=== PATIENT | female | born 1940 | race Caucasian/White ===

== ENCOUNTER 2023-12-20 21:07 | Emergency (ER) | payer OTHER ==
--- NOTE | 2023-12-20 22:14 | RAD REPORT ---
EXAMINATION: Shoulder Left 2+ Views CLINICAL INDICATION: Female, 83 years old. PAIN COMPARISON: No prior exam. FINDINGS: Left proximal humerus fracture involving the surgical neck. This is only slightly laterally displaced . No dislocation. IMPRESSION: Left proximal humerus surgical neck fracture.
--- NOTE | 2023-12-20 22:14 | RAD REPORT ---
EXAMINATION: ONE VIEW CHEST XR CLINICAL INDICATION: Female, 83 years old.PAIN TECHNIQUE: 1 View, AP supine, X-ray of the chest was performed. [id number]. COMPARISON: No prior exam. FINDINGS: Lungs and pleura: Clear lungs. No effusion. Heart and mediastinum: Normal heart size. Unremarkable mediastinal contours. Osseous structures: No acute abnormality. Tubes/lines: Nerve stimulator overlying the left hemithorax. Other: None. IMPRESSION: No acute intrathoracic abnormality.
[2023-12-20] MEDS ORDERED: ONDANSETRON 4 MG/2 ML VIAL ONE (22:34)
[2023-12-20] MEDS ORDERED: KETOROLAC 30 MG/ML INJ ONE (22:34)
[2023-12-20] MEDS ORDERED: NA CHLORIDE 0.9% 500 ML ONE (22:35)
[2023-12-20] MEDS ORDERED: FENTANYL CITR 100 MCG/2 ML ONE (22:35)
--- NOTE | 2023-12-20 22:45 | ER ---
Nurse's Notes [facility] Name: Georgia Curry Age: 83 yrs Sex: Female : 1940 Arrival Date: 12/20/2023 Time: 21:07 Bed 16 Private MD: Diagnosis: Fall on same level, unspecified;2-part displaced fracture of surgical neck of left humerus Presentation: 12/19 21:12 Chief complaint: Patient states: S/P FALL..PT TRYING TO KILL A SNAKE BUT SHE THOUGHT IT br2 WAS COMING AT HER CAUSING HER TO FALL TOWARDS A CHAIR THEN ON LEFT SHOULDER. DENIES HITTING HEAD, LOC AND DOESN'T TAKE BLOOD THINNERS. Coronavirus screen: Client denies travel out of the [place] in the last 14 days. Ebola Screen: Patient negative for fever greater than or equal to 101.5 degrees Fahrenheit, and additional compatible Ebola Virus Disease symptoms Patient denies exposure to infectious person. Patient denies travel to an Ebola-affected area in the 21 days before illness onset. Initial Sepsis Screen: Does the patient meet any 2 criteria? No. Patient's initial sepsis screen is negative. Does the patient have a suspected source of infection? No. Patient's initial sepsis screen is negative. Risk Assessment: Do you want to hurt yourself or someone else? Patient reports no desire to harm self or others. Onset of symptoms was December 20, 2023 at 20:00. 21:12 Method Of Arrival: EMS: [facility] br2 21:12 Acuity: MATTHEW 3 br2 Historical: - Allergies: 21:14 Morphine; br2 - Immunization history:: Adult Immunizations up to date. - Infectious Disease History:: Denies. - Social history:: Smoking status: Patient denies any tobacco usage or history of. Patient/guardian denies using alcohol, street drugs. Screenin:28 [facility] ED Fall Risk Assessment (Adult) History of falling in the last 3 months, tm6 including since admission Yes- single mechanical fall (1 pt) Confusion or Disorientation No (0 pts) Intoxicated or Sedated No (0 pts) Impaired Gait No (0 pts) Mobility Assist Device Used No (0 pt) Altered Elimination No (0 pt) Score/Fall Risk Level 0 - 2 = Low Risk Oriented to surroundings, Maintained a safe environment, Educated pt \T\ family on fall prevention, incl call for assistance when getting out of bed. Abuse screen: Denies threats or abuse. Denies injuries from another. Nutritional screening: No deficits noted. Tuberculosis screening: No symptoms or risk factors identified. Assessment: 21:28 General: Appears uncomfortable, Behavior is calm, cooperative. Pain: Complains of pain tm6 in left arm Pain currently is 10 out of 10 on a pain scale. Neuro: Level of Consciousness is awake, alert, obeys commands, Oriented to person, place, time, situation. Cardiovascular: Patient's skin is warm and dry. Respiratory: Airway is patent Respiratory effort is even, unlabored, Respiratory pattern is regular, symmetrical. GI: No signs and/or symptoms were reported involving the gastrointestinal system. Abdomen is flat, non-distended. : No signs and/or symptoms were reported regarding the genitourinary system. EENT: No signs and/or symptoms were reported regarding the EENT system. Derm: No signs and/or symptoms reported regarding the dermatologic system. Musculoskeletal: Reports pain in left arm Pain is 10 out of 10 on a pain scale. 22:30 Reassessment: Patient and/or family updated on plan of care and expected duration. Pain br2 level reassessed. Patient is alert, oriented x 3, equal unlabored respirations, skin warm/dry/pink. General: Appears uncomfortable, Behavior is calm, cooperative. Pain: Complains of pain in left arm Pain currently is 10 out of 10 on a pain scale. Neuro: Reyes Agitation-Sedation Scale (RASS): 0 - Alert and Calm Level of Consciousness is awake, alert, obeys commands, Oriented to person, place, time, situation. Musculoskeletal: Reports pain in left arm. 23:30 Reassessment: Patient and/or family updated on plan of care and expected duration. Pain br2 level reassessed. Patient is alert, oriented x 3, equal unlabored respirations, skin warm/dry/pink. Patient states feeling better. Vital Signs: 21:12 BP 151 / 84; Pulse 83; Resp 18; Temp 98.2(TE); Pulse Ox 95% on R/A; Weight 70.76 kg; br2 Height 5 ft. 76 in. ; Pain 6/10; 22:30 BP 170 / 82; Pulse 81; Resp 18 S; Pulse Ox 94% on R/A; br2 23:30 BP 170 / 91; Pulse 82; Resp 18; Temp 97.2; Pulse Ox 93% ; br2 21:12 Body Mass Index 5.93 (70.76 kg, 345.44 cm) br2 21:12 Pain Scale: Adult br2 ED Course: 21:09 Patient arrived in ED. rv1 21:10 Migue Ann, ASHLEY is Primary Nurse. tm6 21:10 Sukhwinder Fox MD is Attending Physician. cassy 21:14 Triage completed. br2 21:28 Arm band placed on right wrist. tm6 21:28 Patient has correct armband on for positive identification. Bed in low position. Call tm6 light in reach. Side rails up X2. Provided Education on: use of call mills. Client placed on continuous cardiac and pulse oximetry monitoring. NIBP monitoring applied. Pulse ox on. NIBP on. Door closed. Noise minimized. Warm blanket given. Pillow given. 22:09 Chest Single View XRAY In Process Unspecified. EDMS 22:09 Shoulder Left (2 View) XRAY In Process Unspecified. EDMS 22:21 Inserted saline lock: 20 gauge in right antecubital area, using aseptic technique. af3 Blood collected. Flushed with 10 mL NS. 22:43 Gautam Guevara MD is Referral Physician. [facility] 23:45 No provider procedures requiring assistance completed. IV discontinued, intact, br2 bleeding controlled, No redness/swelling at site. Pressure dressing applied. Administered Medications: 22:44 Drug: Ketorolac IVP 15 mg IVP once Route: IVP; Site: right antecubital; br2 23:15 Follow up: Response: No adverse reaction br2 22:44 Drug: Ondansetron IVP 4 mg IVP once; over 2 minutes Route: IVP; Site: right antecubital;br2 23:15 Follow up: Response: No adverse reaction br2 22:44 Drug: fentaNYL (PF) IVP 25 mcg IVP once Route: IVP; Site: right antecubital; br2 23:15 Follow up: Response: No adverse reaction; Pain is unchanged, physician notified br2 22:45 Drug: NS 0.9% IV 500 ml 500 ml IV at 1 bolus once; to be given as a bolus over 30 br2 minutes Volume: 500 ml; Route: IV; Rate: 1 bolus; Site: right antecubital; 23:15 Follow up: Response: No adverse reaction; IV Status: Completed infusion; IV Intake: br2 500ml 23:37 Drug: fentaNYL (PF) IVP 25 mcg IVP once Route: IVP; Site: right antecubital; br2 12/20 00:05 Follow up: Response: No adverse reaction; Pain is decreased br2 Medication: 12/19 21:28 VIS not applicable for this client. tm6 Intake: 23:15 IV: 500ml; Total: 500ml. br2 Outcome: 22:44 Discharge ordered by MD. madera 23:47 Patient left the ED. br2 12/20 04:41 Discharged to home via wheelchair, br2 Condition: improved Discharge instructions given to patient, family, Instructed on discharge instructions, follow up and referral plans. Demonstrated understanding of instructions, follow-up care, medications, Prescriptions given X 2, Signatures: Dispatcher [employer] EDMS Sukhwinder Fox MD MD cha Villegas, Rebecca rv1 Migue Ann RN RN tm6 Kaci Gaspar RN RN br2 Claudia Molina3
--- NOTE | 2023-12-20 22:45 | EDPHYS ---
Physician Documentation [facility] Name: Georgia Curry Age: 83 yrs Sex: Female : 1940 Arrival Date: 12/20/2023 Time: 21:07 Bed 16 Private MD: ED Physician Sukhwinder Fox HPI: 12/19 22:40 This 83 yrs old Female presents to ER via EMS with complaints of Fall Injury. cassy 22:40 Details of fall: The patient fell from an upright position, while walking. Onset: The cassy symptoms/episode began/occurred just prior to arrival. Associated injuries: The patient sustained anterior aspect of left shoulder, left axilla, left bicep, posterior aspect of left shoulder and left tricep, contusion, decreased range of motion, obvious fracture, painful injury, swelling. Severity of symptoms: At their worst the symptoms were moderate, in the emergency department the symptoms are unchanged. The patient has not experienced similar symptoms in the past. Historical: - Allergies: 21:14 Morphine; br2 - Immunization history:: Adult Immunizations up to date. - Infectious Disease History:: Denies. - Social history:: Smoking status: Patient denies any tobacco usage or history of. Patient/guardian denies using alcohol, street drugs. ROS: 22:40 Constitutional: Negative for fever, chills, and weight loss, Eyes: Negative for injury, cassy pain, redness, and discharge, ENT: Negative for injury, pain, and discharge, Neck: Negative for injury, pain, and swelling, Cardiovascular: Negative for chest pain, palpitations, and edema, Respiratory: Negative for shortness of breath, cough, wheezing, and pleuritic chest pain, Abdomen/GI: Negative for abdominal pain, nausea, vomiting, diarrhea, and constipation, Back: Negative for injury and pain, : Negative for injury, bleeding, discharge, and swelling, Skin: Negative for injury, rash, and discoloration, Neuro: Negative for headache, weakness, numbness, tingling, and seizure, Psych: Negative for depression, anxiety, suicide ideation, homicidal ideation, and hallucinations, Allergy/Immunology: Negative for hives, rash, and allergies, Endocrine: Negative for neck swelling, polydipsia, polyuria, polyphagia, and marked weight changes, Hematologic/Lymphatic: Negative for swollen nodes, abnormal bleeding, and unusual bruising, 22:40 MS/extremity: Positive for injury or acute deformity, contusion, decreased range of motion, pain, swelling, tenderness, of the anterior aspect of left shoulder, left bicep, posterior aspect of left shoulder and left tricep, Exam: 22:40 Constitutional: This is a well developed, well nourished patient who is awake, alert, cassy and in no acute distress. Head/Face: Normocephalic, atraumatic. Eyes: Pupils equal round and reactive to light, extra-ocular motions intact. Lids and lashes normal. Conjunctiva and sclera are non-icteric and not injected. Cornea within normal limits. Periorbital areas with no swelling, redness, or edema. ENT: Nares patent. No nasal discharge, no septal abnormalities noted. Tympanic membranes are normal and external auditory canals are clear. Oropharynx with no redness, swelling, or masses, exudates, or evidence of obstruction, uvula midline. Mucous membranes moist. Neck: Trachea midline, no thyromegaly or masses palpated, and no cervical lymphadenopathy. Supple, full range of motion without nuchal rigidity, or vertebral point tenderness. No Meningismus. Chest/axilla: Normal chest wall appearance and motion. Nontender with no deformity. No lesions are appreciated. Cardiovascular: Regular rate and rhythm with a normal S1 and S2. No gallops, murmurs, or rubs. Normal PMI, no JVD. No pulse deficits. Respiratory: Lungs have equal breath sounds bilaterally, clear to auscultation and percussion. No rales, rhonchi or wheezes noted. No increased work of breathing, no retractions or nasal flaring. Abdomen/GI: Soft, non-tender, with normal bowel sounds. No distension or tympany. No guarding or rebound. No evidence of tenderness throughout. Back: No spinal tenderness. No costovertebral tenderness. Full range of motion. Female : Normal external genitalia. Skin: Warm, dry with normal turgor. Normal color with no rashes, no lesions, and no evidence of cellulitis. Neuro: Awake and alert, GCS 15, oriented to person, place, time, and situation. Cranial nerves II-XII grossly intact. Motor strength 5/5 in all extremities. Sensory grossly intact. Cerebellar exam normal. Normal gait. Psych: Awake, alert, with orientation to person, place and time. Behavior, mood, and affect are within normal limits. 22:40 Musculoskeletal/extremity: Extremities: grossly normal except: noted in the anterior aspect of left shoulder, left bicep, posterior aspect of left shoulder and left tricep: decreased ROM, pain, swelling, tenderness, Vital Signs: 21:12 BP 151 / 84; Pulse 83; Resp 18; Temp 98.2(TE); Pulse Ox 95% on R/A; Weight 70.76 kg; br2 Height 5 ft. 76 in. ; Pain 6/10; 22:30 BP 170 / 82; Pulse 81; Resp 18 S; Pulse Ox 94% on R/A; br2 23:30 BP 170 / 91; Pulse 82; Resp 18; Temp 97.2; Pulse Ox 93% ; br2 21:12 Body Mass Index 5.93 (70.76 kg, 345.44 cm) br2 21:12 Pain Scale: Adult br2 MDM: 21:10 Medical Screening Exam initiated cassy 22:41 Differential diagnosis: Anterior dislocation with fracture, Anterior dislocation cassy without fracture, Posterior dislocation with fracture, Posterior dislocation without fracture, humeral head fracture, glenoid fracture, DJD, tendonitis. Differential diagnosis: abrasion, contusion, fracture, multiple trauma, sprain, strain. Data reviewed: vital signs, nurses notes, radiologic studies, plain films. Consideration of Admission/Observation Escalation of care including admission/observation considered. I considered the following discharge prescriptions or medication management in the emergency department Medications were administered in the Emergency Department. See MAR. Independent interpretation of the following test(s) in the Emergency Department X-Ray: My interpretation is left shoulder , cxr. Test considered but Not performed: Labs: no labs. Historians other than the Patient: Family Member: family well informed. Care significantly affected by the following chronic conditions: tremors. 12/19 21:34 Order name: Chest Single View XRAY; Complete Time: 22:39 [facility] 12/19 20:34 Order name: Shoulder Left (2 View) XRAY; Complete Time: 22:39 [facility] 12/19 21:34 Order name: Ice pack; Complete Time: 04:15 [facility] 12/19 22:39 Order name: Shoulder Immobilizer; Complete Time: 04:15 [facility] Administered Medications: 22:44 Drug: Ketorolac IVP 15 mg IVP once Route: IVP; Site: right antecubital; br2 23:15 Follow up: Response: No adverse reaction br2 22:44 Drug: Ondansetron IVP 4 mg IVP once; over 2 minutes Route: IVP; Site: right antecubital;br2 23:15 Follow up: Response: No adverse reaction br2 22:44 Drug: fentaNYL (PF) IVP 25 mcg IVP once Route: IVP; Site: right antecubital; br2 23:15 Follow up: Response: No adverse reaction; Pain is unchanged, physician notified br2 22:45 Drug: NS 0.9% IV 500 ml 500 ml IV at 1 bolus once; to be given as a bolus over 30 br2 minutes Volume: 500 ml; Route: IV; Rate: 1 bolus; Site: right antecubital; 23:15 Follow up: Response: No adverse reaction; IV Status: Completed infusion; IV Intake: br2 500ml 23:37 Drug: fentaNYL (PF) IVP 25 mcg IVP once Route: IVP; Site: right antecubital; br2 12/20 00:05 Follow up: Response: No adverse reaction; Pain is decreased br2 Disposition Summary: 12/20/23 22:44 Discharge Ordered Notes: Location: Home cassy Problem: new cassy Symptoms: have improved cassy Condition: Stable cassy Diagnosis - Fall on same level, unspecified cassy - 2-part displaced fracture of surgical neck of left humerus cassy Followup: cassy - With: Private Physician - When: 2 - 3 days - Reason: Recheck today's complaints, Continuance of care, Re-evaluation by your physician Followup: cassy - With: Gautam Guevara MD - When: 2 - 3 days - Reason: Recheck today's complaints, Re-evaluation by your physician Discharge Instructions: - Discharge Summary Sheet cassy - Fall Prevention in the Home, Adult cassy - Humerus Fracture Treated With Immobilization cassy - Humerus Fracture Treated With Immobilization, [id number] cassy - Fall Prevention in the Home, Adult, [id number] cassy Forms: - Medication Reconciliation Form cassy - Antibiotic Education cassy - Prescription Opioid Use cassy - Patient Portal Instructions [facility] - Leadership Thank You Letter [facility] Prescriptions: - acetaminophen-codeine 300-15 mg Oral tablet - take 1 tablet ORAL route every 4-6 hours; 20 tablet; Refills: 0, Product cassy Selection Permitted - diclofenac sodium 25 mg Oral tablet, delayed release (enteric coated) - take 1 tablet ORAL route 3 times per day; 21 tablet; Refills: 0, Product cassy Selection Permitted Signatures: Dispatcher [employer] Sukhwinder Dye MD MD cha Riddle, Belinda RN RN br2
[2023-12-21 00:44] VITALS: BP 151/84; TEMP 98.2; O2SAT 95
== END 2023-12-20 23:47 | disposition home or self-care (01) ==
LOC: ER 21:07
DX: S42.222A 2-part displaced fracture of surgical neck of left humerus, initial encounter for closed fracture (principal); W18.30XA Fall on same level, unspecified, initial encounter
CPT/HCPCS: 71045; 73030; 96375; 96374; 99284; J3010; J2405; J7040

== ENCOUNTER 2024-02-19 04:26 | Inpatient (IN) | payer OTHER ==
[2024-02-19] MEDS ORDERED: IPRATROPIUM BROM 0.5MG/2.5ML ONE (04:54)
[2024-02-19] MEDS ORDERED: ACETAMINOPHEN 325 MG TABLET ONE (04:55)
[2024-02-19] MEDS ORDERED: Levofloxacin500mg IV 500 MG/100 ML BAG IV ONE (04:55)
[2024-02-19] MEDS ORDERED: FAMOTIDINE 20 MG/2 ML VIAL IV ONE (04:55)
[2024-02-19] MEDS ORDERED: METHYLPREDNISOLONE 125 MG INJ ONE ×2 (04:55→12:15)
[2024-02-19] MEDS ORDERED: NA CHLORIDE 0.9% 2,000 ML ONE (04:55)
[2024-02-19] MEDS ORDERED: LEVALBUTEROL 1.25 MG/3 ML NEB ONE (04:55)
[2024-02-19 05:09] LABS: PT Prothrombin Time 12.3 SECONDS (9.4-12.5); Protime INR 1.1
[2024-02-19 05:10] LABS: Absolute Monocytes 1.2 K/uL (0.1-1.3); Absolute Neutrophil 9.4 K/uL (1.8-8.0); Basophils % 0.2 % (0-1.3); Eosinophils % 0.3 % (0-4.4); Hematocrit 43.4 % (36.0-45.0); Hemoglobin 14.3 g/dL (12.0-15.0); Lymphocytes % 8.8 % (15.3-44.8); MCV 90.9 fL (80-100); MPV 8.8 fL (7.6-11.3); Monocytes % 10.1 % (3.3-12.3); Neutrophils % 80.6 % (41.7-73.7); Nucleated Red Blood Cells % 0.1 % (0-0); Platelets 396 thou/uL (152-406); RBC Red Blood Cell Count 4.78 M/uL (3.86-4.86); Red Cell Distribution Width 13.5 % (12.1-15.2)
[2024-02-19 05:39] LABS: Albumin 2.8 g/dL (3.4-5.0); Albumin/Globulin Ratio 0.7 (1.1-1.8); Bilirubin Direct 0.2 mg/dL (0-0.2); Bilirubin Indirect, Calculated 0.3 mg/dL (0.2-0.8); Bilirubin Total 0.5 mg/dL (0.2-1.0); Globulin 4.2 g/dL (2.3-3.5); Thyroid Stimulating Hormone 1.02 uIU/mL (0.358-3.740); Troponin High Sensitivity 6.5 pg/mL (<58.9)
--- NOTE | 2024-02-19 05:48 | ER ---
Nurse's Notes [facility] Name: Georgia Curry Age: 84 yrs Sex: Female : 1940 Arrival Date: 02/19/2024 Time: 04:26 Bed 8 Private MD: Diagnosis: COPD/ Chronic obstructive pulmonary disease with (acute) exacerbation;Dyspnea;Fever, unspecified;Hypoxemia;Persistent atrial fibrillation;Hypokalemia Presentation: 02/18 04:26 Chief complaint: Patient states: i have been short of breath for a week, and it s bm8 getting harder to breathe with this cough. 04:26 Coronavirus screen: Vaccine status: Patient reports receiving the 2nd dose of the covid bm8 vaccine. Ebola Screen: Patient negative for fever greater than or equal to 101.5 degrees Fahrenheit, and additional compatible Ebola Virus Disease symptoms Patient denies exposure to infectious person. Patient denies travel to an Ebola-affected area in the 21 days before illness onset. No symptoms or risks identified at this time. Initial Sepsis Screen: Does the patient meet any 2 criteria? RR > 20 per min. No. Patient's initial sepsis screen is negative. Does the patient have a suspected source of infection? No. Patient's initial sepsis screen is negative. Risk Assessment: Do you want to hurt yourself or someone else? Patient reports no desire to harm self or others. Onset of symptoms was February 12, 2024. Care prior to arrival: Oxygen administered. via nasal cannula. 04:26 Method Of Arrival: EMS: [facility] bm8 04:26 Acuity: MATTHEW 2 bm8 Triage Assessment: 04:26 General: Appears in no apparent distress. comfortable, Behavior is calm, cooperative, bm8 appropriate for age. 04:26 Pain: Denies pain. EENT: Nares are clear bilaterally Reports nasal discharge that is bm8 watery. Neuro: Level of Consciousness is awake, alert, obeys commands, Oriented to person, place, time, situation, Appropriate for age. Cardiovascular: Denies chest pain, Heart tones S1 S2 present Capillary refill < 3 seconds is > 3 seconds is sluggish in bilateral fingers Patient's skin is warm and dry. Rhythm is atrial fibrillation With PVC's. Respiratory: Reports shortness of breath cough that is non-productive, Airway is patent Trachea midline Respiratory effort is even, unlabored, Respiratory pattern is regular, symmetrical, Breath sounds with rales bilaterally. Onset: The symptoms/episode began/occurred x1 week, the patient has moderate shortness of breath. GI: No signs and/or symptoms were reported involving the gastrointestinal system. : No signs and/or symptoms were reported regarding the genitourinary system. Derm: Skin is intact, is healthy with good turgor, bilateral lower leg swelling, 1+ pitting edema to mid calf. Musculoskeletal: Reports fracture right humeral head, is currently being treated, stated should could get put in cast for it. Historical: - Allergies: 05:14 Morphine; bm8 05:14 Codeine; bm8 - Home Meds: 05:14 amlodipine 10 mg oral tablet 1 tab daily for hypertension [Active]; bm8 losartan-hydrochlorothiazide 100-25 mg oral tablet 1 tab daily for hypertension [Active]; vitamin b6 100 mg 1 tab daily [Active]; Vitamin D3 50 mcg (2,000 unit) oral tablet 1 tab daily [Active]; vitamin E 268 mg (400 unit) Oral capsule 1 cap daily [Active]; Vitamin C 500 mg Oral tablet 1 tab daily [Active]; [place]-3 oral 1000 mg 1 tab daily [Active]; biotin 5,000 mcg oral tablet,chewable 1 tab daily [Active]; aspirin 81 mg Oral capsule 1 cap daily [Active]; carvedilol 12.5 mg oral tablet 1 tab 2 times per day [Active]; simvastatin 40 mg Oral tablet 1 tab daily [Active]; - PMHx: 05:14 Hypertensive disorder; bm8 05:20 removal of benign tumor thyroid; removal of benign tumor left breast; hysterectomy; bm8 hernia repair of groin; - Immunization history:: Adult Immunizations up to date. - Infectious Disease History:: Denies. - Family history:: not pertinent. - Social history:: Smoking status: Patient denies any tobacco usage or history of. Screenin:26 [facility] ED Fall Risk Assessment (Adult) History of falling in the last 3 months, bm8 including since admission Yes- physiologic fall (2 pts) Confusion or Disorientation No (0 pts) Intoxicated or Sedated No (0 pts) Impaired Gait Yes (1 pt) Mobility Assist Device Used Yes (1 pt) Altered Elimination No (0 pt) Score/Fall Risk Level 3 or more points = High Risk Oriented to surroundings, Maintained a safe environment, Educated pt \T\ family on fall prevention, incl call for assistance when getting out of bed, Assessed \T\ reinforced patient's understanding of fall precautions, Hourly rounding (assess needs \T\ fall precautionary measures) done, Used ambulatory aids as needed (educated on \T\ assisted with), Used gait belt as appropriate Implemented a Fall Risk Plan of Care. Abuse screen: Denies threats or abuse. Nutritional screening: No deficits noted. Tuberculosis screening: No symptoms or risk factors identified. Assessment: 05:26 Reassessment: Patient appears in no apparent distress at this time. Patient and/or bm8 family updated on plan of care and expected duration. Pain level reassessed. Patient is alert, oriented x 3, equal unlabored respirations, skin warm/dry/pink. Cardiovascular: Denies chest pain, Heart tones S1 S2 present Capillary refill < 3 seconds is > 3 seconds in bilateral fingers Patient's skin is warm and dry. Rhythm is atrial fibrillation With PVC's. Respiratory: Airway is patent Respiratory effort is even, unlabored, Respiratory pattern is regular, symmetrical, cough has subsided some, lung sound are improved but still has rales bilaterally. 06:05 Reassessment: Patient appears in no apparent distress at this time. No changes from [facility] previously documented assessment. Patient and/or family updated on plan of care and expected duration. Pain level reassessed. Patient is alert, oriented x 3, equal unlabored respirations, skin warm/dry/pink. placed female pur wic on pt. Vital Signs: 04:26 BP 137 / 91; Pulse 84; Resp 24; Temp 97.6; Pulse Ox 91% ; Weight 68.95 kg; Height 5 ft. bm8 7 in. ; Pain 0/10; 04:52 Weight 73.48 kg; bm8 05:30 BP 139 / 77; Pulse 107; Resp 19; Temp 97.8; Pulse Ox 98% ; Pain 0/10; bm8 06:05 BP 130 / 77; Pulse 92; Resp 20; Temp 97.8; Pulse Ox 94% on 4 lpm NC; Pain 0/10; bm8 04:26 Body Mass Index 23.81 (73.48 kg, 170.18 cm) bm8 04:26 Pain Scale: Adult bm8 05:30 Pain Scale: Adult bm8 06:05 Pain Scale: Adult bm8 Nidia Coma Score: 05:26 Eye Response: spontaneous(4). Motor Response: obeys commands(6). Verbal Response: bm8 oriented(5). Total: 15. 06:05 Eye Response: spontaneous(4). Motor Response: obeys commands(6). Verbal Response: bm8 oriented(5). Total: 15. ED Course: 04:26 Arm band placed on right wrist. bm8 04:27 Patient arrived in ED. cassy 04:27 Sukhwinder Fox MD is Attending Physician. cassy 04:40 No provider procedures requiring assistance completed. bm8 04:40 Initial lab(s) drawn, by ri, sent to lab. First set of blood cultures drawn by ri, EKG bm8 done, by ED staff, reviewed by Sukhwinder Fox MD COVID swab sent to lab. Flu and/or RSV swab sent to lab. X-ray(s) taken. Inserted saline lock: 20 gauge in right antecubital area, using aseptic technique. Blood collected. Flushed with 10 mL NS. Oxygen administration via nasal cannula \T\ 4L/min Response to oxygen therapy: symptoms improved. 04:48 Shad Clifford, RN is Primary Nurse. bm8 04:54 XRAY Chest (1 view) In Process Unspecified. EDMS 04:55 Second set of blood cultures drawn by ri. bm8 05:10 Initial Neb Treatment Given as ordered Patient was instructed and evaluated on bm8 procedure Patient tolerated procedure well without adverse effect. 05:14 Triage completed. bm8 05:26 Patient has correct armband on for positive identification. Placed in gown. Bed in low bm8 position. Call light in reach. Side rails up X2. Client placed on continuous cardiac and pulse oximetry monitoring. NIBP monitoring applied. groundwater monitoring technician on. Pulse ox on. NIBP on. Door closed. Noise minimized. Warm blanket given. Pillow given. Verbal reassurance given. Head of bed elevated. 05:45 Arnaud Collier is Hospitalizing Provider. [facility] 06:05 Provided Education on: need for admission. bm8 06:05 Patient admitted, IV remains in place. bm8 07:00 Report given to ASHLEY Meraz. bm8 11:59 delivered lunch tray to pt. sp Administered Medications: 05:44 Discontinued: ns 0.9% (30 ml/kg) 30 ml/kg IV at bolus once; Sepsis Protocol; to be cassy given as a bolus over 90 minutes 05:09 Drug: MethylPrednisoLONE IVP 125 mg IVP once Route: IVP; Site: right antecubital; bm8 06:06 Follow up: Response: No adverse reaction bm8 05:09 Drug: Levalbuterol Inhalation 1.25 mg Inhalation once Route: Inhalation; bm8 06:07 Follow up: Response: No adverse reaction bm8 05:09 Drug: Ipratropium Inhalation Aerosol 0.5 mg Inhalation once Route: Inhalation; bm8 06:07 Follow up: Response: No adverse reaction bm8 05:09 Drug: Famotidine IVP 20 mg IVP once; dilute with 10 mL 0.9% NaCl; give over 2 minutes bm8 Route: IVP; Site: right antecubital; 06:07 Follow up: Response: No adverse reaction bm8 05:09 Drug: levofloxacin IVPB 500 mg 100 ml IVPB once over 60 mins Volume: 100 ml; Route: bm8 IVPB; Infused Over: 60 mins; Site: right antecubital; 06:07 Follow up: Response: No adverse reaction; IV Status: Completed infusion; IV Intake: bm8 100ml 05:09 Drug: Acetaminophen PO 650 mg PO once Route: PO; bm8 06:07 Follow up: Response: No adverse reaction bm8 05:10 Drug: NS 0.9% IV (30 ml/kg) 30 ml/kg IV at bolus once; Sepsis Protocol; to be given as bm8 a bolus over 90 minutes Route: IV; Rate: bolus; Site: right antecubital; 06:06 Follow up: Response: No adverse reaction; IV Status: Completed infusion; IV Intake: bm8 1000ml 06:06 Drug: Potassium PO Effervescent Tablet 50 mEq PO once; dissolve in 4 ounces of water or bm8 juice Route: PO; 07:01 Follow up: Response: No adverse reaction bm8 06:06 Drug: NS 0.9% with KCl IV 20 mEq/L 1000 ml IV at 125 ml/hr continuous Route: IV; Rate: bm8 125 ml/hr; Site: right antecubital; 07:01 Follow up: Response: No adverse reaction; IV Status: Infusion continued upon admission bm8 06:06 Drug: Enoxaparin Sub-Q 70 mg Sub-Q once Route: Sub-Q; Site: right lower abdomen; bm8 07:01 Follow up: Response: No adverse reaction bm8 Medication: 05:26 VIS not applicable for this client. bm8 Intake: 06:06 IV: 1000ml; Total: 1000ml. bm8 06:07 IV: 100ml; Total: 1100ml. bm8 Outcome: 05:47 Decision to Hospitalize by Provider. cassy 13:25 Admitted to Med/surg accompanied by tech, via stretcher, room 405, with oxygen, with tm6 chart, :25 Condition: stable 13:25 Instructed on the need for admit, 13:26 Patient left the ED. tm6 Signatures: Dispatcher [employer] EDSukhwinder Blanton MD MD cha Pinkerton, Shawna sp Masterson, Tawney, RN RN tm6 Shad Clifford, RN RN bm8
--- NOTE | 2024-02-19 05:48 | EDPHYS ---
Physician Documentation [facility] Name: Georgia Curry Age: 84 yrs Sex: Female : 1940 Arrival Date: 02/19/2024 Time: 04:26 Bed 8 Private MD: ELIAS Physician Sukhwinder Fox HPI: 02/18 04:35 This 84 yrs old Female presents to ER via Unassigned with complaints of cough cassy , fever and weakness. 04:35 The patient has shortness of breath at rest, with light activity. Onset: The cassy symptoms/episode began/occurred 2 day(s) ago. Duration: The symptoms are continuous, and are steadily getting worse. The patient's shortness of breath is aggravated by coughing, is alleviated by elevating head, rest, application of supplemental oxygen. The patient or guardian reports cough, difficulty breathing, flu symptoms, arthralgias, low-grade fever, myalgias, no appetite. Modifying factors: The symptoms are alleviated by nothing. the symptoms are aggravated by activity, cold environment, lying flat, talking. Associated signs and symptoms: Pertinent positives: non-productive cough, dizziness, fever. Severity of symptoms: At their worst the symptoms were moderate in the emergency department the symptoms are unchanged. Historical: - Allergies: 05:14 Morphine; bm8 05:14 Codeine; bm8 - Home Meds: 05:14 amlodipine 10 mg oral tablet 1 tab daily for hypertension [Active]; bm8 losartan-hydrochlorothiazide 100-25 mg oral tablet 1 tab daily for hypertension [Active]; vitamin b6 100 mg 1 tab daily [Active]; Vitamin D3 50 mcg (2,000 unit) oral tablet 1 tab daily [Active]; vitamin E 268 mg (400 unit) Oral capsule 1 cap daily [Active]; Vitamin C 500 mg Oral tablet 1 tab daily [Active]; [place]-3 oral 1000 mg 1 tab daily [Active]; biotin 5,000 mcg oral tablet,chewable 1 tab daily [Active]; aspirin 81 mg Oral capsule 1 cap daily [Active]; carvedilol 12.5 mg oral tablet 1 tab 2 times per day [Active]; simvastatin 40 mg Oral tablet 1 tab daily [Active]; - PMHx: 05:14 Hypertensive disorder; bm8 05:20 removal of benign tumor thyroid; removal of benign tumor left breast; hysterectomy; bm8 hernia repair of groin; - Immunization history:: Adult Immunizations up to date. - Infectious Disease History:: Denies. - Family history:: not pertinent. - Social history:: Smoking status: Patient denies any tobacco usage or history of. ROS: 04:35 Eyes: Negative for injury, pain, redness, and discharge, ENT: Negative for injury, cassy pain, and discharge, Neck: Negative for injury, pain, and swelling, Abdomen/GI: Negative for abdominal pain, nausea, vomiting, diarrhea, and constipation, Back: Negative for injury and pain, : Negative for injury, bleeding, discharge, and swelling, MS/Extremity: Negative for injury and deformity, Skin: Negative for injury, rash, and discoloration, Neuro: Negative for headache, weakness, numbness, tingling, and seizure, 04:35 Constitutional: Positive for body aches, chills, fatigue, fever, malaise, poor PO intake, 04:35 Respiratory: Positive for cough, shortness of breath, at rest. 04:35 MS/extremity: Negative for acute changes, Exam: 04:35 Constitutional: This is a well developed, well nourished patient who is awake, alert, cassy and in no acute distress. Head/Face: Normocephalic, atraumatic. Eyes: Pupils equal round and reactive to light, extra-ocular motions intact. Lids and lashes normal. Conjunctiva and sclera are non-icteric and not injected. Cornea within normal limits. Periorbital areas with no swelling, redness, or edema. ENT: Nares patent. No nasal discharge, no septal abnormalities noted. Tympanic membranes are normal and external auditory canals are clear. Oropharynx with no redness, swelling, or masses, exudates, or evidence of obstruction, uvula midline. Mucous membranes moist. Neck: Trachea midline, no thyromegaly or masses palpated, and no cervical lymphadenopathy. Supple, full range of motion without nuchal rigidity, or vertebral point tenderness. No Meningismus. Chest/axilla: Normal chest wall appearance and motion. Nontender with no deformity. No lesions are appreciated. Abdomen/GI: Soft, non-tender, with normal bowel sounds. No distension or tympany. No guarding or rebound. No evidence of tenderness throughout. Back: No spinal tenderness. No costovertebral tenderness. Full range of motion. Skin: Warm, dry with normal turgor. Normal color with no rashes, no lesions, and no evidence of cellulitis. MS/ Extremity: Pulses equal, no cyanosis. Neurovascular intact. Full, normal range of motion., bilateral aka Neuro: Awake and alert, GCS 15, oriented to person, place, time, and situation. Cranial nerves II-XII grossly intact. Motor strength 5/5 in all extremities. Sensory grossly intact. Cerebellar exam normal. Normal gait. Psych: Awake, alert, with orientation to person, place and time. Behavior, mood, and affect are within normal limits. 04:35 Cardiovascular: Rate: tachycardic, actual rate is 105 bpm, Rhythm: regular, Pulses: Pulses are 4+ in bilateral radial, brachial, femoral, popliteal, posterior tibial and and dorsalis pedis arteries.. Heart sounds: normal, Edema: is not appreciated, JVD: is not appreciated, 04:35 ECG was reviewed by the Attending Physician. 05:04 ECG was reviewed by the Attending Physician. cassy 05:05 Chest/axilla: Inspection: normal, Palpation: is normal, Axilla: are normal, Breasts: cassy are normal, Lymph nodes: lymphadenopathy is not appreciated, 05:05 Cardiovascular: JVD: Vital Signs: 04:26 BP 137 / 91; Pulse 84; Resp 24; Temp 97.6; Pulse Ox 91% ; Weight 68.95 kg; Height 5 ft. bm8 7 in. ; Pain 0/10; 04:52 Weight 73.48 kg; bm8 05:30 BP 139 / 77; Pulse 107; Resp 19; Temp 97.8; Pulse Ox 98% ; Pain 0/10; bm8 06:05 BP 130 / 77; Pulse 92; Resp 20; Temp 97.8; Pulse Ox 94% on 4 lpm NC; Pain 0/10; bm8 04:26 Body Mass Index 23.81 (73.48 kg, 170.18 cm) bm8 04:26 Pain Scale: Adult bm8 05:30 Pain Scale: Adult bm8 06:05 Pain Scale: Adult bm8 [place] Coma Score: 05:26 Eye Response: spontaneous(4). Motor Response: obeys commands(6). Verbal Response: bm8 oriented(5). Total: 15. 06:05 Eye Response: spontaneous(4). Motor Response: obeys commands(6). Verbal Response: bm8 oriented(5). Total: 15. MDM: 04:27 Medical Screening Exam initiated cassy 04:38 Differential diagnosis: Anemia Anxiety Reaction asthma, obstructed airway, tracheal cassy injury, bronchitis, flu, URI, viral Infection, bacterial infection, URI, bronchitis, pneumonia UTI, gastroenteritis, meningitis. Antibiotic administration: Levaquin given. Immunization status: Pneumococcal vaccine: within last 5 years. Influenza vaccine: within last 5 years. Data reviewed: vital signs, nurses notes, lab test result(s), EKG, radiologic studies, plain films. Consideration of Admission/Observation Escalation of care including admission/observation considered. I considered the following discharge prescriptions or medication management in the emergency department Medications were administered in the Emergency Department. See MAR. Independent interpretation of the following test(s) in the Emergency Department EKG: See my EKG interpretation above. Test considered but Not performed: CT: no ct chest. Historians other than the Patient: EMS: ems well informed. Care significantly affected by the following chronic conditions: Diabetes, Hypertension, Chronic Obstructive Pulmonary Disease. Counseling: I had a detailed discussion with the patient and/or guardian regarding the historical points, exam findings, and any diagnostic results supporting the discharge/admit diagnosis, lab results, radiology results, the need for further work-up and treatment in the hospital. 05:43 Post IV fluid administration reassessment for Sepsis: Client not prescribed the 30 cassy mL/kg IVF due to: hx chf. 02/18 04:33 Order name: Basic Metabolic Panel; Complete [facility]: 05:41 [facility] 02/18 04:33 Order name: CBC with Diff; Complete Time: 05:19 [facility] 02/18 04:33 Order name: LFT's; Complete Time: 05:41 [facility] 02/18 04:33 Order name: Magnesium; Complete Time: 05:41 [facility] 02/18 04:33 Order name: NT PRO-BNP; Complete Time: 05:41 [facility] 02/18 04:33 Order name: PT-INR; Complete Time: 05:19 [facility] 02/18 04:33 Order name: Troponin HS; Complete Time: 05:41 [facility] 02/18 04:33 Order name: Blood Culture Adult (2) [facility] 02/18 04:33 Order name: Lactate w/ 2H reflex if indic.; Complete Time: 05:52 [facility] 02/18 04:33 Order name: Flu; Complete Time: 06:09 cassy 02/18 04:33 Order name: SARS RAPID; Complete Time: 06:09 cassy 02/18 05:01 Order name: Thyroid Stimulating Hormone; Complete Time: 05:41 EDMS 02/18 07:19 Order name: Urinalysis w/ reflexes EDMS 02/18 07:19 Order name: Basic Metabolic Panel EDMS 02/18 07:19 Order name: Basic Metabolic Panel EDMS 02/18 07:19 Order name: Basic Metabolic Panel EDMS 02/18 07:19 Order name: Basic Metabolic Panel EDMS 02/18 07:19 Order name: CBC with Automated Diff EDMS 02/18 07:19 Order name: CBC with Automated Diff EDMS 02/18 07:19 Order name: CBC with Automated Diff EDMS 02/18 07:19 Order name: CBC with Automated Diff EDMS 02/18 07:19 Order name: Magnesium EDMS 02/18 07:19 Order name: Magnesium EDMS 02/18 07:19 Order name: Magnesium EDMS 02/18 07:19 Order name: Magnesium EDMS 02/18 07:19 Order name: NT PRO-BNP EDMS 02/18 07:19 Order name: NT PRO-BNP EDMS 02/18 07:19 Order name: NT PRO-BNP EDMS 02/18 07:19 Order name: NT PRO-BNP EDMS 02/18 10:50 Order name: Influenza Screen (A EDMS 02/18 11:02 Order name: Respiratory Syncytial Virus Ag EDMS 02/18 04:33 Order name: XRAY Chest (1 view) [facility] 02/18 09:06 Order name: CT EDMS 02/18 04:33 Order name: Cardiac monitoring; Complete Time: 05:10 [facility] 02/18 04:33 Order name: EKG - Nurse/Tech; Complete Time: 05:10 cassy 02/18 04:33 Order name: IV Saline Lock; Complete Time: 05:10 [facility] 02/18 04:33 Order name: Labs collected and sent; Complete Time: 05:10 cassy 02/18 04:33 Order name: O2 Per Protocol; Complete Time: 05:10 cassy 02/18 04:33 Order name: O2 Sat Monitoring; Complete Time: 05:10 [facility] EC:04 Rate is 93 beats/min. Rhythm is irregularly irregular. QRS [place] is Normal. ME interval cassy is normal. QRS interval is normal. QT interval is normal. No Q waves. T waves are Normal. No ST changes noted. Clinical impression: Atrial Fibrillation and No evidence of ischemia. Interpreted by me. Reviewed by me. Administered Medications: 05:44 Discontinued: ns 0.9% (30 ml/kg) 30 ml/kg IV at bolus once; Sepsis Protocol; to be cassy given as a bolus over 90 minutes 05:09 Drug: MethylPrednisoLONE IVP 125 mg IVP once Route: IVP; Site: right antecubital; bm8 06:06 Follow up: Response: No adverse reaction bm8 05:09 Drug: Levalbuterol Inhalation 1.25 mg Inhalation once Route: Inhalation; bm8 06:07 Follow up: Response: No adverse reaction bm8 05:09 Drug: Ipratropium Inhalation Aerosol 0.5 mg Inhalation once Route: Inhalation; bm8 06:07 Follow up: Response: No adverse reaction bm8 05:09 Drug: Famotidine IVP 20 mg IVP once; dilute with 10 mL 0.9% NaCl; give over 2 minutes bm8 Route: IVP; Site: right antecubital; 06:07 Follow up: Response: No adverse reaction bm8 05:09 Drug: levofloxacin IVPB 500 mg 100 ml IVPB once over 60 mins Volume: 100 ml; Route: bm8 IVPB; Infused Over: 60 mins; Site: right antecubital; 06:07 Follow up: Response: No adverse reaction; IV Status: Completed infusion; IV Intake: bm8 100ml 05:09 Drug: Acetaminophen PO 650 mg PO once Route: PO; bm8 06:07 Follow up: Response: No adverse reaction bm8 05:10 Drug: NS 0.9% IV (30 ml/kg) 30 ml/kg IV at bolus once; Sepsis Protocol; to be given as bm8 a bolus over 90 minutes Route: IV; Rate: bolus; Site: right antecubital; 06:06 Follow up: Response: No adverse reaction; IV Status: Completed infusion; IV Intake: bm8 1000ml 06:06 Drug: Potassium PO Effervescent Tablet 50 mEq PO once; dissolve in 4 ounces of water or bm8 juice Route: PO; 07:01 Follow up: Response: No adverse reaction bm8 06:06 Drug: NS 0.9% with KCl IV 20 mEq/L 1000 ml IV at 125 ml/hr continuous Route: IV; Rate: bm8 125 ml/hr; Site: right antecubital; 07:01 Follow up: Response: No adverse reaction; IV Status: Infusion continued upon admission bm8 06:06 Drug: Enoxaparin Sub-Q 70 mg Sub-Q once Route: Sub-Q; Site: right lower abdomen; bm8 07:01 Follow up: Response: No adverse reaction bm8 Disposition Summary: 02/19/24 05:47 Hospitalization Ordered Notes: Hospitalization Status: Inpatient Admission cassy Provider: Arnaud Collier cha Condition: Fair cassy Problem: new cassy Symptoms: have improved cassy Bed/Room Type: Standard cassy Location: Telemetry/MedSurg (Inpatient)(02/19/24 12:42) Room Assignment: 405(02/19/24 12:42) Diagnosis - COPD/ Chronic obstructive pulmonary disease with (acute) exacerbation cassy - Dyspnea cassy - Fever, unspecified cassy - Hypoxemia cassy - Persistent atrial fibrillation cassy - Hypokalemia cassy Forms: - Medication Reconciliation Form cassy - SBAR form cassy - Leadership Thank You Letter cassy Signatures: Dispatcher [employer] EDMS Sukhwinder Fox MD MD cha Waters, Shelly, STROKE COORDINATOR-C STROKE COORDINATOR-Csnw Kalina Barone RN RN Noelle Caldwell, ASHLEY RAMIREZ Shad Clifford RN RN bm8 Corrections: (The following items were deleted from the chart) 04:34 04:34 BASIC METABOLIC PANEL+C.LAB.BRZ ordered. EDMS EDMS 04:34 04:34 CBC+H.LAB.BRZ ordered. EDMS EDMS 04:34 04:34 HEPATIC FUNCTION+C.LAB.BRZ ordered. EDMS EDMS 04:34 04:34 MAGNESIUM+C.LAB.BRZ ordered. EDMS EDMS 04:34 04:34 PROBNP+C.LAB.BRZ ordered. EDMS EDMS 04:34 04:34 PROTIME (+INR)+COAG.LAB.BRZ ordered. EDMS EDMS 04:34 04:34 Troponin High Sensitivity+C.LAB.BRZ ordered. EDMS EDMS 04:34 04:34 BLOOD CULTURE*+BA.LAB.BRZ ordered. EDMS EDMS 04:34 04:34 LACTATE+C.LAB.BRZ ordered. EDMS EDMS 04:34 04:34 Influenza Screen (A \T\ B)+BA.LAB.BRZ ordered. EDMS EDMS 04:34 04:34 SARS-COV-2 Antigen Rapid+I.LAB.BRZ ordered. EDMS EDMS 04:34 04:34 Chest Single View+RAD.RAD.BRZ ordered. EDMS EDMS 05:01 04:56 THYROID STIMULAT HORMONE+C.LAB.BRZ ordered. EDMS EDMS 06:24 05:47 Telemetry/MedSurg (Inpatient) cassy cg 06:24 05:47 cassy cg 12:42 06:24 [facility] ER HOLD cg ss 12:42 06:24 ERHOLD- cg ss
[2024-02-19 05:51] LABS: SARS-CoV-2 Antigen CONTROL BLUE LINE VIS/BG OK; SARS-CoV-2 Antigen Rapid Res Negative (Negative)
[2024-02-19] MEDS ORDERED: NS KCL 20MEQ 1,000 ML IV ONE (05:57)
[2024-02-19] MEDS ORDERED: POTASSIUM 25 MEQ EFFERV TAB ONE (05:57)
[2024-02-19] MEDS ORDERED: ENOXAPARIN 80 MG/0.8 ML SQ ONE (05:57)
--- NOTE | 2024-02-19 07:02 | RAD REPORT ---
CLINICAL HISTORY: Cough. COMPARISON: None. TECHNIQUE: XR CHEST 1 VIEW 02/19/2024 4:33 AM [employer] FINDINGS: The heart is borderline in size. There is old appearing deformity of the proximal left humerus. Lungs are clear without consolidation, atelectasis, mass or edema. There is no pleural effusion. There is no pneumothorax. There are no acute osseous findings. IMPRESSION: No pneumonia. Electronically signed by: Carlos Camp MD 02/19/2024 06:44 AM [employer] RP Due to temporary technical issues with the PACS/Preo reporting system, reports are being leonardo d by the in-house radiologist without review as a courtesy to ensure prompt reporting the interpreting radiologist is fully responsible for the content of the report. Transcribed Date/Time: 02/19/2024 7:02 AM
[2024-02-19] MEDS ORDERED: ONDANSETRON 4 MG/2 ML VIAL IV PRN (07:16)
[2024-02-19] MEDS ORDERED: ACETAMINOPHEN 500 MG TAB PO PRN (07:16)
[2024-02-19] MEDS ORDERED: GUAIFENESIN/CODEINE 5ML UCUP PO PRN (07:56)
[2024-02-19] MEDS: METHYLPREDNISOLONE 125 MG INJ IV ONE (07:57)
[2024-02-19] MEDS: Levofloxacin 750mg IV 750 MG/150 ML BAG IV SCH (08:00)
[2024-02-19] MEDS: FUROSEMIDE 40 MG/4 ML VIAL IV SCH (09:00)
--- NOTE | 2024-02-19 09:06 | RAD REPORT ---
EXAMINATION: CT CHEST WITHOUT CONTRAST CLINICAL INDICATION: SOB TECHNIQUE: Routine CT scan of the chest without intravenous contrast. One or more of the following do se reduction techniques were used: Automated exposure control, adjustment of the mA and/or kV according to patient size, and/or iterative reconstruction. Unless otherwise specified, incidental fi ndings do not require dedicated imaging follow-up. COMPARISON: Recent plain radiograph reviewed. FINDINGS: LOWER NECK: Visualized thyroid gland and soft tissues are normal. LUNGS: Mild linear opacities are present in both lung bases, greater on the right. This likely repres ents atelectasis or mild infiltrate. Mild reticular opacity posterior right upper lobe and superior segment right lower lobe also noted. PLEURA: No pleural effusion. No pneumothorax. . MEDIASTINUM AND LYMPH NODES: No mediastinal mass or fluid collection. Normal size mediastinal, hilar, and axillary lymph nodes. OSSEOUS STRUCTURES AND CHEST WALL: Chronic proximal left humerus fracture. UPPER ABDOMEN: No significant abnormalities. IMPRESSION: Mild lung opacities most notable in both lung bases likely representing infection/pneumonia. Mild ret icular opacities on the right also likely infection related. Examination limited by lack of IV contrast.
[2024-02-19] MEDS ORDERED: FUROSEMIDE 40 MG/4 ML VIAL ONE (09:53)
[2024-02-19 10:13] VITALS: BMI 25.0
[2024-02-19] MEDS: METHYLPREDNISOLONE 125 MG INJ IV SCH (12:00)
--- NOTE | 2024-02-19 12:53 | P.HP ---
Certification for Inpatient Patient admitted to: Inpatient With expected LOS: <2 Midnights Practitioner: I am a practitioner with admitting privileges, knowledge of patient current condition, hospital course, and medical plan of care. Services: Services provided to patient in accordance with Admission requirements found in Title 42 Section 412.3 of the Code of Federal Regulations Patient History Date of Service: 02/19/24 Reason for admission: A-fib RVR, shortness of breath History of Present Illness: 84-year-old female with a past medical history, hypertension, hyperlipidemia, presents to the emergency room with shortness of breath. She reports shortness of breath started 2 days ago, she reports associated fever, she reports productive cough, she reports recently diagnosed with a UTI, was taking antibiotics by mouth. She denies chest pain, abdominal pain, dysuria, edema, she reports shortness of breath is made better by oxygen, ER evaluation A-fib 93, no ST changes. She reports lives at home alone, family checks on her, she reports a fall 2 weeks ago, with a left shoulder fracture. 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 She reports symptoms worse over the last 24 hours. She called EMS. Plan to admit for acute hypoxic respiratory failure, secondary to pneumonia,/A-fib RVR,, fever, hypoxia, ER evaluation mild hyponatremia 130, mild hypokalemia 3.0, mildly elevated CO2 34, acute kidney injury, unknown baseline BUN 46, creatinine 0.88, elevated BNP 1896. Mildly elevated leukocytosis 11.70, chest x-ray, clear, no consolidation, no pneumonia noted. CT of the chest ild lung opacities most notable in both lung bases likely representing infection/pneumonia. Mild reticular opacities on the right also likely infection related O2 92% on 4 L Allergies codeine Allergy (Unknown, Verified 02/19/24 07:51) Itching/Hives/Rash morphine Allergy (Unknown, Unverified 02/19/24 07:51) Itching/Hives/Rash - Past Medical/Surgical History Has patient received pneumonia vaccine in the past: Yes -: Hypertension -: Hyperlipidemia -: Removal of benign thyroid tumor -: Removal of benign breast tumor -: Hysterectomy -: Groin repair - Social History Smoking Status: Never smoker Alcohol use: No Review of Systems 10-point ROS is otherwise unremarkable Physical Examination - Vital Signs Temperature: 97.8 F Blood Pressure: 123/79 Pulse: 95 Respirations: 25 Pulse Ox (%): 92 - Physical Exam General: Alert, Oriented x3, Mild distress HEENT: Atraumatic, Normocephalic Neck: Supple, 2+ carotid pulse no bruit Respiratory: Expiratory wheezes, Inspiratory wheezes Cardiovascular: Normal pulses, Irregular heart rate/rhythm Capillary refill: <2 Seconds Gastrointestinal: Normal bowel sounds, Soft and benign Musculoskeletal: Other (Left shoulder tenderness, fracture from previous fall) Integumentary: No breakdown, No erythema Neurological: Normal speech, Normal strength at 5/5 x4 extr - Studies Laboratory Data (last 24 hrs) 02/19/24 02/19/24 02/19/24 04:40 04:40 04:40 WBC 11.70 H Hgb 14.3 Hct 43.4 Plt Count 396 PT 12.3 INR 1.10 Sodium 133 L Potassium 3.0 L BUN 46 H Creatinine 0.88 Glucose 131 H Magnesium 2.0 Total Bilirubin 0.5 AST 16 ALT 21 Alkaline Phosphatase 46 Microbiology Data (last 24 hrs): 02/19/24 04:40 Nasopharnyx Influenza Type A Antigen Screen - Final 02/19/24 04:40 Nasopharnyx Influenza Type B Antigen Screen - Final Assessment and Plan - Problems (Diagnosis) (1) Acute hypoxic on chronic hypercapnic respiratory failure Current Visit: Yes Status: Acute (2) Bilateral pneumonia Current Visit: Yes Status: Acute Qualifiers: Pneumonia type: due to unspecified organism (3) Atrial fibrillation, new onset Current Visit: Yes Status: Acute (4) Left humeral fracture Current Visit: Yes Status: Acute Qualifiers: Encounter type: subsequent encounter Fracture morphology: other fracture (5) Hypokalemia Current Visit: Yes Status: Acute (6) Elevated brain natriuretic peptide (BNP) level Current Visit: Yes Status: Acute - Plan Assessment plan Acute hypoxic respiratory failure secondary to bilateral pneumonia,/A-fib Pulmonary consult, O2 2 L keep sats greater than 92% Nebs, steroids, IV antibiotics, antitussives Trend BNP, CT of the chest Mild lung opacities most notable in both lung bases likely representing infection/pneumonia. Mild reticular opacities on the right also likely infection related. A-fib, Elevated BNP Cardiology consult, telemetry, Echo ordered Gentle diuresis ER EKG A-fib, rate controlled rate 93 she denies history of A-fib Hypokalemia Electrolyte protocol replace as needed Left proximal humeral fracture She reported a mechanical fall Fall precautions, as needed analgesia Hypertension Hyperlipidemia Resume home meds Full code Cardiac diet DVT therapeutic Lovenox Disposition Home independent prior, uses home health Discharge Plan: Home - Advance Directives Does patient have a Living Will: No Does patient have a Durable POA for Healthcare: No - Code Status/Comfort Care Code Status: Full Code Critical Care: No Time Spent Managing Pts Care (In Minutes): 55
[2024-02-19] MEDS: CEFEPIME 2 GM in NA CHLORIDE 0.9% 100 ML IV SCH (13:12)
[2024-02-19 18:05] LABS: Specific Gravity 1.007 (1.005-1.030); Urine Bilirubin NEGATIVE (Negative); Urine Blood Negative (Negative); Urine Clarity Clear (Clear); Urine Color Colorless (Yellow); Urine Glucose NEGATIVE (Negative); Urine Ketones NEGATIVE (Negative); Urine Microscopic Reflex YN NO UMIC; Urine Nitrite NEGATIVE (Negative); Urine Protein NEGATIVE (Negative); Urine Urobilinogen Normal (Normal)
[2024-02-20 06:19] LABS: Absolute Lymphocytes (CBC) 0.9 K/uL (0.7-4.9); Absolute Monocytes 0.4 K/uL (0.1-1.3); Absolute Neutrophil 10.4 K/uL (1.8-8.0); Basophils % 0.1 % (0-1.3); Hematocrit 43.8 % (36.0-45.0); Hemoglobin 14.2 g/dL (12.0-15.0); Lymphocytes % 8.1 % (15.3-44.8); MCH 29.7 pg (27.0-35.0); MCHC 32.5 g/dL (32.0-36.0); MCV 91.4 fL (80-100); MPV 8.4 fL (7.6-11.3); Monocytes % 3.1 % (3.3-12.3); Neutrophils % 88.7 % (41.7-73.7); Platelets 415 thou/uL (152-406); RBC Red Blood Cell Count 4.79 M/uL (3.86-4.86); Red Cell Distribution Width 13.1 % (12.1-15.2)
[2024-02-20 06:36] LABS: Magnesium 1.8 mg/dL (1.6-2.4)
[2024-02-20 07:34] LABS: Band Neutrophils 2 % (0-1); Differential Total Cells Count 100; Lymphocytes 7 % (15-42); Monocytes 1 % (0-10); Segmented Neutrophils 88 % (40-80)
[2024-02-20 07:35] LABS: Blood Morphology Comment NOT SEEN (NOT SEEN); Metamyelocytes 2 % (0-0); Platelet Estimate ADEQ
[2024-02-20] MEDS: POTASSIUM CL SA 10 MEQ TAB PO ONE (08:31)
[2024-02-20] MEDS: MAGNESIUM SULFATE 1 gm IVPB 1 GM/100 ML BAG IV ONE (08:31)
[2024-02-20] MEDS: FUROSEMIDE 20 MG/ 2ML VIAL IV SCH ×2 (08:49→16:37)
[2024-02-20] MEDS: CEFTRIAXONE 1,000 MG in NA CHLORIDE 0.9% 50 ML IVPB SCH (08:51)
--- NOTE | 2024-02-20 09:28 | P.PN ---
Date of Service: 02/20/24 Subjective: Still with frequent cough, dyspnea A-fib, rate controlled No acute events overnight ROS: 10 point ROS as noted above, otherwise negative Physical exam GEN: Alert, oriented, NAD HEENT: Normal conjunctiva, sclera anicteric CV: Regular rate and rhythm, no edema Pulm: Nonlabored respirations on nasal cannula with persistent cough ABD: Soft, nontender, nondistended MSK: No joint tenderness Integumentary: No rashes Neuro: Normal speech, normal affect Vitals reviewed Problem List Acute hypoxic respiratory failure secondary to pneumonia Bilateral pneumonia New onset atrial fibrillation Pedal edema, elevated BNP hypertension Hyperlipidemia Recent left humeral fracture Hypokalemia Plan Acute hypoxic respiratory failure secondary to pneumonia Bilateral pneumonia Negative RSV, flu, COVID Continue IV antibiotics Wean O2 as tolerated PT consultation New onset atrial fibrillation Pedal edema, elevated BNP Cardiology consulted, echocardiogram ordered Currently rate controlled with a rate in the 80s to 90s in A-fib Therapeutic Lovenox Hypertension Hyperlipidemia Continue home medications when verified Recent left humeral fracture PT consultation Uses a walker at home Hypokalemia Protocol in place VTE: Therapeutic Lovenox Code: Full Dispo: 2 to 3 days Time Spent Managing Pts Care (In Minutes): 35
[2024-02-20] MEDS: ENOXAPARIN 80 MG/0.8 ML SQ SCH (10:14)
[2024-02-20] MEDS: AZITHROMYCIN IV 500 MG in NA CHLORIDE 0.9% 250 ML IVPB SCH (10:34)
--- NOTE | 2024-02-20 11:28 | P.CNS ---
Date of Consult: 02/20/24 Chief Complaint: A-fib RVR, shortness of breath History of Present Illness: Patient with PMH of HTN, presented with worsening SOB and cough, productive, found to be in AF w RVR, she denies chest pain, no palpitations, no syncope, no prior AF diagnosis. Allergies codeine Allergy (Unknown, Verified 02/19/24 13:26) Itching/Hives/Rash morphine Allergy (Unknown, Verified 02/19/24 13:26) Itching/Hives/Rash Home medications list reviewed: Yes Home Medications: Amlodipine Besylate 10 mg PO BEDTIME 02/19/24 Ascorbic Acid/Ascorbate Sodium [Vitamin C 500 mg Tablet Chew] 500 mg PO DAILY 02/19/24 Aspirin [Adult Low Dose Aspirin EC] 81 mg PO DAILY 02/19/24 Biotin 5,000 mcg PO DAILY 02/19/24 Carvedilol [Coreg] 12.5 mg PO BID 02/19/24 Cholecalciferol (Vitamin D3) [Vitamin D3] 2,000 unit PO DAILY 02/19/24 Cyanocobalamin (Vitamin B-12) [Vitamin B12] 5,000 mcg PO DAILY 02/19/24 Docosahexanoic AC/Epa [Fish Oil 1,000 MG*] 1,000 mg PO DAILY 02/19/24 Losartan/Hydrochlorothiazide [Losartan-Hctz 100-25 mg Tab] 25 - 100 mg PO BEDTIME 02/19/24 [place]-3 Fatty Acids [[place]-3] 1,000 mg PO DAILY 02/19/24 Pyridoxine HCl (Vitamin B6) [Vitamin B6] 100 mg PO DAILY 02/19/24 Red Beet [Beet Root] 500 mg PO DAILY 02/19/24 Simvastatin 40 mg PO BEDTIME 02/19/24 Vitamin E 400 units PO DAILY 02/19/24 - Past Medical/Surgical History -: Hypertension -: Hyperlipidemia -: Removal of benign thyroid tumor -: Removal of benign breast tumor -: Hysterectomy -: Groin repair - Social History Alcohol use: No Review of Systems 10-point ROS is otherwise unremarkable Physical Examination Temp Pulse Resp BP Pulse Ox 97.9 F 88 20 148/72 H 93 02/20/24 04:00 02/20/24 08:30 02/20/24 04:00 02/20/24 08:30 02/20/24 04:00 General: Alert, In no apparent distress HEENT: Atraumatic, PERRLA, Mucous membr. moist/pink, EOMI, Sclerae nonicteric Neck: Supple, 2+ carotid pulse no bruit, No LAD, Without JVD or thyroid abnormality Respiratory: Clear to auscultation bilaterally, Normal air movement Cardiovascular: Irregular heart rate/rhythm Gastrointestinal: Normal bowel sounds, No tenderness Musculoskeletal: No tenderness Integumentary: No rashes Neurological: Normal gait, Normal speech, Normal tone, Normal affect Lymphatics: No axilla or inguinal lymphadenopathy - Problems (1) Atrial fibrillation, new onset Current Visit: Yes Status: Acute Plan: start patient on lopressor 25 mg po BID Switch lovenox to Eliquis 5 mg po BID (2) Elevated brain natriuretic peptide (BNP) level Current Visit: Yes Status: Acute Plan: increase lasix to 20 mg IV BID Start Spironlactone 25 mg daily start lopressor as above get echo monitor input and output and electrolytes closely
[2024-02-20] MEDS: BENZONATATE 100 MG CAP PO PRN (16:37)
[2024-02-20] MEDS: METOPROLOL TAR 25 MG TAB PO SCH (17:10)
[2024-02-20] MEDS: APIXABAN 5 MG TABLET PO SCH (20:23)
[2024-02-21] MEDS: ALBUTEROL 2.5 MG/3 ML NEB SOL NEB PRN (04:50)
[2024-02-21 06:36] LABS: Absolute Lymphocytes (CBC) 1.6 K/uL (0.7-4.9); Absolute Monocytes 1.5 K/uL (0.1-1.3); Absolute Neutrophil 13.8 K/uL (1.8-8.0); Basophils % 0.1 % (0-1.3); Hematocrit 42.2 % (36.0-45.0); Lymphocytes % 9.5 % (15.3-44.8); MCHC 33.2 g/dL (32.0-36.0); MCV 90.3 fL (80-100); MPV 7.9 fL (7.6-11.3); Neutrophils % 81.4 % (41.7-73.7); Nucleated Red Blood Cells % 0.1 % (0-0); Platelets 409 thou/uL (152-406); RBC Red Blood Cell Count 4.67 M/uL (3.86-4.86); Red Cell Distribution Width 13.2 % (12.1-15.2)
[2024-02-21 06:58] LABS: Anion Gap 4.9 mEq/L (5.0-15.0); Potassium 2.9 mEq/L (3.5-5.1)
--- NOTE | 2024-02-21 08:04 | ECHO ---
HEIGHT: 5 ft 7 in WEIGHT: 162 lb 0 oz DATE OF STUDY: 02/20/[address]: Mani Alegria NP 2-DIMENSIONAL: YES M.MODE: YES DOPPLER: YES COLOR FLOW: YES TDS: NO PORTABLE: YES DEFINITY: NO BUBBLE STUDY: NO DIAGNOSIS: SHORTNESS OF BREATH/ ELEVATED BNP CARDIAC HISTORY: CATHERIZATION: SURGERY: PROSTHETIC VALVE: PACEMAKER: MEASUREMENTS (cm) DIASTOLIC (NORMALS) SYSTOLIC (NORMALS) IVSd 0.9 (0.6-1.2) LA Diam 3.8 (1.9-4.0) LVEF 64% LVIDd 4.8 (3.5-5.7) LVIDs 3.1 (2.0-3.5) %FS 35% LVPWd 1.0 (0.6-1.2) Ao Diam 2.6 (2.0-3.7) 2 DIMENSIONAL ASSESSMENT: RIGHT ATRIUM: NORMAL LEFT ATRIUM: MILD DILATED RIGHT VENTRICLE: NORMAL LEFT VENTRICLE: NORMAL TRICUSPID VALVE: MILD TRICUSPID REGURGITATION MITRAL VALVE: NORMAL PULMONIC VALVE: NORMAL AORTIC VALVE: NORMAL PERICARDIAL EFFUSION: NONE AORTIC ROOT: NORMAL LEFT VENTRICULAR WALL MOTION: NORMAL. DOPPLER/COLOR FLOW: NORMAL. COMMENTS: 1. NORMAL LEFT VENTRICULAR SYSTOLIC FUNCTION, EJECTION FRACTION 60-65%, NORMAL WALL MOTION. 2. NORMAL DIASTOLIC FUNCTION. 3. MILD ELEVATED FILLING PRESSURE (RIGHT ATRIUM 10-15mmHg). 4. MILD PULMONARY HYPERTENSION (RIGHT VENTRICULAR SYSTOLIC PRESSURE 40-45%mmHg). TECHNOLOGIST: TOMAS ALEXANDRE
[2024-02-21] MEDS: KCL 20 MEQ/100 mL IVPB 20 MEQ/100 ML BAG IV SCH (08:17)
[2024-02-21] MEDS: POTASSIUM CL SA 10 MEQ TAB PO ONE ×2 (08:18→20:39)
[2024-02-21] MEDS: NA CHLORIDE 0.9% 1,000 ML ONE (08:18)
--- NOTE | 2024-02-21 09:43 | P.PN ---
Date of Service: 02/21/24 Subjective: Still with frequent cough, dyspnea A-fib, rate controlled No acute events overnight Tolerating nasal cannula oxygen Worked well with PT yesterday ROS: 10 point ROS as noted above, otherwise negative Physical exam GEN: Alert, oriented, NAD HEENT: Normal conjunctiva, sclera anicteric CV: Regular rate and rhythm, no edema Pulm: Nonlabored respirations on nasal cannula with persistent cough ABD: Soft, nontender, nondistended MSK: No joint tenderness Integumentary: No rashes Neuro: Normal speech, normal affect Vitals reviewed Problem List Acute hypoxic respiratory failure secondary to pneumonia Bilateral pneumonia New onset atrial fibrillation Pedal edema, elevated BNP hypertension Hyperlipidemia Recent left humeral fracture Hypokalemia Plan Acute hypoxic respiratory failure secondary to pneumonia Bilateral pneumonia Negative RSV, flu, COVID Continue IV antibiotics Zithromax discontinued given A-fib, bradycardia and pauses this morning QTc 459 today Wean O2 as tolerated PT consultation New onset atrial fibrillation Bradycardia, pauses Pedal edema, elevated BNP Cardiology consulted, echocardiogram ordered Currently rate controlled with a rate in the 80s to 90s in A-fib Oral Eliquis started Continue metoprolol 25 mg twice daily Had a few pauses this morning up to 3 seconds long Potassium was 2.9, repleted now Zithromax stopped Discussed metoprolol with cardiology, will watch on telemetry through the day, i f no other bradycardia or events we will continue this evening Hypertension Hyperlipidemia Continue home medications when verified Recent left humeral fracture PT consultation Uses a walker at home Working well with PT Hypokalemia Protocol in place VTE: Eliquis Code: Full Dispo: 2 to 3 days Time Spent Managing Pts Care (In Minutes): 35
--- NOTE | 2024-02-21 11:58 | P.PN ---
Subjective Date of Service: 02/21/24 Chief Complaint: A-fib RVR, shortness of breath Subjective: No new changes, No C/O voiced, Tolerating diet, Ambulating, Improving Review of Systems 10-point ROS is otherwise unremarkable Physical Examination - Vital Signs Temperature: 97.7 F Blood Pressure: 147/71 Pulse: 76 Respirations: 16 Pulse Ox (%): 91 - Physical Exam General: Alert, In no apparent distress HEENT: Atraumatic, PERRLA, EOMI Neck: Supple, JVD not distended Respiratory: Clear to auscultation bilaterally, Normal air movement Cardiovascular: Irregular heart rate/rhythm Gastrointestinal: Normal bowel sounds, No tenderness Musculoskeletal: No tenderness Integumentary: No rashes Neurological: Normal speech, Normal tone, Normal affect Lymphatics: No axilla or inguinal lymphadenopathy - Studies Medications List Reviewed: Yes Assessment And Plan - Current Problems (Diagnosis) (1) Atrial fibrillation, new onset Current Visit: Yes Status: Acute Plan: lower lopressor to 12.5 mg po BID as patient is having pauses (longest pause is 3 seconds) continue Eliquis 5 mg po BID (2) Elevated brain natriuretic peptide (BNP) level Current Visit: Yes Status: Acute Plan: continue lasix 20 mg IV BID Start Spironlactone 25 mg daily adjust lopressor as above monitor input and output and electrolytes closely Echo shows normal LV systolic and diastolic function with mild elevated filling pressure.
--- NOTE | 2024-02-21 12:46 | EKG ---
Test Date: 2024-02-19 Test Time: 04:34:14 [employer]: SG MEASUREMENT RESULTS: Intervals: Rate: 93 OR: QRSD: 102 QT: 410 QTc: 509 [place]: P: OR: QRS: -41 T: 34 INTERPRETIVE STATEMENTS: Atrial fibrillation with premature ventricular or aberrantly conducted complexes Left axis deviation Abnormal ECG No previous ECG available for comparison Electronically Signed On 02-21-24 12:42:12 [employer] by Matt Busch
[2024-02-21] MEDS: NA CHLORIDE 0.9% 1,000 ML IV SCH (12:49)
--- NOTE | 2024-02-21 13:46 | P.CNS ---
Date of Consult: 02/21/24 Reason for Consult: pneumonia Chief Complaint: A-fib RVR, shortness of breath History of Present Illness: Patient is 84 years of age obtained mostly from her daughter was admitted with dyspnea rapid A-fib she has had fallen multiple times nose with pneumonia new onset of A-fib currently stable Allergies codeine Allergy (Unknown, Verified 02/19/24 13:26) Itching/Hives/Rash morphine Allergy (Unknown, Verified 02/19/24 13:26) Itching/Hives/Rash Home Medications: Amlodipine Besylate 10 mg PO BEDTIME 02/19/24 Ascorbic Acid/Ascorbate Sodium [Vitamin C 500 mg Tablet Chew] 500 mg PO DAILY 02/19/24 Aspirin [Adult Low Dose Aspirin EC] 81 mg PO DAILY 02/19/24 Biotin 5,000 mcg PO DAILY 02/19/24 Carvedilol [Coreg] 12.5 mg PO BID 02/19/24 Cholecalciferol (Vitamin D3) [Vitamin D3] 2,000 unit PO DAILY 02/19/24 Cyanocobalamin (Vitamin B-12) [Vitamin B12] 5,000 mcg PO DAILY 02/19/24 Docosahexanoic AC/Epa [Fish Oil 1,000 MG*] 1,000 mg PO DAILY 02/19/24 Losartan/Hydrochlorothiazide [Losartan-Hctz 100-25 mg Tab] 25 - 100 mg PO BEDTIME 02/19/24 [place]-3 Fatty Acids [[place]-3] 1,000 mg PO DAILY 02/19/24 Pyridoxine HCl (Vitamin B6) [Vitamin B6] 100 mg PO DAILY 02/19/24 Red Beet [Beet Root] 500 mg PO DAILY 02/19/24 Simvastatin 40 mg PO BEDTIME 02/19/24 Vitamin E 400 units PO DAILY 02/19/24 - Past Medical/Surgical History -: Hypertension -: Hyperlipidemia -: Removal of benign thyroid tumor -: Removal of benign breast tumor -: Hysterectomy -: Groin repair - Social History Alcohol use: No Review of Systems 10-point ROS is otherwise unremarkable General: Weakness Respiratory: Shortness of Breath Physical Examination Temp Pulse Resp BP Pulse Ox 98 F 84 18 175/77 H 94 02/21/24 12:00 02/21/24 12:00 02/21/24 12:00 02/21/24 12:00 02/21/24 12:00 General: Alert, Oriented x3 Respiratory: Clear to auscultation bilaterally, Diminished Cardiovascular: No edema, Irregular heart rate/rhythm Gastrointestinal: Normal bowel sounds, Soft and benign - Problems (1) Bilateral pneumonia Current Visit: Yes Status: Acute Plan: Patient is 84 years of age admitted with worsening dyspnea hypoxemia was found to be in rapid A-fib bilateral pulmonary infiltrates has a normal echo signs oxygenation satisfactory patient's white count is elevated mild hypokalemia cultures all negative changed to p.o. Augmentin check off oxygen DC diuretics but on spironolactone ambulate patient's rate is controlled on Eliquis Qualifiers: Pneumonia type: due to unspecified organism Lung location: unspecified part of lung Qualified Code(s): J18.9 - Pneumonia, unspecified organism
[2024-02-21] MEDS: SPIRONOLACTONE 25 MG TABLET PO SCH (13:59)
[2024-02-21] MEDS: METOPROLOL TAR 25 MG TAB PO SCH (17:22)
[2024-02-22 06:52] LABS: Anion Gap 6.9 mEq/L (5.0-15.0); Potassium 3.9 mEq/L (3.5-5.1)
[2024-02-22 07:14] LABS: Absolute Lymphocytes (CBC) 1.6 K/uL (0.7-4.9); Absolute Monocytes 1.2 K/uL (0.1-1.3); Absolute Neutrophil 9.8 K/uL (1.8-8.0); Basophils % 0.3 % (0-1.3); Eosinophils % 0.3 % (0-4.4); Hematocrit 46.8 % (36.0-45.0); Hemoglobin 15.2 g/dL (12.0-15.0); Lymphocytes % 12.4 % (15.3-44.8); MCH 29.7 pg (27.0-35.0); MCHC 32.6 g/dL (32.0-36.0); MCV 91.3 fL (80-100); MPV 7.8 fL (7.6-11.3); Monocytes % 9.7 % (3.3-12.3); Neutrophils % 77.3 % (41.7-73.7); Nucleated Red Blood Cells % 0.2 % (0-0); Platelets 400 thou/uL (152-406); RBC Red Blood Cell Count 5.13 M/uL (3.86-4.86); Red Cell Distribution Width 13.3 % (12.1-15.2)
[2024-02-22] MEDS: CEFTRIAXONE 1000 MG/VIAL ONE (08:32)
[2024-02-22] MEDS: POTASSIUM CL SA 10 MEQ TAB PO ONE (08:44)
[2024-02-22 08:56] LABS: Band Neutrophils 1 % (0-1); Differential Total Cells Count 100; Lymphocytes 12 % (15-42); Monocytes 6 % (0-10); Segmented Neutrophils 80 % (40-80)
[2024-02-22 08:57] LABS: Blood Morphology Comment NOT SEEN (NOT SEEN); Myelocytes 1 % (0-0); Platelet Estimate ADEQ
--- NOTE | 2024-02-22 09:24 | P.PN ---
Date of Service: 02/22/24 Subjective: Still with frequent cough, dyspnea A-fib, rate controlled No acute events overnight Tolerating nasal cannula oxygen Worked well with PT yesterday ROS: 10 point ROS as noted above, otherwise negative Physical exam GEN: Alert, oriented, NAD HEENT: Normal conjunctiva, sclera anicteric CV: Irregular rhythm, A-fib, no edema Pulm: Nonlabored respirations on nasal cannula with persistent cough ABD: Soft, nontender, nondistended MSK: No joint tenderness Integumentary: No rashes Neuro: Normal speech, normal affect Vitals reviewed Problem List Acute hypoxic respiratory failure secondary to pneumonia Bilateral pneumonia New onset atrial fibrillation Pedal edema, elevated BNP hypertension Hyperlipidemia Recent left humeral fracture Hypokalemia Plan Acute hypoxic respiratory failure secondary to pneumonia Bilateral pneumonia Negative RSV, flu, COVID Switched to Augmentin 1/4 Wean O2 as tolerated PT consultation New onset atrial fibrillation Bradycardia, pauses Pedal edema, elevated BNP Cardiology consulted, echocardiogram ordered Currently rate controlled with a rate in the 80s to 90s in A-fib Oral Eliquis started Continue metoprolol 12.5 mg twice daily, reduced from 25 given pauses, bradycardia Had a few pauses this morning up to 3 seconds long on 1/3 Potassium replaced, improved Hypertension Hyperlipidemia Continue home medications when verified Recent left humeral fracture PT consultation Uses a walker at home Working well with PT Hypokalemia Protocol in place VTE: Eliquis Code: Full Dispo: 2 to 3 days Time Spent Managing Pts Care (In Minutes): 35
[2024-02-22] MEDS: AMOX/K CLAV 875 MG TAB PO SCH (19:58)
[2024-02-23 07:03] LABS: Hematocrit 46.4 % (36.0-45.0); Hemoglobin 15.3 g/dL (12.0-15.0); MCV 90.8 fL (80-100); MPV 7.8 fL (7.6-11.3); Platelets 311 thou/uL (152-406); RBC Red Blood Cell Count 5.11 M/uL (3.86-4.86); Red Cell Distribution Width 13.3 % (12.1-15.2)
[2024-02-23 07:19] LABS: Anion Gap 5.7 mEq/L (5.0-15.0); Potassium 3.7 mEq/L (3.5-5.1)
[2024-02-23] MEDS: POTASSIUM CL SA 10 MEQ TAB PO ONE (08:14)
--- NOTE | 2024-02-23 09:01 | P.PN ---
Date of Service: 02/23/24 Subjective: Still with frequent cough, dyspnea A-fib, rate controlled No acute events overnight Tolerating nasal cannula oxygen down to 1 liter ROS: 10 point ROS as noted above, otherwise negative Physical exam GEN: Alert, oriented, NAD HEENT: Normal conjunctiva, sclera anicteric CV: Irregular rhythm, A-fib, no edema Pulm: Nonlabored respirations on nasal cannula with persistent cough ABD: Soft, nontender, nondistended MSK: No joint tenderness Integumentary: No rashes Neuro: Normal speech, normal affect Vitals reviewed Problem List Acute hypoxic respiratory failure secondary to pneumonia Bilateral pneumonia New onset atrial fibrillation Pedal edema, elevated BNP hypertension Hyperlipidemia Recent left humeral fracture Hypokalemia Plan Acute hypoxic respiratory failure secondary to pneumonia Bilateral pneumonia Negative RSV, flu, COVID Switched to Augmentin 1/4 Wean O2 as tolerated PT consultation New onset atrial fibrillation Bradycardia, pauses Pedal edema, elevated BNP Cardiology consulted, echocardiogram ordered Currently rate controlled with a rate in the 80s to 90s in A-fib Oral Eliquis started Continue metoprolol 12.5 mg twice daily, reduced from 25 given pauses, bradycardia Had a few pauses 1/3 up to 3 seconds long on 1/3, improved with reduced dose of metoprolol and potassium replacement Potassium replaced, improved Hypertension Hyperlipidemia Continue home medications when verified Recent left humeral fracture PT consultation Uses a walker at home Working well with PT Hypokalemia Protocol in place VTE: Eliquis Code: Full Dispo: 1 to 2 days Time Spent Managing Pts Care (In Minutes): 35
[2024-02-24 06:05] LABS: Hematocrit 45.5 % (36.0-45.0); Hemoglobin 15.3 g/dL (12.0-15.0); MCH 30.4 pg (27.0-35.0); MCHC 33.6 g/dL (32.0-36.0); MCV 90.5 fL (80-100); MPV 7.6 fL (7.6-11.3); Platelets 273 thou/uL (152-406); RBC Red Blood Cell Count 5.03 M/uL (3.86-4.86); Red Cell Distribution Width 13.5 % (12.1-15.2)
[2024-02-24 06:23] LABS: Anion Gap 6.9 mEq/L (5.0-15.0); Potassium 3.9 mEq/L (3.5-5.1)
--- NOTE | 2024-02-24 10:24 | P.PN ---
Date of Service: 02/24/24 Subjective: Still with frequent cough, dyspnea A-fib, rate controlled No acute events overnight Weaning 02 Pending further PT eval ROS: 10 point ROS as noted above, otherwise negative Physical exam GEN: Alert, oriented, NAD HEENT: Normal conjunctiva, sclera anicteric CV: Irregular rhythm, A-fib, no edema Pulm: Nonlabored respirations on room air with persistent cough ABD: Soft, nontender, nondistended MSK: No joint tenderness Integumentary: No rashes Neuro: Normal speech, normal affect Vitals reviewed Problem List Acute hypoxic respiratory failure secondary to pneumonia Bilateral pneumonia New onset atrial fibrillation Pedal edema, elevated BNP hypertension Hyperlipidemia Recent left humeral fracture Hypokalemia Plan Acute hypoxic respiratory failure secondary to pneumonia Bilateral pneumonia Negative RSV, flu, COVID Switched to Augmentin / Wean O2 as tolerated PT consultation New onset atrial fibrillation Bradycardia, pauses Pedal edema, elevated BNP Cardiology consulted Echo complete-Normal LVEF, normal diastolic function, elevated filling pressure, mild pulmonary hypertension Currently rate controlled with a rate in the 80s to 90s in A-fib Oral Eliquis started Continue metoprolol 12.5 mg twice daily, reduced from 25 given pauses, bradycardia Had a few pauses up to 3 seconds long on 02/20, improved with reduced dose of metoprolol and potassium replacement Potassium replaced, improved Hypertension Hyperlipidemia Continue home medications when verified Recent left humeral fracture PT consultation Uses a walker at home Working well with PT Hypokalemia Protocol in place VTE: Eliquis Code: Full Dispo: 1 to 2 days Time Spent Managing Pts Care (In Minutes): 35
[2024-02-24] MEDS: AMLODIPINE 10 MG TAB PO SCH (20:27)
[2024-02-24] MEDS: ATORVASTATIN 20 MG TAB PO SCH (20:27)
[2024-02-24] MEDS: LOSARTAN/HCTZ 50-12.5 PO SCH (20:28)
[2024-02-24] MEDS ORDERED: HOME MED 1 EA UNK (Losartan/Hydrochlorothiazide [Losartan-Hctz 100-25 Mg Tab] 1 EACH Table PO SCH (21:00)
[2024-02-24] MEDS: MELATONIN 5 MG TABLET PO PRN (21:32)
[2024-02-25 06:23] LABS: Hematocrit 45.9 % (36.0-45.0); Hemoglobin 15.3 g/dL (12.0-15.0); MCH 30.1 pg (27.0-35.0); MCHC 33.4 g/dL (32.0-36.0); MCV 90.2 fL (80-100); Platelets 250 thou/uL (152-406); RBC Red Blood Cell Count 5.08 M/uL (3.86-4.86); Red Cell Distribution Width 13.4 % (12.1-15.2)
[2024-02-25 06:32] LABS: Anion Gap 7.8 mEq/L (5.0-15.0); Potassium 3.8 mEq/L (3.5-5.1)
[2024-02-25] MEDS: POTASSIUM CL SA 10 MEQ TAB PO ONE (08:21)
--- NOTE | 2024-02-25 13:41 | P.PN ---
Date of Service: 02/25/24 Subjective: Feeling well, persistent cough Eating well this AM Awaiting placement as she lives alone ROS: 10 point ROS as noted above, otherwise negative Physical exam GEN: Alert and oriented x3, NAD HEENT: Normal conjunctiva, sclera anicteric CV: Irregular rhythm, A-fib, S1 S2 present, no edema Pulm: Nonlabored respirations, on room air, persistent cough ABD: Soft on palpation, ND/NT MSK: No joint tenderness Integumentary: No rashes Neuro: Normal speech, normal affect Vitals reviewed Problem List Acute hypoxic respiratory failure secondary to pneumonia Bilateral pneumonia New onset atrial fibrillation Pedal edema, elevated BNP hypertension Hyperlipidemia Recent left humeral fracture Hypokalemia Plan Acute hypoxic respiratory failure secondary to pneumonia Bilateral pneumonia Negative RSV, flu, COVID Continue Augmentin (02/21) PT consultation New onset atrial fibrillation Bradycardia, pauses Pedal edema, elevated BNP Cardiology consulted Echo complete-Normal LVEF, normal diastolic function, elevated filling pressure, mild pulmonary hypertension Currently rate controlled with a rate in the 80s to 90s in A-fib Continue Oral Eliquis Continue metoprolol 12.5 mg twice daily, reduced from 25 given pauses, bradycar skip Had a few pauses up to 3 seconds long on 02/20, improved with reduced dose of metoprolol and potassium replacement Potassium replaced, improved Hypertension Hyperlipidemia Continue home medications when verified Recent left humeral fracture PT consultation Uses a walker at home Working well with PT Hypokalemia Protocol in place VTE: Eliquis Code: Full Dispo: 1 to 2 days
[2024-02-26 06:57] LABS: Hematocrit 44.1 % (36.0-45.0); Hemoglobin 14.5 g/dL (12.0-15.0); MCH 29.8 pg (27.0-35.0); MCHC 32.8 g/dL (32.0-36.0); MCV 90.9 fL (80-100); MPV 8.1 fL (7.6-11.3); Platelets 259 thou/uL (152-406); RBC Red Blood Cell Count 4.86 M/uL (3.86-4.86); Red Cell Distribution Width 13.6 % (12.1-15.2)
[2024-02-26 07:19] LABS: Anion Gap 7.9 mEq/L (5.0-15.0); Potassium 3.9 mEq/L (3.5-5.1)
[2024-02-26] MEDS: POTASSIUM CL SA 10 MEQ TAB PO ONE (08:53)
--- NOTE | 2024-02-26 18:52 | P.PN ---
Date of Service: 02/26/24 Subjective: Awake, eating oranges Ambulated 220 PT 97% on RA no new complaints Stable for discharge ROS: 10 point ROS as noted above, otherwise negative Physical exam GEN: AAO x3, NAD HEENT: Normal conjunctiva, sclera anicteric CV: Irregular rhythm, A-fib, S1 S2 present, no edema Pulm: Clear BBS, on room air, persistent cough ABD: Soft on palpation, ND/NT MSK: No joint tenderness Integumentary: No rashes Neuro: Normal speech, normal affect Vitals reviewed Problem List Acute hypoxic respiratory failure secondary to pneumonia Bilateral pneumonia New onset atrial fibrillation Pedal edema, elevated BNP hypertension Hyperlipidemia Recent left humeral fracture Hypokalemia Plan Acute hypoxic respiratory failure secondary to pneumonia Bilateral pneumonia Negative RSV, flu, COVID Continue Augmentin (02/21) PT consultation New onset atrial fibrillation Bradycardia, pauses Pedal edema, elevated BNP Cardiology consulted Echo complete-Normal LVEF, normal diastolic function, elevated filling pressure, mild pulmonary hypertension Currently rate controlled with a rate in the 80s to 90s in A-fib Continue Oral Eliquis Continue metoprolol 12.5 mg twice daily, reduced from 25 given pauses, bradycardia Had a few pauses up to 3 seconds long on 02/20, improved with reduced dose of metoprolol and potassium replacement Potassium replaced, improved Hypertension Hyperlipidemia Continue home medications when verified Recent left humeral fracture PT consultation Uses a walker at home Working well with PT Hypokalemia Protocol in place VTE: Eliquis Code: Full Dispo: 1 to 2 days- pending Auth for [facility]
[2024-02-27] MEDS: GUAIFENESIN 600 MG SA TAB PO SCH (11:26)
--- NOTE | 2024-02-27 20:42 | P.PN ---
Date of Service: 02/27/24 Subjective: Awake, feeling well, still with a cough Weaned off oxygen, ambulated in the hallway on RA with oxygen sat at 93%. waiting on placement ROS: 10 point ROS as noted above, otherwise negative Physical exam GEN: Awake alert and oriented x3, NAD HEENT: Normal conjunctiva, sclera anicteric CV: A-fib with rate control, S1 S2 present, no edema Pulm: Nonlabored breathing, on room air, persistent cough ABD: Soft on palpation, ND/NT, normal active bowel sounds MSK: No joint tenderness Integumentary: No rashes Neuro: Normal speech, normal affect Vitals reviewed Problem List Acute hypoxic respiratory failure secondary to pneumonia Bilateral pneumonia New onset atrial fibrillation Pedal edema, elevated BNP hypertension Hyperlipidemia Recent left humeral fracture Hypokalemia Plan Acute hypoxic respiratory failure secondary to pneumonia Bilateral pneumonia Negative RSV, flu, COVID Continue Augmentin (02/21) PT consultation New onset atrial fibrillation Bradycardia, pauses Pedal edema, elevated BNP Cardiology consulted Echo complete-Normal LVEF, normal diastolic function, elevated filling pressure, mild pulmonary hypertension Currently rate controlled with a rate in the 80s to 90s in A-fib Continue Oral Eliquis Continue metoprolol 12.5 mg twice daily, reduced from 25 given pauses, bradycardia Had a few pauses up to 3 seconds long on 02/20, improved with reduced dose of metoprolol and potassium replacement Potassium replaced, improved Hypertension Hyperlipidemia Continue home medications when verified Recent left humeral fracture PT consultation Uses a walker at home Working well with PT Hypokalemia Protocol in place VTE: Eliquis Code: Full Dispo: 1 to 2 days- pending [facility]
--- NOTE | 2024-02-28 16:07 | P.DS ---
Admission Date: 02/19/24 Discharge Date: 02/28/24 Disposition: TRANSFER TO SNF - REHAB Discharge Condition: GOOD Reason for Admission: A-fib RVR, shortness of breath Brief History of Present Illness: Diagnosis Acute hypoxic respiratory failure secondary to pneumonia Bilateral pneumonia New onset atrial fibrillation Pedal edema, elevated BNP hypertension Hyperlipidemia Recent left humeral fracture Hypokalemia HPI 02/19/24 Georgia Curry is an 84-year-old female with a past medical history, hypertension, hyperlipidemia, presents to the emergency room with shortness of breath. She reports shortness of breath started 2 days ago, she reports associated fever, she reports productive cough, she reports recently diagnosed with a UTI, was taking antibiotics by mouth. She denies chest pain, abdominal pain, dysuria, edema, she reports shortness of breath is made better by oxygen, ER evaluation A-fib 93, no ST changes. She reports lives at home alone, family checks on her, she reports a fall 2 weeks ago, with a left shoulder fracture. 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 She reports symptoms worse over the last 24 hours. She called EMS. Plan to admit for acute hypoxic respiratory failure, secondary to pneumonia,/A-fib RVR,, fever, hypoxia, ER evaluation mild hyponatremia 130, mild hypokalemia 3.0, mildly elevated CO2 34, acute kidney injury, unknown baseline BUN 46, creatinine 0.88, elevated BNP 1896. Mildly elevated leukocytosis 11.70, chest x-ray, clear, no consolidation, no pneumonia noted. CT of the chest ild lung opacities most notable in both kelly g bases likely representing infection/pneumonia. Mild reticular opacities on the right also likely infection related O2 92% on 4 L Hospital Course: Georgia Curry was admitted to the hospital for new onset A-fib with RVR, pneumonia, hypoxia. She was started on beta-blockers, metoprolol 25 mg by mouth twice daily and antibiotics as well as Eliquis and had gradual improvement in her symptoms. She has been weaned off of oxygen tolerating room air. On 02/20 she had some pauses in the morning likely secondary to hypokalemia. Potassium was repleted and metoprolol was reduced to 12.5 mg by mouth twice daily. Since then she has not experienced further pauses or bradycardia. Antibiotics have been transitioned to oral, she is on Augmentin. She has done well and is ambulatory with a walker with PT she has remained afebrile and white blood cell count has normalized. Blood cultures show no growth in 5 days, she was negative for flu, COVID, RSV. On 02/28/24, Georgia was seen on morning rounds and deemed medically stable for discharge to [facility]. Georgia was discharged with instructions to schedule follow-up appointments with PCP. Georgia was provided prescriptions for Augmentin, Eliquis, Lopressor, Tessalon Perles. Physical exam GEN: AAO x3, NAD HEENT: Normal conjunctiva, sclera anicteric CV: A-fib with rate control, S1 S2 present, no edema Pulm: Nonlabored breathing, on room air, persistent cough ABD: Soft on palpation, Nontender, normal active bowel sounds MSK: No joint tenderness Integumentary: No rashes Neuro: Normal speech, normal affect Vital Signs/Physical Exam: Temp Pulse Resp BP Pulse Ox 97.9 F 90 20 109/62 91 02/28/24 12:00 02/28/24 12:00 02/28/24 12:00 02/28/24 12:00 02/28/24 12:00 Laboratory Data at Discharge: WBC 8.70 thou/uL (4.3-10.9) 02/26/24 06:15 Hgb 14.5 g/dL (12.0-15.0) 02/26/24 06:15 Hct 44.1 % (36.0-45.0) 02/26/24 06:15 Plt Count 259 thou/uL (152-406) 02/26/24 06:15 PT 12.3 SECONDS (9.4-12.5) 02/19/24 04:40 INR 1.10 02/19/24 04:40 Sodium 137 mEq/L (136-145) 02/26/24 06:15 Potassium 3.9 mEq/L (3.5-5.1) 02/26/24 06:15 BUN 21 mg/dL (7-18) H 02/26/24 06:15 Creatinine 0.70 mg/dL (0.55-1.02) 02/26/24 06:15 Glucose 115 mg/dL (74-106) H 02/26/24 06:15 Magnesium 2.0 mg/dL (1.6-2.4) 02/22/24 05:37 Total Bilirubin 0.5 mg/dL (0.2-1.0) 02/19/24 04:40 AST 16 U/L (15-37) 02/19/24 04:40 ALT 21 U/L (13-56) 02/19/24 04:40 Alkaline Phosphatase 46 U/L (45-117) 02/19/24 04:40 Home Medications: Amlodipine Besylate 10 mg PO BEDTIME 02/19/24 Ascorbic Acid/Ascorbate Sodium [Vitamin C 500 mg Tablet Chew] 500 mg PO DAILY 02/19/24 Biotin 5,000 mcg PO DAILY 02/19/24 Cholecalciferol (Vitamin D3) [Vitamin D3] 2,000 unit PO DAILY 02/19/24 Cyanocobalamin (Vitamin B-12) [Vitamin B12] 5,000 mcg PO DAILY 02/19/24 Docosahexanoic AC/Epa [Fish Oil 1,000 MG*] 1,000 mg PO DAILY 02/19/24 Losartan/Hydrochlorothiazide [Losartan-Hctz 100-25 mg Tab] 25 - 100 mg PO BEDTIME 02/19/24 [place]-3 Fatty Acids [[place]-3] 1,000 mg PO DAILY 02/19/24 Pyridoxine HCl (Vitamin B6) [Vitamin B6] 100 mg PO DAILY 02/19/24 Red Beet [Beet Root] 500 mg PO DAILY 02/19/24 Simvastatin 40 mg PO BEDTIME 02/19/24 Vitamin E 400 units PO DAILY 02/19/24 Amox/Clavulanate [Augmentin 875-125 Tab*] 875 mg PO BID 5 Days #10 tab 02/24/24 Apixaban [Eliquis] 5 mg PO BID #60 tab 02/24/24 Benzonatate [Tessalon Perle*] 100 mg PO TID PRN #25 cap 02/24/24 Metoprolol Tartrate [Lopressor*] 12.5 mg PO BID 6AM 6PM #60 tab 02/24/24 New Medications: Amox/Clavulanate [Augmentin 875-125 Tab*] 875 mg PO BID 5 Days #10 tab Apixaban [Eliquis] 5 mg PO BID #60 tab Metoprolol Tartrate [Lopressor*] 12.5 mg PO BID 6AM 6PM #60 tab Benzonatate [Tessalon Perle*] 100 mg PO TID PRN #25 cap PRN Reason: Cough Physician Discharge Instructions: Patient was admitted to the hospital for new onset A-fib with RVR, pneumonia, hypoxia. She was started on beta-blockers, metoprolol 25 mg by mouth twice daily and antibiotics as well as Eliquis and had gradual improvement in her symptoms. She has been weaned off of oxygen tolerating room air. On 02/20 she had some pauses in the morning likely secondary to hypokalemia. Potassium was repleted and metoprolol was reduced to 12.5 mg by mouth twice daily. Since then she has not experienced further pauses or bradycardia. Antibiotics have been transitioned to oral, she is on Augmentin. She has done well and is ambulatory with a walker with PT she has remained afebrile and white blood cell count has normalized. Blood cultures show no growth in 5 days, she was negative for flu, COVID, RSV. Patient is stable for discharge with home health/PT, antibiotics Please stop taking carvedilol, this medication has been switched to metoprolol 12.5 mg about twice daily with the prescription sent to your pharmacy Prescription is for Eliquis 5 mg per mouth twice daily for stroke risk reduction and Augmentin for an additional 5 days for the antibiotic have been sent to your pharmacy as well. Please be very careful not to fall given this new blood thinner can increase your risk for serious bleeding. Diet: Regular Activity: Fall precautions Followup: Matt Busch MD [ACTIVE - CAN ADMIT] - 1 Week Kade Horton FNP [Primary Care Provider] - 1 Week
[2024-02-28 16:09] VITALS: BP 106/77; TEMP 98.2
[2024-02-28 17:00] VITALS: O2SAT 92
== END 2024-02-28 17:41 | DRG 193 ==
LOC: ER 04:26 → ERHOLD 07:12 → 4TH 13:17
PROVIDERS: ADMIT Hospitalist; ATTEND Internal Medicine
DX: J18.9 Pneumonia, unspecified organism (principal); J96.01 Acute respiratory failure with hypoxia; J96.02 Acute respiratory failure with hypercapnia; J44.1 Chronic obstructive pulmonary disease with (acute) exacerbation; I48.19 Other persistent atrial fibrillation; E87.1 Hypo-osmolality and hyponatremia; N17.9 Acute kidney failure, unspecified; J44.0 Chronic obstructive pulmonary disease with (acute) lower respiratory infection; I10 Essential (primary) hypertension; E78.5 Hyperlipidemia, unspecified; E87.6 Hypokalemia; E11.9 Type 2 diabetes mellitus without complications; I27.20 Pulmonary hypertension, unspecified; S72.8X2D Other fracture of left femur, subsequent encounter for closed fracture with routine healing; Z60.2 Problems related to living alone; Z11.52 Encounter for screening for COVID-19; Z88.5 Allergy status to narcotic agent; Z79.82 Long term (current) use of aspirin; Z79.02 Long term (current) use of antithrombotics/antiplatelets; Z79.899 Other long term (current) drug therapy; Z90.710 Acquired absence of both cervix and uterus
CPT/HCPCS: 36415; 71045; 71250; 80048; 80076; 81003; 83605; 83735; 83880; 84132; 84443; 84484; 85025; 85027; 85610; 87040; 87804; 87807; 87811; 93005; 93306; 94640; 94760; 96361; 96365; 96372; 96375; 97116; 97161; 97530; 99285; J0692; J0696; J1940; J2919; J3475; J3480; J7030; J7050; J7613; J7614; J7644

== ENCOUNTER 2024-06-04 05:12 | Inpatient (IN) | payer OTHER ==
--- OUTSIDE RECORDS SUMMARY | 2024-06-04 05:18 | XMS REPORT | Continuity of Care Document ---
Author Name Unknown Address [address] [facility] [address] [place] [address] [facility] Address [address] [facility] [address] [address] [place] [address] Care Team Providers Care Moss Bleacher Name Role Phone Pcp, Pcp Primary Care Physician Unavailab RUSSELL Edmondson Attending Clinician Unavailable Pre-Op/Recovery, 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 Tin Cans Attending Clini emi Unavailable Appts, Sw Cath Holding Attending Clinician Unava ildieter Jesus, Sw Attending Clinician Unavailable Oneyda Palacio MD Attending Clinician [phone] ONEYDA PALACIO Attending Clinician Unavailable Franck MALDONADO, López Huffman Attending Clinician [phone] Hailey MALDONADO, Elise Michelle Attending Clinici an Nicole Rodriguez MD, I Attending Clinician [phone] Donnell Zhao MD Attending Clinician [phone] Jaz Dumont MD Attending Clinician [phone] Jerardo MALDONADO, Sheikh Brandon Attending Clinician + [phone] SHEIKH BRANDON KURTZ Attending Clinician Ricardo siddiqui Doctor Unassigned, [place] Attending Clinician Mitch Kahn PTA Attending Clinician UnavailJonah Curry MD Attending Clinician [phone] Chrissy Chua PTA Attending Clinician Unavail able Olga Cabrera PT Attending Clinician Unavailab JONAH Capone Attending Clinician UnavailKyle INFANTE, Leola Attending Clinician [phone] LEOLA MAHAN Attending Clinician Unavailruben Lacy MD, Rissa Wilson Attending Clinician [phone] RISSA LACY Attending Clinician BRAULIO Pedro Attending Clinician Unavailable 2, [facility] Attending Clinician Unavailable Lab, Adc Fam Pob I Attending Clinician Unavailab dorothea INFANTE, Paulette Attending Clinician [phone] Soto Fox PT, Emilia Attending Clinician Un available Pob, Adc Lab Main Attending Clinician Unavailruben Swartz MD, Gardenia Hitchcock Attending Clinician + Harry MALDONADO, Brittni Vera Attending Clinician [phone] Raina Toledo Attending Clinician [phone] Brittney Chun PHD Attending Clinician + [phone] BRITTNEY CHUN Attending Clinician Unavailab SHAYLA Samson Attending Clinician Unavailable Hailey MALDONADO, Elise Michelle Admitting Clinici an ELISE MORRISON Admitting Clinician Unavailable Payers Payer Name Policy Type Policy Number Effective Date Expirati on Date Source [employer] MEDICARE ADV PPO [id number] 2023 00:00:00 [employer] MEDICARE ADVANTAGE Medicare [id number] 2023 00:00:00 MEDICARE PART A \\T\\ B [id number] 2003 00:00:00 2016 00:00:00 [employer] O [id number] 2003 00:00:00 2003 00:00:00 Problems Condition Name Condition Details Condition Category Status Onset Date Resolution Date Last Treatment Date Treating Clinician Comments Source Essential tremor Essential tremor Disease [facility] 03-18 00:00: 00 Tashi Ortez Primary hypertensi on Primary hypertensi on Disease Rec[facility] 03-18 00:00: 00 Tashi Ortez Impaired mobility and ADLs Impaired mobility and ADLs Disease Active 03-18 00:00: 00 Tashi Crockett Epic Frequent falls Frequent falls Disease Active 03-18 00:00: 00 Tashi Crockett Epic Left hip pain Left hip pain Disease Active - 00:00: 00 [facility] Bilateral hearing loss, unspecifie d hearing loss type Bilateral hearing loss, unspecifie d hearing loss type Disease Active 03-17 00:00: 00 [facility] Chronic low back pain without sciatica, unspecifie d back pain laterality Chronic low back pain without sciatica, unspecifie d back pain laterality Disease Active 03-17 00:00: 00 [facility] Seasonal allergies Seasonal allergies Disease Active 03-17 00:00: 00 [facility] Need for influenza vaccinatio n Need for influenza vaccinatio n Disease Active 03-17 00:00: 00 [facility] Screening for diabetes mellitus Screening for diabetes mellitus Disease Active 03-17 00:00: 00 [facility] Need for Tdap vaccinatio n Need for Tdap vaccinatio n Disease Active 03-17 00:00: 00 [facility] Essential tremor Essential tremor Disease Active 2014-02 00:00: 00 [facility] Essential hypertensi on, benign Essential hypertensi on, benign Disease Active 03-15 00:00: 00 [facility] Mixed hyperlipid emia Mixed hyperlipid emia Disease Active 03-15 00:00: 00 [facility] Allergic rhinitis Allergic rhinitis Disease Active 03-15 00:00: 00 [facility] Tenosynovi tis Tenosynovi tis Disease Active 03-15 00:00: 00 [facility] Colon polyps Colon polyps Disease Active 03-15 00:00: 00 [facility] Essential hypertensi on Essential hypertensi on Disease Active 03-15 00:00: 00 [facility] Accidental fall, initial encounter Accidental fall, initial encounter Disease Resolve d 2- 00:00: 00 2024-03-26 00:00:00 2024-03-26 14:13:06 Tashi Ortez Atrial fibrillati on (CMS/HCC) Atrial fibrillati on (CMS/HCC) Disease Resolve d - 00:00: 00 2024-03-26 00:00:00 2024-03-26 14:13:12 Tashi Ortez Hypokalemi a Hypokalemi a Disease Resolve d - 00:00: 00 2024-03-26 00:00:00 2024-03-26 14:13:04 Tashi Ortez Allergies, Adverse Reactions, Alerts Allergy Name Allergy Type Status Severity Reaction(s) Onset Date Inactive Date Treating Clinician Comments Source CODEINE DRUG INGREDI Active Unknown-Cmnt - 00:00: 00 [facility] MORPHINE DRUG INGREDI Active Unknown-Cmnt 02-27 00:00: 00 [facility] NO KNOWN ALLERGIE S Drug Class Active [facility] Social History Social Habit Start Date Stop Date Quantity Comments Source ASSERTION Possible [facility] Gender identity Willie jaki Ortez Sexual orientation [facility] Exposure to SARS-CoV-2 (event) Not sure [facility] History of Social function 2024-03-20 00:00:00 2024-03-20 00:00:00 [facility] Tobacco use and exposure 2024-03-18 00:00:00 2024-03-18 00:00:00 User of smokeless tobacco [facility] Alcohol intake 2019-12-17 00:00:00 2019-12-17 00:00:00 Current drinker of alcohol (finding) [facility] Alcohol Comment 2014-11-02 00:00:00 2014-11-02 00:00:00 Occasional Drinker [facility] Sex Ass[birth year] At 1940 00:00:00 1940 00:00:00 [facility] Smoking Status Start Date Stop Date Source Never smoked tobacco Tashi Ortez Medications Ordered Medication Name Filled Medication Name Start Date Stop Date Current Medication? Ordering Clinician Indication Dosage Frequency Signature (SIG) Comments Components Source ascorbic acid (Vitamin C) 500 mg/mL oral liquid ascorbic acid (Vitamin C) 500 mg/mL oral liquid 307 00:39: 32 Yes 500mg QD Take 500 mg by mouth 1 time each day. Tashi Ortez metoprolol tartrate (Lopressor) 25 MG tablet metoprolol tartrate (Lopressor) 25 MG tablet 03-26 00:00: 00 03-26 23:59 :00 No 25mg Q.5D Take 1 tablet by mouth in the morning and 1 tablet before bedtime. Tashi Ortez apixaban (Eliquis) 2.5 MG tablet apixaban (Eliquis) 2.5 MG tablet 03-26 00:00: 00 03-26 00:00 :00 Yes 2.5mg Q.5D Take 1 tablet by mouth in the morning and 1 tablet in the evening. Tashi Ortez guaiFENesin (Robitussin ) 100 MG/5ML liquid 200 mg guaiFENesin (Robitussin ) 100 MG/5ML liquid 200 mg 03-25 09:43: 42 Yes 200mg Q.25D 200 mg, Oral, 4 times daily PRN, cough, Starting on Sat03/25/24 at 0943 Tashi Ortez magnesium sulfate in D5W IVPB 1 g magnesium sulfate in D5W IVPB 1 g 03-22 10:15: 00 03-22 12:45 :00 No 1g 1 g, Intravenou s, at 100 mL/hr, Administer over 1 Hours, Once, On 03/22/24 at 1015, For 1 dose Tashi Ortez apixaban (Eliquis) tablet 2.5 mg apixaban (Eliquis) tablet 2.5 mg 03-21 20:00: 00 Yes 2.5mg Q12H 2.5 mg, Oral, Every 12 hours, First dose (after last modificati on) on 03/21/24 at 2000 Tashi Ortez Potassium chloride solution 40 mEq Potassium chloride solution 40 mEq 03-21 13:00: 00 03-21 13:05 :00 No 40meq 40 mEq, Oral, Once, On 03/21/24 at 1300, For 1 dose, Mix with 4 oz (120ml) of water prior to administra tion Tashi Crockett [facility] Potassium chloride solution 40 mEq Potassium chloride solution 40 mEq 03-21 08:30: 00 03-21 08:50 :00 No 40meq 40 mEq, Oral, Once, On 03/21/24 at 0830, For 1 dose, Mix with 4 oz (120ml) of water prior to administra tion Tashi Crockett [facility] metoprolol tartrate (Lopressor) tablet 25 mg metoprolol tartrate (Lopressor) tablet 25 mg 03-20 21:00: 00 Yes 25mg Q.5D 25 mg, Oral, Every 12 hours scheduled, First dose (after last modificati on) on Sat03/20/24 at 2100 Tashi Crockett [facility] losartan (Cozaar) tablet 100 mg losartan (Cozaar) tablet 100 mg 03-20 20:30: 00 Yes 100mg 100 mg, Oral, Every 24 hours, First dose on Sat03/20/24 at 2030, Hold for SBP< 120 mmHg Give with hydrochlor othiazide Tashi Crockett [facility] hydroCHLORO thiazide (HYDRODiuri l) tablet 25 mg hydroCHLORO thiazide (HYDRODiuri l) tablet 25 mg 03-20 20:30: 00 Yes 25mg 25 mg, Oral, Every 24 hours, First dose on Sat03/20/24 at 2030, Hold for SBP< 120 mmHg Give with losartan Tashi Ortez atorvastati n (Lipitor) tablet 20 mg atorvastati n (Lipitor) tablet 20 mg 03-20 20:00: 00 Yes 20mg QD 20 mg, Oral, Daily, First dose on Sat03/20/24 at 2000 Tashi Ortez apixaban (Eliquis) tablet 5 mg apixaban (Eliquis) tablet 5 mg 03-20 20:00: 00 03-21 14:51 :09 No 5mg Q12H 5 mg, Oral, Every 12 hours, First dose on Sat03/20/24 at 2000 Tashi Ortez flecainide (Tambocor) tablet 50 mg flecainide (Tambocor) tablet 50 mg 03-20 18:15: 00 Yes 50mg Q.5D 50 mg, Oral, Every 12 hours scheduled, First dose on Sat03/20/24 at 1815 Tashi Ortez metoprolol tartrate (Lopressor) tablet 50 mg metoprolol tartrate (Lopressor) tablet 50 mg 03-20 18:15: 00 Yes 50mg Q.5D 50 mg, Oral, Every 12 hours scheduled, First dose on Sat03/20/24 at 1815 Tashi Ortez polyethylen e glycol (PEG) 3350 (Miralax) packet 17 g polyethylen e glycol (PEG) 3350 (Miralax) packet 17 g 03-19 09:00: 00 Yes 17g QD 17 g, Oral, Daily, First dose on Sat03/19/24 at 0900, Dissolve 17 g in 120 to 240 mL (4 to 8 ounces) of beverage. Tashi Ortez senna-docus ate (Layne-Colac e) 8.6-50 mg per tablet 2 tablet senna-docus ate (Layne-Colac e) 8.6-50 mg per tablet 2 tablet 03-19 09:00: 00 Yes 2{tbl} Q.5D 2 tablet, Oral, 2 times daily, First dose on Sat03/19/24 at 0900 Tashi Ortez sodium chloride (NS) 0.9 % flush 10 mL sodium chloride (NS) 0.9 % flush 10 mL 03-19 01:00: 00 Yes 10mL Q.5D 10 mL, Intravenou s, Every 12 hours scheduled, First dose on Sat03/19/24 at 0100, Administer at least once every 12 hours Tashi Ortez bisacodyl (Dulcolax) EC tablet 5 mg bisacodyl (Dulcolax) EC tablet 5 mg 03-19 00:58: 26 Yes 5mg QD 5 mg, Oral, Nightly PRN, constipati on, Starting on Sat03/19/24 at 0058, Do not crush, chew, or split. Tashi Ortez glucagon injection 1 mg glucagon injection 1 mg 03-19 00:58: 00 Yes 1mg Tashi Crockett [facility] dextrose 50 % solution 25 g dextrose 50 % solution 25 g 03-19 00:58: 00 Yes 25g Tashi Crockett [facility] dextrose 50 % solution 12.5 g dextrose 50 % solution 12.5 g 03-19 00:58: 00 Yes 12.5g Tashi Crockett [facility] sodium chloride (NS) 0.9 % flush 10 mL sodium chloride (NS) 0.9 % flush 10 mL 03-19 00:58: 00 Yes 10mL Tashi Crockett [facility] metoprolol tartrate (Lopressor) tablet 12.5 mg metoprolol tartrate (Lopressor) tablet 12.5 mg 03-19 00:15: 00 03-20 18:06 :40 No 12.5mg Q.5D 12.5 mg, Oral, Every 12 hours scheduled, First dose on Sat03/19/24 at 0015 Tashi Crockett [facility] melatonin tablet 3 mg melatonin tablet 3 mg 03-18 23:42: 08 Yes 3mg QD 3 mg, Oral, Nightly PRN, sleep, Starting on Sat03/18/24 at 2342 Tashi Crockett [facility] ondansetron ODT (Zofran-ODT ) disintegrat ing tablet 4 mg ondansetron ODT (Zofran-ODT ) disintegrat ing tablet 4 mg 03-18 23:42: 08 Yes 4mg Q8H [Order 1 Start] Name: ondansetro n ODT (Zofran-OD T) disintegra ting tablet 4 mg Signed Summary: 4 mg, Oral, Every 8 hours PRN, nausea, vomiting, Starting on Sat03/18/24 at 2342, Patient should allow tablet to dissolve on tongue. Do not remove from blister pack until just before administer ing. [Order 1 End] [Order 2 Start] Name: ondansetro n (Zofran) injection 4 mg Signed Summary: 4 mg, Intravenou s, Every 8 hours PRN, nausea, vomiting, Starting on Sat03/18/24 at 2342, Give IV if patient is unable to take orally. [Order 2 End] Tashi Ortez acetaminoph en (Tylenol) tablet 650 mg acetaminoph en (Tylenol) tablet 650 mg 03-18 23:42: 08 Yes 650mg Q6H 650 mg, Oral, Every 6 hours PRN, mild pain (1-3), headaches, fever, Starting on Sat03/18/24 at 2342 Tashi Ortez labetalol injection 10 mg labetalol injection 10 mg 03-18 23:42: 08 Yes 10mg Q4H 10 mg, Intravenou s, Every 4 hours PRN, high blood pressure, SBP>180. Hold for HR<60, Starting on Sat03/18/24 at 2342, SBP>180. Hold for HR<60 Tashi Ortez Potassium chloride solution 40 mEq Potassium chloride solution 40 mEq 03-18 20:20: 00 03-18 22:13 :00 No 40meq 40 mEq, Oral, Once, On Sat03/18/24 at 2020, For 1 dose, Mix with 4 oz (120ml) of water prior to administra tion Tashi Ortez traMADol (Ultram) 50 MG tablet traMADol (Ultram) 50 MG tablet 03-13 00:00: 00 03-26 00:00 :00 No 1{tbl} Q8H Take 1 tablet by mouth in the morning and 1 tablet at noon and 1 tablet before bedtime. Tashi Ortez losartan-hy droCHLOROth iazide (Hyzaar) 100-25 MG tablet losartan-hy droCHLOROth iazide (Hyzaar) 100-25 MG tablet 18 00:00: 00 Yes 1{tbl} Take 1 tablet by mouth 1 time each day at the same time. Tashi Ortze atorvastati n (Lipitor) 20 MG tablet atorvastati n (Lipitor) 20 MG tablet 02-28 00:00: 00 Yes 1{tbl} QD Take 1 tablet by mouth 1 time each day. Tashi Ortez amLODIPine (Norvasc) 10 MG tablet amLODIPine (Norvasc) 10 MG tablet 2025-0 1-11 00:00: 00 03-26 00:00 :00 No 1{tbl} Take 1 tablet by mouth 1 time each day at the same time. Tashi iftikhar Ortez apixaban (Eliquis) 5 MG tablet apixaban (Eliquis) 5 MG tablet 02-28 00:00: 00 03-26 00:00 :00 No 1{tbl} Q12H Take 1 tablet by mouth in the morning and 1 tablet in the evening. Tashi iftikhar Crockett [facility] metoprolol tartrate (Lopressor) 12.5 mg half tablet metoprolol tartrate (Lopressor) 12.5 mg half tablet 02-28 00:00: 00 03-26 00:00 :00 No 12.5mg Q12H Take 12.5 mg by mouth in the morning and 12.5 mg in the evening. Hold for SPB<100,DB P<60 OR HR<60. Deepikabob iftikhar Bon [facility] cholecalcif sylvain, vitamin D3, (VITAMIN D3 ORAL) 03-15 20:09: 35 Yes Take by mouth. [facility] omega-3s-dh a-epa-fish oil-D3 (FISH OIL-VIT D3) 360 mg-1,200 mg -1,000 unit Cap 03-15 20:09: 35 Yes 1{capsu le} Take 1 Cap by mouth daily. [facility] pyridoxine (VITAMIN B-6) 200 mg tablet 03-15 20:09: 35 Yes 200mg Take 200 mg by mouth daily. [facility] aspirin 81 mg chewable tablet 03-15 20:09: 35 Yes 81mg Take 81 mg by mouth daily. [facility] vitamin B-12 (VITAMIN B-12) 1,000 mcg tablet 03-15 20:09: 35 Yes 1000ug Take 1,000 mcg by mouth daily. [facility] vitamin e 400 unit capsule 03-15 20:09: 35 Yes 800U Take 800 Units by mouth daily. [facility] BIOTIN ORAL 03-15 20:09: 35 Yes Take by mouth daily. [facility] ascorbic acid (VITAMIN C ORAL) 03-15 20:09: 35 Yes Take by mouth. [facility] omega-3s-dh a-epa-fish oil-D3 (FISH OIL-VIT D3) 360 mg-1,200 mg -1,000 unit Cap 2019-02 19:46: 08 Yes 1{capsu le} Take 1 Cap by mouth daily. [facility] pyridoxine (VITAMIN B-6) 200 mg tablet 2019-02 19:46: 08 Yes 200mg Take 200 mg by mouth daily. [facility] aspirin 81 mg chewable tablet 2019-02 19:46: 08 Yes 81mg Take 81 mg by mouth daily. [facility] vitamin B-12 (VITAMIN B-12) 1,000 mcg tablet 2019-02 19:46: 08 Yes 1000ug Take 1,000 mcg by mouth daily. [facility] vitamin e 400 unit capsule 2019-02 19:46: 08 Yes 800U Take 800 Units by mouth daily. [facility] BIOTIN ORAL 2019-02 19:46: 08 Yes Take by mouth daily. [facility] ascorbic acid (VITAMIN C ORAL) 2019-02 19:46: 08 Yes Take by mouth. [facility] cholecalcif sylvain, vitamin D3, (VITAMIN D3 ORAL) 2019-02 19:46: 08 Yes Take by mouth. [facility] losartan-hy drochloroth iazide 100-25 mg per tablet 2019-02 00:00: 00 Yes [id number] 1{tbl} Take 1 tablet by mouth at bedtime. [facility] amLODIPine 10 mg tablet 2019-02 00:00: 00 Yes [id number] 10mg Take 1 tablet by mouth daily. [facility] omega-3s-dh a-epa-fish oil-D3 (FISH OIL-VIT D3) 360 mg-1,200 mg -1,000 unit Cap 08-09 13:20: 07 Yes 1{capsu le} Take 1 Cap by mouth daily. [facility] pyridoxine (VITAMIN B-6) 200 mg tablet 08-09 13:20: 07 Yes 200mg Take 200 mg by mouth daily. [facility] aspirin 81 mg chewable tablet 08-09 13:20: 07 Yes 81mg Take 81 mg by mouth daily. [facility] vitamin B-12 (VITAMIN B-12) 1,000 mcg tablet 08-09 13:20: 07 Yes 1000ug Take 1,000 mcg by mouth daily. [facility] vitamin e 400 unit capsule 08-09 13:20: 07 Yes 800U Take 800 Units by mouth daily. [facility] BIOTIN ORAL 08-09 13:20: 07 Yes Take by mouth daily. [facility] ascorbic acid (VITAMIN C ORAL) 08-09 13:20: 07 Yes Take by mouth. [facility] cholecalcif sylvain, vitamin D3, (VITAMIN D3 ORAL) 08-09 13:20: 07 Yes Take by mouth. [facility] ascorbic acid (VITAMIN C ORAL) 06-15 20:12: 18 Yes Take by mouth. [facility] cholecalcif sylvain, vitamin D3, (VITAMIN D3 ORAL) 06-15 20:12: 18 Yes Take by mouth. [facility] vitamin e 400 unit capsule 06-15 20:11: 17 Yes 800U Take 800 Units by mouth daily. [facility] aspirin 81 mg chewable tablet 06-15 20:11: 10 Yes 81mg Take 81 mg by mouth daily. [facility] vitamin B-12 (VITAMIN B-12) 1,000 mcg tablet 06-15 20:10: 53 Yes 1000ug Take 1,000 mcg by mouth daily. [facility] BIOTIN ORAL 06-15 20:10: 00 Yes Take by mouth daily. [facility] pyridoxine (VITAMIN B-6) 200 mg tablet 06-15 20:09: 50 Yes 200mg Take 200 mg by mouth daily. [facility] omega-3s-dh a-epa-fish oil-D3 (FISH OIL-VIT D3) 360 mg-1,200 mg -1,000 unit Cap 06-15 20:09: 46 Yes 1{capsu le} Take 1 Cap by mouth daily. [facility] LOSARTAN-HY DROCHLOROTH IAZIDE 100-25 mg per tablet 2018-02 00:00: 00 12-16 00:00 :00 No [id number] TAKE 1 TABLET AT BEDTIME [facility] AMLODIPINE 10 mg tablet 2018-02 00:00: 00 12-16 00:00 :00 No [id number] TAKE 1 TABLET DAILY [facility] omega-3s-dh a-epa-fish oil-D3 (FISH OIL-VIT D3) 360 mg-1,200 mg -1,000 unit Cap 08-04 17:31: 04 Yes 1{capsu le} Take 1 Cap by mouth daily. [facility] pyridoxine (VITAMIN B-6) 200 mg tablet 08-04 17:31: 04 Yes 200mg Take 200 mg by mouth daily. [facility] aspirin 81 mg chewable tablet 08-04 17:31: 04 Yes 81mg Take 81 mg by mouth daily. [facility] vitamin B-12 (VITAMIN B-12) 1,000 mcg tablet 08-04 17:31: 04 Yes 1000ug Take 1,000 mcg by mouth daily. [facility] vitamin e 400 unit capsule 08-04 17:31: 04 Yes 800U Take 800 Units by mouth daily. [facility] BIOTIN ORAL 08-04 17:31: 04 Yes Take by mouth daily. [facility] DICLOFENAC 75 mg EC tablet 03-31 00:00: 00 Yes [id number] TAKE 1 TABLET DAILY NEEDED FOR PAIN [facility] Vital Signs Vital Name Observation Time Observation Value Comments [facility] Systolic blood pressure 2024-04-23 09:30:00 107 mm[Hg] [facility] Diastolic blood pressure 2024-04-23 09:30:00 61 mm[Hg] [facility] Heart rate 2024-04-23 09:30:00 70 /min [facility] [place] [facility] Respiratory rate 2024-04-23 09:30:00 13 /min [facility] Oxygen saturation in Arterial blood by Pulse oximetry 2024-04-23 09:30:00 99 /min [facility] Systolic blood pressure 2024-04-23 09:30:00 107 mm[Hg] [facility] Diastolic blood pressure 2024-04-23 09:30:00 61 mm[Hg] [facility] Epic Heart rate 2024-04-23 09:30:00 70 /min [facility] Respiratory rate 2024-04-23 09:30:00 13 /min [facility] Oxygen saturation in Arterial blood by Pulse oximetry 2024-04-23 09:30:00 99 /min [facility] Heart rate 2024-03-26 14:03:28 68 /min [facility] [place] [facility] Oxygen saturation in Arterial blood by Pulse oximetry 2024-03-26 14:03:28 92 /min [facility] Systolic blood pressure 2024-03-26 14:03:21 125 mm[Hg] [facility] Diastolic blood pressure 2024-03-26 14:03:21 59 mm[Hg] [facility] Body temperature 2024-03-26 14:02:[address] [facility] 2024-03-25 19:28:34 20 /min [facility] Body height 2024-03-23 08:34:23 176.9 cm [facility] [place] [facility] Body weight 2024-03-23 08:34:23 68.2 kg [facility] BMI 2024-03-23 08:34:23 21.79 [facility]/m2 [facility] Heart [facility] 2024-03-26 14:03:28 68 /min [facility] Oxygen saturation in Arterial blood by Pulse oximetry 2024-03-26 14:03:28 92 /min [facility] Systolic blood pressure 2024-03-26 14:03:21 125 mm[Hg] [facility] Diastolic blood pressure 2024-03-26 14:03:21 59 mm[Hg] [facility] Body temperature 2024-03-26 14:02:[address] [facility] Respiratory rate 2024-03-25 19:28:34 20 /min [facility] Body height 2024-03-23 08:34:23 176.9 cm Willie Crockett [facility] Body weight 2024-03-23 08:34:23 68.2 kg Williepriscila Crockett [facility] BMI 2024-03-23 08:34:23 21.79 kg/m2 [facility] Systolic blood pressure 2020-07-04 15:28:00 157 mm[Hg] [facility] Diastolic blood pressure 2020-07-04 15:28:00 89 mm[Hg] [facility] Heart rate 2020-07-04 14:41:00 70 /min [facility] Body temperature 2020-07-04 14:41:00 36.11 Lisa [facility] Body height 2020-07-04 14:41:00 172.7 cm [facility] Body weight 2020-07-04 14:41:00 78.608 kg [facility] BMI 2020-07-04 14:41:00 26.35 kg/m2 [facility] Oxygen saturation in Arterial blood by Pulse oximetry 2020-07-04 14:41:00 96 /min [facility] Systolic blood pressure 2020-03-15 20:41:00 156 mm[Hg] [facility] Diastolic blood pressure 2020-03-15 20:41:00 88 mm[Hg] [facility] Heart rate 2020-03-15 20:10:00 63 /min [facility] Body temperature 2020-03-15 20:10:00 36.78 Lisa [facility] Respiratory rate 2020-03-15 20:10:00 18 /min [facility] Body weight 2020-03-15 20:10:00 78.155 kg [facility] BMI 2020-03-15 20:10:00 26.20 kg/m2 [facility] Oxygen saturation in Arterial blood by Pulse oximetry 2020-03-15 20:10:00 96 /min [facility] Systolic blood pressure 2019-12-17 19:44:00 174 mm[Hg] [facility] Diastolic blood pressure 2019-12-17 19:44:00 84 mm[Hg] [facility] Heart rate 2019-12-17 19:44:00 63 /min [facility] Body temperature 2019-12-17 19:44:00 36.72 Lisa [facility] Respiratory rate 2019-12-17 19:44:00 18 /min [facility] Body weight 2019-12-17 19:44:00 78.382 kg [facility] BMI 2019-12-17 19:44:00 26.27 kg/m2 [facility] Oxygen saturation in Arterial blood by Pulse oximetry 2019-12-17 19:44:00 97 /min [facility] Systolic blood pressure 2019-08-10 13:19:00 139 mm[Hg] [facility] Diastolic blood pressure 2019-08-10 13:19:00 84 mm[Hg] [facility] [facility] Heart rate 2019-08-10 13:19:00 72 /min [facility] Body temperature 2019-08-10 13:19:00 36.67 Lisa [facility] Respiratory rate 2019-08-10 13:19:00 16 /min [facility] Body height 2019-08-10 13:19:00 172.7 cm [facility] Body weight 2019-08-10 13:19:00 78.926 kg [facility] BMI 2019-08-10 13:19:00 26.46 kg/m2 [facility] Oxygen saturation in Arterial blood by Pulse oximetry 2019-08-10 13:19:00 94 /min [facility] Procedures Procedure Date / Time Performed Performing Clinician Source ECG 12-LEAD 2024-04-23 09:35:00 Oneyda Palacio [facility] TRANSESOPHAGEAL ECHO (JESUS) W/ CARDIOVERSION 2024-04-23 09:20:00 Oneyda Palacio [facility] Nuvilex POC CHEM 8+ UNSOLICITED RESULTS 2024-04-23 08:02:00 Oneyda Palacio [facility] Nuvilex POC CHEM 8+ UNSOLICITED RESULTS 2024-04-23 07:57:00 Oneyda Palacio [facility] ECG 12-LEAD 2024-03-23 10:00:00 Oneyda Palacio l Bon Epic TRANSTHORACIC ECHO (TTE) COMPLETE 2024-03-22 09:50:00 Oneyda Palacio [facility] Epic BASIC METABOLIC PANEL 2024-03-22 05:44:00 Anighoro, Ri ta I [facility] Epic MAGNESIUM LEVEL 2024-03-22 05:44:00 Angeoffreyoro, [facility] [place] [facility] PHOSPHORUS LEVEL 2024-03-22 05:44:00 Anighoro, Nicole I [facility] Epic BASIC METABOLIC PANEL 2024-03-21 04:59:00 Anighoro, Ri ta I [facility] Epic COMPLETE BLOOD COUNT W/DIFF AND PLATELET 2024-03-21 04:59:00 Anighoro, Nicole I [facility] Epic COMPLETE BLOOD COUNT 2024-03-21 04:59:00 Anighoro, Rit a I [facility] Epic AUTOMATED DIFFERENTIAL 2024-03-21 04:59:00 Anighoro, R lynn I [facility] COMPREHENSIVE METABOLIC PANEL 2024-03-19 04:19:00 Elise Morrison [facility] Epic External Catheter 2024-03-19 00:00:00 Deepika orial [place] Epic CT CERVICAL SPINE WO IV CONTRAST 2024-03-18 20:56:36 Jose Cruz Mckeon [facility] Epic CT BRAIN WO IV CONTRAST 2024-03-18 20:55:15 Eloy Mckeon [facility] Epic ECG 12-LEAD 2024-03-18 20:34:33 Jose [facility] 2024-03-18 20:32:37 Netta [facility]A WITH CULTURE IF INDICATED 2024-03-18 20:24:00 Jose Cruz Mckeon [facility] Epic XR CHEST 1 VIEW 2024-03-18 19:40:40 Jose [facility] [place] [facility] XR HUMERUS 2 VIEWS LEFT 2024-03-18 14:04:00 FabianSharee gustafson [facility] Epic XR ELBOW 3+ VIEWS LEFT 2024-03-18 14:04:00 [facility] BASIC METABOLIC PANEL 2024-03-18 13:53:00 Fabian, Asael morales [facility] HEPATIC FUNCTION PANEL 2024-03-18 13:53:00 Fabian, Rosy plascencia [facility] LIPASE LEVEL 2024-03-18 13:53:00 WaytJose Cruz Memo rial [facility] MAGNESIUM LEVEL 2024-03-18 13:53:00 WaytJose Cruz [facility]orial [facility] PHOSPHORUS LEVEL 2024-03-18 13:53:00 WaytJose Cruz [facility] COMPLETE BLOOD COUNT W/DIFF AND PLATELET 2024-03-18 13:53:00 Fabian, Cecilia [facility] PROTIME-INR 2024-03-18 13:53:00 Fabian, Cecilia [facility] PTT 2024-03-18 13:53:00 Fabian, Cecilia [facility] TROPONIN I HIGH SENSITIVITY (SINGLE ORDER) 2024-03-18 13:53:00 Fabian, Cecilia [facility] COMPLETE BLOOD COUNT 2024-03-18 13:53:00 Fabian, Cesar sharma [facility] AUTOMATED DIFFERENTIAL 2024-03-18 13:53:00 Fabian, Rosy plascencia [facility] AUTHORIZATION FOR RELEASE OF PHI 2020-08-09 05:01:00 Doctor Unassigned, [place] [facility] XR HIPS 3 VW LEFT 2020-06-29 16:58:08 Rissa Lacy [facility] REFERRAL- REQUEST/RESPONSE 2020-06-24 05:01:00 D octor Unassigned, [place] [facility] REFERRAL- REQUEST/RESPONSE 2020-06-22 05:01:00 D octor Unassigned, [place] [facility] LIPID PANEL (47986)(TOTAL CHOLESTEROL, TRIGLYCERIDES, HDL) 2020-03-15 21:10:00 Rissa Lacy [facility] CBC WITH DIFF 2020-03-15 21:10:00 Florian Lacy [facility] LIPID PANEL (13223)(TOTAL CHOLESTEROL, TRIGLYCERIDES, HDL) 2019-12-17 20:36:00 Rissa Lacy [facility] CBC WITH DIFF 2019-12-17 20:36:00 Florian Lacy [facility] VITAMIN B6, PLASMA 2019-08-10 15:17:00 Rissa Lacy [facility] VITAMIN B12, LEVEL 2019-08-10 15:04:00 Rissa Lacy [facility] FOLATE 2019-08-10 15:04:00 Florian Lacy [facility] FREE T4 2019-08-10 15:04:00 Florian Lacy [facility] THYROID STIMULATING HORMONE 2019-08-10 15:04:00 Rissa Lacy [facility] COMP. METABOLIC PANEL (62725) 2019-08-10 15:04:00 Rissa Lacy [facility] LIPID PANEL (23594)(TOTAL CHOLESTEROL, TRIGLYCERIDES, HDL) 2019-08-10 15:04:00 Rissa Lacy [facility] CBC WITH DIFFERENTIAL 2019-08-10 15:04:00 Rissa Alfaro [facility] GLYCOSYLATED HEMOGLOBIN (A1C) 2019-08-10 15:04:00 Rissa Lacy [facility] HIGH SENSITIVITY CRP 2019-08-10 15:04:00 Rissa Morrow [facility] HOMOCYSTEINE 2019-08-10 15:04:00 Florian Lacy [facility] VITAMIN D, 25-OH 2019-08-10 15:04:00 Rissa Lacy [facility] FREE T3 2019-08-10 15:04:00 Florian Lacy [facility] VITAMIN B1 (THIAMINE), WHOLE BLOOD 2019-08-10 15:04:00 Rissa Lacy [facility] ASSIGNMENT OF BENEFITS 2019-08-10 13:05:10 Docto r Unassigned, [place] [facility] REFERRAL- REQUEST/RESPONSE 2019-07-05 05:01:00 D octor Unassigned, [place] [facility] REFERRAL- REQUEST/RESPONSE 2019-06-24 05:01:00 D octor Unassigned, [place] [facility] AUDIOGRAM 2019-04-22 06:01:00 Doctor Unass igned, [place] [facility] NOTICE OF BILLING PRACTICES FOR MEDICARE PATIENTS 2019-03-17 20:00:08 Doctor Unassigned, [place] [facility] ECG 12 lead [facility] 12 [facility] POCT Glucose [facility]hythmia[facility] En[facility] Start Date/Time End Date/Time Encounter Type Admission Type Attending [facility] Care Department Encounter ID Source 2024-05-07 15:32:01 2024-05-07 23:59:00 Outpatient R RUSSELL VILALR [facility] [id number] [facility] 2024-04-23 14:31:54 2024-04-23 23:59:00 Outpatient Elective ESW [facility] [id number] ESW 2024-04-23 09:35:00 2024-04-23 23:59:00 Hospital Encounter Pre-Op/[place] 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, 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 Tin Cans [facility] 1.840.114 350.1.13.70 8.2.7.2.686 [id number] [facility] 2024-04-23 06:29:36 2024-04-23 09:34:00 Hospital Encounter Appts, Sw Cath Holding Jesus, Sw Oneyda Palacio [facility] 1.840.114 350.1.13.70 8.2.7.2.686 [id number] [facility] 2024-04-23 06:29:36 2024-04-23 09:34:00 Outpatient Elective ONEYDA PALACIO [facility] [id number] [facility] 2024-03-18 19:12:00 2024-03-26 17:23:00 Hospital Encounter López Juárez, Elise Rodriguez, Nicole Zhao, Donnell Dumont, Jaz Kurtz, Sheikh Brandon [facility] 1.2.840.114 350.1.13.70 8.2.7.2.686 [id number] Tashi Crockett [facility] 2024-03-18 19:12:00 2024-03-26 17:23:00 Inpatient Trauma Center SHEIKH KURTZ [facility] General Medicine [id number] [facility] 2020-08-09 00:00:00 2020-08-09 00:00:00 Orders Only Doctor Unassigned, [place] [facility] 1.2.840.114 350.1.13.10 4.2.7.2.686 [id number] [facility] 2020-08-08 14:54:34 2020-08-08 15:32:02 Ancillary Visit Mitch Chua Craig L [facility] 1.2.840.114 350.1.13.10 4.2.7.2.686 [id number] [facility] 2020-08-03 14:55:53 2020-08-03 15:38:18 Ancillary Visit Mitch Chua Craig L [facility] 1.2.840.114 350.1.13.10 4.2.7.2.686 [id number] [facility] 2020-08-01 14:51:44 2020-08-01 15:36:12 Ancillary Visit Mitch Chua Craig L [facility] 1.2.840.114 350.1.13.10 4.2.7.2.686 [id number] [facility] 2020-07-27 13:39:21 2020-07-27 14:15:03 Ancillary Visit Chrissy Chua Craig L [facility] 1.2.840.114 350.1.13.10 4.2.7.2.686 [id number] [facility] 2020-07-25 13:42:25 2020-07-25 14:22:25 Ancillary Visit Mitch Chua Craig L [facility] Building 1.2.840.114 350.1.13.10 4.2.7.2.686 [id number] [facility] 2020-07-19 08:48:39 2020-07-19 09:48:39 Ancillary Visit Olga Cabrera [facility] 1.2.840.114 350.1.13.10 4.2.7.2.686 [id number] [facility] 2020-07-19 09:00:00 2020-07-19 09:00:00 Outpatient R JONAH SIMMONS [facility] [id number] [facility] 2020-07-04 09:30:31 2020-07-04 10:25:39 Office Visit Leola Mahan [facility] 1.2.840.114 350.1.13.10 4.2.7.2.686 [id number] [facility] 2020-07-04 09:30:00 2020-07-04 09:30:00 Outpatient R LEOLA MAHAN [facility] [id number] [facility] 2020-06-29 11:30:00 2020-06-29 23:59:00 Hospital Encounter Rissa Lacy [facility] 1.2.840.114 350.1.13.10 4.2.7.2.686 [id number] [facility] 2020-06-29 00:00:00 2020-06-29 00:00:00 Outpatient RISSA DAVID [facility] [id number] [facility] 2020-06-28 15:40:00 2020-06-28 15:40:00 Outpatient R BAMBIEMMYRISSA [facility] [id number] [facility] 2020-06-28 09:26:21 2020-06-28 10:06:21 Telemedici ne Visit Rissa Lacy Katie [facility] 1.2.840.114 350.1.13.10 4.2.7.2.686 [id number] [facility] 2020-06-24 00:00:00 2020-06-24 00:00:00 Orders Only Doctor Unassigned, [place] [facility] 1.2.840.114 350.1.13.10 4.2.7.2.686 [id number] [facility] 2020-06-22 00:00:00 2020-06-22 00:00:00 Orders Only Doctor Unassigned, [place] [facility] 1.2.840.114 350.1.13.10 4.2.7.2.686 [id number] [facility] 2020-04-15 14:10:00 2020-04-15 14:10:00 Outpatient BRAULIO CHASE [facility] [id number] [facility] 2020-04-07 14:20:00 2020-04-07 14:20:00 Outpatient BRAULIO CHASE [facility] [id number] [facility] 2020-03-15 15:06:05 2020-03-15 15:21:05 Equipment Operator Wage Hand Visit 2, Adc Lab Bambi Rissa Katie [facility] 1.2.840.114 350.1.13.10 4.2.7.2.686 [id number] [facility] 2020-03-15 13:46:53 2020-03-15 14:42:11 Office Visit Rissa Lacy [facility] 1.2.840.114 350.1.13.10 4.2.7.2.686 [id number] [facility] 2020-03-15 13:40:00 2020-03-15 13:40:00 Outpatient R RISSA LACY [facility] [id number] [facility] 2020-02-02 11:20:56 2020-02-02 11:40:56 Laboratory Only Lab, [facility] Fam Pob Paulette Hewitt [facility] Office Building One 1.84.114 350.1.13.10 4.2.7.2.686 [id number] [facility] 2020-02-02 11:40:00 2020-02-02 11:40:00 Outpatient R [facility] [id number] [facility] 2020-01-03 00:00:00 2020-01-03 00:00:00 Case Management Lacy Rissa [facility] Building 1.2.840.114 350.1.13.10 4.2.7.2.686 [id number] [facility] 2019-12-17 15:29:12 2019-12-17 15:44:12 Equipment Operator Wage Hand Visit 2, Adc Lab Lacy Rissa [facility] Building 1.2.840.114 350.1.13.10 4.2.7.2.686 [id number] [facility] 2019-12-17 14:26:47 2019-12-17 15:18:50 Office Visit Rissa Lacy Katie [facility] 1.2840.114 350.1.13.10 4.2.7.2.686 [id number] [facility] 2019-12-17 14:20:00 2019-12-17 14:20:00 Outpatient R RISSA LACY [facility] [id number] [facility] 2019-09-15 11:22:46 2019-09-15 12:02:46 Ancillary Visit Emilia Chaidez Craig L [facility] nal Building 1.2.840.114 350.1.13.10 4.2.7.2.686 [id number] [facility] 2019-09-10 15:55:29 2019-09-10 16:17:03 Ancillary Visit [facility]y [facility] 1.2.840.114 350.1.13.10 4.2.7.2.686 [id number] [facility] 2019-09-08 11:18:57 2019-09-08 11:58:57 Ancillary Visit Emilia [facility]idez [facility] 1.2.840.114 350.1.13.10 4.2.7.2.686 [id number] [facility] 2019-09-03 11:20:48 2019-09-03 12:00:48 Ancillary [facility] 1.2.840.114 350.1.13.10 4.2.7.2.686 [id number] [facility] 2019-09-01 11:25:38 2019-09-01 12:05:38 Ancillary Visit Chrissy Chua Elizabeth A [facility] 1.2.840.114 350.1.13.10 4.2.7.2.686 [id number] [facility] 2019-08-27 11:20:48 2019-08-27 11:49:54 Ancillary Visit Emilia Chaidez [facility] 1.2.840.114 350.1.13.10 4.2.7.2.686 [id number] [facility] 2019-08-24 10:56:59 2019-08-24 11:36:59 Ancillary Visit Mitch Chua Elizabeth A [facility] 1.2.840.114 350.1.13.10 4.2.7.2.686 [id number] [facility] 2019-08-24 00:00:00 2019-08-24 00:00:00 Patient Outreach Rissa Lacy [facility] 1.2.840.114 350.1.13.10 4.2.7.2.686 [id number] [facility] 2019-08-20 14:40:00 2019-08-20 14:40:00 Outpatient RISSA DAVID [facility] [id number] [facility] 2019-08-20 00:00:00 2019-08-20 00:00:00 Telephone Olga Cabrera [facility] 1.2.840.114 350.1.13.10 4.2.7.2.686 [id number] [facility] 2019-08-17 11:03:14 2019-08-17 12:03:14 Ancillary Visit Emilia Chaidez Elizabeth A [facility] 1.2.840.114 350.1.13.10 4.2.7.2.686 [id number] [facility] 2019-08-17 11:00:00 2019-08-17 11:00:00 Outpatient RISSA DAVID [facility] [id number] [facility] 2019-08-10 09:55:51 2019-08-10 10:10:51 Equipment Operator Wage Hand Visit Pob, Adc Lab Main Rissa Lacy [facility] 1.2840.114 350.1.13.10 4.2.7.2.686 [id number] [facility] 2019-08-10 08:06:13 2019-08-10 09:02:39 Office Visit Rissa Lacy [facility] 1.2840.114 350.1.13.10 4.2.7.2.686 [id number] [facility] 2019-08-10 08:00:00 2019-08-10 08:00:00 Outpatient R RISSA LACY [facility] [id number] [facility] 2019-08-10 00:00:00 2019-08-10 00:00:00 Orders Only Doctor Unassigned, [place] [facility] 1.2840.114 350.1.13.10 4.2.7.2.686 [id number] [facility] 2019-07-27 00:00:00 2019-07-27 00:00:00 Telephone Rissa Lacy [facility] 1.2840.114 350.1.13.10 4.2.7.2.686 [id number] [facility] 2019-07-14 00:00:00 2019-07-14 00:00:00 Telephone Rissa Lacy [facility] 1.2840.114 350.1.13.10 4.2.7.2.686 [id number] [facility] 2019-07-05 00:00:00 2019-07-05 00:00:00 Orders Only Doctor Unassigned, [place] [facility] 1.2840.114 350.1.13.10 4.2.7.2.686 [id number] [facility] 2019-07-02 00:00:00 2019-07-02 00:00:00 Telephone Rissa Lacy [facility] 1.2840.114 350.1.13.10 4.2.7.2.686 [id number] [facility] 2019-06-25 10:00:00 2019-06-25 10:00:00 Outpatient R [facility] [id number] [facility] 2019-06-25 00:00:00 2019-06-25 00:00:00 Telephone Rissa Lacy [facility] 1.840.114 350.1.13.10 4.2.7.2.686 [id number] [facility] 2019-06-24 00:00:00 2019-06-24 00:00:00 Orders Only Doctor Unassigned, [place] [facility] 1.0.114 350.1.13.10 4.2.7.2.686 [id number] [facility] 2019-06-23 16:57:11 2019-06-23 17:12:11 Telemedici ne Visit Gardenia Swartz Lindy Skye [facility] 1..114 350.1.13.10 4.2.7.2.686 [id number] [facility] 2019-06-23 00:00:00 2019-06-23 00:00:00 Patient Secure Msg Doctor Unassigned, [place] [facility] 1.2.114 350.1.13.10 4.2.7.2.686 [id number] [facility] 2019-06-16 07:52:08 2019-06-16 16:00:36 Telemedici ne Visit Rissa Lacy [facility] 1.2.840.114 350.1.13.10 4.2.7.2.686 [id number] [facility] 2019-06-16 15:00:00 2019-06-16 15:00:00 Outpatient R RISSA LACY [facility] [id number] [facility] 2019-04-22 08:21:43 2019-04-22 09:06:43 Ancillary Visit Raina Vinson Deborah L [facility] 1.2.840.114 350.1.13.10 4.2.7.2.686 [id number] [facility] 2019-04-22 09:00:00 2019-04-22 09:00:00 Outpatient BRITTNEY PATTERSON [facility] [id number] [facility] 2019-04-22 00:00:00 2019-04-22 00:00:00 Orders Only Doctor Unassigned, [place] [facility] 1.840.114 350.1.13.10 4.2.7.2.686 [id number] [facility] 2019-03-18 00:00:00 2019-03-18 00:00:00 Pre Visit Outreach Rissa Lacy [facility] 1.2.840.114 350.1.13.10 4.2.7.2.686 [id number] [facility] 2019-03-17 00:00:00 2019-03-17 00:00:00 Orders Only Doctor Unassigned, [place] [facility] 1.2840.114 350.1.13.10 4.2.7.2.686 [id number] [facility] 2014-11-01 10:30:00 2014-11-01 10:30:00 Outpatient SHAYLA HERNANDES [facility] [id number] [facility] Results Test Description Test Time Test Comments Results Result Co mments Source Courtney Crockett [facility] Chem 2024-04-23 08:07:35* Test Item Value Reference Range Interpretation Comme nts POC Sodium Lvl (test code = 82349-7) See_Comment [Automated messa ge] The system which generated this result transmitted reference range: 135 - 145 mEq/L. The reference range was not used to interpret this result as normal/abnormal. POC Potassium Lvl (test code = 16659-1) See_Comment L [Automated messa ge] The system which generated this result transmitted reference range: 3.5 - 5.1 mEq/L. The reference range was not used to interpret this result as normal/abnormal. POC A Cl (test code = 33844-4) See_Comment [Automated messa ge] The system which generated this result transmitted reference range: 95 - 109 mEq/L. The reference range was not used to interpret this result as normal/abnormal. POC CO2 (test code = 201) See_Comment H [Automated messa ge] The system which generated this result transmitted reference range: 24 - 32 mEq/L. The reference range was not used to interpret this result as normal/abnormal. POC BUN (test code = 4366702) 21 mg/dL 7-22 POC Creatinine (test code = 73448-0) 1 mg/dL 0.5-1.4 POC Glu (test code = 1875560631) 114 mg/dL 70-99 H POC Ca Ion (test code = 5047536546) See_Comment H [Automated messa ge] The system which generated this result transmitted reference range: 1.05 - 1.25 mMol/L. The reference range was not used to interpret this result as normal/abnormal. POC Anion Gap (test code = 86244-2) See_Comment [Automated messa ge] The system which generated this result transmitted reference range: 10 - 20 mEq/L. The reference range was not used to interpret this result as normal/abnormal. POC eGFR (test code = 6868569534) mL/min/1.73m2 The estimated GF R is not accurate in children below the age of 2 months; therefore, this value is not reported. POC Hemoglobin (test code = 8897054843) 17.7 g/dL 11.2-15.7 H POC Hematocrit (test code = 9177331232) 52 % 34.1-44.9 H POC Performing Location (test code = 5072787607) CVOR/PACU Lab Interpretation (test code = 72551-6) Abnormal Courtney Crockett [facility] Chem 2024-04-23 08:07:34* Test Item Value Reference Range Interpretation Comme nts POC Sodium Lvl (test code = 29028-6) See_Comment L [Automated messa ge] The system which generated this result transmitted reference range: 135 - 145 mEq/L. The reference range was not used to interpret this result as normal/abnormal. POC Potassium Lvl (test code = 58513-8) See_Comment LL [Automated messa ge] The system which generated this result transmitted reference range: 3.5 - 5.1 mEq/L. The reference range was not used to interpret this result as normal/abnormal. POC A Cl (test code = 82336-8) See_Comment H [Automated messa ge] The system which generated this result transmitted reference range: 95 - 109 mEq/L. The reference range was not used to interpret this result as normal/abnormal. POC CO2 (test code = 201) See_Comment H [Automated messa ge] The system which generated this result transmitted reference range: 24 - 32 mEq/L. The reference range was not used to interpret this result as normal/abnormal. POC BUN (test code = 3586354) 20 mg/dL 7-22 POC Creatinine (test code = 47171-7) 0.9 mg/dL 0.5-1.4 POC Glu (test code = 2095745395) 115 mg/dL 70-99 H POC Ca Ion (test code = 8783410402) See_Comment H [Automated messa ge] The system which generated this result transmitted reference range: 1.05 - 1.25 mMol/L. The reference range was not used to interpret this result as normal/abnormal. POC Anion Gap (test code = 53640-4) See_Comment L [Automated messa ge] The system which generated this result transmitted reference range: 10 - 20 mEq/L. The reference range was not used to interpret this result as normal/abnormal. POC eGFR (test code = 6217251554) mL/min/1.73m2 The estimated GF R is not accurate in children below the age of 2 months; therefore, this value is not reported. POC Hemoglobin (test code = 8308660091) 16.3 g/dL 11.2-15.7 H POC Hematocrit (test code = 0246081996) 48 % 34.1-44.9 H POC Performing Location (test code = 3681470848) CVOR/PACU Lab Interpretation (test code = 20227-8) [facility] [id number] 23:44:42* Test Item Value Reference Range Interpretation Comme nts Ventricular Rate (test code = 5145706347) BPM Atrial Rate (test code = 3125907589) BPM MO Interval (test code = 5189251389) 226 ms QRS Duration (test code = 3533794471) 94 ms QT/QTc (test code = 6271296442) 492 ms QTc Calculation (test code = 5169822834) 519 ms P-[place] (test code = 9704452528) degrees R-[place] (test code = 5443663751) degrees T-[place] (test code = 9149616733) degrees Procedure? (test code = 3480) IMP (test code = IMP) PXN (test code = PXN) [facility] [id number] 23:04:17* Test Item Value Reference Range Interpretation Comme nts LV est EF (test code = 8451408120) 51 % LV A4C EF (test code = 7765405032) 48 % LV stroke vol (test code = 7999122241) 49 ml LV SI (A4C) (test code = 0527200173) 20.6 ml/m2 LV SV (A4C) (test code = 8137814735) 37.9 ml LVIDd (test code = 5969544397) 44 mm LVIDs (test code = 0786269638) 33 mm LV ESV A4C (test code = 2807845247) 41.2 mL LV EDV A4C (test code = 9820732668) 79.1 mL LV ESV 2D (test code = 1618305) 43.2 mL LV EDV 2D (test code = 2616919) 88.6 mL IVSd (test code = 0557474713) 12 mm LVPWd (test code = 9386170653) 12 mm LVOT diam (test code = 3507726145) 20 mm LVOT area (test code = 5414008834) 3.14 cm2 Fractional Shortening 2D (test code = 5357879739) 26 % LVLd (A4C) (test code = 6259789284) 72.1 mm LVLs (A4C) (test code = 3172870911) 56.5 mm MV E pk geraldo (test code = 5560486999) 0.7 m/s MV A pk geraldo (test code = 8422727112) 0.64 m/s MV E/A ratio (test code = 8959984814) MV e' lateral geraldo (test code = 2777742519) 9.03 cm/s MV DT (test code = 3203160977) 190 ms MV e' septal geraldo (test code = 1467373) 6.42 cm/s MV E/e' lateral (test code = 2851975) LA vol index (test code = 1080011378) 27.7 mL/m2 MV E/e' septal (test code = 9781511917) LA vol BP (test code = 4945980144) 51 ml LVOT pk geraldo (test code = 6904217311) 0.75 m/s LVOT mn grad (test code = 5992564052) mmHg LVOT Vmean (test code = 1978090439) 0.49 m/s LVOT VTI (test code = 1239491475) 15.6 cm LA area A2C (test code = 7675857831) 15.3 cm2 LA area A4C (test code = 9114595551) 22.1 cm2 LA size (test code = 9593156733) 44 mm LA Vol I BSA (test code = 2614833326) 19.7 ml/m2 LA Vol I (A4C) BSA (test code = 0547354467) 36.8 ml/m2 LA ESV A2C (test code = 3033307604) 36.412007201740086 mL LA ESV A4C (test code = 9448029458) 36.680800388100724 mL RVIDd (test code = 3531797768) 39 cm TAPSE (test code = 8997289560) 14 mm RVSP (test code = 5653393) mmHg Est RA pressure (test code = 8792647276) mmHg AV mn grad (test code = 2176889196) mmHg AV pk grad (test code = 7796133076) mmHg AV mn geraldo (test code = 0331636573) 0.7 m/s AV pk geraldo (test code = 4884008015) 1.03 m/s AV VTI (test code = 3229227510) 21.7 cm LVOT pk grad (test code = 8952670157) mmHg AV area cont VTI (test code = 0308920038) 2.26 cm2 AV area pk geraldo (test code = 4126893473) 2.27 cm2 LVOT Vmax/AV Vmax (test code = 7905684073) 0.72 {ratio} MV mn grad (test code = 9266430376) mmHg MV pk grad (test code = 8773213476) mmHg MV mn geraldo (test code = 9871341330) 0.581 m/s MV area cont eq (test code = 2312888804) 1.93 cm2 MV VTI (test code = 0933083152) 25.4 cm TR pk geraldo (test code = 2261899648) 2.79 m/s RAP (test code = 9651628045) mmHg TR pk grad (test code = 3254604977) mmHg Ao Root diam diastole (test code = 9997464747) 30 mm IVC size (test code = 6899628169) 19 mm MV max geraldo (test code = 0524609364) 0.949 cm/s IVC prox (test code = 2186505061) 19.779590895027288 cm IVSd 2D (test code = 6009972) 11.5 cm BSA (test code = 6089337307) 1.83 m2 Radiology Study observation (narrative) (test code = 23962-0) ERROL (test code = ERROL) [facility] 12 [id number] 08:17:25* Test Item Value Reference Range Interpretation Comme nts Ventricular Rate (test code = 3567137505) BPM QRS Duration (test code = 8889244239) 90 ms QT/QTc (test code = 9885273295) 342 ms QTc Calculation (test code = 4150415403) 465 ms R-[place] (test code = 9544484473) degrees T-[place] (test code = 7560015039) degrees IMP (test code = IMP) PXN (test code = PXN) Courtney Crockett EpicXR HIPS 3 VW [id number] 17:04:16HISTORY: Left hip pain for several weeks. FINDINGS: AP view of the pelvis and AP and lateral views c entered over theleft hip joint showed no acute fracture or dislocation. No aggressive bonelesions or any signs of AVN in the femoral heads. 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 Titanium anchors in bothsize noted, likely utilized for bilateral inguinal hernia repair. Calcifications are seen in both sides of the pelvis, some of which could bevascular. Please correlate with clinical history for possibility of chronicpoorly controlled diabetes. CONCLUSIONS: No acute fracture or dislocation in AP view of the pelvis, APand lateral views of left hip. [facility], Radiant ResultsInft User - 06/29/2020 12:05 PM CDTHISTORY: Left hip pain for several weeks.FINDINGS: AP view of the pelvis and AP and lateral views centered over theleft hip joint showed no acute fracture or dislocation. No aggressive bonelesions or any signs of AVN in the femoral heads. 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 Titanium anchors in bothsize noted, likely utilized for bilat eral inguinal hernia repair.Calcifications are seen in both sides of the pelvis, some of which could bevascular. Please correlate with clinical history for possibility of chronicpoorly controlled diabetes.CONCLUSIONS: No acute fracture or dislocation in AP view of the pelvis, APand lateral views ofleft hip. [facility] ([id number])(TOTAL CHOLESTEROL, TRIGLYCERIDES, HDL)2020-03-15 23:15:00* Test Item Value Reference Range Interpretation Comme nts CHOL (test code = 2012754925) 235 mg/dL 120-200 H HDL (test code = 9538318407) 48 mg/dL >50 L HDLC RATIO (test code = 5996115320) See_Comment H [Automated [employer]] The system which generated this result transmitted reference range: <=4.5. The reference range was not used to interpret this result as normal/abnormal. TRIG (test code = 1091247743) 166 mg/dL 30-170 LDL CHOL (test code = 75481-5) 154 mg/dL See_Comment [Automated messa ge] The system which generated this result transmitted reference range: <=160. The reference range was not used to interpret this result as normal/abnormal. VLDL (test code = 2917857749) 33 mg/dL 5-60 Lab Interpretation (test code = 14148-0) [id number]TOTAL CHOLESTEROL, TRIGLYCERIDES, HDL)2020-03-15 23:15:00* Test Item Value Reference Range Interpretation Comme nts CHOL (test code = 1013951780) 235 mg/dL 120-200 H HDL (test code = 5016981600) 48 mg/dL >50 L HDLC RATIO (test code = 9390814866) See_Comment H [Automated messa ge] The system which generated this result transmitted reference range: <=4.5. The reference range was not used to interpret this result as normal/abnormal. TRIG (test code = 7625460518) 166 mg/dL 30-170 LDL CHOL (test code = 05521-6) 154 mg/dL See_Comment [Automated messa ge] The system which generated this result transmitted reference range: <=160. The reference range was not used to interpret this result as normal/abnormal. VLDL (test code = 3296038203) 33 mg/dL 5-60 Lab Interpretation (test code = 08449-5) [facility] [id number] 23:09:00* Test Item Value Reference Range Interpretation Comme nts WBC (test code = 6690-2) See_Comment [Automated messa ge] The system which generated this result transmitted reference range: 4.30 - 11.10 10*3/?L. The reference range was not used to interpret this result as normal/abnormal. RBC (test code = 789-8) See_Comment [Automated messa ge] The system which generated this result transmitted reference range: 3.93 - 5.25 10*6/?L. The reference range was not used to interpret this result as normal/abnormal. HGB (test code = 718-7) 15.4 g/dL 11.6-15 H HCT (test code = 4544-3) 46.1 % 35.7-45.2 H MCV (test code = 787-2) 91.1 fL 80.6-95.5 MCH (test code = 785-6) 30.4 pg 25.9-32.8 MCHC (test code = 786-4) 33.4 g/dL 31.6-35.1 RDW-SD (test code = 52626-3) 41.4 fL 39-49.9 RDW-CV (test code = 788-0) 12.5 % 12-15.5 PLT (test code = 777-3) See_Comment [Automated [employer]] The system which generated this result transmitted reference range: 166 - 358 10*3/?L. The reference range was not used to interpret this result as normal/abnormal. MPV (test code = 58288-9) 11.4 fL 9.5-12.9 NRBC/100 WBC (test code = 4460091416) See_Comment [Automated [employer] ssage] The system which generated this result transmitted reference range: 0.0 - 10.0 /100 WBCs. The reference range was not used to interpret this result as normal/abnormal. NRBC x10^3 (test code = 0599508453) <0.01 See_Comment [Automated [employer] ge] The system which generated this result transmitted reference range: 10*3/?L. The reference range was not used to interpret this result as normal/abnormal. GRAN MAT (NEUT) % (test code = 770-8) 54.5 % IMM GRAN % (test code = 9662000073) 0.10 % LYMPH % (test code = 736-9) 33.8 % MONO % (test code = 5905-5) 8.7 % EOS % (test code = 713-8) 1.9 % BASO % (test code = 706-2) 1.0 % GRAN MAT x10^3(ANC) (test code = 9222789288) 4.00 10*3/uL 1.88-7.09 IMM GRAN x10^3 (test code = 9330769586) <0.03 0-0.06 LYMPH x10^3 (test code = 731-0) 2.48 10*3/uL 1.32-3.29 MONO x10^3 (test code = 742-7) 0.64 10*3/uL 0.33-0.92 EOS x10^3 (test code = 711-2) 0.14 10*3/uL 0.03-0.39 BASO x10^3 (test code = 704-7) 0.07 10*3/uL 0.01-0.07 Lab Interpretation (test code = 74471-4) Abnormal [facility] WITH [id number] 23:09:00* Test Item Value Reference Range Interpretation Comme nts WBC (test code = 6690-2) See_Comment [Automated messa ge] The system which generated this result transmitted reference range: 4.30 - 11.10 10*3/?L. The reference range was not used to interpret this result as normal/abnormal. RBC (test code = 789-8) See_Comment [Automated [employer]] The system which generated this result transmitted reference range: 3.93 - 5.25 10*6/?L. The reference range was not used to interpret this result as normal/abnormal. HGB (test code = 718-7) 15.4 g/dL 11.6-15 H HCT (test code = 4544-3) 46.1 % 35.7-45.2 H MCV (test code = 787-2) 91.1 fL 80.6-95.5 MCH (test code = 785-6) 30.4 pg 25.9-32.8 MCHC (test code = 786-4) 33.4 g/dL 31.6-35.1 RDW-SD (test code = 56407-1) 41.4 fL 39-49.9 RDW-CV (test code = 788-0) 12.5 % 12-15.5 PLT (test code = 777-3) See_Comment [Automated messa ge] The system which generated this result transmitted reference range: 166 - 358 10*3/?L. The reference range was not used to interpret this result as normal/abnormal. MPV (test code = 33991-0) 11.4 fL 9.5-12.9 NRBC/100 WBC (test code = 3824684499) See_Comment [Automated [employer] ssage] The system which generated this result transmitted reference range: 0.0 - 10.0 /100 WBCs. The reference range was not used to interpret this result as normal/abnormal. NRBC x10^3 (test code = 4477570562) <0.01 See_Comment [Automated messa ge] The system which generated this result transmitted reference range: 10*3/?L. The reference range was not used to interpret this result as normal/abnormal. GRAN MAT (NEUT) % (test code = 770-8) 54.5 % IMM GRAN % (test code = 9518472613) 0.10 % LYMPH % (test code = 736-9) 33.8 % MONO % (test code = 5905-5) 8.7 % EOS % (test code = 713-8) 1.9 % BASO % (test code = 706-2) 1.0 % GRAN MAT x10^3(ANC) (test code = 6664557242) 4.00 10*3/uL 1.88-7.09 IMM GRAN x10^3 (test code = 5892936251) <0.03 0-0.06 LYMPH x10^3 (test code = 731-0) 2.48 10*3/uL 1.32-3.29 MONO x10^3 (test code = 742-7) 0.64 10*3/uL 0.33-0.92 EOS x10^3 (test code = 711-2) 0.14 10*3/uL 0.03-0.39 BASO x10^3 (test code = 704-7) 0.07 10*3/uL 0.01-0.07 Lab Interpretation (test code = 60664-8) [facility]TOTAL CHOLESTEROL, TRIGLYCERIDES, HDL)2019-12-17 22:07:00* Test Item Value Reference Range Interpretation Comme nts CHOL (test code = 0635944247) 219 mg/dL 120-200 H HDL (test code = 1905458729) 40 mg/dL >50 L HDLC RATIO (test code = 1037992607) See_Comment H [Automated messa ge] The system which generated this result transmitted reference range: <=4.5. The reference range was not used to interpret this result as normal/abnormal. TRIG (test code = 3303137641) 212 mg/dL 30-170 H LDL CHOL (test code = 60708-6) 137 mg/dL See_Comment [Automated messa ge] The system which generated this result transmitted reference range: <=160. The reference range was not used to interpret this result as normal/abnormal. VLDL (test code = 6107565463) 42 mg/dL 5-60 Lab Interpretation (test code = 06902-1) [facility] (23439)(TOTAL CHOLESTEROL, TRIGLYCERIDES, HDL)2019-12-17 22:07:00* Test Item Value Reference Range Interpretation Comme nts CHOL (test code = 4957235786) 219 mg/dL 120-200 H HDL (test code = 9952531332) 40 mg/dL >50 L HDLC RATIO (test code = 5773350986) See_Comment H [Automated messa ge] The system which generated this result transmitted reference range: <=4.5. The reference range was not used to interpret this result as normal/abnormal. TRIG (test code = 2438004059) 212 mg/dL 30-170 H LDL CHOL (test code = 60596-1) 137 mg/dL See_Comment [Automated messa ge] The system which generated this result transmitted reference range: <=160. The reference range was not used to interpret this result as normal/abnormal. VLDL (test code = 3186686524) 42 mg/dL 5-60 Lab Interpretation (test code = 70954-4) [facility] [id number] 21:34:00* Test Item Value Reference Range Interpretation Comme nts WBC (test code = 6690-2) See_Comment [Automated messa ge] The system which generated this result transmitted reference range: 4.30 - 11.10 10*3/?L. The reference range was not used to interpret this result as normal/abnormal. RBC (test code = 789-8) See_Comment [Automated messa ge] The system which generated this result transmitted reference range: 3.93 - 5.25 10*6/?L. The reference range was not used to interpret this result as normal/abnormal. HGB (test code = 718-7) 15.1 g/dL 11.6-15 H HCT (test code = 4544-3) 44.2 % 35.7-45.2 MCV (test code = 787-2) 90.2 fL 80.6-95.5 MCH (test code = 785-6) 30.8 pg 25.9-32.8 MCHC (test code = 786-4) 34.2 g/dL 31.6-35.1 RDW-SD (test code = 86025-4) 40.4 fL 39-49.9 RDW-CV (test code = 788-0) 12.2 % 12-15.5 PLT (test code = 777-3) See_Comment [Automated [employer]] The system which generated this result transmitted reference range: 166 - 358 10*3/?L. The reference range was not used to interpret this result as normal/abnormal. MPV (test code = 57825-5) 10.8 fL 9.5-12.9 NRBC/100 WBC (test code = 0695081719) See_Comment [Automated Affresol ssage] The system which generated this result transmitted reference range: 0.0 - 10.0 /100 WBCs. The reference range was not used to interpret this result as normal/abnormal. NRBC x10^3 (test code = 8395827754) <0.01 See_Comment [Automated [employer]] The system which generated this result transmitted reference range: 10*3/?L. The reference range was not used to interpret this result as normal/abnormal. GRAN MAT (NEUT) % (test code = 770-8) 56.4 % IMM GRAN % (test code = 1005678256) 0.10 % LYMPH % (test code = 736-9) 32.4 % MONO % (test code = 5905-5) 8.6 % EOS % (test code = 713-8) 1.9 % BASO % (test code = 706-2) 0.6 % GRAN MAT x10^3(ANC) (test code = 5562909766) 4.09 10*3/uL 1.88-7.09 IMM GRAN x10^3 (test code = 8504969215) <0.03 0-0.06 LYMPH x10^3 (test code = 731-0) 2.35 10*3/uL 1.32-3.29 MONO x10^3 (test code = 742-7) 0.62 10*3/uL 0.33-0.92 EOS x10^3 (test code = 711-2) 0.14 10*3/uL 0.03-0.39 BASO x10^3 (test code = 704-7) 0.04 10*3/uL 0.01-0.07 Lab Interpretation (test code = 35276-7) Abnormal [facility] WITH [id number] 21:34:00* Test Item Value Reference Range Interpretation Comme nts WBC (test code = 6690-2) See_Comment [Automated messa ge] The system which generated this result transmitted reference range: 4.30 - 11.10 10*3/?L. The reference range was not used to interpret this result as normal/abnormal. RBC (test code = 789-8) See_Comment [Automated [employer]] The system which generated this result transmitted reference range: 3.93 - 5.25 10*6/?L. The reference range was not used to interpret this result as normal/abnormal. HGB (test code = 718-7) 15.1 g/dL 11.6-15 H HCT (test code = 4544-3) 44.2 % 35.7-45.2 MCV (test code = 787-2) 90.2 fL 80.6-95.5 MCH (test code = 785-6) 30.8 pg 25.9-32.8 MCHC (test code = 786-4) 34.2 g/dL 31.6-35.1 RDW-SD (test code = 38740-2) 40.4 fL 39-49.9 RDW-CV (test code = 788-0) 12.2 % 12-15.5 PLT (test code = 777-3) See_Comment [Automated messa ge] The system which generated this result transmitted reference range: 166 - 358 10*3/?L. The reference range was not used to interpret this result as normal/abnormal. MPV (test code = 61001-9) 10.8 fL 9.5-12.9 NRBC/100 WBC (test code = 7798117837) See_Comment [Automated Aff[employer] ssage] The system which generated this result transmitted reference range: 0.0 - 10.0 /100 WBCs. The reference range was not used to interpret this result as normal/abnormal. NRBC x10^3 (test code = 1707964190) <0.01 See_Comment [Automated messa ge] The system which generated this result transmitted reference range: 10*3/?L. The reference range was not used to interpret this result as normal/abnormal. GRAN MAT (NEUT) % (test code = 770-8) 56.4 % IMM GRAN % (test code = 0868054274) 0.10 % LYMPH % (test code = 736-9) 32.4 % MONO % (test code = 5905-5) 8.6 % EOS % (test code = 713-8) 1.9 % BASO % (test code = 706-2) 0.6 % GRAN MAT x10^3(ANC) (test code = 3908882446) 4.09 10*3/uL 1.88-7.09 IMM GRAN x10^3 (test code = 9560887659) <0.03 0-0.06 LYMPH x10^3 (test code = 731-0) 2.35 10*3/uL 1.32-3.29 MONO x10^3 (test code = 742-7) 0.62 10*3/uL 0.33-0.92 EOS x10^3 (test code = 711-2) 0.14 10*3/uL 0.03-0.39 BASO x10^3 (test code = 704-7) 0.04 10*3/uL 0.01-0.07 Lab Interpretation (test code = 61143-1) [facility] WHOLE [id number] 13:41:00* Test Item Value Reference Range Interpretation Comme nts Vitamin B1, Whole Blood (test code = 39849-1) 99 nmol/L 70-180 INTERPRETIVE INF ORMATION: Vitamin B1, Whole Blood This assay measures the concentration of thiamine diphosphate (TDP), the primary active form of vitamin B1. Approximately 90 percent of vitamin B1 present in whole blood is TDP. Thiamine and thiamine monophosphate, which comprise the remaining 10 percent, are not measured. Test developed and characteristics determined by [employer]. See Compliance Statement B: [employer]/CSPerformed by [employer],[address] [facility] [address] pdq.[employer] Robby MD, Lab. Motor Vehicle Field RepresentativeTexas Health AllenVITAMIN B1 (THIAMINE), WHOLE [id number] 13:41:00* Test Item Value Reference Range Interpretation Comme [facility] Vitamin B1, Whole Blood (test code = 81588-2) 99 nmol/L 70-180 INTERPRETIVE INF ORMATION: Vitamin B1, Whole Blood This assay measures the concentration of thiamine diphosphate (TDP), the primary active form of vitamin B1. Approximately 90 percent of vitamin B1 present in whole blood is TDP. Thiamine and thiamine monophosphate, which comprise the remaining 10 percent, are not measured. Test developed and characteristics determined by [employer]. See Compliance Statement B: [employer]/CSPerformed by [employer],[address] [place] [address] ojb.[employer] Robby MD, Lab. Motor Vehicle Field RepresentativeTexas Health AllenVITAMIN B1 (THIAMINE), WHOLE [id number] 13:41:00* Test Item Value Reference Range Interpretation Comme [facility] Vitamin B1, Whole Blood (test code = 96592-6) 99 nmol/L 70-180 INTERPRETIVE INF ORMATION: Vitamin B1, Whole Blood This assay measures the concentration of thiamine diphosphate (TDP), the primary active form of vitamin B1. Approximately 90 percent of vitamin B1 present in whole blood is TDP. Thiamine and thiamine monophosphate, which comprise the remaining 10 percent, are not measured. Test developed and characteristics determined by [employer]. See Compliance Statement B: [employer]/CSPerformed by [employer],[address] [place] [address] uru.[employer] Robby MD, Lab. Motor Vehicle Field RepresentativeTexas Health AllenVITAMIN B6, [id number] 23:33:00* Test Item Value Reference Range Interpretation Comme [facility] VIT B6 (test code = 42130-0) 36.2 nmol/L 20.0-125.0 INTERPRETIVE INF ORMATION: Vitamin B6 (Pyridoxal 5-Phosphate) Pyridoxal 5'-phosphate measured in a specimen collected following an 8-hour or overnight fast accurately indicates vitamin B6 nutritional status. Non-fasting specimen concentration reflects recent vitamin intake. Test developed and characteristics determined by [employer]. See Compliance Statement B: [employer]/CSPerformed by [employer],[address] [facility] [address] vyp.[employer] Robby sims MD, Lab. Motor Vehicle Field RepresentativeTexas Health AllenVITAMIN B6, [id number] 23:33:00* Test Item Value Reference Range Interpretation Comme nts VIT B6 (test code = 29264-9) 36.2 nmol/L 20.0-125.0 INTERPRETIVE INF ORMATION: Vitamin B6 (Pyridoxal 5-Phosphate) Pyridoxal 5'-phosphate measured in a specimen collected following an 8-hour or overnight fast accurately indicates vitamin B6 nutritional status. Non-fasting specimen concentration reflects recent vitamin intake. Test developed and characteristics determined by [employer]. See Compliance Statement B: [employer]/CSPerformed by [employer],[address] [facility] [address] qua.[employer] Robby sims MD, Lab. Motor Vehicle Field RepresentativeTexas Health AllenVITAMIN B6, [id number] 23:33:00* Test Item Value Reference Range Interpretation Comme nts VIT B6 (test code = 86102-6) 36.2 nmol/L 20.0-125.0 INTERPRETIVE INF ORMATION: Vitamin B6 (Pyridoxal 5-Phosphate) Pyridoxal 5'-phosphate measured in a specimen collected following an 8-hour or overnight fast accurately indicates vitamin B6 nutritional status. Non-fasting specimen concentration reflects recent vitamin intake. Test developed and characteristics determined by [employer]. See Compliance Statement B: [employer]/CSPerformed by [employer],[address] [facility] [address] feh.[employer] Robby sims MD, Lab. Motor Vehicle Field RepresentativeTexas Health AllenHIGH SENSITIVITY [id number] 15:44:00* Test Item Value Reference Range Interpretation Comme nts HS CRP (test code = 9947107798) 0.10 mg/dL <0.74 Lab Interpretation (test cod e = 05170-7) Normal [facility] [id number] 15:44:00* Test Item Value Reference Range Interpretation Comme nts HS CRP (test code = 9495090986) 0.10 mg/dL <0.74 Lab Interpretation (test cod e = 99186-2) Normal [facility] [id number] 15:44:00* Test Item Value Reference Range Interpretation Comme nts HS CRP (test code = 1983333085) 0.10 mg/dL <0.74 Lab Interpretation (test cod e = 30111-0) Normal [facility] D, [id number] 21:56:00* Test Item Value Reference Range Interpretation Comme nts VIT D 25OH (test code = 72290-0) 39 ng/mL 25-80 ERROL (test code = ERROL) Deficiency: <20 ng/mLInsufficiency : 20-24 ng/mLOptimal: 25-80 ng/mL Lab Interpretation (test code = 57835-0) [facility], [id number] 21:56:00* Test Item Value Reference Range Interpretation Comme nts VIT D 25OH (test code = 75312-0) 39 ng/mL 25-80 ERROL (test code = ERROL) Deficiency: <20 ng/mLInsufficiency : 20-24 ng/mLOptimal: 25-80 ng/mL Lab Interpretation (test code = 10227-1) [facility], [id number] 21:56:00* Test Item Value Reference Range Interpretation Comme nts VIT D 25OH (test code = 78038-1) 39 ng/mL 25-80 ERROL (test code = ERROL) Deficiency: <20 ng/mLInsufficiency : 20-24 ng/mLOptimal: 25-80 ng/mL Lab Interpretation (test code = 57072-3) Normal [facility] B12, [id number] 21:44:00* Test Item Value Reference Range Interpretation Comme nts VIT B12 (test code = 5638975276) >1000 240-930 H ERROL (test code = ERROL) Biotin has been reported to cause a positive bias, interpret results relative to patient's use of biotin. Lab Interpretation (test code = 20076-3) [facility]normal [facility] B12, [id number] 21:44:00* Test Item Value Reference Range Interpretation Comme nts VIT B12 (test code = 9803159013) >1000 240-930 H ERROL (test code = ERROL) Biotin has been reported to cause a positive bias, interpret results relative to patient's use of biotin. Lab Interpretation (test code = 29752-7) [facility]normal [facility] B12, [id number] 21:44:00* Test Item Value Reference Range Interpretation Comme nts VIT B12 (test code = 0891644773) >1000 240-930 H ERROL (test code = ERROL) Biotin has been reported to cause a positive bias, interpret results relative to patient's use of biotin. Lab Interpretation (test code = 29625-9) [facility] Test Item Value Reference Range Interpretation Comme nts FOLATE SER (test code = 7830575655) 10.7 ng/mL 3-20 Lab Interpretation (test cod e = 15896-9) [facility]* Test Item Value Reference Range Interpretation Comme nts FOLATE SER (test code = 2396784576) 10.7 ng/mL 3-20 Lab Interpretation (test cod e = 05413-0) [facility]* Test Item Value Reference Range Interpretation Comme nts FOLATE SER (test code = 0456894684) 10.7 ng/mL 3-20 Lab Interpretation (test cod e = 61409-4) [facility] 20:[facility]* Test Item Value Reference Range Interpretation Comme nts Homocysteine (test code = 3601010732) 12.8 umol/L 4.7-12.6 H Lab Interpretation (test cod e = 74752-4) [facility] 20:41:00* Test Item Value Reference Range Interpretation Comme nts Homocysteine (test code = 4233696314) 12.8 umol/L 4.7-12.6 H Lab Interpretation (test cod e = 99530-1) [facility] 20[facility]* Test Item Value Reference Range Interpretation Comme nts Homocysteine (test code = 3397934324) 12.8 umol/L 4.7-12.6 H Lab Interpretation (test cod e = 92725-5) Abnormal [place] [id number] 17:33:00* Test Item Value Reference Range Interpretation Comme nts FREE T3 (test code = 8244585427) 3.12 pg/mL 2.77-5.27 Lab Interpretation (test cod e = 88857-4) Normal [place] [id number] 17:33:00* Test Item Value Reference Range Interpretation Comme nts FREE T3 (test code = 7886660240) 3.12 pg/mL 2.77-5.27 Lab Interpretation (test cod e = 87106-7) Normal [place] [id number] 17:33:00* Test Item Value Reference Range Interpretation Comme nts FREE T3 (test code = 8633609419) 3.12 pg/mL 2.77-5.27 Lab Interpretation (test cod e = 89646-8) [facility] [id number] 16:20:00 * Test Item Value Reference Range Interpretation Comme nts TSH (test code = 5501049782) See_Comment [Automated messa ge] The system which generated this result transmitted reference range: 0.45 - 4.70 mIU/L. The reference range was not used to interpret this result as normal/abnormal. Lab Interpretation (test code = 82498-4) [facility] [id number] 16:20:00 * Test Item Value Reference Range Interpretation Comme nts TSH (test code = 7712828348) See_Comment [Automated messa ge] The system which generated this result transmitted reference range: 0.45 - 4.70 mIU/L. The reference range was not used to interpret this result as normal/abnormal. Lab Interpretation (test code = 85710-3) Normal [facility] [id number] 16:20:00 * Test Item Value Reference Range Interpretation Comme nts TSH (test code = 2165853589) See_Comment [Automated messa ge] The system which generated this result transmitted reference range: 0.45 - 4.70 mIU/L. The reference range was not used to interpret this result as normal/abnormal. Lab Interpretation (test code = 74257-0) Normal [facility] [id number] 16:06:00* Test Item Value Reference Range Interpretation Comme nts FREE T4 (test code = 5587232398) 1.11 ng/dL 0.78-2.2 Lab Interpretation (test cod e = 71317-7) Normal [facility] [id number] 16:06:00* Test Item Value Reference Range Interpretation Comme nts FREE T4 (test code = 3771252249) 1.11 ng/dL 0.78-2.2 Lab Interpretation (test cod e = 13151-1) Normal [facility] [id number] 16:06:00* Test Item Value Reference Range Interpretation Comme nts FREE T4 (test code = 0426511803) 1.11 ng/dL 0.78-2.2 Lab Interpretation (test cod e = 22890-1) Normal [facility] ([facility]34)(TOTAL CHOLESTEROL, TRIGLYCERIDES, HDL)2019-08-10 15:52:00* Test Item Value Reference Range Interpretation Comme nts CHOL (test code = 7836279224) 249 mg/dL 120-200 H HDL (test code = 7716014191) 45 mg/dL >50 L HDLC RATIO (test code = 3476710780) See_Comment H [Automated [employer]] The system which generated this result transmitted reference range: <=4.5. The reference range was not used to interpret this result as normal/abnormal. TRIG (test code = 8882558381) 268 mg/dL 30-170 H LDL CHOL (test code = 15468-9) 150 mg/dL See_Comment [Automated [employer]] The system which generated this result transmitted reference range: <=160. The reference range was not used to interpret this result as normal/abnormal. VLDL (test code = 7917509500) 54 mg/dL 5-60 Lab Interpretation (test code = 86225-3) [facility]OL[facility] (88784)2019-08-10 15:52:00* Test Item Value Reference Range Interpretation Comme nts NA (test code = 7141142253) 139 mmol/L 135-145 K (test code = 3715418172) 3.6 mmol/L 3.5-5 CL (test code = 0086987046) 102 mmol/L 98-108 CO2 TOTAL (test code = 7668390893) 28 mmol/L 23-31 AGAP (test code = 6721402643) 2-16 BUN (test code = 0967163181) 24 mg/dL 7-23 H GLUCOSE (test code = 9200344465) 112 mg/dL 70-110 H CREATININE (test code = 0024480849) 0.89 mg/dL 0.5-1.04 TOTAL BILI (test code = 8424530271) 0.6 mg/dL 0.1-1.1 CALCIUM (test code = 4862633556) 10.4 mg/dL 8.6-10.6 T PROTEIN (test code = 6208241036) 7.5 g/dL 6.3-8.2 ALBUMIN (test code = 6530541481) 4.4 g/dL 3.5-5 ALK PHOS (test code = 7217194098) 72 U/L 34-122 ALTv (test code = 1742-6) 47 U/L 5-35 H AST(SGOT) (test code = 7761279700) 37 U/L 13-40 eGFR Calculation (Non-) (test code = 1835563307) mL/min/1.73m2 eGFR Calculation () (test code = 6983230669) mL/min/1.73m2 ERROL (test code = ERROL) Association of Glomerular Filtration Rate (GFR) and Staging of Kidney Disease* + --+ --+ ------+| GFR (mL/min/1.73 m2) ?| With Kidney Damage ?| ?Without Kidney Damage+ --------+ --------+ +| ?>90 ?| ?Stage one ?| ? Normal ?+ ---+ ---+ -------+| ?60-89 ?| ?Stage two ?| ? Decreased GFR ? + --+ --+ ------+| ?30-59 ?| ?Stage three ?| ? Stage three ? + --+ --+ ------+| ?15-29 ?| ?Stage four ? | ? Stage four ?+ ---+ ---+ -------+| ?<15 (or dialysis) ? ?| ?Stage five ? | ? Stage five ?+ ---+ ---+ -------+ *Each stage assumes the associated GFR level has been in effect for at least three months. ?Stages 1 to 5, with or without kidney disease, indicate chronic kidney disease. Notes: Determination of stages one and two (with eGFR >59mL/min/1.73 m2) requires estimation of kidney damage for at least three months as defined by structural or functional abnormalities of the kidney, manifested by either:Pathological abnormalities or Markers of kidney damage (including abnormalities in the composition of the blood or urine or abnormalities in imaging tests). Lab Interpretation (test code = 31723-0) [facility]normal [facility] (A1C)2019-08-10 15:52:00* Test Item Value Reference Range Interpretation Comments HGB A1C (test code = 4548-4) See_Comment [Automated message] The system which generated this result transmitted reference range: 4.0 - 6.0 % NGSP. The reference range was not used to interpret this result as normal/abnormal. ERROL (test code = ERROL) %A1C (NGSP) Interpretation (ADA)4.8-5.6 ? ? Normal or (Non-Diabetic Range)5.7-6.4 ? ? Increased Risk (Pre-Diabetic)>6.5 ?Diabetes Indicated Lab Interpretation (test code = 54277-1) [facility] (46800)(TOTAL CHOLESTEROL, TRIGLYCERIDES, HDL)2019-08-10 15:52:00* Test Item Value Reference Range Interpretation Comme nts CHOL (test code = 0002861179) 249 mg/dL 120-200 H HDL (test code = 8539236581) 45 mg/dL >50 L HDLC RATIO (test code = 2547683317) See_Comment H [Automated [employer]] The system which generated this result transmitted reference range: <=4.5. The reference range was not used to interpret this result as normal/abnormal. TRIG (test code = 6101993142) 268 mg/dL 30-170 H LDL CHOL (test code = 64537-8) 150 mg/dL See_Comment [Automated [employer]] The system which generated this result transmitted reference range: <=160. The reference range was not used to interpret this result as normal/abnormal. VLDL (test code = 3438088932) 54 mg/dL 5-60 Lab Interpretation (test code = 04274-1) [facility] (74508)2019-08-10 15:52:00* Test Item Value Reference Range Interpretation Comme nts NA (test code = 2050622264) 139 mmol/L 135-145 K (test code = 1213744540) 3.6 mmol/L 3.5-5 CL (test code = 9295787490) 102 mmol/L 98-108 CO2 TOTAL (test code = 3395030693) 28 mmol/L 23-31 AGAP (test code = 8073933168) 2-16 BUN (test code = 9620712924) 24 mg/dL 7-23 H GLUCOSE (test code = 0606600855) 112 mg/dL 70-110 H CREATININE (test code = 9970067338) 0.89 mg/dL 0.5-1.04 TOTAL BILI (test code = 5024683800) 0.6 mg/dL 0.1-1.1 CALCIUM (test code = 2829744422) 10.4 mg/dL 8.6-10.6 T PROTEIN (test code = 4687576927) 7.5 g/dL 6.3-8.2 ALBUMIN (test code = 2024771180) 4.4 g/dL 3.5-5 ALK PHOS (test code = 0902066200) 72 U/L 34-122 ALTv (test code = 1742-6) 47 U/L 5-35 H AST(SGOT) (test code = 4750731348) 37 U/L 13-40 eGFR Calculation (Non-) (test code = 5430902274) mL/min/1.73m2 eGFR Calculation () (test code = 9865074284) mL/min/1.73m2 ERROL (test code = ERROL) Association of Glomerular Filtration Rate (GFR) and Staging of Kidney Disease* + --+ --+ ------+| GFR (mL/min/1.73 m2) ?| With Kidney Damage ?| ?Without Kidney Damage+ --------+ --------+ +| ?>90 ?| ?Stage one ?| ? Normal ?+ ---+ ---+ -------+| ?60-89 ?| ?Stage two ?| ? Decreased GFR ? + --+ --+ ------+| ?30-59 ?| ?Stage three ?| ? Stage three ? + --+ --+ ------+| ?15-29 ?| ?Stage four ? | ? Stage four ?+ ---+ ---+ -------+| ?<15 (or dialysis) ? ?| ?Stage five ? | ? Stage five ?+ ---+ ---+ -------+ *Each stage assumes the associated GFR level has been in effect for at least three months. ?Stages 1 to 5, with or without kidney disease, indicate chronic kidney disease. Notes: Determination of stages one and two (with eGFR >59mL/min/1.73 m2) requires estimation of kidney damage for at least three months as defined by structural or functional abnormalities of the kidney, manifested by either:Pathological abnormalities or Markers of kidney damage (including abnormalities in the composition of the blood or urine or abnormalities in imaging tests). Lab Interpretation (test code = 61647-9) [facility]normal [facility] (A1C)2019-08-10 15:52:00* Test Item Value Reference Range Interpretation Comments HGB A1C (test code = 4548-4) See_Comment [Automated message] The system which generated this result transmitted reference range: 4.0 - 6.0 % NGSP. The reference range was not used to interpret this result as normal/abnormal. ERROL (test code = ERROL) %A1C (NGSP) Interpretation (ADA)4.8-5.6 ? ? Normal or (Non-Diabetic Range)5.7-6.4 ? ? Increased Risk (Pre-Diabetic)>6.5 ?Diabetes Indicated Lab Interpretation (test code = 33235-8) Normal [facility] (53378)(TOTAL CHOLESTEROL, TRIGLYCERIDES, HDL)2019-08-10 15:52:00* Test Item Value Reference Range Interpretation Comme nts CHOL (test code = 1284866818) 249 mg/dL 120-200 H HDL (test code = 1540856717) 45 mg/dL >50 L HDLC RATIO (test code = 2337229041) See_Comment H [Automated [employer]] The system which generated this result transmitted reference range: <=4.5. The reference range was not used to interpret this result as normal/abnormal. TRIG (test code = 5277498728) 268 mg/dL 30-170 H LDL CHOL (test code = 17137-4) 150 mg/dL See_Comment [Automated [employer]] The system which generated this result transmitted reference range: <=160. The reference range was not used to interpret this result as normal/abnormal. VLDL (test code = 4592480203) 54 mg/dL 5-60 Lab Interpretation (test code = 57663-5) [facility]normal [facility] (75158)2019-08-10 15:52:00* Test Item Value Reference Range Interpretation Comme nts NA (test code = 8960368360) 139 mmol/L 135-145 K (test code = 4968591153) 3.6 mmol/L 3.5-5 CL (test code = 5038633865) 102 mmol/L 98-108 CO2 TOTAL (test code = 7116013606) 28 mmol/L 23-31 AGAP (test code = 7868301429) 2-16 BUN (test code = 6766890216) 24 mg/dL 7-23 H GLUCOSE (test code = 9937285448) 112 mg/dL 70-110 H CREATININE (test code = 7329133411) 0.89 mg/dL 0.5-1.04 TOTAL BILI (test code = 5312623798) 0.6 mg/dL 0.1-1.1 CALCIUM (test code = 3068684188) 10.4 mg/dL 8.6-10.6 T PROTEIN (test code = 1280898793) 7.5 g/dL 6.3-8.2 ALBUMIN (test code = 1158460069) 4.4 g/dL 3.5-5 ALK PHOS (test code = 0106337654) 72 U/L 34-122 ALTv (test code = 1742-6) 47 U/L 5-35 H AST(SGOT) (test code = 3883574206) 37 U/L 13-40 eGFR Calculation (Non-) (test code = 7250034754) mL/min/1.73m2 eGFR Calculation () (test code = 5269767185) mL/min/1.73m2 ERROL (test code = ERROL) Association of Glomerular Filtration Rate (GFR) and Staging of Kidney Disease* + --+ --+ ------+| GFR (mL/min/1.73 m2) ?| With Kidney Damage ?| ?Without Kidney Damage+ --------+ --------+ +| ?>90 ?| ?Stage one ?| ? Normal ?+ ---+ ---+ -------+| ?60-89 ?| ?Stage two ?| ? Decreased GFR ? + --+ --+ ------+| ?30-59 ?| ?Stage three ?| ? Stage three ? + --+ --+ ------+| ?15-29 ?| ?Stage four ? | ? Stage four ?+ ---+ ---+ -------+| ?<15 (or dialysis) ? ?| ?Stage five ? | ? Stage five ?+ ---+ ---+ -------+ *Each stage assumes the associated GFR level has been in effect for at least three months. ?Stages 1 to 5, with or without kidney disease, indicate chronic kidney disease. Notes: Determination of stages one and two (with eGFR >59mL/min/1.73 m2) requires estimation of kidney damage for at least three months as defined by structural or functional abnormalities of the kidney, manifested by either:Pathological abnormalities or Markers of kidney damage (including abnormalities in the composition of the blood or urine or abnormalities in imaging tests). Lab Interpretation (test code = 24830-9) [facility]normal [facility] (A1C)2019-08-10 15:52:00* Test Item Value Reference Range Interpretation Comments HGB A1C (test code = 4548-4) See_Comment [Automated message] The system which generated this result transmitted reference range: 4.0 - 6.0 % NGSP. The reference range was not used to interpret this result as normal/abnormal. ERROL (test code = ERROL) %A1C (NGSP) Interpretation (ADA)4.8-5.6 ? ? Normal or (Non-Diabetic Range)5.7-6.4 ? ? Increased Risk (Pre-Diabetic)>6.5 ?Diabetes Indicated Lab Interpretation (test code = 11864-2) [facility] [id number] 15:29:00* Test Item Value Reference Range Interpretation Comme nts WBC (test code = 6690-2) See_Comment [Automated messa ge] The system which generated this result transmitted reference range: 4.30 - 11.10 10*3/?L. The reference range was not used to interpret this result as normal/abnormal. RBC (test code = 789-8) See_Comment [Automated messa ge] The system which generated this result transmitted reference range: 3.93 - 5.25 10*6/?L. The reference range was not used to interpret this result as normal/abnormal. HGB (test code = 718-7) 15.7 g/dL 11.6-15 H HCT (test code = 4544-3) 45.9 % 35.7-45.2 H MCV (test code = 787-2) 89.6 fL 80.6-95.5 MCH (test code = 785-6) 30.7 pg 25.9-32.8 MCHC (test code = 786-4) 34.2 g/dL 31.6-35.1 RDW-SD (test code = 81428-0) 40.4 fL 39-49.9 RDW-CV (test code = 788-0) 12.2 % 12-15.5 PLT (test code = 777-3) See_Comment [Automated messa ge] The system which generated this result transmitted reference range: 166 - 358 10*3/?L. The reference range was not used to interpret this result as normal/abnormal. MPV (test code = 97962-1) 10.5 fL 9.5-12.9 NRBC/100 WBC (test code = 4494892002) See_Comment [Automated [employer]] The system which generated this result transmitted reference range: 0.0 - 10.0 /100 WBCs. The reference range was not used to interpret this result as normal/abnormal. NRBC x10^3 (test code = 0135762665) <0.01 See_Comment [Automated messa ge] The system which generated this result transmitted reference range: 10*3/?L. The reference range was not used to interpret this result as normal/abnormal. GRAN MAT (NEUT) % (test code = 770-8) 58.0 % IMM GRAN % (test code = 7279475418) 0.30 % LYMPH % (test code = 736-9) 30.4 % MONO % (test code = 5905-5) 8.8 % EOS % (test code = 713-8) 1.5 % BASO % (test code = 706-2) 1.0 % GRAN MAT x10^3(ANC) (test code = 4846546706) 3.95 10*3/uL 1.88-7.09 IMM GRAN x10^3 (test code = 4063885457) <0.03 0-0.06 LYMPH x10^3 (test code = 731-0) 2.07 10*3/uL 1.32-3.29 MONO x10^3 (test code = 742-7) 0.60 10*3/uL 0.33-0.92 EOS x10^3 (test code = 711-2) 0.10 10*3/uL 0.03-0.39 BASO x10^3 (test code = 704-7) 0.07 10*3/uL 0.01-0.07 Lab Interpretation (test code = 92803-1) Abnormal [facility] WITH [id number] 15:29:00* Test Item Value Reference Range Interpretation Comme nts WBC (test code = 6690-2) See_Comment [Automated [employer]] The system which generated this result transmitted reference range: 4.30 - 11.10 10*3/?L. The reference range was not used to interpret this result as normal/abnormal. RBC (test code = 789-8) See_Comment [Automated [employer]] The system which generated this result transmitted reference range: 3.93 - 5.25 10*6/?L. The reference range was not used to interpret this result as normal/abnormal. HGB (test code = 718-7) 15.7 g/dL 11.6-15 H HCT (test code = 4544-3) 45.9 % 35.7-45.2 H MCV (test code = 787-2) 89.6 fL 80.6-95.5 MCH (test code = 785-6) 30.7 pg 25.9-32.8 MCHC (test code = 786-4) 34.2 g/dL 31.6-35.1 RDW-SD (test code = 76007-5) 40.4 fL 39-49.9 RDW-CV (test code = 788-0) 12.2 % 12-15.5 PLT (test code = 777-3) See_Comment [Automated messa ge] The system which generated this result transmitted reference range: 166 - 358 10*3/?L. The reference range was not used to interpret this result as normal/abnormal. MPV (test code = 92841-4) 10.5 fL 9.5-12.9 NRBC/100 WBC (test code = 6271894234) See_Comment [Automated [employer] ssage] The system which generated this result transmitted reference range: 0.0 - 10.0 /100 WBCs. The reference range was not used to interpret this result as normal/abnormal. NRBC x10^3 (test code = 6271281795) <0.01 See_Comment [Automated messa ge] The system which generated this result transmitted reference range: 10*3/?L. The reference range was not used to interpret this result as normal/abnormal. GRAN MAT (NEUT) % (test code = 770-8) 58.0 % IMM GRAN % (test code = 4273921445) 0.30 % LYMPH % (test code = 736-9) 30.4 % MONO % (test code = 5905-5) 8.8 % EOS % (test code = 713-8) 1.5 % BASO % (test code = 706-2) 1.0 % GRAN MAT x10^3(ANC) (test code = 1456257480) 3.95 10*3/uL 1.88-7.09 IMM GRAN x10^3 (test code = 9578730571) <0.03 0-0.06 LYMPH x10^3 (test code = 731-0) 2.07 10*3/uL 1.32-3.29 MONO x10^3 (test code = 742-7) 0.60 10*3/uL 0.33-0.92 EOS x10^3 (test code = 711-2) 0.10 10*3/uL 0.03-0.39 BASO x10^3 (test code = 704-7) 0.07 10*3/uL 0.01-0.07 Lab Interpretation (test code = 27116-3) Abnormal [facility] WITH [id number] 15:29:00* Test Item Value Reference Range Interpretation Comme nts WBC (test code = 6690-2) See_Comment [Automated messa ge] The system which generated this result transmitted reference range: 4.30 - 11.10 10*3/?L. The reference range was not used to interpret this result as normal/abnormal. RBC (test code = 789-8) See_Comment [Automated messa ge] The system which generated this result transmitted reference range: 3.93 - 5.25 10*6/?L. The reference range was not used to interpret this result as normal/abnormal. HGB (test code = 718-7) 15.7 g/dL 11.6-15 H HCT (test code = 4544-3) 45.9 % 35.7-45.2 H MCV (test code = 787-2) 89.6 fL 80.6-95.5 MCH (test code = 785-6) 30.7 pg 25.9-32.8 MCHC (test code = 786-4) 34.2 g/dL 31.6-35.1 RDW-SD (test code = 80651-8) 40.4 fL 39-49.9 RDW-CV (test code = 788-0) 12.2 % 12-15.5 PLT (test code = 777-3) See_Comment [Automated messa ge] The system which generated this result transmitted reference range: 166 - 358 10*3/?L. The reference range was not used to interpret this result as normal/abnormal. MPV (test code = 10137-0) 10.5 fL 9.5-12.9 NRBC/100 WBC (test code = 8029675131) See_Comment [Automated [employer] ssage] The system which generated this result transmitted reference range: 0.0 - 10.0 /100 WBCs. The reference range was not used to interpret this result as normal/abnormal. NRBC x10^3 (test code = 3264171812) <0.01 See_Comment [Automated messa ge] The system which generated this result transmitted reference range: 10*3/?L. The reference range was not used to interpret this result as normal/abnormal. GRAN MAT (NEUT) % (test code = 770-8) 58.0 % IMM GRAN % (test code = 0798860760) 0.30 % LYMPH % (test code = 736-9) 30.4 % MONO % (test code = 5905-5) 8.8 % EOS % (test code = 713-8) 1.5 % BASO % (test code = 706-2) 1.0 % GRAN MAT x10^3(ANC) (test code = 7088787161) 3.95 10*3/uL 1.88-7.09 IMM GRAN x10^3 (test code = 4525770119) <0.03 0-0.06 LYMPH x10^3 (test code = 731-0) 2.07 10*3/uL 1.32-3.29 MONO x10^3 (test code = 742-7) 0.60 10*3/uL 0.33-0.92 EOS x10^3 (test code = 711-2) 0.10 10*3/uL 0.03-0.39 BASO x10^3 (test code = 704-7) 0.07 10*3/uL 0.01-0.07 Lab Interpretation (test code = 15387-0) Abnormal [facility] Consult Notes Date/Time Note Provider Source 2024-03-20 21:37:00 [facility] Cardiology Dr. Oneyda Palacio Completed by Earnestine Spear NP Reason For Consult Frequent falls History Of Present Illness Rashid Curry is a 84 y.o. female with past medical history of atrial fibrillation, essential tremor, presents with generalized weakness, falls. Team concerning anti-coagulation and bleeding issue. I talked to her daughter Luz Marina who reported likely a fib starts around Jan last while she had pneumonia. Past Medical History She has a past medical history of Atrial fibrillation (CMS/HCC) (HCC) (03/19/2024), Essential tremor (03/18/2024), and Primary hypertension (03/18/2024). Surgical History She has no past surgical history on file. Social History She reports that she has never smoked. She uses smokeless tobacco. She reports that she does not use drugs. No history on file for alcohol use. Allergies Patient has no known allergies. Medications Medications Prior to Admission Medication Sig Dispense Refill Last Dose/Taking apixaban (Eliquis) 5 MG tablet Take 1 tablet by mouth in the morning and 1 tablet in the evening. 03/17/2024 atorvastatin (Lipitor) 20 MG tablet Take 1 tablet by mouth 1 time each day. 03/17/2024 metoprolol tartrate (Lopressor) 12.5 mg half tablet Take 12.5 mg by mouth in the morning and 12.5 mg in the evening. Hold for SPB<100,DBP<60 OR HR<60. 03/17/2024 traMADol (Ultram) 50 MG tablet Take 1 tablet by mouth in the morning and 1 tablet at noon and 1 tablet before bedtime. Taking amLODIPine (Norvasc) 10 MG tablet Take 1 tablet by mouth 1 time each day at the same time. losartan-hydroCHLOROthiazide (Hyzaar) 100-25 MG tablet Take 1 tablet by mouth 1 time each day at the same time. Review of Systems ROS Physical Exam Physical Exam: Last Recorded Vitals Blood pressure 146/79, pulse 68, temperature 36.4 ?C (97.5 ?F), resp. rate 18, height 1.769 m (5' 9.65"), weight 68.2 kg (150 lb 5.7 oz), SpO2 94%. Relevant Results No echocardiogram results found for the past 12 months No nuclear medicine results found for the past 12 months Encounter Date: 03/18/24 ECG 12 lead Result Value Ventricular Rate 111 QRS Duration 90 QT/QTc 342 QTc Calculation 465 R-[place] -41 T-[place] 25 Impression ATRIAL FIBRILLATION WITH A RAPID VENTRICULAR RESPONSE WITH ABERRANTLY CONDUCTED OR PREMATURE VENTRICULAR COMPLEX(ES) LEFT AXIS DEVIATION CANNOT RULE OUT ANTERIOR INFARCTION AGE UNDETERMINED Confirmed by Saúl Garcia ([id number]) on 03/19/2024 8:17:23 AM No results found for this or any previous visit (from the past 92120 hours). 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 Progressively worsening weakness. COMPARISON: Same day left humerus radiographs TECHNIQUE: AP chest. FINDINGS: Lines, tubes and hardware: Pacemaker generator projects over the left lower chest. Lungs and pleura: Low lung volumes result in bibasilar vascular crowding, without focal opacity. The costophrenic sulci are sharp without effusion. No pneumothorax is identified. Heart and mediastinum: The heart size is partially obscured by adjacent opacities but not significantly changed. Hilar fullness is noted. Vascular calcifications are present at the aortic arch. Bones and soft tissues: Acute to subacute left proximal humeral fracture noted. Age-related degenerative findings. Impression 1. Hilar fullness bilaterally is nonspecific may be related to vascular prominence or lymphadenopathy. 2. Proximal left humerus fracture better characterized on dedicated radiographs. Electronically signed by: Nestor Mckay MD 03/18/2024 07:55 PM [facility] Pertinent Labs : Lab Results Component Value Date Sodium Lvl 140 03/21/2024 Potassium Lvl 2.8 (LL) 03/21/2024 Chloride Lvl 99 03/21/2024 CO2 Lvl 31.8 (H) 03/21/2024 BUN 11 03/21/2024 Creatinine Lvl 0.59 03/21/2024 Glucose Lvl 91 03/21/2024 Assessment & Plan Frequent falls Impaired mobility and ADLs Essential tremor Primary hypertension Hypokalemia Atrial fibrillation (CMS/HCC) (HCC) Will dw the treatment at 10 am tomorrow with her daughter Will give update here Accidental fall, initial encounter Findings and plan discussed with Dr. Oneyda Palacio MD [facility] History and Physical Notes Date/Time Note Provider Source 2024-03-18 23:42:22 Chief Complaint Patient presents with Fall Fall this AM with walker, was walking forward and suddenly started to walk backwards. Neg loc, Pt is taking eliquis. History Of Present Illness Rashid Curry is a 84 y.o. female with a history of hypertension, essential tremor s/p deep brain stimulator, and frequent falls. She was brought to the hospital by her family because of mechanical ground-level fall at home. Patient lives alone and is ambulatory with the help of a walker. Today she was trying to reach for something in the kitchen, lost her balance and fell backwards. She did not hit her head or lose consciousness. She denies any prodromal symptoms such as dizziness, lightheadedness, chest pain, shortness of breath or palpitations etc. According to family she has been having frequent falls for the past year and a half. In fact she fell in November 2023 resulting in fracture of the proximal left humerus. She was hospitalized earlier this month at [facility] for new onset atrial fibrillation and started on Lopressor and Eliquis. Fortunately this time patient did not sustain any acute injuries. CT head is negative for acute abnormality, CT of the cervical spine did not show any acute fracture or dislocation. Past Medical History She has a past medical history of Essential tremor (03/18/2024) and Primary hypertension (03/18/2024). Surgical History She has no past surgical history on file. Social History She reports that she has never smoked. She uses smokeless tobacco. She reports that she does not use drugs. No history on file for alcohol use. Allergies Patient has no known allergies. Medications (Not in a hospital admission) Review of Systems Constitutional: Frequent falls All other systems reviewed and are negative. Physical Exam: Constitutional: Comments: Elderly, frail Cardiovascular: Rate and Rhythm: Normal rate. Rhythm irregular. Pulses: Normal pulses. Heart sounds: Normal heart sounds. Neurological: General: No focal deficit present. Mental Status: She is alert and oriented to person, place, and time. Comments: Tremors. Patient has deep brain stimulator with pulse generator in the left upper chest. Last Recorded Vitals Blood pressure (!) 107/93, pulse 84, temperature 37.1 ?C (98.8 ?F), resp. rate 18, SpO2 98%. Relevant Results Pertinent Labs : Labs Reviewed BASIC METABOLIC PANEL - Abnormal Result Value Glucose Lvl 110 (*) BUN 13 Creatinine Lvl 0.65 Sodium Lvl 139 Potassium Lvl 3.2 (*) Chloride Lvl 96 (*) CO2 Lvl 35.6 (*) Anion Gap 10.6 Calcium Lvl 9.3 eGFR 86 HEPATIC FUNCTION PANEL - Abnormal Protein 6.8 Albumin Lvl 3.3 (*) Bilirubin Total 1.19 (*) Bilirubin Direct 0.5 (*) Bilirubin Indirect 0.7 Alkaline Phosphatase 47 AST 30 ALT 18 Globulin, Calc 3.5 Albumin/Globulin Ratio 0.94 PROTIME-INR - Abnormal Prothrombin Time (PT) 20.5 (*) INR 1.74 (*) PTT - Abnormal PTT 37.5 (*) AUTOMATED DIFFERENTIAL - Abnormal Segs % 70.9 (*) Lymphs % 17.8 Monos % 10.2 Eos % 0.3 Basos % 0.4 Immature Grans % 0.4 Segs # 5.41 Lymphs # 1.36 Monos # 0.78 Eos # 0.02 Basos # 0.03 Imm Grans # 0.03 UA WITH CULTURE IF INDICATED - Abnormal UA Color Yellow UA Turbidity Clear UA Spec Grav 1.010 UA pH 7.0 UA Protein Negative UA Glucose Negative UA Ketones Trace (*) UA Bilirubin Negative UA Blood Negative UA Urobilinogen <=1.0 UA Nitrite Negative UA Leuk Esterase Small (*) UA Ascorbic Acid 40 (*) UA Sq Epi Few UA WBC 4 UA RBC (Num) 1 UA Bacteria Occasional UA Mucus Few TROPONIN I HIGH SENSITIVITY (SINGLE ORDER) - Normal HS Troponin I 6 COMPLETE BLOOD COUNT - Normal WBC 7.63 RBC 4.92 NRBC % 0.0 Hgb 14.3 Hct 44.5 MCV 90.4 MCH 29.1 MCHC 32.1 RDW - SD 43.2 Plt Count 276 MPV 9.7 LIPASE LEVEL - Normal Lipase Lvl 27 MAGNESIUM LEVEL - Normal Magnesium 1.61 PHOSPHORUS LEVEL - Normal Phosphorus Lvl 2.7 COMPLETE BLOOD COUNT W/DIFF AND PLATELET Narrative: The following orders were created for panel order Complete Blood Count w/Diff and Platelet. Procedure Abnormality Status --------- ------ Complete Blood Count[[id number]] Normal Final result Automated Differential[[id number]] Abnormal Final result Please view results for these tests on the individual orders. Trauma CT CERVICAL SPINE WO IV CONTRAST Final Result No acute abnormality of the cervical spine. LOCATION: R16 This CT exam was performed according to our departmental dose optimization program, which includes automated exposure control, adjustment of the mA and/or kV according to the patient size and/or use of iterative reconstructive technique. Electronically signed by: Rubia Mclean MD 03/18/2024 09:06 PM [facility] Trauma CT BRAIN WO IV CONTRAST Final Result No CT evidence of acute intracranial abnormality. Electronically signed by: Matt Arevalo MD 03/18/2024 09:03 PM [employer]OUNT[employer] PROFESS[facility] RP XR chest 1 view Final Result 1. Hilar fullness bilaterally is nonspecific may be related to vascular prominence or lymphadenopathy. 2. Proximal left humerus fracture better characterized on dedicated radiographs. Electronically signed by: Nestor Mckay MD 03/18/2024 07:55 PM [employer] PROFESS[facility] RP XR elbow 3+ views left Final Result No acute abnormality of the left elbow. Electronically signed by: Raza Jackson MD 03/18/2024 03:02 PM [employer]OUNT[employer] PROFESS[employer] RP XR humerus 2 views left Final Result Subacute appearing transverse, impacted fracture of the left humerus surgical neck, with suggestion of early healing. Electronically signed by: Raza Jackson MD 03/18/2024 03:05 PM [employer]ANC[facility] PROFESSOR RP Assessment & Plan Frequent falls Patient is presenting with frequent falls at home due to gait instability despite using the walker. She lives alone and is at high risk for adverse outcome given recurrent falls and is also recently been started on Eliquis for new diagnosis of atrial fibrillation which increases risk for life-threatening bleeding from fall injury including FLIGHT PARAMEDIC hemorrhage. Continue fall precautions, PT consult, consult case management. She may benefit from rehab. Hold Eliquis for now. Essential tremor Her primary neurologist has been consulted. Hypokalemia Replace potassium Atrial fibrillation (CMS/HCC) (HCC) Patient is currently in atrial fibrillation, rate controlled. Resume beta-addie, hold Eliquis for now given frequent falls. Decision will need to be made regarding resuming Eliquis in the setting of frequent falls. Her [id number] indicating high risk. Primary hypertension Resume home meds Current Diet: Adult Diet Heart Healthy DVT Prophylaxis: SCDs [facility] Courtney Crockett Notes Date/Time Note Provider Source Courtney CrockettRlbkjzi0251-45-20 00:43:16Pending Results Health Maintenance Due Date Last Done Comments Annual Physical 1943 Zoster Vaccines (1 of 2) 02/17/1988 Respiratory Syncytial Virus (RSV) or >=60 (1 - 1-dose 75+ series) 2013 Medicare Annual Wellness (AWV) 01/01/2019 12/02/2017 Influenza Vaccine (#1) 2023 , 03/17/2019, 12/02/2017, Additional history exists Lipid Panel 03/15/2025 03/15/2020, 11/19, 08/10/2019 DTaP/Tdap/Td Vaccines (2 - Td or Tdap) 03/17/2029 03/17/2019 Bone Density Scan Completed 12/09/2017 Pneumococcal Vaccine: 65+ Years Completed 11/23/2019, 03/28/2017, 11/19/2015, Additional history exists HIB Vaccines Aged Out No longer eligi ble based on patient's age to complete this topic HPV Vaccines Aged Out No longer eligi ble based on patient's age to complete this topic Hepatitis A Vaccines Aged Out No long er eligible based on patient's age to complete this topic Hepatitis B Vaccines Aged Out No long er eligible based on patient's age to complete this topic IPV Vaccines Aged Out No longer eligi ble based on patient's age to complete this topic Meningococcal Vaccine Aged Out No santhosh vish eligible based on patient's age to complete this topic Rotavirus Vaccines Aged Out No longer eligible based on patient's age to complete this topic [facility]43[facility]16 [facility]jpl6021-21-08 00:43:16* Imaging (Routine) - Authorized Specialty Diagnoses / Procedures Referred By Contac t Referred To Contact Cardiology Diagnoses Atrial fibrillation, unspecified type (CMS/HCC) (HCC) Ventricular premature beats Procedures Transesophageal echo (JESUS) with possible cardioversion MO ECHO TRANSESOPHAG R-T 2D W/PRB IMG ACQUISJ I&R MO DOPPLER ECHO PULSE WAVE W/SPECTRAL DISPLAY COMPL MO CARDIOVERSION ELECTIVE ARRHYTHMIA EXTERNAL Oneyda Palacio MD [address] [facility] [address] [place] [address] Phone: tel: fax: Referral ID Status Reason Start Date Expiration Date Visits Requested Visits Authorized [id number] Authorized Perform Procedure 04/16/2024 10/13/2024 1 1 [facility]2025-03-07 00:43:16* Imaging (Routine) - Authorized Specialty Diagnoses / Procedures Referred By Contac t Referred To Contact Cardiology Diagnoses Atrial fibrillation, unspecified type (CMS/HCC) (HCC) Ventricular premature beats Procedures Transesophageal echo (JESUS) with possible cardioversion MO ECHO TRANSESOPHAG R-T 2D W/PRB IMG ACQUISJ I&R MO DOPPLER ECHO PULSE WAVE W/SPECTRAL DISPLAY COMPL MO CARDIOVERSION ELECTIVE ARRHYTHMIA EXTERNAL Oneyda Palacio MD [address] [facility] [address] [facility] [address] [place] [address] Phone: tel: fax: Referral ID Status Reason Start Date Expiration Date Visits Requested Visits Authorized [id number] Authorized Perform Procedure 04/16/2024 10/13/2024 1 1 [facility] System[facility]flobss8699-32-59 00:43:16 [facility] SystemOhfjmmc3410-30-64 00:43:16Pending Results Health Maintenance Due Date Last Done Comments Annual Physical 1943 Zoster Vaccines (1 of 2) 02/17/1988 Respiratory Syncytial Virus (RSV) or >=60 (1 - 1-dose 75+ series) 2013 Medicare Annual Wellness (AWV) 01/01/2019 12/02/2017 Influenza Vaccine (#1) 2023 , 03/17/2019, 12/02/2017, Additional history exists Lipid Panel 03/15/2025 03/15/2020, 11/19, 08/10/2019 DTaP/Tdap/Td Vaccines (2 - Td or Tdap) 03/17/2029 03/17/2019 Bone Density Scan Completed 12/09/2017 Pneumococcal Vaccine: 65+ Years Completed 11/23/2019, 03/28/2017, 11/19/2015, Additional history exists HIB Vaccines Aged Out No longer eligi ble based on patient's age to complete this topic HPV Vaccines Aged Out No longer eligi ble based on patient's age to complete this topic Hepatitis A Vaccines Aged Out No long er eligible based on patient's age to complete this topic Hepatitis B Vaccines Aged Out No long er eligible based on patient's age to complete this topic IPV Vaccines Aged Out No longer eligi ble based on patient's age to complete this topic Meningococcal Vaccine Aged Out No santhosh vish eligible based on patient's age to complete this topic Rotavirus Vaccines Aged Out No longer eligible based on patient's age to complete this topic [facility] [id number] 00:43:16 Diagnosis Atrial fibrillation, unspeci fied type (CMS/HCC) (HCC) Ventricular premature beats Other premature beats [facility] [id number] 00:43:16 [facility]qfksvi[facility]32[facility]52-55 09:00:06 Images from the original note were not included. [id number] Transesophageal Echocardiography (JESUS) Transesophageal echocardiography (JESUS) is a test done to record images of your heart with a probe inside your throat (esophagus). These images help your healthcare provider find and treat problems, such as infection, disease, or defects in your heart?s function, meyer, or valves. This test may be done when a chest echocardiogram (transthoracic) doesn't give your provider enough information. A probe in your esophagus produces sound waves. Before your test ? Tell your healthcare provider about all the medicines you take. Ask if you should take them before the test. Your stomach typically should be empty for this test to prevent vomiting, so your provider will likely tell you not to take them. ? Follow any directions you're given for not eating or drinking before the procedure. ? Tell your provider if you have ulcers, a hiatal hernia, or problems swallowing. Also report a history of narrowing of the esophagus, or any other past gastrointestinal problems. A smaller probe may be needed for your study. ? Let the provider know of any allergies to medicines or sedatives. ? Also let them know if you have dental implants or dentures that should be removed before the test. ? Arrange to have someone drive you home after the exam. You'll be given a sedative for the test. It won't be safe to drive for a period of time. During your JESUS ? When you arrive for your JESUS, you'll change into a hospital gown, and then be taken to the testing room. ? Your provider will spray your throat with a numbing medicine. You may be given a medicine through an IV (intravenous) line in your arm to help you relax. You may also be given oxygen. Then you?ll be asked to lie on your left side. ? The healthcare provider gently puts the small, lubricated probe into your mouth. A small plastic or rubber bite-block will be put in your mouth to prevent you from biting down on the probe during the test. As you swallow, the provider will slowly guide the tube into your esophagus. ? You may feel the healthcare provider moving the probe. But it shouldn?t hurt or interfere with your breathing. A nurse checks your heart rate, blood pressure, and breathing. The test usually takes about 15 minutes. ? The nurse irrigation tax assessor collector will suction any saliva out of your mouth, similar to when you have a dental cleaning. After the test ? Tell your healthcare provider about any pain. Let them know if you cough up or vomit blood, or have trouble swallowing. ? Your throat may be sore for a few hours. You can eat and drink again when your throat is no longer numb and you're fully awake. ? Don't drive a car or run heavy machinery for at least 24 hours after getting sedation. Most people can return to normal activities after 24 hours. Ask your healthcare provider when it's safe for you to return to normal activities. ? Keep your follow-up appointment to go over the results with your healthcare provider. ? Your next appointment is: Last Reviewed Date: 2023 00:00:00 ? [id number] [employer]. All rights reserved. This information is not intended as a substitute for professional medical care. Always follow your healthcare professional's instructions. [facility] SystemNxouhdy0580-07-48 09:00:04 Images from the original note were not included. [id number] Recovery After Procedural Sedation (Adult) You have been given medicine by vein to make you sleep during your procedure. This may have included both a pain medicine and sleeping medicine. You may have side effects, such as nausea, fatigue, or unsteadiness for up to 24 hours. You may also feel lightheaded. Home care Follow these guidelines when you get home: ? For the next 8 or more hours, ask a trusted adult to watch over you. This person should make sure your condition is not getting worse, watch for problems, and keep you safe. ? Don't drink any alcohol for the next 24 hours. ? Don't drive, operate dangerous machinery, or make important business or personal decisions during the next 24 hours. ? Take extra care when walking and moving, You may be at a higher risk of falling. ? Follow any instructions you were given for eating and drinking. ? Be sure to follow all after-care directions. Note: Your healthcare provider may tell you not to take any medicine by mouth for pain or sleep in the next 4 hours. These medicines may react with the medicines you were given in the hospital. This could cause a much stronger response than usual. Follow-up care Follow up with your healthcare provider as advised. When to seek medical advice Have someone call your healthcare provider or seek medical care right away if any of these occur: ? Drowsiness gets worse ? Weakness or dizziness gets worse ? Repeated vomiting ? Your speech is slurred, and others cannot understand you. ? Severe or ongoing pain from the procedure that's not eased by the pain medicine (if prescribed) ? Fever ? New rash Call 911 Have someone call 911 if you develop any of these symptoms: ? Trouble breathing ? Trouble swallowing ? Chest pain ? Loss of consciousness or you can't be awakened Last Reviewed Date: 2023 00:00:00 ? [id number] [employer]. All rights reserved. This information is not intended as a substitute for professional medical care. Always follow your healthcare professional's instructions. [facility]2025-03-06 09:00:02 Images from the original note were not included. 14 Heart-Healthy Diet Five Tips to Better Health A heart-healthy diet is designed to protect your heart from further damage through long-term diet and lifestyle changes. Along with your medication and exercise, a heart-healthy diet can help reduce your risk for heart-related problems. The heart-healthy meal plan is based on limiting total fat, saturated fat, cholesterol and sodium while increasing your intake of fiber and omega-3 fatty acids (good fats). When making changes in your diet: "Take Five" 1. Limit saturated fat and trans fats. Remember DART to identify common sources: Dairy (e.g., whole milk, cream, butter and regular cheese) - Animal fat (e.g., steak or chicken with skin) - Restaurant dishes, some fried foods - Treats (chocolate, cookies and other baked goods, and products with "partially hydrogenated oils" in the ingredient list) 2. Limit the amount of cholesterol you eat to less than 200 mg (milligrams) per day. Foods high in cholesterol include egg yolks, fatty meat, whole milk and regular cheese. 3. Cut back on sodium by getting rid of the saltshaker and avoiding high-sodium foods like deli meats, frozen meals, condiments, canned foods and other convenience items. Check the label and choose foods with no more than 140 mg of sodium per serving. 4. Get more fiber. Aim for 20 to 30 grams of fiber per day from sources like whole grains, fruit, vegetables, and beans. 5. Eat approximately 4 ounces of fish twice a week to get more omega-3 fatty acids. [place], cod, trout and tuna are high in omega-3s. Try low-sodium canned tuna for a less expensive option. Other Heart-Healthy diet information: ? Check with your doctor before drinking ANY alcohol. ? Use caffeine (coffee, tea, soft drinks) in moderation. Caffeine may affect your blood pressure and heart health. ? When dining out: o Ask for nutrition information to help stay on track with your heart-healthy diet. o Ask for sauces and dressings on the side. ? Read the Nutrition Facts label to be sure you are following the Heart-Healthy Guidelines. Heart-Healthy Diet Food Group Avoid Better Choices Milk/Dairy Whole milk Regular or processed cheese products Cream Nonfat (skim) or 1% milk Cheeses low in saturated fat and sodium Nonfat or low-fat yogurt Meat/ Protein Regular ground meats Deep-fried meats Fatty cuts such as ribeye or brisket White meat poultry without sl? Fresh fish or low-sodium canned fish Lean beef cuts: round steak, tenderloin, sirloin tips Vegetable protein foods, like beans, veggie burgers or tofu Ground sirloin or round Vegetables & Fruits Fried fruit such as plantain or fried fruit pies Fruits served with butter or cream Vegetables canned with sodium Fresh fruits and vegetables Frozen fruits and vegetables, no added sauces, gravies or salted seasonings Bread & Cereals High-fat bakery products, such as doughnuts, biscuits or croissants Snacks made with partially hydrogenated oils, like cheese puffs Products with whole grains as the first ingredient Breads with at least 2 grams of fiber per serving Cereals that contain at least 5 grams of fiber per serving Snacks like air-popped popcorn, low-salt pretzels Fats Butter Lard Partially hydrogenated oils Monounsaturated fats such as olive, grapeseed, or canola oil Whipped spreads Spreads with zero trans fat Reading a Food Label Reference: Academy of Nutrition and Dietetics, Adult Nutrition Care Manual, 2012. If you would like to obtain more information on a heart-healthy diet, please contact Outpatient Nutrition Services by calling [phone]. [id number] 09/30 [facility]2025-03-06 09:00:00 Images from the original note were not included. [id number] Discharge Instructions for Cardioversion Your health care provider did a procedure called cardioversion. Sometimes cardioversion is done using medicines or a controlled electric shock. This helped restore your heart?s regular rhythm. Here are some instructions to follow while you recover. Home care ? Before cardioversion, you will typically be given sedation. So you won't be able to drive home. You will need a ride. Wait at least 24 hours before driving a car or operating heavy machinery after getting sedating medicines. ? The skin on your chest may be irritated or feel like it's sunburned. Your health care provider may prescribe a soothing lotion or medicine to ease this discomfort. These minor symptoms will go away in a few days. ? Cardioversion needs you to take a blood-thinner medicine for at least 4 weeks after the procedure. This is to prevent a delayed risk for stroke when treating atrial fibrillation or atrial flutter. Be sure you discuss which medicine you are taking to prevent stroke. Ask if you need to have your medicine levels checked and when. Also ask if you can stop taking the medicine in the future or if you need to take it for life. Some blood-thinning medicines, such as warfarin, need to have the dose adjusted. They can interact with other medicines or foods. Your health care team will give you full instructions on what to watch out for. Report bleeding or symptoms of stroke right away to your health care team and get emergency medical attention. ? Learn to take your own pulse. Keep a record of your results. Ask your provider when you should get emergency medical attention. They will tell you which pulse rate reading is dangerous. ? If you were prescribed heart rhythm medicine, take it as instructed by your provider. These medicines may help prevent your abnormal heart rhythm happening again. You may need another cardioversion if the abnormal heart rhythm returns. After the procedure, your provider will tell you if the treatment worked or if you will need further treatments or medicine. Follow-up care Make a follow-up appointment, or as advised. When to call your doctor Contact your health care provider right away if you: ? Feel faint, dizzy, or lightheaded. ? Have chest pain with increased activity. ? Have an irregular heartbeat or a fast pulse. ? Have bleeding issues from blood-thinning medicines. Call 911 Call 911 right away if you have: ? Chest pain. ? Shortness of breath. ? Loss of vision, speech, or strength or coordination in any body part. Last Reviewed Date: 2024 00:00:00 ? [id number] [employer]. All rights reserved. This information is not intended as a substitute for professional medical care. Always follow your healthcare professional's instructions. ER Valdez [id number] 17:23:14* Audit-C Score Answer Date of Assessment Author 0 03/19/2024 2:[address] RN * Intimate Partner Violence Question Answer Date of Assessment Author Within the last year, have y ou been humiliated or emotionally abused in other ways by your partner or ex-partner? No 03/19/2024 2:12 AM Chetan Ortega RN Within the last year, have y ou been afraid of your partner or ex-partner? No 03/19/2024 2:[address] RN Within the last year, have y ou been raped or forced to have any kind of sexual activity by your partner or ex-partner? No 03/19/2024 2:[address] RN Within the last year, have y ou been kicked, hit, slapped, or otherwise physically hurt by your partner or ex-partner? No 03/19/2024 2:12 AM ACCOUNTANCY PROFESSOR Chetan Jung RN * * Calculated C-SSRS Risk Score (Lifetime/Recent) Answer Date of Assessment Author No Risk Indicated 03/18/2024 1:30 PM ACCOUNTANCY PROFESSOR Bret Ontiveros RN * Potter Suicide Severity Rating Scale (Screener/Recent Self-Report) Question Answer Date of Assessment Author 1. Wish to be (Past 1 Month) No 025 1:30 PM Bret Harkins RN 2. Non-Specific Active Suici fabio Thoughts (Past 1 Month) No 03/18/2024 1:30 PM ACCOUNTANCY PROFESSOR Bret Ontiveros RN 6. Suicidal Behavior (Lifetime) No 5 1:30 PM ACCOUNTANCY PROFESSOR Bret Ontiveros RN [place] [id number] 17:23:14* Oneyda Palacio MD - 03/26/2024 11:58 AM ACCOUNTANCY PROFESSOR [facility] Cardiology Dr. Oneyda Palacio Subjective Remains in sinus No chest pain reported Physical Exam Physical Exam: Last Recorded Vitals Blood pressure 128/75, pulse 71, temperature 36.3 ?C (97.4 ?F), resp. rate 20, height 1.769 m (5' 9.65"), weight 68.2 kg (150 lb 5.7 oz), SpO2 93%. Relevant Results Transthoracic echo (TTE) complete Result Date: 03/22/2024 Left Ventricle: Left ventricle is mildly dilated. Mid to distal anterior, drew-septal segments hypokinetic. Reduced systolic function with an estimated EF of 40 - 45%. Grade I diastolic dysfunction of the left ventricle. Right Ventricle: Right ventricle is mildly dilated. Mildly reduced systolic function in the right ventricle. No nuclear medicine results found for the past 12 months Encounter Date: 03/18/24ECG 12 lead Result Value Ventricular Rate 67 Atrial Rate 67 MO Interval 226 QRS Duration 94 QT/QTc 492 QTc Calculation 519 P-Nuiqsut 40 R-Nuiqsut -75 T-Nuiqsut 210 Procedure? Impression SINUS RHYTHM WITH 1ST DEGREE A-V BLOCK LEFT AXIS DEVIATION LOW QRS VOLTAGE -- CONSIDER PULMONARY DISEASE, PERICARDIAL EFFUSION, OR NORMAL VARIANT INFERIOR INFARCTION AGE UNDETERMINED POSSIBLE(Y) ANTEROLATERAL INFARCTION (CITED ON OR BEFORE 18-MAR-2024) PROLONGED QT INTERVAL OR TU FUSION, CONSIDER MYOCARDIAL DISEASE, ELECTROLYTE IMBALANCE, OR DRUG EFFECTS ABNORMAL ECG WHEN COMPARED WITH ECG OF 18-MAR-2024 19:37, SIGNIFICANT CHANGES HAVE OCCURRED Confirmed by Gabi Dawn ([id number]) on 03/23/2024 11:44:37 PM No results found for this or any previous visit (from the past 64262 hours). Encounter Date: 03/18/24XR chest 1 view Narrative EXAM: XR CHEST 1 VIEW DATE: 03/18/2024 7:40 PM ACCOUNTANCY PROFESSOR INDICATION: Fall. Progressively worsening weakness. COMPARISON: Same day left humerus radiographs TECHNIQUE: AP chest. FINDINGS: Lines, tubes and hardware: Pacemaker generator projects over the left lower chest. Lungs and pleura: Low lung volumes result in bibasilar vascular crowding,without focal opacity. The costophrenic sulci are sharp without effusion. No pneumothorax is identified. Heart and mediastinum: The heart size is partially obscured by adjacentopacities but not significantly changed. Hilar fullness is noted. Vascular calcifications are present at the aortic arch. Bones and soft tissues: Acute to subacute left proximal humeral fracture noted. Age-related degenerative findings. Impression1. Hilar fullness bilaterally is nonspecific may be related to vascular prominence or lymphadenopathy. 2. Proximal left humerus fracture better characterized on dedicated radiographs. Electronically signed by: Nestor Mckay MD 03/18/2024 07:55 PM ACCOUNTANCY PROFESSOR Pertinent Labs : No results found for: "NA", "K", "CL", "CO2", "BUN", "CREATININE", "GLUCOSE" Current Facility-Administered Medications:acetaminophen (Tylenol) tablet 650 mg, 650 mg, Oral, q6h PRN, Elise Morrison MD apixaban (Eliquis) tablet 2.5 mg, 2.5 mg, Oral, q12h, Donnell Zhao MD, 2.5 mg at 03/26/24 0842 atorvastatin (Lipitor) tablet 20 mg, 20 mg, Oral, Daily, Nicole Rodriguez MD, 20 mg at 02/06/25 0842 bisacodyl (Dulcolax) EC tablet 5 mg, 5 mg, Oral, Nightly PRN, Elise Morrison MD dextrose 50 % solution 12.5 g, 12.5 g, Intravenous, PRN, Elise Morrison MD dextrose 50 % solution 25 g, 25 g, Intravenous, PRN, Elise Morrison MD flecainide (Tambocor) tablet 50 mg, 50 mg, Oral, q12h BABITA, Oneyda Palacio MD, 50 mg at 03/26/24841 glucagon injection 1 mg, 1 mg, Intramuscular, PRN, Elise Morrison MD guaiFENesin (Robitussin) 100 MG/5ML liquid 200 mg, 200 mg, Oral, 4x daily PRN, ESTEPHANIE Zafar hydroCHLOROthiazide (HYDRODiuril) tablet 25 mg, 25 mg, Oral, q24h, Nicole Rodriguez MD, 25 mg at 03/25/242026 labetalol injection 10 mg, 10 mg, Intravenous, q4h PRN, Elise Morrison MD losartan (Cozaar) tablet 100 mg, 100 mg, Oral, q24h, Nicole Rodriguez MD, 100 mg at 03/25/242026 melatonin tablet 3 mg, 3 mg, Oral, Nightly PRN, Elise Morrison MD, 3 mg at 03/23/242123 metoprolol tartrate (Lopressor) tablet 25 mg, 25 mg, Oral, q12h [facility], Oneyda Palacio MD, 25 mg at 03/26/24841 metoprolol tartrate (Lopressor) tablet 50 mg, 50 mg, Oral, q12h [facility], Oneyda Palacio MD, 50 mg at 03/25/24824 ondansetron ODT (Zofran-ODT) disintegrating tablet 4 mg, 4 mg, Oral, q8h PRN OR ondansetron (Zofran) injection 4 mg, 4 mg, Intravenous, q8h PRN, Elise Morrison MD polyethylene glycol (PEG) 3350 (Miralax) packet 17 g, 17 g, Oral, Daily, Elise Morrison MD, 17 g at 03/24/24 0816 senna-docusate (Layne-Colace) 8.6-50 mg per tablet 2 tablet, 2 tablet, Oral, BID, Elise Morrison MD, 2 tablet at 03/26/24 0841 sodium chloride (NS) 0.9 % flush 10 mL, 10 mL, Intravenous, q12h BABITA, Elise Morrison MD, 10 mL at 03/26/24 0900 sodium chloride (NS) 0.9 % flush 10 mL, 10 mL, Intravenous, PRN, Elise Morrison MD Assessment & PlanFrequent falls Impaired mobility and ADLs Essential tremor Primary hypertension Hypokalemia Atrial fibrillation (CMS/HCC) (HCC)I have fully discussed the treatment choice with patient and Luz Marina Her [id number] score: 3 at least moderate risk for ischemic stroke Now back to sinus My plan: 1) will need anticoagulation, however at this moment, frequent falls,Will decrease to 2.5 mg bid to balance risk and benefit 2) sinus now will continue current med 3) if recurrent a fib, , will need WATCHMAN in the future 4) f/u in two weeks Accidental fall, initial encounter Completed by:Oneyda Palacio MD UNTANCY PROFESSOR * Tammie Cristina, PT - 03/26/2024 10:03 AM ACCOUNTANCY PROFESSOR Physical Therapy Treatment Patient Name: Rashid Malcolm Calcote Today’s Date: 03/26/24 Room Number: [id number] Patient's Preferred Language: Turkish PT Assessment and Plan: Assessment Pt noted with improved activity tolerance this session, she is progressing well towards goals. She ambulated total of 250ft with 2 seated rest breaks , required wheelchair follow for safety as she fatigues during ambulation in hallway. Pt was left seated up in chair post mobility, chair alarm on and all needs in reach. Evaluation/Treatment Tolerance: Patient tolerated treatment well Prognosis: Good Medical Staff Made Aware: Yes Plan (Last filed value by PT) Treatment Plan/Goals Established with Patient/Caregiver: Yes Treatment/Interventions: Balance training, Bed mobility training, Functional activities, Gait training, Patient education, Therapeutic exercises, Transfer training PT Plan: Skilled PT PT Frequency: 3-4 times per week until discharge PT Recommended Transfer Status: Assistive equipment (Comment) (partial/CGA using RW) AM-PAC Basic Mobility Turning in bed without bedrails: None Lying on back to sitting on edge of flat bed: A Little Bed to chair: A Little Standing up from chair: A Little Walk in room: A Little Climbing 3-5 stairs: A Little Mobility Inpatient Raw Score: 19 -M Goal: 6 [facility] Highest Level of Mobility (-HLM) Scale Highest Level of Mobility Performed (-HLM): Walked 25 feet or more (i.e. walked outside of room) Subjective:Pt seated up in chair upon arrival, agrees to participate in PT session. Current Problem:This is a 84 y.o. female who is admitted to [facility] with Hypokalemia [E87.6] Impaired mobility and ADLs [Z74.09, Z78.9] Generalized weakness [R53.1] At high risk for falls [Z91.81] Anticoagulation adequate with anticoagulant therapy [Z79.01] Atrial fibrillation, unspecified type (CMS/HCC) (HCC) [I48.91] Accidental fall, initial encounter [W19.XXXA] Pain:Pain Assessment Pain Assessment: DVPRS Pain Score: 0 Pain Rating Scale (DVPRS): No pain Objective:Precautions: Medical Precautions: Fall precautions, standard Isolation Status: No active isolations Activity Tolerance:Endurance: Tolerates 10 - 20 min exercise with multiple rests Sitting Balance: Sits without support for more than 30 sec Early Mobility/Exercise Safety Screen: Proceed with mobilization - No exclusion criteria met Cognition:Overall Cognitive Status: Within Functional Limits Behavior/Cognition: Alert, Cooperative, Pleasant mood Treatments:Therapeutic Activity Time Entry: 10 Therapeutic Activity 1: sit<> stand transfer Therapeutic Activity 2: toilet transfers Bed Mobility:Bed Mobility Bed Mobility: No Transfers:Transfer 1 Technique 1: Stand step Level of Assistance 1: Partial/Mod assistance, Supervision/touching assistance Trials/Comments 1: 1st rep with Min A x2 using RW, next 2 reps with CGAx2 using RW. VC for hand placement and to improve upright posture. Transfer To/From: Chair, [id number]-fb-[id number]/Emcta-gj-Ptg (x3 reps) Assistive Devices And Adaptive Equipments: Walker, front-wheeled Transfers 2 Technique 2: Via walking Level of Assistance 2: Supervision/touching assistance Trials/Comments 2: CGA using RW, VC to use toilet grab bars prior to sitting down and standing up. Slow and gaurded as toilet was low and pt fears falls. Transfer To/From: Toilet Assistive Devices And Adaptive Equipments: Walker, front-wheeled Gait Training:Gait Training Time Entry: 15 Gait Training Activity 1 Distance (enter in feet): 130ft+ 80ft+ 40ft Gait Training Activity 1: Indoor surface Assistive Devices And Adaptive Equipments: Walker, front-wheeled Level of Assistance 1: Partial/Mod assistance Gait Training Activity 1 Comment: Min A progressed to CGA using RW+1 for w/c follow . Pt required 2 seated rest breaks d/t fatigue. She was slow paced, took short steps but steady balance. Pt does exhibit fear of falls especially posteriorly and hence required encouragement and education and fall prevention. Patient EducationEducation Documentation Fall Prevention, taught by Tammie Cristina PT at 03/26/2024 10:03 AM. Learner: Patient Readiness: Acceptance Method: Explanation Response: Verbalizes Understanding Mobility, taught by Tammie Cristina PT at 03/26/2024 10:03 AM.Learner: Patient Readiness: Acceptance Method: Explanation Response: Verbalizes Understanding Physical Therapy Plan of Care, taught by Tammie Cristina PT at 03/26/2024 10:03 AM. Learner: Patient Readiness: Acceptance Method: Explanation Response: Verbalizes Understanding Education CommentsNo comments found. GoalEncounter Goals Encounter Goals (Active) Patient will ambulate 250 feet using rolling walker with supervision assist. (Progressing) Start: 03/19/24 Expected End: 04/02/24 Patient will perform chair to and from bed transfer with no assistance. (Progressing) Start: 03/19/24 Expected End: 04/02/24 Patient will perform supine to/from sit on bed with no assistance demonstrating good control. (Progressing) Start: 03/19/24 Expected End: 04/02/24 General Visit Information Family/Caregiver Present: No Others Present: OT: Zach Co-Treatment Co-Treatment: Yes Co-Treatment With: Occupational Therapy Post Therapy Checklist - in chair, call mills within reach, bed/chair alarm in place, and phone within reach Time Calculation:Start Time: 1003 Stop Time: 1028 Time Calculation (min): 25 min PT Equipment Operator Wage Hand Used: N.A. Treatment Note: If this is the last documented treatment, then it will signify discharge from acute care prior to discharge from the therapy service and will serve as the discharge summary. Tammie Cristina PT UNTANCY PROFESSOR * Zach Lau OT - 03/26/2024 10:00 AM ACCOUNTANCY PROFESSOR Occupational Therapy Treatment Patient Name: Rashid Curry Today's Date: 03/26/2024 Room number: [id number].1020 Preferred Language: Turkish Assessment & Plan Assessment: (Updated last filed value) Plan: (Updated last filed value) Treatment Plan/Goals Established with Patient/Caregiver: Yes Treatment Interventions: Endurance training, Compensatory technique education, UE strengthening/ROM OT Planned Treatments: Work simplification, Activities of Daily Living, Balance training, Caregiver training, Coordination, Edema managment, Energy conservation training, Equipment assessment, Equipment training, Joint protection, Manual therapy, Mobility training, Neuromuscular reeducation, Pain management, Patient education, Safety education, Seating/Positioning, Sensory integration, Taping, Therapeutic activities, Therapeutic exercises OT Plan: Skilled OT OT Frequency: 3-5 times per week until discharge AM-PAC Daily Activity: Putting on and taking off regular lower body clothing: A Little Bathing (including washing, rinsing, drying): A Little Toileting, which includes using toilet, bedpan or urinal: A Little Putting on and taking off regular upper body clothing: None Taking care of personal grooming such as brushing teeth: None Eating Meals: None AM-PAC Daily Activity Raw Score: 21 [facility] Highest Level of Mobility (JH-HLM) Scale Highest Level of Mobility Performed (JH-HLM): Walked 25 feet or more (i.e. walked outside of room) Subjective Patient agreeable to therapy session. Co-Treatment: Yes Co-Treatment With: Physical Therapy Current Problem: Rashid Curry is a 84 y.o. year old female patient with Hypokalemia [E87.6] Impaired mobility and ADLs [Z74.09, Z78.9] Generalized weakness [R53.1] At high risk for falls [Z91.81] Anticoagulation adequate with anticoagulant therapy [Z79.01] Atrial fibrillation, unspecified type (CMS/HCC) (HCC) [I48.91] Accidental fall, initial encounter [W19.XXXA] referred to Occupational therapy services . Pain: Pain Assessment Pain Assessment: 0-10 Pain Score: 0 Pain Rating Scale (DVPRS): No pain Pain Location: Buttocks Pain Descriptors: Aching Objective Vital Signs: Visit Vitals BP (!) 125/59 Pulse 68 Temp 37 ?C (98.6 ?F) Resp 20 General Visit Information: Upon arrival to room patient seated in recliner and agreeable to therapy session. Patient completed LBD to don socks with Supvn. Patient completed STS from chair using RW with Min A x2. Patient engaged in room mobility and navigated hospital floor with CGA. Patient returned to room and to the bathroom with CGA. Patient completed toilet transfer with CGA and toileting with Supvn. Patient returned to sit in recliner and left with all needs met and NAD. Others Present: PT: Tammie Physical Therapy Precautions: Precautions UE Weight Bearing Status: FWB LE Weight Bearing Status: FWB Medical Precautions: Fall, standard Lines and drains: IV and telemetry Devices: None Treatment Current Self-Care (ADL): Self Care/Home Management (ADLs) Time Entry: 25 Eating Assistance: Independent Grooming Assistance: Independent LE Dressing Assistance: Partial/Mod assistance Toileting Assistance: Supervision/touching assistance Transfer Transfer 1 Technique 1: Stand step Level of Assistance 1: Partial/Mod assistance, Supervision/touching assistance Transfer To/From: Chair, Sjp-jw-Rhhcj/Oefyb-ky-Cbe Assistive Devices And Adaptive Equipments: Walker, front-wheeled Toilet Transfers Toilet Transfer To/From: Toilet Transfer Type: Via walking Level of Assistance: Supervision/touching assistance Assistive Devices And Adaptive Equipments: Walker, Front-wheeled Patient Education: Education Documentation Occupational Therapy Plan of Care, taught by Zach Lau OT at 03/26/2024 3:59 PM. Learner: Patient Readiness: Acceptance Method: Explanation Response: Verbalizes Understanding Education Comments No comments found. Goals: Encounter Goals Encounter Goals (Active) Patient will perform upper and lower body dressing Mod I at seated or standing level as needed for decreased caregiver burden. (Progressing) Start: 03/20/24 Expected End: 04/10/24 Patient will perform toileting with RW device Mod I to improve independence with ADLs. (Progressing) Start: 03/20/24 Expected End: 04/10/24 Within 2 weeks of starting therapy, the patient and/or family/caregiver will demonstrate independence and be compliant in a written HEP in order to maximize gains made during therapy. (Progressing) Start: 03/20/24 Expected End: 04/10/24 Post Therapy Checklist: in chair, call mills within reach, phone within reach, bed/chair alarm on, and RN informed Time Entry Calculation:Start Time: 1000 Stop Time: 1025 Time Calculation (min): 25 min Co-Treatment: Tj-EjjyyiqawUf-Xgjlzjeou: Yes Co-Treatment With: Physical Therapy : PT. Tammie Treatment Note: If this is the last documented treatment, then it will signify discharge from acute care prior to discharge from the therapy service and will serve as the discharge summary. Zach Lau OT UNTANCY PROFESSOR * ESTEPHANIE Zafar - 03/25/2024 4:26 PM ACCOUNTANCY PROFESSOR [facility] Hospitalist Progress Note Subjective No acute events overnight. Patient is resting comfortably in bedside chair with no acute complaints. Objective Last Recorded Vitals Blood pressure 122/68, pulse 74, temperature 36.8 ?C (98.2 ?F), resp. rate 19, height 1.769 m (5' 9.65"), weight 68.2 kg (150 lb 5.7 oz), SpO2 95%. Physical Exam: General: in no acute distress HEENT: Normocephalic, atraumatic, neck is supple CVS: S1S2 normal, RRR, no appreciable murmurs, rubs or gallops Lungs: Chest expansion is symmetric, CTAB, no wheezes or rhonchi Abdomen: Soft, NT, ND, normoactive bowel sounds Extremities: No pedal edema, no erythema Neuro: AO x 3, no new focal neuro deficit Psych: Appropriate mood, affect is calm Results: Results from last 7 days Lab Units 03/21/24 0459 WBC 10*3/uL 5.66 HEMOGLOBIN g/dL 14.5 HEMATOCRIT % 44.6 PLATELETS 10*3/uL 261 Results from last 7 days Lab Units 03/22/24 0544 03/21/24 0459 03/19/24 0419 SODIUM mEq/L 141 140 139 POTASSIUM mEq/L 3.6 2.8* 3.8 CHLORIDE mEq/L 104 99 97* CO2 mEq/L 27.3 31.8* 30.0 BUN mg/dL 20 11 9 CREATININE mg/dL 0.71 0.59 0.58 CALCIUM mg/dL 9.0 9.2 9.7 PROTEIN TOTAL g/dL -- -- 5.8 BILIRUBIN TOTAL mg/dL -- -- 0.84 ALK PHOS U/L -- -- 39* ALT U/L -- -- 18 AST U/L -- -- 32 GLUCOSE mg/dL 96 91 85 Recent Images No results found. Scheduled Meds apixaban, 2.5 mg, Oral, q12h atorvastatin, 20 mg, Oral, Daily flecainide, 50 mg, Oral, q12h BABITA hydroCHLOROthiazide, 25 mg, Oral, q24h losartan, 100 mg, Oral, q24h metoprolol tartrate, 25 mg, Oral, q12h BABITA metoprolol tartrate, 50 mg, Oral, q12h BABITA polyethylene glycol (PEG) 3350, 17 g, Oral, Daily senna-docusate, 2 tablet, Oral, BID sodium chloride, 10 mL, Intravenous, q12h BABITA PRN medications: acetaminophen, bisacodyl, dextrose, dextrose, glucagon, guaiFENesin, labetalol, melatonin, ondansetron ODT OR ondansetron, sodium chloride Assessment Rashid Curry is a 84 y.o. female with a history of hypertension, essential tremor s/p deep brain stimulator, and frequent falls. She was brought to the hospital by her family because of mechanical ground-level fall at home. According to family she has been having frequent falls for the past year and a half. In fact she fell in November 2023 resulting in fracture of the proximal left humerus. She was hospitalized earlier this month at [facility] for new onset atrial fibrillation and started on Lopressor and Eliquis. Fortunately this time patient did not sustain any acute injuries. CT head is negative for acute abnormality, CT of the cervical spine did not show any acute fracture or dislocation. Assessment & Plan Frequent falls Patient recently discharged home from SNF a few days ago CT scan of the brain is unremarkable CT scan of the cervical spine is unremarkable Other imaging studies reviewed Healing chronic left humerus fracture Continue PT/OT Continue fall precaution Home health orders initially placed Family is now requesting for SNF placement. Case management consulted. Atrial fibrillation (CMS/HCC) (HCC) Heart rate is sometimes uncontrolled Continue metoprolol and Eliquis for anticoagulation, Eliquis dose modified Cardiology was consulted to assess if anticoagulation need to be discontinued considering recurrent falls Patient with [id number] score of 3 at moderate risk for stroke, continue Eliquis for anticoagulation at lower dose of 2.5 mg twice daily for now Cardiology consult appreciated There was initially plan for DCCV. However canceled If A-fib is recurrent, will need watchman in the future Essential tremor Outpatient follow-up Primary hypertension Continue metoprolol Impaired mobility and ADLs Continue Physical therapy and outpatient therapy Hypokalemia Potassium has been repleted, monitor potassium level Accidental fall, initial encounter See above Plan of Care discussed with Dr. Dumont Current Diet: Adult Diet Regular; No VTE Prophylaxis apixaban - 2.5 MG Disposition:SNF Reason for continued hospitalization:Medically cleared for discharge, pending SNF arrangements. Cosigned by Jaz Dumont MD at 03/26/2024 8:43 AM ACCOUNTANCY PROFESSOR UNTANCY PROFESSOR UNTANCY PROFESSOR Associated attestation - Jaz Dumont MD - 03/26/2024 8:43 AM CST Patient seen and examined Agree with current plan of care Patient no pain doing well Ext; no edema Debility with frequent falls- pt/ot awaiting snf * Oneyda Palacio MD - 03/25/2024 3:36 PM ACCOUNTANCY PROFESSOR [facility] Cardiology Dr. Oneyda Palacio Subjective Doing much better Able to walk to bathroom Seen and eval with her daughter in the room Plan May dc home see suggestion below Physical Exam Physical Exam: Last Recorded Vitals Blood pressure 122/68, pulse 74, temperature 36.8 ?C (98.2 ?F), resp. rate 19, height 1.769 m (5' 9.65"), weight 68.2 kg (150 lb 5.7 oz), SpO2 95%. Relevant Results Transthoracic echo (TTE) complete Result Date: 03/22/2024 Left Ventricle: Left ventricle is mildly dilated. Mid to distal anterior, drew-septal segments hypokinetic. Reduced systolic function with an estimated EF of 40 - 45%. Grade I diastolic dysfunction of the left ventricle. Right Ventricle: Right ventricle is mildly dilated. Mildly reduced systolic function in the right ventricle. No nuclear medicine results found for the past 12 months Encounter Date: 03/18/24ECG 12 lead Result Value Ventricular Rate 67 Atrial Rate 67 MO Interval 226 QRS Duration 94 QT/QTc 492 QTc Calculation 519 P-Nuiqsut 40 R-Nuiqsut -75 T-Nuiqsut 210 Procedure? Impression SINUS RHYTHM WITH 1ST DEGREE A-V BLOCK LEFT AXIS DEVIATION LOW QRS VOLTAGE -- CONSIDER PULMONARY DISEASE, PERICARDIAL EFFUSION, OR NORMAL VARIANT INFERIOR INFARCTION AGE UNDETERMINED POSSIBLE(Y) ANTEROLATERAL INFARCTION (CITED ON OR BEFORE 18-MAR-2024) PROLONGED QT INTERVAL OR TU FUSION, CONSIDER MYOCARDIAL DISEASE, ELECTROLYTE IMBALANCE, OR DRUG EFFECTS ABNORMAL ECG WHEN COMPARED WITH ECG OF 18-MAR-2024 19:37, SIGNIFICANT CHANGES HAVE OCCURRED Confirmed by Gabi Dawn ([id number]) on 03/23/2024 11:44:37 PM No results found for this or any previous visit (from the past 44416 hours). Encounter Date: 03/18/24XR chest 1 view Narrative EXAM: XR CHEST 1 VIEW DATE: 03/18/2024 7:40 PM ACCOUNTANCY PROFESSOR INDICATION: Fall. Progressively worsening weakness. COMPARISON: Same day left humerus radiographs TECHNIQUE: AP chest. FINDINGS: Lines, tubes and hardware: Pacemaker generator projects over the left lower chest. Lungs and pleura: Low lung volumes result in bibasilar vascular crowding,without focal opacity. The costophrenic sulci are sharp without effusion. No pneumothorax is identified. Heart and mediastinum: The heart size is partially obscured by adjacentopacities but not significantly changed. Hilar fullness is noted. Vascular calcifications are present at the aortic arch. Bones and soft tissues: Acute to subacute left proximal humeral fracture noted. Age-related degenerative findings. Impression1. Hilar fullness bilaterally is nonspecific may be related to vascular prominence or lymphadenopathy. 2. Proximal left humerus fracture better characterized on dedicated radiographs. Electronically signed by: Nestor Mckay MD 03/18/2024 07:55 PM [facility] Pertinent Labs : No results found for: "NA", "K", "CL", "CO2", "BUN", "CREATININE", "GLUCOSE" Current Facility-Administered Medications:acetaminophen (Tylenol) tablet 650 mg, 650 mg, Oral, q6h PRN, Elise Morrison MD apixaban (Eliquis) tablet 2.5 mg, 2.5 mg, Oral, q12h, Donnell Zhao MD, 2.5 mg at 03/25/24 0823 atorvastatin (Lipitor) tablet 20 mg, 20 mg, Oral, Daily, Nicole Rodriguez MD, 20 mg at 03/25/24 0824 bisacodyl (Dulcolax) EC tablet 5 mg, 5 mg, Oral, Nightly PRN, Elise Morrison MD dextrose 50 % solution 12.5 g, 12.5 g, Intravenous, PRN, Elise Morrison MD dextrose 50 % solution 25 g, 25 g, Intravenous, PRN, Elise Morrison MD flecainide (Tambocor) tablet 50 mg, 50 mg, Oral, q12h BABITA, Oneyda Palacio MD, 50 mg at 03/25/24 0824 glucagon injection 1 mg, 1 mg, Intramuscular, PRN, Elise Morrison MD guaiFENesin (Robitussin) 100 MG/5ML liquid 200 mg, 200 mg, Oral, 4x daily PRN, ESTEPHANIE Zafar hydroCHLOROthiazide (HYDRODiuril) tablet 25 mg, 25 mg, Oral, q24h, Nicole Rodriguez MD, 25 mg at 03/24/242113 labetalol injection 10 mg, 10 mg, Intravenous, q4h PRN, Elise Morrison MD losartan (Cozaar) tablet 100 mg, 100 mg, Oral, q24h, Nicole Rodriguez MD, 100 mg at 03/24/242113 melatonin tablet 3 mg, 3 mg, Oral, Nightly PRN, Elise Morrison MD, 3 mg at 03/23/242123 metoprolol tartrate (Lopressor) tablet 25 mg, 25 mg, Oral, q12h BABITA, Oneyda Palacio MD, 25 mg at 03/24/24 0815 metoprolol tartrate (Lopressor) tablet 50 mg, 50 mg, Oral, q12h BABITA, Oneyda Palacio MD, 50 mg at 03/25/24 0825 ondansetron ODT (Zofran-ODT) disintegrating tablet 4 mg, 4 mg, Oral, q8h PRN OR ondansetron (Zofran) injection 4 mg, 4 mg, Intravenous, q8h PRN, Elise Morrison MD polyethylene glycol (PEG) 3350 (Miralax) packet 17 g, 17 g, Oral, Daily, Elise Morrsion MD, 17 g at 03/24/24 0816 senna-docusate (Layne-Colace) 8.6-50 mg per tablet 2 tablet, 2 tablet, Oral, BID, Elise Morrison MD, 2 tablet at 03/25/24 0823 sodium chloride (NS) 0.9 % flush 10 mL, 10 mL, Intravenous, q12h BABITA, Elise Morrison MD, 10 mL at 03/25/24 0826 sodium chloride (NS) 0.9 % flush 10 mL, 10 mL, Intravenous, PRN, Elise Morrison MD Assessment & PlanFrequent falls Impaired mobility and ADLs Essential tremor Primary hypertension Hypokalemia Atrial fibrillation (CMS/HCC) (HCC)I have fully discussed the treatment choice with patient and Luz Marina Her [id number] score: 3 at least moderate risk for ischemic stroke Now back to sinus My plan: 1) will need anticoagulation, however at this moment, frequent falls,Will decrease to 2.5 mg bid to balance risk and benefit 2) sinus now will continue current med 3) if recurrent a fib, , will need WATCHMAN in the future 4) f/u in two weeks Accidental fall, initial encounter Completed by:Oneyda Palacio MD UNTANCY PROFESSOR * Valeria Cassidy, OT - 03/25/2024 2:50 PM ACCOUNTANCY PROFESSOR Occupational Therapy Treatment Patient Name: Rashid Waltersote Today's Date: 03/25/2024 Room number: [id number] Preferred Language: Turkish Assessment & Plan Pt exhibited good progress and would benefit from continued OT services to maximize independence in ADLs and safety upon discharge. Assessment: (Updated last filed value) OT Assessment Results: Impaired ADL status, Impaired upper extremity range of motion, Impaired upper extremity strength, Impaired endurance, Impaired fine motor control, Impaired functional mobility, Impaired gross motor control, Impaired IADLs, Impaired left upper extremity, Impaired trunk control for functional activities Prognosis: Good Barriers to Discharge: Medical diagnosis Evaluation/Treatment Tolerance: Patient limited by fatigue Medical Staff Made Aware: Yes Strengths: Coping skills, Attitude of self Plan: (Updated last filed value) Treatment Plan/Goals Established with Patient/Caregiver: Yes Treatment Interventions: Endurance training, Compensatory technique education, UE strengthening/ROM OT Planned Treatments: Work simplification, Activities of Daily Living, Balance training, Caregiver training, Coordination, Edema managment, Energy conservation training, Equipment assessment, Equipment training, Joint protection, Manual therapy, Mobility training, Neuromuscular reeducation, Pain management, Patient education, Safety education, Seating/Positioning, Sensory integration, Taping, Therapeutic activities, Therapeutic exercises OT Plan: Skilled OT OT Frequency: 3-5 times per week until discharge AM-PAC Daily Activity: Putting on and taking off regular lower body clothing: A Lot Bathing (including washing, rinsing, drying): A Lot Toileting, which includes using toilet, bedpan or urinal: A Lot Putting on and taking off regular upper body clothing: A Little Taking care of personal grooming such as brushing teeth: None Eating Meals: None AM-PAC Daily Activity Raw Score: 17 [facility] Highest Level of Mobility (-HLM) ScaleHighest Level of Mobility Performed (-HLM): Walked 10 steps or more (i.e. walked to restroom) SubjectiveOT orders verified, and chart reviewed. RN approved OT session. Pt found sitting on recliner with daughter at bedside and agreeable to session. Current Problem: Rashid Curry is a 84 y.o. year old female patient with Hypokalemia [E87.6] Impaired mobility and ADLs [Z74.09, Z78.9] Generalized weakness [R53.1] At high risk for falls [Z91.81] Anticoagulation adequate with anticoagulant therapy [Z79.01] Atrial fibrillation, unspecified type (CMS/HCC) (HCC) [I48.91] Accidental fall, initial encounter [W19.XXXA] referred to Occupational therapy services . Pain:Pain Assessment: DVPRS Pain Score: 0 Pain Rating Scale (DVPRS): No pain ObjectiveVital Signs: Visit Vitals BP 122/68 Pulse 74 Temp 36.8 ?C (98.2 ?F) Resp 19 General Visit Information:Family/Caregiver Present: Yes Others Present: daughter Precautions:Precautions UE Weight Bearing Status: FWB LE Weight Bearing Status: FWB Medical Precautions: Fall, standard Lines and drains: telemetryDevices: None Treatment:Current Self-Care (ADL): Self Care/Home Management (ADLs) Time Entry: 45 Eating Assistance: Independent Grooming Assistance: Independent Bathing Assistance: Partial/Mod assistance UE Dressing Assistance: Setup/clean-up assistance LE Dressing Assistance: Partial/Mod assistance ADL Comments: Pt performed bathing and LBD with MOD A and UBD with VENTURA while sitting on tub bench. Therapeutic ActivityTherapeutic Activity Time Entry: 16 Therapeutic Activity 1: Pt performed recliner<>bathroom transfer via walking with use of RW with MOD A. Therapeutic Activity 2: Pt performed transfer to/from tub bench with MOD A using RW. TransferTransfer 1 Technique 1: Via walking Level of Assistance 1: Partial/Mod assistance Transfer To/From: Recliner, Tub /Shower Assistive Devices And Adaptive Equipments: Walker, front-wheeled, Tub bench Tub/Shower Transfers Transfer To/From: Tub bench, Chair Transfer Type: Via walking Level of Assistance: Moderate assistance Assistive Devices And Adaptive Equipments: Walker, Front-wheeled Patient Education:Education Documentation No documentation found. Education Comments No comments found. Goals:Encounter Goals Encounter Goals (Active) Patient will perform upper and lower body dressing Mod I at seated or standing level as needed for decreased caregiver burden. (Progressing) Start: 03/20/24 Expected End: 04/10/24 Patient will perform toileting with RW device Mod I to improve independence with ADLs. Start: 03/20/24 Expected End: 04/10/24 Within 2 weeks of starting therapy, the patient and/or family/caregiver will demonstrate independence and be compliant in a written HEP in order to maximize gains made during therapy. (Progressing) Start: 03/20/24 Expected End: 04/10/24 Post Therapy Checklist: in recliner, call mills within reach, phone withinreach, bed/chair alarm on, family at bedside, and RN informed Time Entry Calculation:Start Time: 1450 Stop Time: 1551 Time Calculation (min): 61 min OT Equipment Operator Wage Hand Used: N.A. Treatment Note: If this is the last documented treatment, then it will signify discharge from acute care prior to discharge from the therapy service and will serve as the discharge summary. Valeria Cassidy OT UNTANCY PROFESSOR * ESTEPHANIE Zafar - 03/24/2024 5:41 PM ACCOUNTANCY PROFESSOR [facility] Hospitalist Progress Note Subjective Patient is sitting in bedside chair with no acute complaints, breathing easily on room air. Objective Last Recorded Vitals Blood pressure 114/64, pulse 81, temperature 36.8 ?C (98.3 ?F), resp. rate 19, height 1.769 m (5' 9.65"), weight 68.2 kg (150 lb 5.7 oz), SpO2 94%. Physical Exam: General: in no acute distress HEENT: Normocephalic, atraumatic, neck is supple CVS: S1S2 normal, RRR, no appreciable murmurs, rubs or gallops Lungs: Chest expansion is symmetric, CTAB, no wheezes or rhonchi Abdomen: Soft, NT, ND, normoactive bowel sounds Extremities: No pedal edema, no erythema Neuro: AO x 3, no new focal neuro deficit Psych: Appropriate mood, affect is calm Results: Results from last 7 days Lab Units 03/21/24 0459 03/18/24 1353 WBC 10*3/uL 5.66 7.63 HEMOGLOBIN g/dL 14.5 14.3 HEMATOCRIT % 44.6 44.5 PLATELETS 10*3/uL 261 276 Results from last 7 days Lab Units 03/22/24 0544 03/21/24 0459 03/19/24 0419 03/18/24 1353 SODIUM mEq/L 141 140 139 139 POTASSIUM mEq/L 3.6 2.8* 3.8 3.2* CHLORIDE mEq/L 104 99 97* 96* CO2 mEq/L 27.3 31.8* 30.0 35.6* BUN mg/dL 20 11 9 13 CREATININE mg/dL 0.71 0.59 0.58 0.65 CALCIUM mg/dL 9.0 9.2 9.7 9.3 PROTEIN TOTAL g/dL -- -- 5.8 6.8 BILIRUBIN TOTAL mg/dL -- -- 0.84 1.19* ALK PHOS U/L -- -- 39* 47 ALT U/L -- -- 18 18 AST U/L -- -- 32 30 GLUCOSE mg/dL 96 91 85 110* Recent Images No results found. Scheduled Meds apixaban, 2.5 mg, Oral, q12h atorvastatin, 20 mg, Oral, Daily flecainide, 50 mg, Oral, q12h BABITA hydroCHLOROthiazide, 25 mg, Oral, q24h losartan, 100 mg, Oral, q24h metoprolol tartrate, 25 mg, Oral, q12h BABITA metoprolol tartrate, 50 mg, Oral, q12h BABITA polyethylene glycol (PEG) 3350, 17 g, Oral, Daily senna-docusate, 2 tablet, Oral, BID sodium chloride, 10 mL, Intravenous, q12h BABITA PRN medications: acetaminophen, bisacodyl, dextrose, dextrose, glucagon, labetalol, melatonin, ondansetron ODT OR ondansetron, sodium chloride Assessment Rashid Curry is a 84 y.o. female with a history of hypertension, essential tremor s/p deep brain stimulator, and frequent falls. She was brought to the hospital by her family because of mechanical ground-level fall at home. According to family she has been having frequent falls for the past year and a half. In fact she fell in November 2023 resulting in fracture of the proximal left humerus. She was hospitalized earlier this month at [facility] for new onset atrial fibrillation and started on Lopressor and Eliquis. Fortunately this time patient did not sustain any acute injuries. CT head is negative for acute abnormality, CT of the cervical spine did not show any acute fracture or dislocation. Assessment & Plan Frequent falls Patient recently discharged home from SNF a few days ago CT scan of the brain is unremarkable CT scan of the cervical spine is unremarkable Other imaging studies reviewed Healing chronic left humerus fracture Continue PT/OT Continue fall precaution Home health orders initially placed Family is now requesting for SNF placement. Case management consulted regarding SNF Atrial fibrillation (CMS/HCC) (HCC) Heart rate is sometimes uncontrolled Continue metoprolol and Eliquis for anticoagulation, Eliquis dose modified Cardiology was consulted to assess if anticoagulation need to be discontinued considering recurrent falls Patient with [id number] score of 3 at moderate risk for stroke, continue Eliquis for anticoagulation at lower dose of 2.5 mg twice daily for now Cardiology consult appreciated, rec noted There was initially plan for DCCV. However canceled. Essential tremor Outpatient follow-up Primary hypertension Continue metoprolol Impaired mobility and ADLs Continue Physical therapy and outpatient therapy Hypokalemia Potassium has been repleted, monitor potassium level Accidental fall, initial encounter See above Plan of Care discussed with Dr. Dumont Current Diet: Adult Diet Regular VTE Prophylaxis apixaban - 2.5 MG Disposition:SNF Reason for continued hospitalization:Medically cleared for discharge, pending SNF arrangements. Cosigned by Jaz Dumont MD at 03/25/2024 8:55 AM ACCOUNTANCY PROFESSOR UNTANCY PROFESSOR UNTANCY PROFESSOR Associated attestation - Jaz Dumont MD - 03/25/2024 8:55 AM CST Patient seen and examined Agree with current plan of care Patient doing ok no issues General; patient ox3 no acute disters Debility and frequent falls- PT/OT awaiting placement * ESTEPHANIE Zafar - 03/24/2024 5:39 PM ACCOUNTANCY PROFESSOR Images from the original note were not included. Patient: Rashid Curry Date of : 1940 Contact Information: [address] [phone] To Whom It May Concern: Rashid Curry was seen and treated in our hospital starting 03/18/2024, andis currently still being treated on 03/24/24. This note is to serve as notice of her ongoing hospitalization, so her family members may make appropriate plans regarding work schedules. If you have any questions or concerns, please do not hesitate to call ouroffice. ESTEPHANIE Zafar03/24/2024 5:39 PM [facility] Hospitalist - [phone] UNTANCY PROFESSOR * Valeria Cassidy, OT - 03/24/2024 1:20 PM ACCOUNTANCY PROFESSOR Occupational Therapy Treatment Patient Name: Rashid Curry Today's Date: 03/25/2024 Room number: [id number] Preferred Language: Turkish Assessment & Plan Pt exhibited good progress and would benefit from continued OT services to maximize independence in ADLs and safety upon discharge. Assessment: (Updated last filed value) OT Assessment Results: Impaired ADL status, Impaired upper extremity range of motion, Impaired upper extremity strength, Impaired endurance, Impaired functional mobility, Impaired gross motor control, Impaired right upper extremity, Impaired IADLs Prognosis: Good Barriers to Discharge: Past Medical history Evaluation/Treatment Tolerance: Patient tolerated treatment well Medical Staff Made Aware: Yes Strengths: Coping skills, Attitude of self, Support of extended family/friends Plan: (Updated last filed value) Treatment Plan/Goals Established with Patient/Caregiver: Yes Treatment Interventions: Endurance training, Compensatory technique education, UE strengthening/ROM OT Planned Treatments: Work simplification, Activities of Daily Living, Balance training, Caregiver training, Coordination, Edema managment, Energy conservation training, Equipment assessment, Equipment training, Joint protection, Manual therapy, Mobility training, Neuromuscular reeducation, Pain management, Patient education, Safety education, Seating/Positioning, Sensory integration, Taping, Therapeutic activities, Therapeutic exercises OT Plan: Skilled OT OT Frequency: 3-5 times per week until discharge AM-PAC Daily Activity: Putting on and taking off regular lower body clothing: Total Bathing (including washing, rinsing, drying): A Lot Toileting, which includes using toilet, bedpan or urinal: A Lot Putting on and taking off regular upper body clothing: A Little Taking care of personal grooming such as brushing teeth: A Little Eating Meals: None AM-PAC Daily Activity Raw Score: 15 [facility] Highest Level of Mobility (-HLM) ScaleHighest Level of Mobility Performed (JH-HLM): Walked 10 steps or more (i.e. walked to restroom) SubjectiveOT orders verified, and chart reviewed. RN approved OT session. Pt found sitting on wheelchair at [facility] room and agreeable to session. Current Problem: Rashid Curry is a 84 y.o. year old female patient with Hypokalemia [E87.6] Impaired mobility and ADLs [Z74.09, Z78.9] Generalized weakness [R53.1] At high risk for falls [Z91.81] Anticoagulation adequate with anticoagulant therapy [Z79.01] Atrial fibrillation, unspecified type (CMS/HCC) ([facility]) [I48.91] Accidental fall, initial encounter [W19.XXXA] referred to Occupational therapy services . Past Medical History: Diagnosis Date Atrial fibrillation (CMS/HCC) ([facility]) 03/19/2024 Essential tremor 03/18/2024 Primary hypertension 03/18/2024 History reviewed. No pertinent surgical history. Pain:Pain Assessment: DVPRS Pain Score: 0 Pain Rating Scale (DVPRS): No pain ObjectiveVital Signs: Visit Vitals BP 133/74 Pulse 75 Temp 36.7 ?C (98.1 ?F) Resp 18 General Visit Information:Family/Caregiver Present: Yes Others Present: daughter Precautions: Precautions UE Weight Bearing Status: FWB LE Weight Bearing Status: FWB Medical Precautions: Fall, standard Lines and drains: telemetryDevices: None Treatment: Therapeutic ExerciseTherapeutic Exercise Therapeutic Exercise Time Entry: 30 Therapeutic Exercise Activity 1: Pt performed RUE AROM exercises all planes possible and LUE AROM exercises within safe limits 10-20x each. Position 1: Seated Therapeutic Exercise Activity 2: Pt performed BLE AROM exercises 10-20x each all planes possible. Patient Education:Education Documentation Home Exercise Program, taught by Valeria Cassidy OT at 03/24/2024 2:37 PM. Learner: Family, Patient Readiness: Acceptance Method: Explanation, Demonstration Response: Verbalizes Understanding, Demonstrated Understanding Education CommentsNo comments found. Goals:Encounter Goals Encounter Goals (Active) Patient will perform upper and lower body dressing Mod I at seated or standing level as needed for decreased caregiver burden. Start: 03/20/24 Expected End: 04/10/24 Patient will perform toileting with RW device Mod I to improve independence with ADLs. Start: 03/20/24 Expected End: 04/10/24 Within 2 weeks of starting therapy, the patient and/or family/caregiver will demonstrate independence and be compliant in a written HEP in order to maximize gains made during therapy. (Progressing) Start: 03/20/24 Expected End: 04/10/24 Post Therapy Checklist: in wheelchair, RN informed, and with volunteer educator at [facility] room. Time Entry Calculation:Start Time: 1320 Stop Time: 1350 Time Calculation (min): 30 min OT Equipment Operator Wage Hand Used: Jordyn De Guzman Treatment Note: If this is the last documented treatment, then it will signify discharge from acute care prior to discharge from the therapy service and will serve as the discharge summary. Valeria Cassidy OT UNTANCY PROFESSOR UNTANCY PROFESSOR UNTANCY PROFESSOR * Ernestine Medina, SPT - 03/24/2024 11:25 AM ACCOUNTANCY PROFESSOR Physical Therapy Treatment Patient Name: Rashid Curry Today’s Date: 03/24/24 Room Number: [id number]/[id number].1020 Patient's Preferred Language: Turkish PT Assessment and Plan: Assessment Pt had no LOB today during gait, she was less fearful of falls and ambulated farther before requiring rest breaks. Pt still presents with limited endurance, mobility, and balance. Pt would benefit from continued acute skilled physical therapy to address stated deficits. Evaluation/Treatment Tolerance: Patient tolerated treatment well Prognosis: Good Strengths: Attitude of self, Ability to acquire knowledge, Support of extended family/friends Barriers to Discharge: Safety awareness, Medical diagnosis Medical Staff Made Aware: Yes Plan (Last filed value by PT) Treatment Plan/Goals Established with Patient/Caregiver: Yes Treatment/Interventions: Balance training, Bed mobility training, Functional activities, Gait training, Patient education, Therapeutic exercises, Transfer training PT Plan: Skilled PT PT Frequency: 3-4 times per week until discharge PT Recommended Transfer Status: Assistive equipment (Comment) (Min A for safety.) AM-PAC Basic Mobility Turning in bed without bedrails: A Little Lying on back to sitting on edge of flat bed: A Little Bed to chair: A Little Standing up from chair: A Little Walk in room: A Little Climbing 3-5 stairs: Total Mobility Inpatient Raw Score: 16 -M Goal: 5 [facility] Highest Level of Mobility (-HLM) Scale Highest Level of Mobility Performed (JH-HLM): Walked 25 feet or more (i.e. walked outside of room) Subjective: Pt consented to treatment today. Current Problem: This is a 84 y.o. female who is admitted to [facility] with Hypokalemia [E87.6] Impaired mobility and ADLs [Z74.09, Z78.9] Generalized weakness [R53.1] At high risk for falls [Z91.81] Anticoagulation adequate with anticoagulant therapy [Z79.01] Atrial fibrillation, unspecified type (CMS/HCC) (HCC) [I48.91] Accidental fall, initial encounter [W19.XXXA] Pain: Pain Assessment Pain Assessment: DVPRS Pain Score: 0 Pain Rating Scale (DVPRS): No pain Pain: (Post Therapy Score) 0/10 Lines and Drains: Telemetry, IV Health Conditions: Pain Interference with Therapy Activities: Rarely or not at all Objective: Precautions: UE Weight Bearing Status: full weightbearing BUE LE Weight Bearing Status: full weightbearing BLE Medical Precautions: Fall, Standard Isolation Status: No active isolations Activity Tolerance: Endurance: Tolerates 10 - 20 min exercise with multiple rests Sitting Balance: Sits without support for more than 30 sec Early Mobility/Exercise Safety Screen: Proceed with mobilization - No exclusion criteria met Activity Tolerance Comments: Good Cognition: Overall Cognitive Status: Within Functional Limits Behavior/Cognition: Alert, Cooperative, Pleasant mood Arousal/Alertness: Appropriate responses to stimuli Orientation Level: Oriented X4 Treatments: Therapeutic Activity 1: Bed mobility Therapeutic Activity 2: Transfer EOB/ WC Therapeutic Activity 3: Return to EOB for lunch set up Bed Mobility: Bed Mobility Bed Mobility: Yes Bed Mobility 1 Level of Assistance 1: Supervision/touching assistance (Supervision) Bed Mobility Comments 1: Supervision for safety and balance. Bed Mobility To/From: Sitting EOB to supine, Supine to sit on EOB Assistive Devices And Adaptive Equipments: Height adjustment feature of hospital bed, Head of bed elevated, Bed rail Transfers: Transfers Transfer: Yes Transfer 1 Technique 1: Via walking Level of Assistance 1: Supervision/touching assistance (CGA) Trials/Comments 1: CGA for balance and safety. Transfer To/From: Bed, [id number]-[id number]/Ljqul-[id number] Assistive Devices And Adaptive Equipments: Walker, front-wheeled Gait Training: Gait Training Time Entry: Gait Training Activity 1 Distance (enter in feet): 95ft, 116ft, 51ft Gait Training Activity 1: Indoor surface Assistive Devices And Adaptive Equipments: Walker, front-wheeled Level of Assistance 1: Partial/Mod assistance (CGA) Gait Training Activity 1 Comment: Pt required sitting break x1 and standing break x1 during ambulation. Pt ambulated a greater distance today with improved standing tolerance. Pt walked to public elevators from EOB and stood at windows for approx 10 minutes taking a stading rest break. Pt was able to support herself in standing without holding on to the walker for about 1 minute. She ambulated from public elevators to windows by A/B desk. She required a 5 minute sitting rest break in wc before returning back to the EOB for lunch. Pt required Man for ascend from varying surfaces. Pt given vcs for standing upright during ambulation, hand placement before sitting and standing. Outcome Measures: Miguel Angel RPE Scale Miguel Angel RPE Scale - How Strenuous and Tiring The Work Feels: 12 - Moderate Patient Education Education Documentation Fall Prevention, taught by ADIS Navarro at 03/24/2024 2:02 PM. Learner: Patient Readiness: Acceptance Method: Explanation Response: Verbalizes Understanding Comment: Daughter present. Mobility, taught by ADIS Navarro at 03/24/2024 2:02 PM. Learner: Patient Readiness: Acceptance Method: Explanation Response: Verbalizes Understanding Comment: Daughter present. Physical Therapy Plan of Care, taught by ADIS Navarro at 03/24/2024 2:02 PM. Learner: Patient Readiness: Acceptance Method: Explanation Response: Verbalizes Understanding Comment: Daughter present. Education Comments No comments found. Goal Encounter Goals Encounter Goals (Active) Patient will ambulate 250 feet using rolling walker with supervision assist. (Progressing) Start: 03/19/24 Expected End: 04/02/24 Patient will perform chair to and from bed transfer with no assistance. (Progressing) Start: 03/19/24 Expected End: 04/02/24 Patient will perform supine to/from sit on bed with no assistance demonstrating good control. (Progressing) Start: 03/19/24 Expected End: 04/02/24 General Visit Information Family/Caregiver Present: Yes Others Present: Daughter Post Therapy Checklist - in bed, call mills within reach, bed/chair alarm in place, phone within reach, and with family nearby Time Calculation:Start Time: 1125 Stop Time: 1152 Time Calculation (min): 27 min AttestationSupervising Physical Therapist: Abby Rivera PT Patient progress towards current goals and plan of care was discussed in person with supervising Physical Therapist. Treatment Note: If this is the last documented treatment, then it will signify discharge from acute care prior to discharge from the therapy service and will serve as the discharge summary. ADIS Navarro Cosigned by Abby Rivera PT at 03/24/2024 4:15 PM CST UNTANCY PROFESSOR UNTANCY PROFESSOR Associated attestation - Abby Rivera PT - 03/24/2024 4:15 PM CST I, the supervising Physical therapist was active and present throughout the duration of the session. As the supervising therapist, I have reviewed and agree with all documentation related to treatment, plan of care, and billing on this date. * Oneyda Palacio MD - 03/24/2024 8:51 AM ACCOUNTANCY PROFESSOR [facility] Cardiology Dr. Oneyda Palacio Subjective Overnight, Still remains in sinus with occasional PACs No chest pain Physical Exam Physical Exam: Last Recorded Vitals Blood pressure 128/71, pulse 67, temperature 36.5 ?C (97.7 ?F), resp. rate 19, height 1.769 m (5' 9.65"), weight 68.2 kg (150 lb 5.7 oz), SpO2 92%. Relevant Results Transthoracic echo (TTE) complete Result Date: 03/22/2024 Left Ventricle: Left ventricle is mildly dilated. Mid to distal anterior, drew-septal segments hypokinetic. Reduced systolic function with an estimated EF of 40 - 45%. Grade I diastolic dysfunction of the left ventricle. Right Ventricle: Right ventricle is mildly dilated. Mildly reduced systolic function in the right ventricle. No nuclear medicine results found for the past 12 months Encounter Date: 03/18/24ECG 12 lead Result Value Ventricular Rate 67 Atrial Rate 67 MO Interval 226 QRS Duration 94 QT/QTc 492 QTc Calculation 519 P-Nuiqsut 40 R-Nuiqsut -75 T-Nuiqsut 210 Procedure? Impression SINUS RHYTHM WITH 1ST DEGREE A-V BLOCK LEFT AXIS DEVIATION LOW QRS VOLTAGE -- CONSIDER PULMONARY DISEASE, PERICARDIAL EFFUSION, OR NORMAL VARIANT INFERIOR INFARCTION AGE UNDETERMINED POSSIBLE(Y) ANTEROLATERAL INFARCTION (CITED ON OR BEFORE 18-MAR-2024) PROLONGED QT INTERVAL OR TU FUSION, CONSIDER MYOCARDIAL DISEASE, ELECTROLYTE IMBALANCE, OR DRUG EFFECTS ABNORMAL ECG WHEN COMPARED WITH ECG OF 18-MAR-2024 19:37, SIGNIFICANT CHANGES HAVE OCCURRED Confirmed by Gabi Dawn ([id number]) on 03/23/2024 11:44:37 PM No results found for this or any previous visit (from the past 37001 hours). Encounter Date: 03/18/24XR chest 1 view Narrative EXAM: XR CHEST 1 VIEW DATE: 03/18/2024 7:40 PM ACCOUNTANCY PROFESSOR INDICATION: Fall. Progressively worsening weakness. COMPARISON: Same day left humerus radiographs TECHNIQUE: AP chest. FINDINGS: Lines, tubes and hardware: Pacemaker generator projects over the left lower chest. Lungs and pleura: Low lung volumes result in bibasilar vascular crowding,without focal opacity. The costophrenic sulci are sharp without effusion. No pneumothorax is identified. Heart and mediastinum: The heart size is partially obscured by adjacentopacities but not significantly changed. Hilar fullness is noted. Vascular calcifications are present at the aortic arch. Bones and soft tissues: Acute to subacute left proximal humeral fracture noted. Age-related degenerative findings. Impression1. Hilar fullness bilaterally is nonspecific may be related to vascular prominence or lymphadenopathy. 2. Proximal left humerus fracture better characterized on dedicated radiographs. Electronically signed by: Nestor Mckay MD 03/18/2024 07:55 PM [facility] Pertinent Labs :Lab Results Component Value Date Sodium Lvl 141 03/22/2024 Potassium Lvl 3.6 03/22/2024 Chloride Lvl 104 03/22/2024 CO2 Lvl 27.3 03/22/2024 BUN 20 03/22/2024 Creatinine Lvl 0.71 03/22/2024 Glucose Lvl 96 03/22/2024 Current Facility-Administered Medications:acetaminophen (Tylenol) tablet 650 mg, 650 mg, Oral, q6h PRN, Elise Morrison MD apixaban (Eliquis) tablet 2.5 mg, 2.5 mg, Oral, q12h, Donnell Zhao MD, 2.5 mg at 03/24/24 08 atorvastatin (Lipitor) tablet 20 mg, 20 mg, Oral, Daily, Nicole Rodriguez MD, 20 mg at 03/24/24 08 bisacodyl (Dulcolax) EC tablet 5 mg, 5 mg, Oral, Nightly PRN, Elise Morrison MD dextrose 50 % solution 12.5 g, 12.5 g, Intravenous, PRN, Elise Morrison MD dextrose 50 % solution 25 g, 25 g, Intravenous, PRN, Elise Morrison MD flecainide (Tambocor) tablet 50 mg, 50 mg, Oral, q12h BABITA, Oneyda Palacio MD, 50 mg at 03/24/24 0815 glucagon injection 1 mg, 1 mg, Intramuscular, PRN, Elise Morrison MD hydroCHLOROthiazide (HYDRODiuril) tablet 25 mg, 25 mg, Oral, q24h, Nicole Rodriguez MD, 25 mg at 03/23/242123 labetalol injection 10 mg, 10 mg, Intravenous, q4h PRN, Elise Morrison MD losartan (Cozaar) tablet 100 mg, 100 mg, Oral, q24h, Nicole Rodriguez MD, 100 mg at 03/23/242123 melatonin tablet 3 mg, 3 mg, Oral, Nightly PRN, Elise Morrison MD, 3 mg at 03/23/242123 metoprolol tartrate (Lopressor) tablet 25 mg, 25 mg, Oral, q12h BABITA, Oneyda Palacio MD, 25 mg at 03/24/24814 metoprolol tartrate (Lopressor) tablet 50 mg, 50 mg, Oral, q12h BABITA, Oneyda Palacio MD, 50 mg at 03/23/242123 ondansetron ODT (Zofran-ODT) disintegrating tablet 4 mg, 4 mg, Oral, q8h PRN OR ondansetron (Zofran) injection 4 mg, 4 mg, Intravenous, q8h PRN, Elise Morrison MD polyethylene glycol (PEG) 3350 (Miralax) packet 17 g, 17 g, Oral, Daily, Elise Morrison MD, 17 g at 03/24/24 0816 senna-docusate (Layne-Colace) 8.6-50 mg per tablet 2 tablet, 2 tablet, Oral, BID, Elise Morrison MD, 2 tablet at 03/24/2415 sodium chloride (NS) 0.9 % flush 10 mL, 10 mL, Intravenous, q12h BABITA, Elise Morrison MD, 10 mL at 03/24/24 0816 sodium chloride (NS) 0.9 % flush 10 mL, 10 mL, Intravenous, PRN, Elise Morrison MD Assessment & PlanFrequent falls Impaired mobility and ADLs Essential tremor Primary hypertension Hypokalemia Atrial fibrillation (CMS/HCC) (HCC)I have fully discussed the treatment choice with patient and Luz Marina Her [id number] score: 3 at least moderate risk for ischemic stroke Now back to sinus My plan: 1) will need anticoagulation, however at this moment, frequent falls,Will decrease to 2.5 mg bid to balance risk and benefit 2) sinus now will continue current med 3) if recurrent a fib, , will need WATCHMAN in the future 4) f/u in two weeks Accidental fall, initial encounter Completed by:Oneyda Palacio MD UNTANCY PROFESSOR * Donnell Zhao MD - 03/23/2024 12:48 PM ACCOUNTANCY PROFESSOR Subjective Pt lying in bed. No new events. No fever, chills Objective Last Recorded Vitals Blood pressure 120/75, pulse 62, temperature 36.7 ?C (98 ?F), resp. rate (!) 30, height 1.769 m (5' 9.65"), weight 68.2 kg (150 lb 5.7 oz), SpO2 92%. Physical Exam:Pt is AAO x 2. HEENT : OK, no pallor, no icterus Afebrile Heart: normal S1 S2. No murmurs appreciated . Regular rhythm Lungs: good AE bilaterally , no wheeze, rales, rhonchi Abdomen: soft , ND, NT. Normal BS Neuro: normal sensations , 5/5 strength B/L, normal reflexes Skin: no rash, no edema Psych: normal mood, normal affect . Good insight . Cognition intact Relevant ResultsResults from last 7 days Lab Units 03/21/24 0459 03/18/24 1353 WBC 10*3/uL 5.66 7.63 HEMOGLOBIN g/dL 14.5 14.3 HEMATOCRIT % 44.6 44.5 PLATELETS 10*3/uL 261 276 LYMPHOCYTES % 25.6 17.8 MONOCYTES % 14.8* 10.2 Results from last 7 daysLab Units 03/22/24 0544 03/21/24 0459 03/19/24 0419 03/18/24 1353 SODIUM mEq/L 141 140 139 139 POTASSIUM mEq/L 3.6 2.8* 3.8 3.2* CHLORIDE mEq/L 104 99 97* 96* CO2 mEq/L 27.3 31.8* 30.0 35.6* BUN mg/dL 20 11 9 13 CREATININE mg/dL 0.71 0.59 0.58 0.65 CALCIUM mg/dL 9.0 9.2 9.7 9.3 PROTEIN TOTAL g/dL -- -- 5.8 6.8 BILIRUBIN TOTAL mg/dL -- -- 0.84 1.19* ALK PHOS U/L -- -- 39* 47 ALT U/L -- -- 18 18 AST U/L -- -- 32 30 GLUCOSE mg/dL 96 91 85 110* Results from last 7 daysLab Units 03/22/24 0544 MAGNESIUM mg/dL 1.52* No results found for: "HGBA1C" Results from last 7 daysLab Units 03/18/24 1353 INR 1.74* PTT Seconds 37.5* No lab exists for component: "SEDRATE" Lipase Lvl Date Value Ref Range Status 03/18/2024 27 12 - 53 U/L Final Results from last 7 daysLab Units 03/18/242023 UA COLOR Yellow UA PH 7.0 UA GLUCOSE mg/dL Negative UA PROTEIN mg/dL Negative UA KETONES mg/dL Trace* UA NITRITE Negative UA LEUK ESTERASE Small* WBC UA /HPF 4 RBC UA /HPF 1 SQUAMOUS EPITHELIAL CELLS /LPF Few Results from last 7 daysLab Units 03/18/24 1353 TROPONIN I, HIGH SENSITIVITY pg/mL 6 === 03/18/24 === XR CHEST 1 VIEW - Impression -1. Hilar fullness bilaterally is nonspecific may be related to vascular prominence or lymphadenopathy. 2. Proximal left humerus fracture better characterized on dedicated radiographs. Electronically signed by: Nestor Mckay MD 03/18/2024 07:55 PM ACCOUNTANCY PROFESSOR RP === 03/18/24 === CT CERVICAL SPINE WO IV CONTRAST - Impression -No acute abnormality of the cervical spine. LOCATION: R16 This CT exam was performed according to our departmental dose optimization program, which includes automated exposure control, adjustment of the mA and/or kV according to the patient size and/or use of iterative reconstructive technique. Electronically signed by: Rubia Mclean MD 03/18/2024 09:06 PM [employer] RP No results found for this or any previous visit from the past 365 days. No results found for this or any previous visit from the past 365 days. apixaban, 2.5 mg, Oral, [id number], 20 mg, Oral, Daily flecainide, 50 mg, Oral, q12h BABITA hydroCHLOROthiazide, 25 mg, Oral, q24h losartan, 100 mg, Oral, q24h metoprolol tartrate, 25 mg, Oral, q12h BABITA metoprolol tartrate, 50 mg, Oral, q12h [facility] polyethylene glycol (PEG) 3350, 17 g, Oral, Daily senna-docusate, 2 tablet, Oral, BID sodium chloride, 10 mL, Intravenous, q12h [facility] Javy Curry is a 84 y.o. female with a history of hypertension, essential tremor s/p deep brain stimulator, and frequent falls. She was brought to the hospital by her family because of mechanical ground-level fall at home. According to family she has been having frequent falls for the past year and a half. In fact she fell in November 2023 resulting in fracture of the proximal left humerus. She was hospitalized earlier this month at [facility] for new onset atrial fibrillation and started on Lopressor and Eliquis. Fortunately this time patient did not sustain any acute injuries. CT head is negative for acute abnormality, CT of the cervical spine did not show any acute fracture or dislocation. Assessment & PlanFrequent falls Patient recently discharged home from SNF a few days ago CT scan of the brain is unremarkable CT scan of the cervical spine is unremarkable Other imaging studies reviewed Healing chronic left humerus fracture Continue PT/OT Continue fall precaution Home health orders initially placed Family is now requesting for SNF placement. Case management consulted regarding SNF Atrial fibrillation ([facility]) (HCC) Heart rate is sometimes uncontrolled Continue metoprolol and Eliquis for anticoagulation, Eliquis dose modified Cardiology was consulted to assess if anticoagulation need to be discontinued considering recurrent falls Patient with [id number] score of 3 at moderate risk for stroke, continue Eliquis for anticoagulation at lower dose of 2.5 mg twice daily for now Cardiology consult appreciated, rec noted There was initially plan for DCCV. However canceled. Essential tremorOutpatient follow-up Primary hypertension Continue metoprolol Impaired mobility and ADLs Continue Physical therapy and outpatient therapy Hypokalemia Potassium has been repleted, monitor potassium level Accidental fall, initial encounter Current Diet: Adult Diet Regular VTE Prophylaxisapixaban - 2.5 MG DispositionPatient at this time is medically cleared for discharge. However she is still retie risk of falls as she lives alone at home. Discussed with geriatric case manager. With May talked with the family and figure out other options. Monitor Reason for continued hospitalization: Medically cleared for discharge. Case management working with family regarding placement UNTANCY PROFESSOR * Oneyda Palacio MD - 03/23/2024 11:27 AM ACCOUNTANCY PROFESSOR [facility] Cardiology Dr. Oneyda Palacio Subjective Overnight Ms. Curry has converted to sinus (Confirmed by ECG) No chest pain reported Physical Exam Physical Exam: Last Recorded Vitals Blood pressure 120/75, pulse 62, temperature 36.7 ?C (98 ?F), resp. rate (!) 30, height 1.769 m (5' 9.65"), weight 68.2 kg (150 lb 5.7 oz), SpO2 92%. Relevant Results Transthoracic echo (TTE) complete Result Date: 03/22/2024 Left Ventricle: Left ventricle is mildly dilated. Mid to distal anterior, drew-septal segments hypokinetic. Reduced systolic function with an estimated EF of 40 - 45%. Grade I diastolic dysfunction of the left ventricle. Right Ventricle: Right ventricle is mildly dilated. Mildly reduced systolic function in the right ventricle. No nuclear medicine results found for the past 12 months Encounter Date: 03/18/24ECG 12 lead Result Value Ventricular Rate 111 QRS Duration 90 QT/QTc 342 QTc Calculation 465 R-Nuiqsut -41 T-Nuiqsut 25 Impression ATRIAL FIBRILLATION WITH A RAPID VENTRICULAR RESPONSE WITH ABERRANTLY CONDUCTED OR PREMATURE VENTRICULAR COMPLEX(ES) LEFT AXIS DEVIATION CANNOT RULE OUT ANTERIOR INFARCTION AGE UNDETERMINED Confirmed by Saúl Garcia ([id number]) on 03/19/2024 8:17:23 AM No results found for this or any previous visit (from the past 73074 hours). Encounter Date: 03/18/24XR chest 1 view Narrative EXAM: XR CHEST 1 VIEW DATE: 03/18/2024 7:40 PM ACCOUNTANCY PROFESSOR INDICATION: Fall. Progressively worsening weakness. COMPARISON: Same day left humerus radiographs TECHNIQUE: AP chest. FINDINGS: Lines, tubes and hardware: Pacemaker generator projects over the left lower chest. Lungs and pleura: Low lung volumes result in bibasilar vascular crowding,without focal opacity. The costophrenic sulci are sharp without effusion. No pneumothorax is identified. Heart and mediastinum: The heart size is partially obscured by adjacentopacities but not significantly changed. Hilar fullness is noted. Vascular calcifications are present at the aortic arch. Bones and soft tissues: Acute to subacute left proximal humeral fracture noted. Age-related degenerative findings. Impression1. Hilar fullness bilaterally is nonspecific may be related to vascular prominence or lymphadenopathy. 2. Proximal left humerus fracture better characterized on dedicated radiographs. Electronically signed by: Nestor Mckay MD 03/18/2024 07:55 PM [facility] Pertinent Labs :Lab Results Component Value Date Sodium Lvl 141 03/22/2024 Potassium Lvl 3.6 03/22/2024 Chloride Lvl 104 03/22/2024 CO2 Lvl 27.3 03/22/2024 BUN 20 03/22/2024 Creatinine Lvl 0.71 03/22/2024 Glucose Lvl 96 03/22/2024 Current Facility-Administered Medications:acetaminophen (Tylenol) tablet 650 mg, 650 mg, Oral, q6h PRN, Elise Morrison MD apixaban (Eliquis) tablet 2.5 mg, 2.5 mg, Oral, q12h, Donnell Zhao MD, 2.5 mg at 03/22/24 0815 atorvastatin (Lipitor) tablet 20 mg, 20 mg, Oral, Daily, Nicole Rodriguez MD, 20 mg at 03/23/24 1045 bisacodyl (Dulcolax) EC tablet 5 mg, 5 mg, Oral, Nightly PRN, Elise Morrison MD dextrose 50 % solution 12.5 g, 12.5 g, Intravenous, PRN, Elise Morrison MD dextrose 50 % solution 25 g, 25 g, Intravenous, PRN, Elise Morrison MD flecainide (Tambocor) tablet 50 mg, 50 mg, Oral, q12h BABITA, Oneyda Palacio MD, 50 mg at 03/23/24 1045 glucagon injection 1 mg, 1 mg, Intramuscular, PRN, Elise Morrison MD hydroCHLOROthiazide (HYDRODiuril) tablet 25 mg, 25 mg, Oral, q24h, Nicole Rodriguez MD, 25 mg at 03/22/24 214 labetalol injection 10 mg, 10 mg, Intravenous, q4h PRN, Elise Morrison MD losartan (Cozaar) tablet 100 mg, 100 mg, Oral, q24h, Nicole Rodriguez MD, 100 mg at 03/22/24 214 melatonin tablet 3 mg, 3 mg, Oral, Nightly PRN, Elise Morrison MD, 3 mg at 03/22/24 221 metoprolol tartrate (Lopressor) tablet 25 mg, 25 mg, Oral, q12h BABITA, Oneyda Palacio MD, 25 mg at 03/23/24 1045 metoprolol tartrate (Lopressor) tablet 50 mg, 50 mg, Oral, q12h BABITA, Oneyda Palacio MD, 50 mg at 03/22/24 214 ondansetron ODT (Zofran-ODT) disintegrating tablet 4 mg, 4 mg, Oral, q8h PRN OR ondansetron (Zofran) injection 4 mg, 4 mg, Intravenous, q8h PRN, Elise Morrison MD polyethylene glycol (PEG) 3350 (Miralax) packet 17 g, 17 g, Oral, Daily, Elise Morrison MD, 17 g at 03/23/24 1044 senna-docusate (Layne-Colace) 8.6-50 mg per tablet 2 tablet, 2 tablet, Oral, BID, Elise Morrison MD, 2 tablet at 03/23/24 1045 sodium chloride (NS) 0.9 % flush 10 mL, 10 mL, Intravenous, q12h BABITA, Elise Morrison MD, 10 mL at 03/23/24 0832 sodium chloride (NS) 0.9 % flush 10 mL, 10 mL, Intravenous, PRN, Elise Morrison MD Assessment & PlanFrequent falls Impaired mobility and ADLs Essential tremor Primary hypertension Hypokalemia Atrial fibrillation (CMS/HCC) (HCC)I have fully discussed the treatment choice with patient and Luz Marina Her [id number] score: 3 at least moderate risk for ischemic stroke Therefore, 1) will need anticoagulation, however at this moment, frequent falls, Will decrease to 2.5 mg bid to balance risk and benefit 2) sinus now will continue current med 3) if recurrent a fib, , will need WATCHMAN in the future Accidental fall, initial encounter Completed by:Oneyda Palacio MD UNTANCY PROFESSOR * Ivette Hogan, OT - 03/23/2024 10:55 AM ACCOUNTANCY PROFESSOR Occupational Therapy Treatment Note Patient Name: Rashid Curry Today's Date: 03/23/2024 Pt seen in room: [place] [id number]/[facility] Preferred Language: Turkish Pre pain level: 0/10 Pain level with activity: 0/10 Post pain level: 0/10 Subjective: "I am hungry" Rashid Curry is a 84 y.o. year old female patient with Hypokalemia [E87.6] Impaired mobility and ADLs [Z74.09, Z78.9] Generalized weakness [R53.1] At high risk for falls [Z91.81] Anticoagulation adequate with anticoagulant therapy [Z79.01] Atrial fibrillation, unspecified type (CMS/HCC) (HCC) [I48.91] Accidental fall, initial encounter [W19.XXXA] referred for Occupational therapy services . Past Medical History: Diagnosis Date Atrial fibrillation (CMS/HCC) (HCC) 03/19/2024 Essential tremor 03/18/2024 Primary hypertension 03/18/2024 History reviewed. No pertinent surgical history. Treatment: Co treatment completed with PT due to pt decrease activity tolerance. ASHLEY Loera cleared OT session. Pt agreeable to OT session. Pt reporting no pain. Pt performed bed mobility with Min A with verbal cues for sequencing. Pt performed sit to stand from edge of bed with RW with Min A and verbal cues for sequencing and hand placement. Pt performed mobility to bathroom performed toilet transfer with RW and use of grab bar with Min A. Pt performed toileting task with CGA for balance and increase time for task. Pt performed mobility from bathroom to sink with RW with Min A performed grooming task to wash hands standing at sink with RW with CGA for balance. Pt performed functional mobility in hallway with RW with Min A and verbal cues for postural awareness pt with forward flexed posture in standing. Pt required 1 seated rest break due to fatigue. Pt performed sit to stand from transport chair with RW with Min A and cues for sequencing performed functional mobility back to room agreeable to transfer to bedside chair performed with RW with Min A. Chair alarm on, needs within reach and verbal handoff with RN Evaristo. All lines intact. Continue with OT plan of care. Assessment: 03/23/24 1055 OT Last Visit OT Received On 03/23/24 Time Calculation Start Time 1055 Stop Time 1123 Time Calculation (min) 28 min General Family/Caregiver Present Yes Others Present 2 daughters, SPT Ernestine, PT Abby Precautions UE Weight Bearing Status full weightbearing BUE LE Weight Bearing Status full weightbearing BLE Medical Precautions Fall, Standard (IV, telemetry) Pain Assessment Pain Assessment DVPRS Pain Rating Scale (DVPRS) 0 ADL Self Care/Home Management (ADLs) Time Entry 28 Grooming Assistance Supervision/touching assistance Assistive Devices And Adaptive Equipments (standing at sink with RW) Grooming Deficit Steadying;Verbal cueing;Standing with assistive device;Wash/dry hands Toileting Assistance Supervision/touching assistance Toileting Deficit Steadying;Verbal cueing;Supervison/safety;Increased time to complete;Use of adaptive equipment (seated and standing with CGA) Bed Mobility Bed Mobility Yes Bed Mobility 1 Level of Assistance 1 Partial/Mod assistance Bed Mobility Comments 1 Min A with verbal cues for sequencing Bed Mobility To/From Supine to sit on EOB Assistive Devices And Adaptive Equipments Head of bed elevated Transfers Transfer Yes Transfer 1 Technique 1 Via walking Level of Assistance 1 Partial/Mod assistance Trials/Comments 1 Min A for sit to stand with RW cues for split hand technique and postural awareness Transfer To/From Bed;Chair;Toilet;[id number] Assistive Devices And Adaptive Equipments Walker, front-wheeled Toilet Transfers Toilet Transfer To/From Bed;Toilet Transfer Type Via walking Level of Assistance Partial/Mod assistance Assistive Devices And Adaptive Equipments Walker, Front-wheeled Toilet Transfers Comments Min A with RW and grab bar use Functional Mobility Functional Mobility pt performed functional mobility in hallway with RW with CGA and verbal cues 1 seated rest break refer to PT note for details Activity Tolerance Endurance Tolerates 10 - 20 min exercise with multiple rests Sitting Balance Sits without support for more than 30 sec Early Mobility/Exercise Safety Screen Proceed with mobilization - No exclusion criteria met AM-PAC Daily Activity Inpatient Putting on and taking off regular lower body clothing 2 Bathing (including washing, rinsing, drying) 2 Toileting, which includes using toilet, bedpan or urinal 3 Putting on and taking off regular upper body clothing 3 Taking care of personal grooming such as brushing teeth 3 Eating Meals 3 AM-PAC Daily Activity Raw Score 16 OT Assessment Medical Staff Made Aware Yes (ASHLEY Loera) OT Plan OT Plan Skilled OT Mobility Highest Level of Mobility Performed (-HLM) 7 Plan: Treatment Plan/Goals Established with Patient/Caregiver: Yes Treatment Interventions: ADL retraining, Cognitive reorientation, Compensatory technique education, Endurance training, Functional transfer training, Patient/family training, UE strengthening/ROM OT Planned Treatments: Activities of Daily Living, Balance training, Caregiver training, Cognitive training, Coordination, Joint protection, Mobility training, Manual therapy, Pain management, Patient education, Safety education, Therapeutic activities, Therapeutic exercises OT Plan: Skilled OT OT Frequency: 3-4 times per week until discharge Therapy discharge recommendations are made by determining the patient's prior level of function, assessing current function level and establishing rehab potential. The overall discharge plan may be affected by input from Physicians, Care Coordination, medical condition/status, family support and insurance benefits. Vital Signs:Patient Vitals for the past 24 hrs: BP MAP (mmHg) Pulse Resp SpO2 03/23/24 1406 -- -- 86 18 93 % 03/23/24 1404 105/70 82 -- -- -- 03/23/24 1008 -- -- 62 (!) 30 92 % 03/23/24 1007 -- -- 62 (!) 30 91 % 03/23/24 1006 -- -- 62 (!) 31 92 % 03/23/24 1005 -- -- 64 (!) 33 93 % 03/23/24 1004 -- -- 78 (!) 30 94 % 03/23/24 1003 -- -- 82 (!) 24 94 % 03/23/24 1002 -- -- 84 (!) 27 93 % 03/23/24 1001 -- -- 82 (!) 38 92 % 03/23/24 1000 120/75 89 80 (!) 41 92 % 03/23/24 0959 -- -- 66 (!) 37 92 % 03/23/24 0958 -- -- 66 (!) 37 92 % 03/23/24 0957 -- -- 66 (!) 40 92 % 03/23/24 0956 -- -- 66 (!) 39 92 % 03/23/24 0955 -- -- 66 (!) 38 92 % 03/23/24 0954 -- -- 66 (!) 41 92 % 03/23/24 0953 -- -- 66 (!) 40 93 % 03/23/24 0952 -- -- 66 (!) 41 93 % 03/23/24 0951 -- -- 68 (!) 34 94 % 03/23/24 0950 -- -- 72 (!) 24 93 % 03/23/24 0949 -- -- 86 (!) 34 95 % 03/23/24 0948 -- -- 84 22 93 % 03/23/24 0947 -- -- 66 (!) 35 92 % 03/23/24 0946 -- -- 68 (!) 47 92 % 03/23/24 0945 122/72 -- 66 (!) 35 91 % 03/23/24 0944 -- -- 64 (!) 32 92 % 03/23/24 0943 -- -- 64 (!) 34 91 % 03/23/24 0942 -- -- 66 (!) 35 92 % 03/23/24 0941 -- -- 64 (!) 32 92 % 03/23/24 0940 -- -- 64 (!) 37 92 % 03/23/24 0939 -- -- 68 (!) 34 93 % 03/23/24 0938 -- -- 82 (!) 32 92 % 03/23/24 0937 -- -- 82 (!) 35 92 % 03/23/24 0936 -- -- 80 (!) 39 91 % 03/23/2435 -- -- 82 (!) 39 92 % 03/23/24 0934 -- -- 82 (!) 33 92 % 03/23/24 0933 -- -- 84 (!) 37 92 % 03/23/24 0932 -- -- 84 (!) 39 92 % 03/23/24 0931 -- -- 82 (!) 8 92 % 03/23/24 0930 127/77 -- 82 (!) 0 92 % 03/23/24 0929 -- -- 82 (!) 5 93 % 03/23/24 0928 125/79 -- 80 (!) 11 -- 03/23/24 0834 -- -- 83 19 92 % 03/23/24 0833 124/82 96 -- -- -- 03/22/242019 -- -- 87 -- 95 % 03/22/242018 123/83 96 -- 18 -- Patient Education:Education Documentation No documentation found. Education Comments No comments found. Goal:Encounter Goals Encounter Goals (Active) Patient will perform upper and lower body dressing Mod I at seated or standing level as needed for decreased caregiver burden. Start: 03/20/24 Expected End: 04/10/24 Patient will perform toileting with RW device Mod I to improve independence with ADLs. Start: 03/20/24 Expected End: 04/10/24 Within 2 weeks of starting therapy, the patient and/or family/caregiver will demonstrate independence and be compliant in a written HEP in order to maximize gains made during therapy. Start: 03/20/24 Expected End: 04/10/24 Treatment Note: If this is the last documented treatment, then it will signify discharge from acute care prior to discharge from the therapy service and will serve as the discharge summary. Ivette Hogan OT UNTANCY PROFESSOR UNTANCY PROFESSOR * ADIS Navarro - 03/23/2024 10:54 AM ACCOUNTANCY PROFESSOR Physical Therapy Treatment Patient Name: Rashid Curry Today’s Date: 03/23/24 Room Number: [id number] Patient's Preferred Language: Turkish PT Assessment and Plan: Assessment Pt presents with decreased force production, generalized weakness, poor balance, and fear of falling. She requires increased time and verbal cues for safety. Co-treat with OT due to need for assistance and decreased safety and balance. Pt would benefit from continued acute skilled physical therapy to address stated deficits. Evaluation/Treatment Tolerance: Patient tolerated treatment well Prognosis: Good Strengths: Attitude of self, Support of extended family/friends, Ability to acquire knowledge Barriers to Discharge: Insight into deficits, Safety awareness, Medical diagnosis Medical Staff Made Aware: Yes Plan (Last filed value by PT) Treatment Plan/Goals Established with Patient/Caregiver: Yes Treatment/Interventions: Balance training, Bed mobility training, Functional activities, Gait training, Patient education, Therapeutic exercises, Transfer training PT Plan: Skilled PT PT Frequency: 3-4 times per week until discharge PT Recommended Transfer Status: Assistive equipment (Comment) (Min A for safety.) AM-PAC Basic Mobility Turning in bed without bedrails: A Little Lying on back to sitting on edge of flat bed: A Little Bed to chair: A Little Standing up from chair: A Little Walk in room: A Little Climbing 3-5 stairs: Total Mobility Inpatient Raw Score: 16 -[facility] Goal: 5 [facility] Highest Level of Mobility (JH-HLM) Scale Highest Level of Mobility Performed (JH-HLM): Walked 25 feet or more (i.e. walked outside of room) Subjective: Pt consented to treatment today. Current Problem: This is a 84 y.o. female who is admitted to [facility] with Hypokalemia [E87.6] Impaired mobility and ADLs [Z74.09, Z78.9] Generalized weakness [R53.1] At high risk for falls [Z91.81] Anticoagulation adequate with anticoagulant therapy [Z79.01] Atrial fibrillation, unspecified type (CMS/HCC) (HCC) [I48.91] Accidental fall, initial encounter [W19.XXXA] Pain: Pain Assessment Pain Assessment: DVPRS Pain Score: 0 Pain Rating Scale (DVPRS): No pain Pain: (Post Therapy Score) 0/10 Lines and Drains: IV, Telemetry Health Conditions: Pain Interference with Therapy Activities: Rarely or not at all Objective: Precautions: UE Weight Bearing Status: No Weightbearing restrictions per Dr. Rodriguez. LE Weight Bearing Status: FWB Medical Precautions: Fall, Standard Isolation Status: No active isolations Activity Tolerance: Endurance: Tolerates 30 min exercise with multiple rests Sitting Balance: Supports self independently with both upper extremities Early Mobility/Exercise Safety Screen: Proceed with mobilization - No exclusion criteria met Activity Tolerance Comments: Good Cognition: Overall Cognitive Status: Within Functional Limits Behavior/Cognition: Alert, Cooperative, Pleasant mood Arousal/Alertness: Appropriate responses to stimuli Orientation Level: Oriented X4 Treatments: Therapeutic Activity Time Entry: 15 Therapeutic Activity 1: Bed mobility Therapeutic Activity 2: Transfer to toilet Therapeutic Activity 3: Standing tolerance at sink for self care Therapeutic Activity 4: Return to recliner at end of session Bed Mobility: Bed Mobility Bed Mobility: Yes Bed Mobility 1 Level of Assistance 1: Supervision/touching assistance Bed Mobility Comments 1: Min A for bed mobility with HOB elevated and assist for B LE elevation into bed. Bed Mobility To/From: Supine to sit on EOB, Sitting EOB to supine Assistive Devices And Adaptive Equipments: Bed rail, Height adjustment feature of hospital bed, Head of bed elevated Transfers: Transfers Transfer: Yes Transfer 1 Technique 1: Via walking Level of Assistance 1: Partial/Mod assistance Trials/Comments 1: ModA to assist with sit to stand to clear surface. Vcs for hand placement to push off bed and to reach back for chair/wc before sitting back. Pt requires more assist with sit to stand ascend from varying surfaces. Man for descend for balance and safety. Transfer To/From: Bed, Chair, [id number], Toilet Assistive Devices And Adaptive Equipments: Walker, front-wheeled, Height adjustment feature of hospital bed Gait Training: Gait Training Time Entry: 15 Gait Training Activity 1 Distance (enter in feet): 15ft, 10ft, 66ft, 16ft, 75ft Gait Training Activity 1: Indoor surface Assistive Devices And Adaptive Equipments: Walker, front-wheeled Level of Assistance 1: Partial/Mod assistance Gait Training Activity 1 Comment: Pt required sitting break x1 and standing break x3 during ambulation. Pt walked to toilet from EOB for pericare then to the sink for selfcare and ambulated out of the room today, before returning back to the recliner for lunch. Pt required Man for ascend from varying surfaces. Pt given vcs for standing upright during ambulation. Outcome Measures: Miguel Angel RPE Scale Miguel Angel RPE Scale - How Strenuous and Tiring The Work Feels: 12 - Moderate Patient Education Education Documentation Fall Prevention, taught by ADIS Navarro at 03/23/2024 3:04 PM. Learner: Patient Readiness: Acceptance Method: Explanation Response: Verbalizes Understanding Mobility, taught by ADIS Navarro at 03/23/2024 3:04 PM. Learner: Patient Readiness: Acceptance Method: Explanation Response: Verbalizes Understanding Physical Therapy Plan of Care, taught by ADIS Navarro at 03/23/2024 3:04 PM. Learner: Patient Readiness: Acceptance Method: Explanation Response: Verbalizes Understanding Education Comments No comments found. Goal Encounter Goals Encounter Goals (Active) Patient will ambulate 250 feet using rolling walker with supervision assist. (Progressing) Start: 03/19/24 Expected End: 04/02/24 Patient will perform chair to and from bed transfer with no assistance. (Progressing) Start: 03/19/24 Expected End: 04/02/24 Patient will perform supine to/from sit on bed with no assistance demonstrating good control. (Progressing) Start: 03/19/24 Expected End: 04/02/24 General Visit Information Family/Caregiver Present: Yes Others Present: Daughters x2, OT Ivette Post Therapy Checklist - in chair, call mills within reach, bed/chair alarm in place, phone within reach, and with family nearby Time Calculation:Start Time: 1054 Stop Time: 1124 Time Calculation (min): 30 min AttestationSupervising Physical Therapist: Abby Rivera PT Patient progress towards current goals and plan of care was discussed in person with supervising Physical Therapist. Treatment Note: If this is the last documented treatment, then it will signify discharge from acute care prior to discharge from the therapy service and will serve as the discharge summary. ADIS Navarro Cosigned by Abby Rivera PT at 03/23/2024 3:10 PM CST UNTANCY PROFESSOR UNTANCY PROFESSOR Associated attestation - Abby Rivera PT - 03/23/2024 3:10 PM CST I, the supervising Physical therapist was active and present throughout the duration of the session. As the supervising therapist, I have reviewed and agree with all documentation related to treatment, plan of care, and billing on this date. * Oneyda Palacio MD - 03/22/2024 11:37 PM ACCOUNTANCY PROFESSOR [facility] Cardiology Dr. Oneyda Palacio Subjective Overnight, intermittent a fib At the time when I visited her, Tele sinus Physical Exam Physical Exam: Last Recorded Vitals Blood pressure 123/83, pulse 87, temperature 37.1 ?C (98.8 ?F), resp. rate 18, height 1.769 m (5' 9.65"), weight 68.2 kg (150 lb 5.7 oz), SpO2 95%. Relevant Results Transthoracic echo (TTE) complete Result Date: 03/22/2024 Left Ventricle: Left ventricle is mildly dilated. Mid to distal anterior, drew-septal segments hypokinetic. Reduced systolic function with an estimated EF of 40 - 45%. Grade I diastolic dysfunction of the left ventricle. Right Ventricle: Right ventricle is mildly dilated. Mildly reduced systolic function in the right ventricle. No nuclear medicine results found for the past 12 months Encounter Date: 03/18/24ECG 12 lead Result Value Ventricular Rate 111 QRS Duration 90 QT/QTc 342 QTc Calculation 465 R-Nuiqsut -41 T-Nuiqsut 25 Impression ATRIAL FIBRILLATION WITH A RAPID VENTRICULAR RESPONSE WITH ABERRANTLY CONDUCTED OR PREMATURE VENTRICULAR COMPLEX(ES) LEFT AXIS DEVIATION CANNOT RULE OUT ANTERIOR INFARCTION AGE UNDETERMINED Confirmed by Saúl Garcia ([id number]) on 03/19/2024 8:17:23 AM No results found for this or any previous visit (from the past 40656 hours). Encounter Date: 03/18/24XR chest 1 view Narrative EXAM: XR CHEST 1 VIEW DATE: 03/18/2024 7:40 PM ACCOUNTANCY PROFESSOR INDICATION: Fall. Progressively worsening weakness. COMPARISON: Same day left humerus radiographs TECHNIQUE: AP chest. FINDINGS: Lines, tubes and hardware: Pacemaker generator projects over the left lower chest. Lungs and pleura: Low lung volumes result in bibasilar vascular crowding,without focal opacity. The costophrenic sulci are sharp without effusion. No pneumothorax is identified. Heart and mediastinum: The heart size is partially obscured by adjacentopacities but not significantly changed. Hilar fullness is noted. Vascular calcifications are present at the aortic arch. Bones and soft tissues: Acute to subacute left proximal humeral fracture noted. Age-related degenerative findings. Impression1. Hilar fullness bilaterally is nonspecific may be related to vascular prominence or lymphadenopathy. 2. Proximal left humerus fracture better characterized on dedicated radiographs. Electronically signed by: Nestor Mckay MD 03/18/2024 07:55 PM [facility] Pertinent Labs :Lab Results Component Value Date Sodium Lvl 141 03/22/2024 Potassium Lvl 3.6 03/22/2024 Chloride Lvl 104 03/22/2024 CO2 Lvl 27.3 03/22/2024 BUN 20 03/22/2024 Creatinine Lvl 0.71 03/22/2024 Glucose Lvl 96 03/22/2024 Current Facility-Administered Medications:acetaminophen (Tylenol) tablet 650 mg, 650 mg, Oral, q6h PRN, Elise Morrison MD [Held by provider] apixaban (Eliquis) tablet 2.5 mg, 2.5 mg, Oral, q12h, Nicole Rodriguez MD, 2.5 mg at 03/22/24 0815 atorvastatin (Lipitor) tablet 20 mg, 20 mg, Oral, Daily, Nicole Rodriguez MD, 20 mg at 03/22/24 0814 bisacodyl (Dulcolax) EC tablet 5 mg, 5 mg, Oral, Nightly PRN, Elise Morrison MD dextrose 50 % solution 12.5 g, 12.5 g, Intravenous, PRN, Elise Morrison MD dextrose 50 % solution 25 g, 25 g, Intravenous, PRN, Elise Morrison MD flecainide (Tambocor) tablet 50 mg, 50 mg, Oral, q12h BABITA, Oneyda Palacio MD, 50 mg at 03/22/242145 glucagon injection 1 mg, 1 mg, Intramuscular, PRN, Elise Morrison MD hydroCHLOROthiazide (HYDRODiuril) tablet 25 mg, 25 mg, Oral, q24h, Nicole Rodriguze MD, 25 mg at 03/22/242145 labetalol injection 10 mg, 10 mg, Intravenous, q4h PRN, Elise Morrison MD losartan (Cozaar) tablet 100 mg, 100 mg, Oral, q24h, Nicole Rodriguez MD, 100 mg at 03/22/242144 melatonin tablet 3 mg, 3 mg, Oral, Nightly PRN, Elise Morrison MD metoprolol tartrate (Lopressor) tablet 25 mg, 25 mg, Oral, q12h BABITA, Oneyda Palacio MD, 25 mg at 03/22/242145 metoprolol tartrate (Lopressor) tablet 50 mg, 50 mg, Oral, q12h BABITA, Oneyda Palacio MD, 50 mg at 03/22/242144 ondansetron ODT (Zofran-ODT) disintegrating tablet 4 mg, 4 mg, Oral, q8h PRN OR ondansetron (Zofran) injection 4 mg, 4 mg, Intravenous, q8h PRN, Elise Morrison MD polyethylene glycol (PEG) 3350 (Miralax) packet 17 g, 17 g, Oral, Daily, Elise Morrison MD, 17 g at 03/21/24 0820 senna-docusate (Layne-Colace) 8.6-50 mg per tablet 2 tablet, 2 tablet, Oral, BID, Elise Morrison MD, 2 tablet at 03/21/24 0817 sodium chloride (NS) 0.9 % flush 10 mL, 10 mL, Intravenous, q12h BABITA, Elise Morrison MD, 10 mL at 03/22/242145 sodium chloride (NS) 0.9 % flush 10 mL, 10 mL, Intravenous, PRN, Elise Morrison MD Assessment & PlanFrequent falls Impaired mobility and ADLs Essential tremor Primary hypertension Hypokalemia Atrial fibrillation (CMS/HCC) (HCC)I have fully discussed the treatment choice with patient and Luz Marina Her [id number] score: 3 at least moderate risk for ischemic stroke Therefore, 1) will need anticoagulation, however at this moment, frequent falls, Will decrease to 2.5 mg bid to balance risk and benefit 2) also for not long a fib I would like to proceed JESUS with possible DCCV on Ziggy, hopefully she will remain in sinus, later will dc AC 3) if not working above, will need WATCHMAN in the future Accidental fall, initial encounter Completed by:Oneyda Palacio MD UNTANCY PROFESSOR * Donnell Zhao MD - 03/22/2024 3:59 PM ACCOUNTANCY PROFESSOR Subjective Pt lying in bed. No new events. No fever, chills Objective Last Recorded Vitals Blood pressure 133/82, pulse 86, temperature 36.8 ?C (98.2 ?F), resp. rate 18, height 1.769 m (5' 9.65"), weight 68.2 kg (150 lb 5.7 oz), SpO2 90%. Physical Exam:Pt is AAO x 2. HEENT : OK, no pallor, no icterus Afebrile Heart: normal S1 S2. No murmurs appreciated . Regular rhythm Lungs: good AE bilaterally , no wheeze, rales, rhonchi Abdomen: soft , ND, NT. Normal BS Neuro: normal sensations , 5/5 strength B/L, normal reflexes Skin: no rash, no edema Psych: normal mood, normal affect . Good insight . Cognition intact Relevant ResultsResults from last 7 days Lab Units 03/21/24 0459 03/18/24 1353 WBC 10*3/uL 5.66 7.63 HEMOGLOBIN g/dL 14.5 14.3 HEMATOCRIT % 44.6 44.5 PLATELETS 10*3/uL 261 276 LYMPHOCYTES % 25.6 17.8 MONOCYTES % 14.8* 10.2 Results from last 7 daysLab Units 03/22/24 0544 03/21/24 0459 03/19/24 0419 03/18/24 1353 SODIUM mEq/L 141 140 139 139 POTASSIUM mEq/L 3.6 2.8* 3.8 3.2* CHLORIDE mEq/L 104 99 97* 96* CO2 mEq/L 27.3 31.8* 30.0 35.6* BUN mg/dL 20 11 9 13 CREATININE mg/dL 0.71 0.59 0.58 0.65 CALCIUM mg/dL 9.0 9.2 9.7 9.3 PROTEIN TOTAL g/dL -- -- 5.8 6.8 BILIRUBIN TOTAL mg/dL -- -- 0.84 1.19* ALK PHOS U/L -- -- 39* 47 ALT U/L -- -- 18 18 AST U/L -- -- 32 30 GLUCOSE mg/dL 96 91 85 110* Results from last 7 daysLab Units 03/22/24 0544 MAGNESIUM mg/dL 1.52* No results found for: "HGBA1C" Results from last 7 daysLab Units 03/18/24 1353 INR 1.74* PTT Seconds 37.5* No lab exists for component: "SEDRATE" Lipase Lvl Date Value Ref Range Status 03/18/2024 27 12 - 53 U/L Final Results from last 7 daysLab Units 03/18/242023 UA COLOR Yellow UA PH 7.0 UA GLUCOSE mg/dL Negative UA PROTEIN mg/dL Negative UA KETONES mg/dL Trace* UA NITRITE Negative UA LEUK ESTERASE Small* WBC UA /HPF 4 RBC UA /HPF 1 SQUAMOUS EPITHELIAL CELLS /LPF Few Results from last 7 daysLab Units 03/18/24 1353 TROPONIN I, HIGH SENSITIVITY pg/mL 6 === 03/18/24 === XR CHEST 1 VIEW - Impression -1. Hilar fullness bilaterally is nonspecific may be related to vascular prominence or lymphadenopathy. 2. Proximal left humerus fracture better characterized on dedicated radiographs. Electronically signed by: Nestor Mckay MD 03/18/2024 07:55 PM ACCOUNTANCY PROFESSOR RP === 03/18/24 === CT CERVICAL SPINE WO IV CONTRAST - Impression -No acute abnormality of the cervical spine. LOCATION: R16 This CT exam was performed according to our departmental dose optimization program, which includes automated exposure control, adjustment of the mA and/or kV according to the patient size and/or use of iterative reconstructive technique. Electronically signed by: Rubia Mclean MD 03/18/2024 09:06 PM ACCOUNTANCY PROFESSOR RP No results found for this or any previous visit from the past 365 days. No results found for this or any previous visit from the past 365 days. [Held by provider] apixaban, 2.5 mg, Oral, [id number], 20 mg, Oral, Daily flecainide, 50 mg, Oral, q12h BABITA hydroCHLOROthiazide, 25 mg, Oral, q24h losartan, 100 mg, Oral, q24h metoprolol tartrate, 25 mg, Oral, q12h BABITA metoprolol tartrate, 50 mg, Oral, q12h BABITA polyethylene glycol (PEG) 3350, 17 g, Oral, Daily senna-docusate, 2 tablet, Oral, BID sodium chloride, 10 mL, Intravenous, q12h BABITA Javy Curry is a 84 y.o. female with a history of hypertension, essential tremor s/p deep brain stimulator, and frequent falls. She was brought to the hospital by her family because of mechanical ground-level fall at home. According to family she has been having frequent falls for the past year and a half. In fact she fell in November 2023 resulting in fracture of the proximal left humerus. She was hospitalized earlier this month at [facility] for new onset atrial fibrillation and started on Lopressor and Eliquis. Fortunately this time patient did not sustain any acute injuries. CT head is negative for acute abnormality, CT of the cervical spine did not show any acute fracture or dislocation. Assessment & PlanFrequent falls Patient recently discharged home from SNF a few days ago CT scan of the brain is unremarkable CT scan of the cervical spine is unremarkable Other imaging studies reviewed Healing chronic left humerus fracture Continue PT/OT Continue fall precaution Home health orders initially placed Family is now requesting for SNF placement. Case management consulted regarding SNF Atrial fibrillation (CMS/HCC) (HCC) Heart rate is sometimes uncontrolled Continue metoprolol and Eliquis for anticoagulation, Eliquis dose modified Cardiology was consulted to assess if anticoagulation need to be discontinued considering recurrent falls Patient with [id number] score of 3 at moderate risk for stroke, continue Eliquis for anticoagulation at lower dose of 2.5 mg twice daily for now Cardiology consult appreciated, rec noted Plan for JESUS with possible DCCV on Saturday Essential tremorOutpatient follow-up Primary hypertension Continue metoprolol Impaired mobility and ADLs Continue Physical therapy and outpatient therapy Hypokalemia Potassium has been repleted, monitor potassium level Accidental fall, initial encounter Current Diet: Adult Diet Heart HealthyNPO Diet VTE Prophylaxisapixaban - 2.5 MG DispositionAwait JESUS, DCCV Reason for continued hospitalization: DCCV tomorrow UNTANCY PROFESSOR * Oneyda Palacio MD - 03/21/2024 11:50 AM ACCOUNTANCY PROFESSOR [facility] Cardiology Dr. Oneyda Palacio Subjective Patient seen with her daughter Luz Marina at the bedside No chest pain Tele, a fib with HR controlled No significant pauses Physical Exam Physical Exam: Last Recorded Vitals Blood pressure 146/79, pulse 68, temperature 36.4 ?C (97.5 ?F), resp. rate 18, height 1.769 m (5' 9.65"), weight 68.2 kg (150 lb 5.7 oz), SpO2 94%. Relevant Results No echocardiogram results found for the past 12 months No nuclear medicine results found for the past 12 months Encounter Date: 03/18/24 ECG 12 lead Result Value Ventricular Rate 111 QRS Duration 90 QT/QTc 342 QTc Calculation 465 R-Nuiqsut -41 T-Nuiqsut 25 Impression ATRIAL FIBRILLATION WITH A RAPID VENTRICULAR RESPONSE WITH ABERRANTLY CONDUCTED OR PREMATURE VENTRICULAR COMPLEX(ES) LEFT AXIS DEVIATION CANNOT RULE OUT ANTERIOR INFARCTION AGE UNDETERMINED Confirmed by Saúl Garcia ([id number]) on 03/19/2024 8:17:23 AM No results found for this or any previous visit (from the past 05127 hours). 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 Progressively worsening weakness. COMPARISON: Same day left humerus radiographs TECHNIQUE: AP chest. FINDINGS: Lines, tubes and hardware: Pacemaker generator projects over the left lower chest. Lungs and pleura: Low lung volumes result in bibasilar vascular crowding, without focal opacity. The costophrenic sulci are sharp without effusion. No pneumothorax is identified. Heart and mediastinum: The heart size is partially obscured by adjacent opacities but not significantly changed. Hilar fullness is noted. Vascular calcifications are present at the aortic arch. Bones and soft tissues: Acute to subacute left proximal humeral fracture noted. Age-related degenerative findings. Impression 1. Hilar fullness bilaterally is nonspecific may be related to vascular prominence or lymphadenopathy. 2. Proximal left humerus fracture better characterized on dedicated radiographs. Electronically signed by: Nestor Mckay MD 03/18/2024 07:55 PM ACCOUNTANCY PROFESSOR RP Pertinent Labs : Lab Results Component Value Date Sodium Lvl 140 03/21/2024 Potassium Lvl 2.8 (LL) 03/21/2024 Chloride Lvl 99 03/21/2024 CO2 Lvl 31.8 (H) 03/21/2024 BUN 11 03/21/2024 Creatinine Lvl 0.59 03/21/2024 Glucose Lvl 91 03/21/2024 Current Facility-Administered Medications: acetaminophen (Tylenol) tablet 650 mg, 650 mg, Oral, q6h PRN, Elise Morrison MD apixaban (Eliquis) tablet 5 mg, 5 mg, Oral, q12h, Nicole Rodriguez MD, 5 mg at 03/21/24 0818 atorvastatin (Lipitor) tablet 20 mg, 20 mg, Oral, Daily, Nicole Rodriguez MD, 20 mg at 03/21/24 0851 bisacodyl (Dulcolax) EC tablet 5 mg, 5 mg, Oral, Nightly PRN, Elise Morrison MD dextrose 50 % solution 12.5 g, 12.5 g, Intravenous, PRN, Elise Morrison MD dextrose 50 % solution 25 g, 25 g, Intravenous, PRN, Elise Morrison MD flecainide (Tambocor) tablet 50 mg, 50 mg, Oral, q12h BABITA, Oneyda Palacio MD, 50 mg at 03/21/2418 glucagon injection 1 mg, 1 mg, Intramuscular, PRN, Elise Morrison MD hydroCHLOROthiazide (HYDRODiuril) tablet 25 mg, 25 mg, Oral, q24h, Nicole Rodriguez MD, 25 mg at 03/20/242109 labetalol injection 10 mg, 10 mg, Intravenous, q4h PRN, Elise Morrison MD losartan (Cozaar) tablet 100 mg, 100 mg, Oral, q24h, Nicole Rodriguez MD, 100 mg at 03/20/242111 melatonin tablet 3 mg, 3 mg, Oral, Nightly PRN, Elise Morrison MD metoprolol tartrate (Lopressor) tablet 25 mg, 25 mg, Oral, q12h BABITA, Oneyda Palacio MD, 25 mg at 03/21/24 0819 metoprolol tartrate (Lopressor) tablet 50 mg, 50 mg, Oral, q12h BABITA, Oneyda Palacio MD, 50 mg at 03/21/24 0818 ondansetron ODT (Zofran-ODT) disintegrating tablet 4 mg, 4 mg, Oral, q8h PRN OR ondansetron (Zofran) injection 4 mg, 4 mg, Intravenous, q8h PRN, Elise Morrison MD polyethylene glycol (PEG) 3350 (Miralax) packet 17 g, 17 g, Oral, Daily, Elise Morrison MD, 17 g at 03/21/24 0820 Potassium chloride solution 40 mEq, 40 mEq, Oral, Once, Nicole Rodriguez MD senna-docusate (Layne-Colace) 8.6-50 mg per tablet 2 tablet, 2 tablet, Oral, BID, Elise Morrison MD, 2 tablet at 03/21/24 0817 sodium chloride (NS) 0.9 % flush 10 mL, 10 mL, Intravenous, q12h BABITA, Elise Morrison MD, 10 mL at 03/21/24 0820 sodium chloride (NS) 0.9 % flush 10 mL, 10 mL, Intravenous, PRN, Elise Morrison MD Assessment & Plan Frequent falls Impaired mobility and ADLs Essential tremor Primary hypertension Hypokalemia Atrial fibrillation (CMS/HCC) (HCC) I have fully discussed the treatment choice with patient and Luz Marina Her [id number] score: 3 at least moderate risk for ischemic stroke Therefore, 1) will need anticoagulation, however at this moment, frequent falls, Will decrease to 2.5 mg bid to balance risk and benefit 2) also for not long a fib I would like to proceed JESUS with possible DCCV on Saturday, hopefully she will remain in sinus, later will dc AC 3) if not working above, will need WATCHMAN in the future Accidental fall, initial encounter Completed by: Oneyda Palacio MD UNTANCY PROFESSOR * Nicole Rodriguez MD - 03/21/2024 8:23 AM ACCOUNTANCY PROFESSOR [facility] Hospitalist Progress Note Subjective Patient seen and examined at bedside in nonacute distress. She denies chest pain or shortness of breath. Heart rate is sometimes uncontrolled, cardiology is on board. Patient has recurrent falls, recently discharged from SNF. The patient's daughter has requested for SNF placement. Case management has been consulted regarding SNF eval. Objective Last Recorded Vitals Blood pressure 146/79, pulse 68, temperature 36.4 ?C (97.5 ?F), resp. rate 18, height 1.769 m (5' 9.65"), weight 68.2 kg (150 lb 5.7 oz), SpO2 94%. Physical Exam: General: Alert and oriented. No acute distress. Eye: Pupils are equal, round and reactive to light, Normal conjunctiva. HENT: Normocephalic, Normal hearing. Neck: Supple, Non-tender. Respiratory: Lungs are clear to auscultation, Respirations are non-labored, Symmetrical chest wall expansion. Cardiovascular: Normal rate, Regular rhythm. Gastrointestinal: Soft, Non-tender, nondistended, normal bowel sounds. Extremities: Palpable pulses. No edema noted. Neurologic: Alert, Oriented. Able to move all extremities. Psychiatric: Cooperative. Appropriate mood. Normal affect. Results: Results from last 7 days Lab Units 03/21/24 0459 03/18/24 1353 WBC 10*3/uL 5.66 7.63 HEMOGLOBIN g/dL 14.5 14.3 HEMATOCRIT % 44.6 44.5 PLATELETS 10*3/uL 261 276 Results from last 7 days Lab Units 03/21/24 0459 03/19/24 0419 03/18/24 1353 SODIUM mEq/L 140 139 139 POTASSIUM mEq/L 2.8* 3.8 3.2* CHLORIDE mEq/L 99 97* 96* CO2 mEq/L 31.8* 30.0 35.6* BUN mg/dL 11 9 13 CREATININE mg/dL 0.59 0.58 0.65 CALCIUM mg/dL 9.2 9.7 9.3 PROTEIN TOTAL g/dL -- 5.8 6.8 BILIRUBIN TOTAL mg/dL -- 0.84 1.19* ALK PHOS U/L -- 39* 47 ALT U/L -- 18 18 AST U/L -- 32 30 GLUCOSE mg/dL 91 85 110* Scheduled Meds apixaban, 5 mg, Oral, q12h atorvastatin, 20 mg, Oral, Daily flecainide, 50 mg, Oral, q12h BABITA hydroCHLOROthiazide, 25 mg, Oral, q24h losartan, 100 mg, Oral, q24h metoprolol tartrate, 25 mg, Oral, q12h BABITA metoprolol tartrate, 50 mg, Oral, q12h BABITA polyethylene glycol (PEG) 3350, 17 g, Oral, Daily Potassium chloride, 40 mEq, Oral, Once Potassium chloride, 40 mEq, Oral, Once senna-docusate, 2 tablet, Oral, BID sodium chloride, 10 mL, Intravenous, q12h BABITA PRN medications: acetaminophen, bisacodyl, dextrose, dextrose, glucagon, labetalol, melatonin, ondansetron ODT OR ondansetron, sodium chloride Assessment Patient admitted with recurrent falls. Recently discharged from SNF a few days ago. Assessment & Plan Frequent falls Patient recently discharged home from SNF a few days ago CT scan of the brain is unremarkable CT scan of the cervical spine is unremarkable Other imaging studies reviewed Healing chronic left humerus fracture Continue PT/OT Continue fall precaution Home health orders initially placed Family is now requesting for SNF placement. Case management consulted regarding SNF Atrial fibrillation (CMS/HCC) (HCC) Heart rate is sometimes uncontrolled Continue metoprolol and Eliquis for anticoagulation, Eliquis dose modified Cardiology was consulted to assess if anticoagulation need to be discontinued considering recurrent falls Patient with [id number] score of 3 at moderate risk for stroke, continue Eliquis for anticoagulation at lower dose of 2.5 mg twice daily for now Cardiology consult appreciated, rec noted Plan for JESUS with possible DCCV on Saturday Essential tremorOutpatient follow-up Primary hypertension Continue metoprolol Impaired mobility and ADLs Continue Physical therapy and outpatient therapy Hypokalemia Potassium has been repleted, monitor potassium level Current Diet: Adult Diet Heart Healthy VTE Prophylaxis apixaban - 5 MG Disposition:Long Term Facility Reason for continued hospitalization:Recurrent falls. Plan for JESUS. Family has requested for SNF placement, case management consulted regarding SNF eval. Disclaimer: Parts of this note was created using voice recognition software Dragon and may contain unintended word substitutions. Please excuse typographical errors in the note. UNTANCY PROFESSOR UNTANCY PROFESSOR UNTANCY PROFESSOR * Naresh Yeager, OT - 03/20/2024 2:39 PM ACCOUNTANCY PROFESSOR Occupational Therapy Evaluation and Treatment Patient Name: Rashid Curry Today's Date: 03/20/2024 Room: [place] [address] Preferred Language: Turkish Assessment & Plan Patient received semi supine in bed, in NAD, VSS, verbal, able to follow commands, A&Ox2 unable to recall reason for admission without cueing and also to recall date needed cues, anxious, limited L shoulder ROM since fall last year that caused a L humerus fx, agreeable to therapy, decreased safety awareness, decreased deficit insight awareness, decreased dynamic standing balance, decreased transfer skills, decreased activity tolerance, daughter at bedside and cleared by RN to be seen by Occupational Therapy. Patient engaged in bed mobility from supine-EOB with CGA for steadying while elevating trunk to sit upright. Once at EOB, patient demonstrates good sitting balance, no lean noted. Patient required Max A to johann socks. Patient transitioned from sit-stand using RW with Min A. Patient ambulated to commode with MiN A for balance and VC for hand placement when transitioning to sitting. Patient able to complete toileting hygiene with Max A for clothe management and cleansing. Patient noted with redness in buttocks (RN made aware and patient educated on repositioning and sidelaying in bed every hour), both verbalized understanding. Patient ambulated across room to chair with Min A for balance and VC forupright posture, as she presents with forward flexed posture. Patient left sitting up in chair, with all needs within arms reach and daughter at bedside, RN aware. Will benefit from skilled OT services to address the above mentioned barriers and increase independence with ADLs, facilitate a safe d/c and decrease burden of care on caregiver. Falls in the past 6 mo: 3 as per daughter and 1 as per pt Assessment:OT Assessment Results: Impaired ADL status, Impaired left upper extremity, Impaired safe judgment during ADL, Impaired cognition, Impaired endurance, Impaired functional mobility, Impaired gross motor control Prognosis: Good Barriers to Discharge: Medical diagnosis Evaluation/Treatment Tolerance: Patient tolerated treatment well Medical Staff Made Aware: Yes Strengths: Support of extended family/friends Plan:Treatment Plan/Goals Established with Patient/Caregiver: Yes Treatment Interventions: ADL retraining, Cognitive reorientation, Compensatory technique education, Endurance training, Functional transfer training, Patient/family training, UE strengthening/ROM OT Planned Treatments: Activities of Daily Living, Balance training, Caregiver training, Cognitive training, Coordination, Joint protection, Mobility training, Manual therapy, Pain management, Patient education, Safety education, Therapeutic activities, Therapeutic exercises OT Plan: Skilled OT OT Frequency: 3-4 times per week until discharge AM-PAC Daily Activity:Putting on and taking off regular lower body clothing: A Lot Bathing (including washing, rinsing, drying): A Lot Toileting, which includes using toilet, bedpan or urinal: A Lot Putting on and taking off regular upper body clothing: A Little Taking care of personal grooming such as brushing teeth: None Eating Meals: None AM-PAC Daily Activity Raw Score: 17 [facility] Highest Level of Mobility (-HLM) ScaleHighest Level of Mobility Performed (-HLM): Walked 25 feet or more (i.e. walked outside of room) Subjective "My buttocks hurts" Current Problem:Rashid Curry is a 84 y.o. year old female patient with Hypokalemia [E87.6] Impaired mobility and ADLs [Z74.09, Z78.9] Generalized weakness [R53.1] At high risk for falls [Z91.81] Anticoagulation adequate with anticoagulant therapy [Z79.01] Atrial fibrillation, unspecified type (CMS/HCC) ([facility]) [I48.91] Accidental fall, initial encounter [W19.XXXA] referred to Occupational therapy services . Past Medical History: Diagnosis Date Atrial fibrillation (CMS/HCC) ([facility]) 03/19/2024 Essential tremor 03/18/2024 Primary hypertension 03/18/2024 History reviewed. No pertinent surgical history. Pain:Pain Assessment: DVPRS Pain Rating Scale (DVPRS): Distracts me, can do usual activities Pain Location: Buttocks Pain Descriptors: Aching Objective General Visit Information:Family/Caregiver Present: Yes Others Present: Daughter Precautions:Precautions UE Weight Bearing Status: No Weightbearing restrictions per Dr. Rodriguez. LE Weight Bearing Status: FWB Medical Precautions: Fall, Standard Lines and drains: IV and telemetryDevices: None Cognition:Overall Cognitive Status: Impaired Behavior/Cognition: Alert, Cooperative, Confused Arousal/Alertness: Appropriate responses to stimuli Orientation Level: Disoriented to situation (Unable to recall reason for admission, and needed cue to recall date) Following Commands: Follows multistep commands with repetition Safety Judgment: Decreased awareness of need for safety Awareness of Deficits: Decreased awareness of deficits Memory: Decreased recall of current events Home Living:Type of Home: House Lives With: Alone Home Adaptive Equipment: Walker rolling or standard, Cane Home Layout: One level Home Access: Level entry Bathroom Shower/Tub: Walk-in shower Bathroom Toilet: Standard Bathroom Equipment: Grab bars in shower, Shower chair with back Prior Function:Level of Drasco: Ambulated with assistive device (comment) ADL Assistance: Independent Homemaking Assistance: Independent Vocational: Retired Current Self Care (ADL):Self Care/Home Management (ADLs) Time Entry: 15 Eating Assistance: Independent Grooming Assistance: Independent Bathing Assistance: Partial/Mod assistance UE Dressing Assistance: Independent LE Dressing Assistance: Substantial/Max assistance Toileting Assistance: Substantial/Max assistance Social History:Social History Source: Patient, Adult child Patient Responsibilities: Personal ADL, Home management, Health management, sales and management trainee, Driving, Community mobility, Meal prep, Laundry Prior IADL:Current License: Yes Mode of Transportation: Car Mobility/Transfers: Bed Mobility 1Level of Assistance 1: Supervision/touching assistance Bed Mobility To/From: Supine to sit on EOB Assistive Devices And Adaptive Equipments: Bed rail, Head of bed elevated Transfer 1Level of Assistance 1: Partial/Mod assistance Trials/Comments 1: VC for hand placement and upright posture Transfer To/From: Bed, [id number]/[id number] Assistive Devices And Adaptive Equipments: Walker, front-wheeled Transfers 2 Technique 2: Via walking Level of Assistance 2: Supervision/touching assistance Transfer To/From: Bed, Toilet Assistive Devices And Adaptive Equipments: Walker, front-wheeled Transfers 3 Technique 3: Via walking Level of Assistance 3: Supervision/touching assistance Transfer To/From: Toilet, Chair Assistive Devices And Adaptive Equipments: Walker, front-wheeled OT General Assessments: Activity ToleranceEndurance: Tolerates 10 - 20 min exercise with multiple rests Sitting Balance: Moves/returns truncal midpoint 1-2 inches in multiple planes Early Mobility/Exercise Safety Screen: Proceed with mobilization - No exclusion criteria met Vision - Complex AssessmentOcular Range of Motion: Within Functional Limits SensationLight Touch: RUE Intact, LUE Intact ProprioceptionProprioception: RUE Intact, LUE Intact PerceptionInattention/Neglect: Appears intact Initiation: Cues to initiate tasks Motor Planning: Appears intact Perseveration: Not present CoordinationMovements are Fluid and Coordinated: No (limited LUE GMC due to weakness and pain of L shoulder) Finger to Nose: Left intact, Right intact Hand FunctionGross Grasp: Functional Coordination: Functional Extremity Assessments:Right Upper Extremity RUE Assessment RUE Assessment: Within Functional Limits Left Upper ExtremityLUE Assessment LUE Assessment: Exceptions to WFL LUE StrengthL Shoulder Flexion: 2-/5 L Shoulder Extension: 2-/5 L Shoulder ABduction: 2-/5 L Shoulder ADduction: 2-/5 L Shoulder Internal Rotation: 2-/5 L Shoulder External Rotation: 2-/5 L Shoulder Horizontal ABduction: 2-/5 L Shoulder Horizontal ADduction: 2-/5 L Elbow Flexion: 4/5 L Elbow Extension: 4/5 L Forearm Pronation: 4/5 L Forearm Supination: 4/5 L Wrist Flexion: 4/5 L Wrist Extension: 4/5 L Wrist Radial Deviation: 4/5 L Wrist Ulnar Deviation: 4/5 L Gross Division Traffic Superintendent Strength: 4/5 Treatment:Self-Care: Self Care/Home Management (ADLs) Time Entry: 15 Eating Assistance: Independent Grooming Assistance: Independent Bathing Assistance: Partial/Mod assistance UE Dressing Assistance: Independent LE Dressing Assistance: Substantial/Max assistance Toileting Assistance: Substantial/Max assistance Therapeutic ActivityTherapeutic Activity Time Entry: 8 Therapeutic Activity 1: Bed mobility Therapeutic Activity 2: Sit-stand Therapeutic Activity 3: Functional Ambulation Therapeutic Activity 4: Toilet transfer Therapeutic Activity 5: Standing tolerance Patient Education:Education Documentation Home Exercise Program, taught by Naresh Yeager OT at 03/20/2024 3:41 PM. Learner: Family, Patient Readiness: Acceptance Method: Explanation Response: Needs Reinforcement ICOUGH, taught by Naresh Yeager OT at 03/20/2024 3:41 PM.Learner: Family, Patient Readiness: Acceptance Method: Explanation Response: Needs Reinforcement Home Safety, taught by Naresh Yeager OT at 03/20/2024 3:41 PM.Learner: Family, Patient Readiness: Acceptance Method: Explanation Response: Needs Reinforcement Fall Prevention, taught by Naresh Yeager OT at 03/20/2024 3:41 PM.Learner: Family, Patient Readiness: Acceptance Method: Explanation Response: Needs Reinforcement Cognitive Activities, taught by Naresh Yeager OT at 03/20/2024 3:41 PM.Learner: Family, Patient Readiness: Acceptance Method: Explanation Response: Needs Reinforcement Mobility Training, taught by Naresh Yeager OT at 03/20/2024 3:41 PM.Learner: Family, Patient Readiness: Acceptance Method: Explanation Response: Needs Reinforcement IADL Training, taught by Naresh Yeager OT at 03/20/2024 3:41 PM.Learner: Family, Patient Readiness: Acceptance Method: Explanation Response: Needs Reinforcement ADL Training, taught by Naresh Yeager OT at 03/20/2024 3:41 PM.Learner: Family, Patient Readiness: Acceptance Method: Explanation Response: Needs Reinforcement Occupational Therapy Plan of Care, taught by Naresh Yeager OT at 03/20/2024 3:41 PM. Learner: Family, Patient Readiness: Acceptance Method: Explanation Response: Needs Reinforcement Education CommentsNo comments found. Goals:Encounter Goals Encounter Goals (Active) Patient will perform upper and lower body dressing Mod I at seated or standing level as needed for decreased caregiver burden. Start: 03/20/24 Expected End: 04/10/24 Patient will perform toileting with RW device Mod I to improve independence with ADLs. Start: 03/20/24 Expected End: 04/10/24 Within 2 weeks of starting therapy, the patient and/or family/caregiver will demonstrate independence and be compliant in a written HEP in order to maximize gains made during therapy. Start: 03/20/24 Expected End: 04/10/24 Post Therapy Checklist: in chair, call mills within reach, phone within reach, bed/chair alarm on, family at bedside, and RN informed Time Entry Calculation:Start Time: 1439 Stop Time: 1517 Time Calculation (min): 38 min Treatment Note: If this is the last documented treatment, then it will signify discharge from acute care prior to discharge from the therapy service and will serve as the discharge summary. Naresh Yeager, OTCosigned by Nicole Rodriguez MD at 03/20/2024 8:19 PM ACCOUNTANCY PROFESSOR UNTANCY PROFESSOR UNTANCY PROFESSOR * Ernestine Medina, SPT - 03/20/2024 11:40 AM ACCOUNTANCY PROFESSOR Physical Therapy Treatment Patient Name: Rashid Curry Today’s Date: 03/20/24 Room Number: [id number] Patient's Preferred Language: Turkish PT Assessment and Plan: Assessment Pt presents with decreased endurance, fear of falling, generalized weakness, decrease balance and safety. Pt would benefit from continued acute skilled physical therapy to address stated deficits. Evaluation/Treatment Tolerance: Patient tolerated treatment well Prognosis: Good Strengths: Attitude of self, Support of extended family/friends Barriers to Discharge: Insight into deficits, Safety awareness, Medical diagnosis Medical Staff Made Aware: Yes Plan (Last filed value by PT) Treatment Plan/Goals Established with Patient/Caregiver: Yes Treatment/Interventions: Balance training, Bed mobility training, Functional activities, Gait training, Patient education, Therapeutic exercises, Transfer training PT Plan: Skilled PT PT Frequency: 3-4 times per week until discharge PT Recommended Transfer Status: Assistive equipment (Comment) (Min A for safety.) AM-PAC Basic Mobility Turning in bed without bedrails: A Little Lying on back to sitting on edge of flat bed: A Little Bed to chair: A Little Standing up from chair: A Little Walk in room: A Little Climbing 3-5 stairs: Total Mobility Inpatient Raw Score: 16 JH-HLM Goal: 5 [facility] Highest Level of Mobility (JH-HLM) Scale Highest Level of Mobility Performed (JH-HLM): Walked 25 feet or more (i.e. walked outside of room) Subjective: Pt consented to treatment today. Current Problem: This is a 84 y.o. female who is admitted to [facility] with Hypokalemia [E87.6] Impaired mobility and ADLs [Z74.09, Z78.9] Generalized weakness [R53.1] At high risk for falls [Z91.81] Anticoagulation adequate with anticoagulant therapy [Z79.01] Atrial fibrillation, unspecified type (CMS/HCC) (HCC) [I48.91] Accidental fall, initial encounter [W19.XXXA] Pain: Pain Assessment Pain Assessment: DVPRS Pain Score: 0 Pain: (Post Therapy Score) 0/10 Lines and Drains: IV, Telemetry Health Conditions: Pain Interference with Therapy Activities: Rarely or not at all Objective: Precautions: UE Weight Bearing Status: No Weightbearing restrictions per Dr. Rodriguez. LE Weight Bearing Status: FWB Medical Precautions: Fall, Standard Isolation Status: No active isolations Activity Tolerance: Endurance: Tolerates 10 - 20 min exercise with multiple rests Sitting Balance: Sits without support for more than 30 sec Early Mobility/Exercise Safety Screen: Proceed with mobilization - No exclusion criteria met Activity Tolerance Comments: Good Cognition: Overall Cognitive Status: Within Functional Limits Behavior/Cognition: Alert, Cooperative, Pleasant mood Orientation Level: Oriented X4 Treatments: Therapeutic Activity Time Entry: 16 Therapeutic Activity 1: Bed mobility Therapeutic Activity 2: Sitting balance EOB with thera-ex Therapeutic Activity 3: Sit to stand x2 for pericare Therapeutic Activity 4: Return to bed Bed Mobility: Bed Mobility Bed Mobility: Yes Bed Mobility 1 Level of Assistance 1: Partial/Mod assistance (Man) Bed Mobility Comments 1: Min A for bed mobility with HOB elevated and assist for B LE elevation into bed. Bed Mobility To/From: Sitting EOB to supine, Supine to sit on EOB, Roll lying on back to right, Roll lying to right/Return to back Assistive Devices And Adaptive Equipments: Bed rail, Height adjustment feature of hospital bed, Head of bed elevated Transfers: Transfers Transfer: Yes Transfer 1 Technique 1: Via walking Level of Assistance 1: Partial/Mod assistance (Man) Trials/Comments 1: Man for balance and safety. Pt required vc for standing upright on sit to stand. Pt had BM in standing and had to be returned to bed for pericare. Transfer To/From: Bed, Aqg-[id number]-Rreyk/Mvqwl-jk-Ega Assistive Devices And Adaptive Equipments: Walker, front-wheeled Gait Training: Gait Training Time Entry: 12 Gait Training Activity 1 Distance (enter in feet): 40 ft Gait Training Activity 1: Indoor surface Assistive Devices And Adaptive Equipments: Walker, front-wheeled Level of Assistance 1: Partial/Mod assistance (Man) Gait Training Activity 1 Comment: Pt ambulated in room today due to BM x2. Pt ambulated to door from bed and around bed before returning EOB to complete thera-ex. Pt required Man for walker steering and due to reported unsteadiness in standing. Therapeutic Exercise: Therapeutic Exercise Time Entry: 10 Therapeutic Exercise Activity 1: Ankle pumps, heel raises, LAQ's, hip flexion, ab/adduction. (2 sets, 10 reps AROM) Position 1: Seated Outcome Measures: Miguel Angel RPE Scale Miguel Angel RPE Scale - How Strenuous and Tiring The Work Feels: 12 - Moderate Patient Education Education Documentation Fall Prevention, taught by ADIS Navarro at 03/20/2024 2:27 PM. Learner: Patient Readiness: Acceptance Method: Explanation Response: Verbalizes Understanding Comment: Daughter present. Mobility, taught by ADIS Navarro at 03/20/2024 2:27 PM. Learner: Patient Readiness: Acceptance Method: Explanation Response: Verbalizes Understanding Comment: Daughter present. Physical Therapy Plan of Care, taught by ADIS Navarro at 03/20/2024 2:27 PM. Learner: Patient Readiness: Acceptance Method: Explanation Response: Verbalizes Understanding Comment: Daughter present. Education Comments No comments found. Goal Encounter Goals Encounter Goals (Active) Patient will ambulate 250 feet using rolling walker with supervision assist. (Progressing) Start: 03/19/24 Expected End: 04/02/24 Patient will perform chair to and from bed transfer with no assistance. (Progressing) Start: 03/19/24 Expected End: 04/02/24 Patient will perform supine to/from sit on bed with no assistance demonstrating good control. (Progressing) Start: 03/19/24 Expected End: 04/02/24 General Visit Information Family/Caregiver Present: Yes Others Present: Daughter Post Therapy Checklist - in bed, call mills within reach, bed/chair alarm in place, phone within reach, and with family nearby Time Calculation:Start Time: 1140 Stop Time: 1218 Time Calculation (min): 38 min AttestationSupervising Physical Therapist: Abby Rife, PT Patient progress towards current goals and plan of care was discussed in person with supervising Physical Therapist. Treatment Note: If this is the last documented treatment, then it will signify discharge from acute care prior to discharge from the therapy service and will serve as the discharge summary. ADIS Navarro Cosigned by Abby Rivera PT at 03/20/2024 4:59 PM CST UNTANCY PROFESSOR UNTANCY PROFESSOR UNTANCY PROFESSOR Associated attestation - Abby Rivera PT - 03/20/2024 4:59 PM CST I, the supervising Physical therapist was active and present throughout the duration of the session. As the supervising therapist, I have reviewed and agree with all documentation related to treatment, plan of care, and billing on this date. * Nicole Rodriguez MD - 03/20/2024 9:38 AM ACCOUNTANCY PROFESSOR [facility] Hospitalist Progress Note Subjective Patient seen and examined at bedside in nonacute distress. She denies chest pain or shortness of breath. The patient's daughter was at bedside. The patient was recently discharged from SNF. The patient has been having recurrent falls and she lives alone. The patient ambulates with a walker, has recent left humerus fracture and is sometimes unsteady. The patient's daughter stated that she works in will not be able to have the patient come stay with her and did not have any other options regarding family members that the patient can stay with. Objective Last Recorded Vitals Blood pressure 142/84, pulse (!) 102, temperature 36.6 ?C (97.9 ?F), resp. rate 17, height 1.769 m (5' 9.65"), weight 68.2 kg (150 lb 5.7 oz), SpO2 93%. Physical Exam: General: Alert and oriented. No acute distress. Eye: Pupils are equal, round and reactive to light, Normal conjunctiva. HENT: Normocephalic, Normal hearing. Neck: Supple, Non-tender. Respiratory: Lungs are clear to auscultation, Respirations are non-labored, Symmetrical chest wall expansion. Cardiovascular: Normal rate, Regular rhythm. Gastrointestinal: Soft, Non-tender, nondistended, normal bowel sounds. Extremities: Palpable pulses. No edema noted. Neurologic: Alert, Oriented. Able to move all extremities. Psychiatric: Cooperative. Calm affect. Results: Results from last 7 days Lab Units 03/18/24 1353 WBC 10*3/uL 7.63 HEMOGLOBIN g/dL 14.3 HEMATOCRIT % 44.5 PLATELETS 10*3/uL 276 Results from last 7 days Lab Units 03/19/24 0419 03/18/24 1353 SODIUM mEq/L 139 139 POTASSIUM mEq/L 3.8 3.2* CHLORIDE mEq/L 97* 96* CO2 mEq/L 30.0 35.6* BUN mg/dL 9 13 CREATININE mg/dL 0.58 0.65 CALCIUM mg/dL 9.7 9.3 PROTEIN TOTAL g/dL 5.8 6.8 BILIRUBIN TOTAL mg/dL 0.84 1.19* ALK PHOS U/L 39* 47 ALT U/L 18 18 AST U/L 32 30 GLUCOSE mg/dL 85 110* Scheduled Meds flecainide, 50 mg, Oral, q12h BABITA metoprolol tartrate, 25 mg, Oral, q12h BABITA metoprolol tartrate, 50 mg, Oral, q12h BABITA polyethylene glycol (PEG) 3350, 17 g, Oral, Daily senna-docusate, 2 tablet, Oral, BID sodium chloride, 10 mL, Intravenous, q12h BABITA PRN medications: acetaminophen, bisacodyl, dextrose, dextrose, glucagon, labetalol, melatonin, ondansetron ODT OR ondansetron, sodium chloride Assessment & Plan Frequent falls Patient recently discharged home from SNF CT scan of the brain is unremarkable CT scan of the cervical spine is unremarkable Other imaging studies reviewed Healing chronic left humerus fracture Continue PT/OT Continue fall precaution Will order home health Atrial fibrillation (CMS/HCC) (HCC) Continue metoprolol and Eliquis for anticoagulation Patient with recurrent falls, currently on Eliquis Cardiology consulted regarding recommendation to see if Eliquis should be continued or discontinued due to recurrent risk falls Essential tremor Outpatient follow-up Primary hypertension Continue metoprolol Impaired mobility and ADLs Continue Physical therapy and outpatient therapy Hypokalemia Resolved Current Diet: Adult Diet Heart Healthy VTE Prophylaxis Eliquis Disposition:Home with Home Health Reason for continued hospitalization:Recurrent falls. Cardio consulted regarding possible discontinuation of Eliquis due to recurrent falls. Patient will need home health arrangement prior to discharge. Disclaimer: Parts of this note was created using voice recognition software [employer] and may contain unintended word substitutions. Please excuse typographical errors in the note. UNTANCY PROFESSOR * Abby Rivera, PT - 03/19/2024 3:14 PM ACCOUNTANCY PROFESSOR Physical Therapy Evaluation and Treatment Patient Name: Rashid Curry Today’s Date: 03/19/24 Room Number: [id number] Patient's Preferred Language: Turkish PT Assessment and Plan: Assessment Pt presents with history of frequent falls, decreased stregth, decreased balance, and decreased safety with mobility. Pt would benefit from acute skilled PT services to address stated deficits to improve functional independence for return to PLOF, reduce caregiver burden, and reduce the potential for falls. Prognosis: Good Strengths: Attitude of self Evaluation/Treatment Tolerance: Patient tolerated treatment well Medical Staff Made Aware: Yes Plan Treatment Plan/Goals Established with Patient/Caregiver: Yes Treatment/Interventions: Balance training, Bed mobility training, Functional activities, Gait training, Patient education, Therapeutic exercises, Transfer training PT Plan: Skilled PT PT Frequency: 3-4 times per week until discharge PT Recommended Transfer Status: Assistive equipment (Comment) (Min A for safety.) AM-PAC Basic Mobility Turning in bed without bedrails: None Lying on back to sitting on edge of flat bed: A Little Bed to chair: A Little Standing up from chair: A Little Walk in room: A Little Climbing 3-5 stairs: A Lot Mobility Inpatient Raw Score: 18 -HLM Goal: 6 [facility] Highest Level of Mobility (JH-HLM) Scale Highest Level of Mobility Performed (JH-HLM): Walked 25 feet or more (i.e. walked outside of room) Subjective: Pt agreed to PT evaluation this pm. Daughter in room. Current Problem: This is a 84 y.o. female who is admitted to [facility] with Hypokalemia [E87.6] Impaired mobility and ADLs [Z74.09, Z78.9] Generalized weakness [R53.1] At high risk for falls [Z91.81] Anticoagulation adequate with anticoagulant therapy [Z79.01] Atrial fibrillation, unspecified type (CMS/HCC) ([facility]) [I48.91] Accidental fall, initial encounter [W19.XXXA] Past Medical History: Diagnosis Date Atrial fibrillation (CMS/HCC) ([facility]) 03/19/2024 Essential tremor 03/18/2024 Primary hypertension 03/18/2024 History reviewed. No pertinent surgical history. Pain: (Pre Therapy Score) Pain Assessment Pain Assessment: DVPRS Pain Score: 0 Pain Rating Scale (DVPRS): No pain Pain: (Post Therapy Score) 0/10 Lines and Drains: IV, telemetry, purewick. Health Conditions: Pain Interference with Therapy Activities: Rarely or not at all Social History: Home Living: Type of Home: House Lives With: Alone Home Adaptive Equipment: Walker rolling or standard, Wheelchair-manual, Other (Comment) (Rollator.) Home Layout: One level Home Access: Level entry Bathroom Shower/Tub: Walk-in shower Bathroom Toilet: Standard Bathroom Equipment: Grab bars in shower, Shower chair with back, Bedside commode Prior Level of Function: Level of Drasco: Ambulated with assistive device (comment) (RW) Receives Help From: Family ADL Assistance: Independent Homemaking Assistance: Independent Prior Function Comments: Pt with history of falls at home. Objective: Precautions: UE Weight Bearing Status: No Weightbearing restrictions per Dr. Rodriguez. LE Weight Bearing Status: FWB Isolation Status: No active isolations Cognition: Overall Cognitive Status: Within Functional Limits Behavior/Cognition: Alert, Cooperative, Pleasant mood Orientation Level: Oriented X4 General Assessment: Activity Tolerance: Endurance: Tolerates 10 - 20 min exercise with multiple rests Sitting Balance: Sits without support for more than 30 sec Early Mobility/Exercise Safety Screen: Proceed with mobilization - No exclusion criteria met Extremity Assessments Right Lower Extremity: RLE Assessment RLE Assessment: Within Functional Limits Left Lower Extremity: LLE Assessment LLE Assessment: Within Functional Limits Overall Lower Extremity / Trunk Tone: Left Lower Extremity: Normal Right Lower Extremity: Normal Trunk: Normal Sensation: Light Touch: RLE Intact, LLE Intact Proprioception: Proprioception: RLE Intact, LLE Intact Perception: Inattention/Neglect: Appears intact Initiation: Appears intact Motor Planning: Appears intact Perseveration: Not present Co-ordination: Movements are Fluid and Coordinated: Yes Toe Taps: Left intact, Right intact Heel to Chen: Left intact, Right intact Posture: Postural Control: Within Functional Limits Balance - Sitting: Static Sitting Balance Static Sitting-Balance Support: No upper extremity supported, Feet supported Level of Assistance: Supervision/touching assistance Static Sitting-Comment/Number of Minutes: Supervision for safety. Balance - Standing: Static Standing Balance Static Standing-Balance Support: Right upper extremity supported, Left upper extremity supported Static Standing-Level of Assistance: Supervision/touching assistance Static Standing-Comment/Number of Minutes: Touching assist for safety with RW. Functional Assessments and Treatments: Therapeutic Activity Time Entry: 5 Therapeutic Activity 1: Bed mobility Therapeutic Activity 2: Sitting balance and tolerance Therapeutic Activity 3: Sit to stand. Therapeutic Activity 4: Return to supine in bed. Bed Mobility: Bed Mobility 1 Level of Assistance 1: Partial/Mod assistance Bed Mobility Comments 1: Min A for bed mobility with HOB elevated and assist for B LE elevation into bed. Bed Mobility To/From: Supine to sit on EOB Assistive Devices And Adaptive Equipments: Head of bed elevated Transfers: Transfer 1 Technique 1: Via walking Level of Assistance 1: Partial/Mod assistance Trials/Comments 1: Partial A +1 for balance and safety Transfer To/From: [id number], Bed Assistive Devices And Adaptive Equipments: Walker, front-wheeled Gait Training: Gait Training Time Entry: 8 Gait Training Activity 1 Distance (enter in feet): 78 feet Gait Training Activity 1: Indoor surface Assistive Devices And Adaptive Equipments: Walker, front-wheeled Level of Assistance 1: Partial/Mod assistance (+1 for safety.) Gait Training Activity 1 Comment: Partial A +1 for balance and safety due to h/o falls for gait. Gait distance limited due to pt c/o feeling like her knees were buckling. Outcome Measures: Miguel Angel RPE Scale Miguel Angel RPE Scale - How Strenuous and Tiring The Work Feels: 12 - Moderate Patient Education Education Documentation Fall Prevention, taught by Abby Rivera PT at 03/19/2024 4:36 PM. Learner: Family, Patient Readiness: Acceptance Method: Explanation Response: Verbalizes Understanding Mobility, taught by Abby Rivera PT at 03/19/2024 4:36 PM. Learner: Family, Patient Readiness: Acceptance Method: Explanation Response: Verbalizes Understanding Physical Therapy Plan of Care, taught by Abby Rivera PT at 03/19/2024 4:36 PM. Learner: Family, Patient Readiness: Acceptance Method: Explanation Response: Verbalizes Understanding Education Comments No comments found. Goal Encounter Goals Encounter Goals (Active) Patient will ambulate 250 feet using rolling walker with supervision assist. Start: 03/19/24 Expected End: 04/02/24 Patient will perform chair to and from bed transfer with no assistance. Start: 03/19/24 Expected End: 04/02/24 Patient will perform supine to/from sit on bed with no assistance demonstrating good control. Start: 03/19/24 Expected End: 04/02/24 General Visit Information Family/Caregiver Present: Yes Others Present: Daughter, SPT Ernestine, PT patricia Willoughby. Post Therapy Checklist - in bed, call mills within reach, bed/chair alarm in place, phone within reach, with family nearby, and MANAGER LOCATION informed pt in need of diaper change due to malfunctioning purewick. Time CalculationStart Time: 1514 Stop Time: 1534 Time Calculation (min): 20 min PT Equipment Operator Wage Hand Used: Case Castillo Treatment Note: If this is the last documented treatment, then it will signify discharge from acute care prior to discharge from the therapy service and will serve as the discharge summary. Abby Rivera, PT Cosigned by Nicole Rodriguez MD at 03/19/2024 7:25 PM CST UNTANCY PROFESSOR UNTANCY PROFESSOR * Nicole Rodriguez MD - 03/19/2024 10:59 AM ACCOUNTANCY PROFESSOR [facility] Hospitalist Progress Note Subjective Patient seen and examined at bedside in nonacute distress. The patient's daughter was at bedside. Objective Last Recorded Vitals Blood pressure 122/76, pulse 82, temperature 37.1 ?C (98.7 ?F), resp. rate 18, height 1.769 m (5' 9.65"), weight 68.2 kg (150 lb 5.7 oz), SpO2 94%. Physical Exam: General: Alert and oriented. No acute distress. Eye: Pupils are equal, round and reactive to light, Normal conjunctiva. HENT: Normocephalic, Normal hearing. Neck: Supple, Non-tender. Respiratory: Lungs are clear to auscultation, Respirations are non-labored, Symmetrical chest wall expansion. Cardiovascular: Normal rate, Regular rhythm. Gastrointestinal: Soft, Non-tender, nondistended, normal bowel sounds. Extremities: Palpable pulses. No edema noted. Neurologic: Alert, Oriented. Able to move all extremities. Psychiatric: Cooperative. Appropriate mood. Normal affect. Results: Results from last 7 days Lab Units 03/18/24 1353 WBC 10*3/uL 7.63 HEMOGLOBIN g/dL 14.3 HEMATOCRIT % 44.5 PLATELETS 10*3/uL 276 Results from last 7 days Lab Units 03/19/24 0419 03/18/24 1353 SODIUM mEq/L 139 139 POTASSIUM mEq/L 3.8 3.2* CHLORIDE mEq/L 97* 96* CO2 mEq/L 30.0 35.6* BUN mg/dL 9 13 CREATININE mg/dL 0.58 0.65 CALCIUM mg/dL 9.7 9.3 PROTEIN TOTAL g/dL 5.8 6.8 BILIRUBIN TOTAL mg/dL 0.84 1.19* ALK PHOS U/L 39* 47 ALT U/L 18 18 AST U/L 32 30 GLUCOSE mg/dL 85 110* Scheduled Meds metoprolol tartrate, 12.5 mg, Oral, q12h BABITA polyethylene glycol (PEG) 3350, 17 g, Oral, Daily senna-docusate, 2 tablet, Oral, BID sodium chloride, 10 mL, Intravenous, q12h BABITA PRN medications: acetaminophen, bisacodyl, dextrose, dextrose, glucagon, labetalol, melatonin, ondansetron ODT OR ondansetron, sodium chloride Assessment & Plan Frequent falls Patient recently discharged home from facility 2 days ago PT/OT ordered Continue fall precaution Atrial fibrillation (CMS/HCC) (HCC) Patient is currently in atrial fibrillation, rate controlled. Resume beta-addie, hold Eliquis for now given frequent falls. Decision will need to be made regarding resuming Eliquis in the setting of frequent falls. Her [id number] 4 indicating high risk. Essential tremor Outpatient follow-up Primary hypertension Continue metoprolol Impaired mobility and ADLs Physical therapy and outpatient therapy on Hypokalemia Resolved Current Diet: Adult Diet Heart Healthy VTE Prophylaxis apixaban - 5 MG Disposition:Home Reason for continued hospitalization:Recently discharged from facility 2 days ago. We anticipate discharging the patient home tomorrow. She will likely need home health. Disclaimer: Parts of this note was created using voice recognition software [employer] and may contain unintended word substitutions. Please excuse typographical errors in the note. UNTANCY PROFESSOR * Abby Rivera PT - 03/19/2024 10:41 AM ACCOUNTANCY PROFESSOR PT Encounter Note Patient Name: Rashid Curry Todays Date: 03/19/2024 Room Number: SW10.1020/10B.1020 Patient's Preferred Language: Turkish Missed Treatment Time and Reason: Missed Time Reason: hold (Comment) (PT consult received. Chart reviewed. Secure chat message sent to Dr. Rodriguez to clarify if any WB restrictions for L UE due to h/o fracture in November. Will follow up as appropriate. RN aware.) Abby Rivera PT UNTANCY PROFESSOR [id number] 17:23:14Pending Results Scheduled Orders Name Type Priority Associated Diagnoses Order Schedule POCT Glucose Point of Care Testing - Docked Device Routine Every 15 minutes as needed until discontinued starting 03/19/2024 External Catheter Procedures Routine Once fo r 1 Occurrences starting 03/19/2024 until 03/19/2024 Scheduled Referrals Name Type Priority Associated Diagnoses Order Schedule Ambulatory referral to Home Health Outpatient Referral Routine Frequent falls Expected: 03/20/2024 (Approximate), Expires: 03/20/2025 Ambulatory referral to Home Health Outpatient Referral Routine Accidental fall, initial encounter Expected: 03/26/2024 (Approximate), Expires: 03/26/2025 Health Maintenance Due Date Last Done Comments Annual Physical 1941 Zoster Vaccines (1 of 2) 02/17/1988 Respiratory Syncytial Virus (RSV) or >=60 (1 - 1-dose 75+ series) 2013 Medicare Annual Wellness (AWV) 01/01/2019 12/02/2017 Influenza Vaccine (#1) 2023 0, 03/17/2019, 12/02/2017, Additional history exists Lipid Panel 03/15/2025 03/15/2020, 12/17/2019 DTaP/Tdap/Td Vaccines (2 - Td or Tdap) 03/17/2029 03/17/2019 Bone Density Scan Completed 12/09/2017 Pneumococcal Vaccine: 65+ Years Completed 11/23/2019, 03/28/2017, 11/19/2015, Additional history exists HIB Vaccines Aged Out No longer eligi ble based on patient's age to complete this topic HPV Vaccines Aged Out No longer eligi ble based on patient's age to complete this topic Hepatitis A Vaccines Aged Out No long er eligible based on patient's age to complete this topic Hepatitis B Vaccines Aged Out No long er eligible based on patient's age to complete this topic IPV Vaccines Aged Out No longer eligi ble based on patient's age to complete this topic Meningococcal Vaccine Aged Out No santhosh vish eligible based on patient's age to complete this topic Rotavirus Vaccines Aged Out No longer eligible based on patient's age to complete this topic [facility] [id number] 17:23:14 Diagnosis Frequent falls - Primary Accidental fall, initial enc ounter Impaired mobility and ADLs At high risk for falls Atrial fibrillation, unspeci fied type (CMS/HCC) (HCC) Generalized weakness Hypokalemia Hypopotassemia Anticoagulation adequate wit h anticoagulant therapy Frequent falls Impaired mobility and ADLs Essential tremor Primary hypertension Unspecified essential hypertension Hypokalemia Hypopotassemia Atrial fibrillation (CMS/HCC) (HCC) Atrial fibrillation Accidental fall, initial enc ounter [facility] [id number] 17:23:14 [facility] [id number] 17:23:14* Home Health (Routine) - Pending Review Specialty Diagnoses / Procedures Referred By Bernardo otero Referred To Contact Home Health Services Diagnoses Accidental fall, initial encounter Pamella Ku PA [address] [place] [address] Phone: tel: fax: Referral ID Status Reason Start Date Expiration Date Visits Requested Visits Authorized [id number] Pending Review Specialty Services Required 03/26/2024 05/25/[phone] UNTANCY PROFESSOR* Home Health (Routine) - Pending Review Specialty Diagnoses / Procedures Referred By Bernardo t Referred To Contact Home Health Services Diagnoses Frequent falls Nicole Rodriguez MD [address] [place] [address] Phone: tel: fax: Referral ID Status Reason Start Date Expiration Date Visits Requested Visits Authorized [id number] Pending Review Specialty Services Required 03/20/2024 05/19/2024 999 999 UNTANCY PROFESSOR [facility] [id number] 17:23:14* * Auth/Cert (Routine) Specialty Diagnoses / Procedures Referred By Bernardo t Referred To Contact Diagnoses Hypokalemia Impaired mobility and ADLs Generalized weakness At high risk for falls Anticoagulation adequate with anticoagulant therapy Atrial fibrillation, unspecified type (CMS/HCC) (HCC) Accidental fall, initial encounter Procedures [facility] IP/OBS CARE SF/LOW MDM 40 MINUTES Elise Morrison MD [address] [place] [id number] Phone: tel: fax: [facility] ([address] [facility]) [address] [place] [phone] Phone: tel: Referral ID Status Reason Start Date Expiration Date Visits Re quested Visits Authorized [id number] 1 1 [facility] [id number] 17:23:14 [place] [id number] 14:45:08 Images from the original note were not included. Fall Prevention - Video This video explains why it's important to ask for help when getting out of bed while you are in the hospital. To view the video go to this web address: [email or web address] Or, scan this QR code with your smart phone ? [facility] Centerchris CrockettXoxgybv5969-73-87 14:45:06 Images from the original note were not included. [address] Preventing Falls: Are You at Risk of Falling? As you get older, you're not as steady on your feet as you once were. And you may have health problems you didn't have when you were younger. So it's not surprising that older people are more likely to trip and fall. Falling can be very serious. It can change your overall health and quality of life. That's why it's important to be aware of your own risk of falling. The dangers of falling Falls are one of the main causes of injury in people over age 65. An older person who falls may take longer to get better than a younger person. And, after a fall, an older person is more likely to have problems that don't go away. So preventing falls can help you prevent serious health problems. Are you at risk of falling? Answer these questions to rate your level of risk: ? Have you fallen or stumbled in the last year? ? Are you over age 65? ? Are you ever dizzy or lightheaded with standing? ? Do you have a hard time getting in and out of the bathtub or on and off the toilet? ? Do you lean on objects to help you get around? Or do you use a cane or walker? ? Do you have vision or hearing problems? For example, do you need glasses or hearing aids? ? Do you have 2 or more long-lasting (chronic) health conditions? ? Do you take 3 or more medicines? ? Have you felt depressed recently? ? Have you had more trouble with your memory in recent months? ? Are there hazards in your home that might cause you to fall, such as loose rugs or poor lighting? ? Do you have a pet that jumps on you or might trip you? ? Have you stopped getting regular exercise? ? Do you have diabetes? ? Do you have a nervous system disease, such as Parkinson or Alzheimer disease? ? Do you drink alcohol? ? Do you walk barefoot or only in socks at home? You can help prevent falls If you answered "yes" to any of the above questions, take steps to reduce your risk of a fall. Monitoring health conditions and keeping walkways in your home free of clutter are just two ways. Changing is sometimes easier said than done. But keep in mind that even small changes can make you less likely to fall. Ask for help to reduce risk of falling in your home. Fear of falling It's normal to be scared of falling, especially if you've fallen before. But being afraid can actually make you more likely to fall. This is because: ? Fear might cause you to become less active. Being less active can lead to a loss of strength and balance. ? Fear can lead to isolation from others, depression, or the use of more medicines or alcohol. And all these things make falling even more likely. To stop the cycle, learn more about ways to prevent falling. Talk to your healthcare provider for more information. As you take control, you may find yourself feeling less afraid. Last Reviewed Date: 2022 00:00:00 ? 1734-2821 [employer]. All rights reserved. This information is not intended as a substitute for professional medical care. Always follow your healthcare professional's instructions. [facility]2025-02-06 14:44:56 Images from the original note were not included. [id number] Metoprolol Brand Name(s): Kapspargo Sprinkle?, Lopressor?, Toprol?, Toprol? XL, Dutoprol? (as a combination product containing Metoprolol, Hydrochlorothiazide), Lopressidone? (as a combination product containing Chlorthalidone, Metoprolol), Lopressor? HCT (as a combination product containing Metoprolol, Hydrochlorothiazide); also available generically WHY is this medicine prescribed? Metoprolol is used alone or in combination with other medications to treat high blood pressure. It also is used to treat chronic (long-term) angina (chest pain). Metoprolol is also used to improve survival after a heart attack. Metoprolol also is used in combination with other medications to treat heart failure. Metoprolol is in a class of medications called beta blockers. It works by relaxing blood vessels and slowing heart rate to improve blood flow and decrease blood pressure. High blood pressure is a common condition and when not treated, can cause damage to the brain, heart, blood vessels, kidneys and other parts of the body. Damage to these organs may cause heart disease, a heart attack, heart failure, stroke, kidney failure, loss of vision, and other problems. In addition to taking medication, making lifestyle changes will also help to control your blood pressure. These changes include eating a diet that is low in fat and salt, maintaining a healthy weight, exercising at least 30 minutes most days, not smoking, and using alcohol in moderation. HOW should this medicine be used? Metoprolol comes as a tablet, an extended-release (long-acting) tablet, and an extended-release capsule to take by mouth. The regular tablet is usually taken once or twice a day with meals or immediately after meals. The extended-release tablet and extended-release capsule are usually taken once a day. To help you remember to take metoprolol, take it around the same time(s) every day. Follow the directions on your prescription label carefully, and ask your doctor or pharmacist to explain any part you do not understand. Take metoprolol exactly as directed. Do not take more or less of it or take it more often than prescribed by your doctor. The extended-release tablet may be split. Swallow the whole or half extended-release tablets whole; do not chew or crush them. Swallow the extended-release capsules whole; do not split, chew, or crush them. If you are unable to swallow the capsules, you may open the capsule and sprinkle the contents over a spoonful of soft food, such as applesauce, pudding, or yogurt and swallow the mixture immediately. Do not swallow the mixture more than 60 minutes after you sprinkle the contents of the capsule. Your doctor may start you on a low dose of metoprolol and gradually increase your dose. Metoprolol helps to control your condition but will not cure it. Continue to take metoprolol even if you feel well. Do not stop taking metoprolol without talking to your doctor. If you suddenly stop taking metoprolol you may experience serious heart problems such as severe chest pain, a heart attack, or an irregular heartbeat. Your doctor will probably want to decrease your dose gradually over 1 to 2 weeks and will monitor you closely. Are there OTHER USES for this medicine? Metoprolol is also used sometimes to treat certain types of irregular heartbeats. Talk to your doctor about the possible risks of using this medication for your condition. This medication may be prescribed for other uses; ask your doctor or pharmacist for more information. What SPECIAL PRECAUTIONS should I follow? Before taking metoprolol, ? tell your doctor and pharmacist if you are allergic to metoprolol, any other medications, or any of the ingredients in metoprolol tablets, extended-release tablets, or extended-release capsules. Ask your pharmacist for a list of the ingredients. ? tell your doctor and pharmacist what prescription and nonprescription medications, vitamins, nutritional supplements, and herbal products you are taking or plan to take. Your doctor may need to change the doses of your medications or monitor you carefully for side effects. ? tell your doctor if you have a slow or irregular heartbeat or heart failure. Your doctor may tell you not to take metoprolol. ? tell your doctor if you have or have ever had asthma or other lung diseases; problems with blood circulation; pheochromocytoma (a tumor that develops on a gland near the kidneys and may cause high blood pressure and fast heartbeat); heart or liver disease;diabetes; or hyperthyroidism (an overactive thyroid gland). Also tell your doctor if you have ever had a serious allergic reaction to a food or any other substance. ? tell your doctor if you are , plan to become , or are . If you become while taking metoprolol, call your doctor. ? if you are having surgery, including dental surgery, tell the doctor or dentist that you are taking metoprolol. ? you should know that metoprolol may make you drowsy. Do not drive a car or operate machinery until you know how this medication affects you. ? do not drink any alcoholic drinks or take any prescription or nonprescription medications that contain alcohol if you are taking metoprolol extended-release capsules. Ask your doctor or pharmacist if you do not know if a medication that you plan to take contains alcohol. ? you should know that metoprolol may increase the risk of hypoglycemia (low blood sugar) and prevent the warning signs and symptoms that would tell you that your blood sugar is low. Let your doctor know if you are unable to eat or drink normally or are vomiting while you are taking metoprolol. You should know the symptoms of low blood sugar and what to do if you have these symptoms. ? you should know that if you have allergic reactions to different substances, your reactions may be worse while you are using metoprolol, and your allergic reactions may not respond to the usual doses of injectable epinephrine. What SPECIAL DIETARY instructions should I follow? IUnless your doctor tells you otherwise, continue your normal diet. What should I do IF I FORGET to take a dose? Skip the missed dose and continue your regular dosing schedule. Do not take a double dose to make up for a missed one. What SIDE EFFECTS can this medicine cause? Some side effects can be serious. The following symptoms are uncommon, but if you experience any of them, call your doctor immediately: ? shortness of breath or difficulty breathing ? wheezing ? swelling of the hands, feet, ankles, or lower legs ? weight gain ? fainting ? rapid, pounding, or irregular heartbeat Metoprolol may cause other side effects. Call your doctor if you have any unusual problems while taking this medication. If you experience a serious side effect, you or your doctor may send a report to the Food and Drug Administration's (FDA) MedWatch Adverse Event Reporting program online (https://www.fda.gov/Safety/MedWatch) or by phone ( ). What should I know about STORAGE and DISPOSAL of this medication? Keep this medication in the container it came in, tightly closed, and out of reach of children. Store it at room temperature and away from excess heat and moisture (not in the bathroom). It is important to keep all medication out of sight and reach of children as many containers (such as weekly pill minders and those for eye drops, creams, patches, and inhalers) are not child-resistant and young children can open them easily. To protect young children from poisoning, always lock safety caps and immediately place the medication in a safe location - one that is up and away and out of their sight and reach. https://www.[employer].org Unneeded medications should be disposed of in special ways to ensure that pets, children, and other people cannot consume them. However, you should not flush this medication down the toilet. Instead, the best way to dispose of your medication is through a medicine take-back program. Talk to your pharmacist or contact your local garbage/recycling department to learn about take-back programs in your community. See the FDA's Safe Disposal of Medicines website (https://goo.gl/c4Rm4p) for more information if you do not have access to a take-back program. What should I do in case of OVERDOSE? In case of overdose, call the poison control helpline at . Information is also available online at https://www.poisonhelp.org/help. If the victim has collapsed, had a seizure, has trouble breathing, or can't be awakened, immediately call emergency services at 651. Symptoms of overdose may include the following: ? nausea ? vomiting ? decreased consciousness or loss of consciousness (coma) ? irregular, fast, or slow heartbeat ? chest pain ? dizziness ? fatigue or weakness ? fainting ? difficulty breathing ? cough or wheezing ? swelling of the hands, feet, ankles, or lower legs What OTHER INFORMATION should I know? Keep all appointments with your doctor. Your blood pressure should be checked regularly to determine your response to metoprolol. Your doctor may ask you to check your pulse (heart rate). Ask your pharmacist or doctor to teach you how to take your pulse. If your pulse is faster or slower than it should be, call your doctor. Do not let anyone else take your medication. Ask your pharmacist any questions you have about refilling your prescription. It is important for you to keep a written list of all of the prescription and nonprescription ([id number]) medicines you are taking, as well as any products such as vitamins, minerals, or other dietary supplements. You should bring this list with you each time you visit a doctor or if you are admitted to a hospital. It is also important information to carry with you in case of emergencies. This report on medications is for your information only, and is not considered individual patient advice. Because of the changing nature of drug information, please consult your physician or pharmacist about specific clinical use. [employer] represents that the information provided hereunder was formulated with a reasonable standard of care, and in conformity with professional standards in the field. [employer] makes no representations or warranties, express or implied, including, but not limited to, any implied warranty of merchantability and/or fitness for a particular purpose, with respect to such information and specifically disclaims all such warranties. Users are advised that decisions regarding drug therapy are complex medical decisions requiring the independent, informed decision of an appropriate health medical care administrator, and the information is provided for informational purposes only. The entire monograph for a drug should be reviewed for a thorough understanding of the drug's actions, uses and side effects. The [employer] does not endorse or recommend the use of any drug. The information is not a substitute for medical care. AHFS? Patient Medication Information?. ? Copyright, 2023. [employer]?, [address], [address], [place], [place]. All Rights Reserved. Duplication for commercial use must be authorized by [facility]. Selected Revisions: November 02, 2022. AHFS? Patient Medication Information?. ? Copyright, 2024 [facility]2025-02-06 14:43:59 Images from the original note were not included. [id number] Apixaban Brand Name(s): Eliquis?; also available generically IMPORTANT WARNING: If you have atrial fibrillation (a condition in which the heart beats irregularly, increasing the chance of clots forming in the body, and possibly causing strokes) and are taking apixaban to help prevent strokes or serious blood clots, you are at a higher risk of having a stroke after you stop taking this medication. Do not stop taking apixaban without talking to your doctor. Continue to take apixaban even if you feel well. Be sure to refill your prescription before you run out of medication so that you will not miss any doses of apixaban. If you need to stop taking apixaban, your doctor may prescribe another anticoagulant ('blood thinner') to help prevent a blood clot from forming and causing you to have a stroke. If you have epidural or spinal anesthesia or a spinal puncture while taking a 'blood thinner' such as apixaban, you are at risk of having a blood clot form in or around your spine that could cause you to become paralyzed. Tell your doctor if you have an epidural catheter that is left in your body or have or have ever had repeated epidural or spinal punctures, spinal deformity, or spinal surgery. Tell your doctor and pharmacist if you are taking any of the following: anagrelide (Agrylin); aspirin and other nonsteroidal anti-inflammatory drugs (NSAIDs) such as ibuprofen (Advil, Motrin, others), indomethacin (Indocin, Tivorbex), ketoprofen, and naproxen (Aleve, Anaprox, others); cilostazol (Pletal); clopidogrel (Plavix); dipyridamole (Persantine); eptifibatide (Integrilin); heparin; prasugrel (Effient); ticagrelor (Brilinta); ticlopidine; tirofiban (Aggrastat), and warfarin (Coumadin, Jantoven). If you experience any of the following symptoms, call your doctor immediately: muscle weakness (especially in your legs and feet), numbness or tingling (especially in your legs), or loss of control of your bowels or bladder. Your doctor or pharmacist will give you the [employer]'s patient information sheet (Medication Guide) when you begin treatment with apixaban and each time you refill your prescription. Read the information carefully and ask your doctor or pharmacist if you have any questions. You can also visit the Food and Drug Administration (FDA) website (https://www.fda.gov/Drugs/DrugSafety/mmw948235.htm) or the [employer]'s website to obtain the Medication Guide. Talk to your doctor about the risks of taking apixaban. WHY is this medicine prescribed? Apixaban is used to help prevent strokes or blood clots in people who have atrial fibrillation (a condition in which the heart beats irregularly, increasing the chance of clots forming in the body and possibly causing strokes) that is not caused by heart valve disease. Apixaban is also used to prevent deep vein thrombosis (DVT; a blood clot, usually in the leg) and pulmonary embolism (PE; a blood clot in the lung) in people who are having hip replacement or knee replacement surgery. Apixaban is also used to treat DVT and PE and may be continued to prevent DVT and PE from happening again after the initial treatment is completed. Apixaban is in a class of medications called factor Xa inhibitors. It works by blocking the action of a certain natural substance that helps blood clots to form. HOW should this medicine be used? Apixaban comes as a tablet to take by mouth. It is usually taken with or without food twice a day. When apixaban is taken to prevent DVT and PE after hip or knee replacement surgery, the first dose should be taken at least 12 to 24 hours after surgery. Apixaban is usually taken for 35 days after a hip replacement surgery and for 12 days after knee replacement surgery. Take apixaban at around the same times every day. Follow the directions on your prescription label carefully, and ask your doctor or pharmacist to explain any part you do not understand. Take apixaban exactly as directed. Do not take more or less of it or take it more often than prescribed by your doctor. If you are unable to swallow the tablets, you can crush them and mix with water, apple juice, or applesauce. Swallow the mixture right after you prepare it. Apixaban can also be given in certain types of feeding tubes. Ask your doctor if you should take this medication in your feeding tube. Follow your doctor's directions carefully. Continue to take apixaban even if you feel well. Do not stop taking apixaban without talking to your doctor. If you stop taking apixaban, your risk of a blood clot may increase. Are there OTHER USES for this medicine? This medication may be prescribed for other uses; ask your doctor or pharmacist for more information. What SPECIAL PRECAUTIONS should I follow? Before taking apixaban, ? tell your doctor and pharmacist if you are allergic to apixaban, any other medications, or any of the ingredients in apixaban tablets. Ask your pharmacist or check the Medication Guide for a list of the ingredients. ? Tell your doctor and pharmacist what prescription and nonprescription medications, vitamins, nutritional supplements, and herbal products you are taking or plan to take while taking apixaban. Your doctor may need to change the doses of your medications or monitor you carefully for side effects.. ? The following nonprescription or herbal products may interact with apixaban: Braxton's wort; aspirin; NSAIDs (such as ibuprofen [Advil, Motrin] and naproxen [Aleve, Naprosyn]). Be sure to let your doctor and pharmacist know that you are taking these medications before you start taking apixaban. Do not start any of these medications while taking apixaban without discussing with your healthcare provider. ? you should know that apixaban may interact with certain medications that may be used to treat you if you have a stroke or other medical emergency. In case of an emergency, you or a family member should tell the doctor or emergency room staff who treat you that you are taking apixaban. ? tell your doctor if you have an artificial heart valve or if you have heavy bleeding anywhere in your body that cannot be stopped. Your doctor will probably tell you not to take apixaban. ? tell your doctor if you have or have ever had any type of bleeding problem, antiphospholipid syndrome (APS; a condition that causes blood clots), or kidney or liver disease. ? tell your doctor if you are , plan to become , or are . If you become while taking apixaban, call your doctor. ? if you are having surgery, including dental surgery, tell the doctor or dentist that you are taking apixaban. Your doctor may tell you to stop taking apixaban before the surgery or procedure. If you need to stop taking apixaban because you are having surgery, your doctor may prescribe a different medication to prevent blood clots during this time. Your doctor will tell you when you should start taking apixaban again after your surgery. Follow these directions carefully. ? Call your doctor right away if you fall or injure yourself, especially if you hit your head. Your doctor may need to check you. What SPECIAL DIETARY instructions should I follow? Unless your doctor tells you otherwise, continue your normal diet. What should I do IF I FORGET to take a dose? Take the missed dose as soon as you remember it. However, if it is almost time for the next dose, skip the missed dose and continue your regular dosing schedule. Do not take a double dose to make up for a missed one. What SIDE EFFECTS can this medicine cause? Some side effects can be serious. If you experience any of these symptoms, call your doctor immediately or get emergency medical treatment: ? bleeding gums ? nosebleeds ? heavy vaginal bleeding ? red, pink, or brown urine ? red or black, tarry stools ? coughing up or vomiting blood or material that looks like coffee grounds ? swelling or joint pain ? headache ? rash ? chest pain or tightness ? swelling of the face or tongue ? trouble breathing ? wheezing ? feeling dizzy or faint Apixaban prevents blood from clotting normally, so it may take longer than usual for you to stop bleeding if you are cut or injured. This medication may also cause you to bruise or bleed more easily. Call your doctor right away if bleeding or bruising is unusual, severe, or cannot be controlled. Apixaban may cause other side effects. Call your doctor if you have any unusual problems while taking this medication. If you experience a serious side effect, you or your doctor may send a report to the Food and Drug Administration's (FDA) MedWatch Adverse Event Reporting program online (https://www.fda.gov/Safety/MedWatch) or by phone ( ). What should I know about STORAGE and DISPOSAL of this medication? Keep this medication in the container it came in, tightly closed, and out of reach of children. Store it at room temperature and away from light, excess heat and moisture (not in the bathroom). Unneeded medications should be disposed of in special ways to ensure that pets, children, and other people cannot consume them. However, you should not flush this medication down the toilet. Instead, the best way to dispose of your medication is through a medicine take-back program. Talk to your pharmacist or contact your local garbage/recycling department to learn about take-back programs in your community. See the FDA's Safe Disposal of Medicines website (https://goo.gl/c4Rm4p) for more information if you do not have access to a take-back program. It is important to keep all medication out of sight and reach of children as many containers (such as weekly pill minders and those for eye drops, creams, patches, and inhalers) are not child-resistant and young children can open them easily. To protect young children from poisoning, always lock safety caps and immediately place the medication in a safe location - one that is up and away and out of their sight and reach. https://www.[employer]andaway.org What should I do in case of OVERDOSE? In case of overdose, call the poison control helpline at . Information is also available online at https://www.poisonhelp.org/help. If the victim has collapsed, had a seizure, has trouble breathing, or can't be awakened, immediately call emergency services at 911. Symptoms of overdose may include the following: ? unusual bleeding or bruising ? red, brown, or pink urine ? red or black, tarry stools ? coughing up or vomiting blood or material that looks like coffee grounds What OTHER INFORMATION should I know? Keep all appointments with your doctor. Do not let anyone else take your medication. Ask your pharmacist any questions you have about refilling your prescription. It is important for you to keep a written list of all of the prescription and nonprescription (qhce-bvz-[id number]) medicines you are taking, as well as any products such as vitamins, minerals, or other dietary supplements. You should bring this list with you each time you visit a doctor or if you are admitted to a hospital. It is also important information to carry with you in case of emergencies. This report on medications is for your information only, and is not considered individual patient advice. Because of the changing nature of drug information, please consult your physician or pharmacist about specific clinical use. [employer] represents that the information provided hereunder was formulated with a reasonable standard of care, and in conformity with professional standards in the field. [employer] makes no representations or warranties, express or implied, including, but not limited to, any implied warranty of merchantability and/or fitness for a particular purpose, with respect to such information and specifically disclaims all such warranties. Users are advised that decisions regarding drug therapy are complex medical decisions requiring the independent, informed decision of an appropriate health medical care administrator, and the information is provided for informational purposes only. The entire monograph for a drug should be reviewed for a thorough understanding of the drug's actions, uses and side effects. [employer] does not endorse or recommend the use of any drug. The information is not a substitute for medical care. AHFS? Patient Medication Information?. ? Copyright, 2023. [employer]?, [address], [address], [place], [place]. All Rights Reserved. Duplication for commercial use must be authorized by [facility]. Selected Revisions: January 02, 2023. AHFS? Patient Medication Information?. ? Copyright, 2024 [facility]2025-02-06 00:04:52 The patient is Moderately Unstable - Medium risk of patient condition declining or worsening The patient's goals for the shift include no falls The clinical goals for the shift include placement Over the shift, the patient did not make progress toward the following goals. Barriers to progression include. Recommendations to address these barriers include . [facility]2025-02-04 19:00:00 Received a message from ESTEPHANIE Can to sign patients OOH-DNR. OOH-DNR Signed, pending notarization. Notified night coordinator RN to pass onto day shift. Asked PA to update patients inpatient code status as well. Notified PA to order cough medication for patient as well. Pending response. [facility]2025-02-04 10:35:37 The patient is Moderately Stable - Low risk of patient condition declining or worsening The patient's goals for the shift include Get stronger, no falls The clinical goals for the shift include Placement Over the shift, the patient did not make progress toward the following goals. Barriers to progression include pending SNF placement. Recommendations to address these barriers include consult with CM/SW. [facility]2025-02-04 10:08:13 Advance Care Planning Note Discussion Date: 03/24/24 Discussion Participants: patient, daughter, and PA student Chaparrita Dela Cruz The patient wishes to discuss Advance Care Planning today and the following is a brief summary of our discussion. Patient Capacity The patient has full capacity. There is no history of patient status change. Active Health Care Agents There are no active Health Care Agents on file. Advance Care Planning Documents Document Type Status Effective Date Expiration Date Received On Description Advance Directives and Living Will Not Received Power of Methane Gas Collection System Operator Not Received Summary of conversation: Presented topic of code status in the event of a cardiac arrest, and any life-saving interventions, including chest compressions, intubation, ventilatory management, and medication administration. The patient stated emphatically that she does NOT want any of the aforementioned interventions, and in the event of cardiac arrest, wants to be allowed to pass away. Daughter at bedside is in agreement, though notably patient does possess capacity for medical decisions. Patient's code status will be updated to DNR/DNI, and OOH DNR to be completed. Time Statement: Time spent in [id number] advance care planning discussion was 17 Minutes. ESTEPHANIE Zafar 03/24/2024 10:08 AM [place] 04243-02-03 23:38:09 The patient is Moderately Unstable - Medium risk of patient condition declining or worsening The patient's goals for the shift include get well The clinical goals for the shift include get well Over the shift, the patient did not make progress toward the following goals. Barriers to progression include . Recommendations to address these barriers include bed alarm, call mills. [facility]2025-02-03 14:06:42 The patient is Moderately Stable - Low risk of patient condition declining or worsening The patient's goals for the shift include get well The clinical goals for the shift include get well [place] 04243-02-03 10:36:27 Pt back on 10th floor. Will continue plan of care. [place] [id number] 10:05:29 RN received report from JESUS ASHLEY Ureña saying pt will not go for procedure as there is no need, pt is in normal sinus rhythm. Will continue plan of care once pt returns to 10th floor. [place] [id number] 09:06:21 Pt picked up from 10th floor to be taken for procedure, daughter is at bedside, all personal belongings are in pt's bedroom. Will continue plan of care once pt returns. [place] [id number] 06:00:00 PT IS SCHEDULED FOR PROCEDURE,CONSENT SIGNED, NPO MAINTAINED [facility]2025-02-02 23:33:00 The patient is Moderately Unstable - Medium risk of patient condition declining or worsening The patient's goals for the shift include get well The clinical goals for the shift include get well Over the shift, the patient did not make progress toward the following goals. Barriers to progression include . Recommendations to address these barriers include .BED AABETH MARTÍNEZ [facility]2025-02-02 15:00:56 The patient is Moderately Stable - Low risk of patient condition declining or worsening The patient's goals for the shift include get well The clinical goals for the shift include get well Over the shift, the patient did not make progress toward the following goals. Barriers to progression include . Recommendations to address these barriers include . [place] 398225-02-02 07:19:09 The patient is Moderately Stable - Low risk of patient condition declining or worsening The patient's goals for the shift include get well The clinical goals for the shift include get well Over the shift, the patient did not make progress toward the following goals. Barriers to progression include . Recommendations to address these barriers include . [place] 398225-02-01 23:44:00 The patient is Moderately Unstable - Medium risk of patient condition declining or worsening The patient's goals for the shift include get well The clinical goals for the shift include get well Over the shift, the patient did not make progress toward the following goals. Barriers to progression include . Recommendations to address these barriers include safetym bed alarm, call mills. [place] 04243-02-01 17:45:00 Pt's daughter has been at the bedside since morning. OOB to chair for meals with assisted by staff. Pt was taken back in back with no incident. Daughter at bedside. [facility]2025-02-01 15:34:06 The patient is Moderately Stable - Low risk of patient condition declining or worsening The patient's goals for the shift include get well The clinical goals for the shift include get well Over the shift, the patient did not make progress toward the following goals. Barriers to progression include . Recommendations to address these barriers include . [place] 04243-02-01 09:52:16 The patient is Moderately Stable - Low risk of patient condition declining or worsening The patient's goals for the shift include get well The clinical goals for the shift include get well Over the shift, the patient did not make progress toward the following goals. Barriers to progression include . Recommendations to address these barriers include . [place] 398225-01-31 22:14:49 The patient is Moderately Unstable - Medium risk of patient condition declining or worsening The patient's goals for the shift include To get better The clinical goals for the shift include To get better [facility]2025-01-31 15:05:43 The patient is Moderately Stable - Low risk of patient condition declining or worsening The patient's goals for the shift include To get better The clinical goals for the shift include To get better [place] 398225-01-31 10:26:34 The patient is Moderately Stable - Low risk of patient condition declining or worsening The patient's goals for the shift include To get better The clinical goals for the shift include To get better [place] 398225-01-30 19:55:30 The patient is Moderately Stable - Low risk of patient condition declining or worsening The patient's goals for the shift include To get better The clinical goals for the shift include To get better [place] 398225-01-30 12:16:00 The patient is Moderately Stable - Low risk of patient condition declining or worsening The patient's goals for the shift include To get better The clinical goals for the shift include To get better [place] 398225-01-30 02:09:47 The patient is Moderately Unstable - Medium risk of patient condition declining or worsening The patient's goals for the shift include To get better The clinical goals for the shift include To get better l [place] [id number] 13:21:00 Associated Order(s): ECG 12 lead (arrhythmia) History of Present Illness: Chief Complaint: Patient presents with Fall Fall this AM with walker, was walking forward and suddenly started to walk backwards. Neg loc, Pt is taking eliquis. This is an 84-year-old female who ambulates at baseline with a walker. The chief complaint and reason for visit is unsteady gait, mechanical fall. The patient became weak and had difficulty ambulating and performing ADLs, missed stepped, stumbled, fell backwards. Patient denies any significant acute traumatic injury. There is an underlying concern because the patient is on apixaban. Recent admission to [facility]: Patient was admitted on February 19, 2024 for respiratory failure, pneumonia, new onset atrial fibrillation. The patient has underlying history of benign essential tremors. Patient was admitted to the hospital for new onset atrial fibrillation with RVR, pneumonia, hypoxemia. She was started on beta-blockers, metoprolol 25 mg by mouth twice daily and antibiotics as well as Eliquis and had gradual improvement in her symptoms. She had been weaned off of the oxygen and tolerating room air. On February 20 she had some pauses in the morning likely secondary to hypokalemia. Potassium was repleted and metoprolol was reduced to 12.5 mg by mouth twice daily. Since then she had not experienced further pause or bradycardia. Antibiotics were transitioned to oral antibiotics. The patient was on Augmentin at the time of discharge. She had done well and is ambulatory with a walker with PT and has remained afebrile and white blood cell count has normalized. Blood culture showed no growth in 5 days. She was negative for flu, COVID, RSV. Patient was discharged home with home health/PT and antibiotics. Patient is on metoprolol for blood pressure, Eliquis for anticoagulation. The patient's family states that she has had progressively worsening weakness and is at serious risk of falling. The patient states that she has become increasingly more weak and having difficulties with ADLs. The patient sustained a fall in November and December causing a fracture of the proximal left humerus/left shoulder area. The patient ended up getting an upper respiratory infection toward the end of January around [place] time that turned into pneumonia. History provided by: Patient and caregiver electrical logger used: No PCP: PMHx: PSHx: PSocHx: Meds: PMHx: Patient History History reviewed. No pertinent past medical history. History reviewed. No pertinent surgical history. No family history on file. Social History: Tobacco Use Smoking status: Never Smokeless tobacco: Current Substance Use Topics Alcohol use: Not on file Drug use: Never Review of Systems: Review of Systems Constitutional: Positive for activity change and appetite change. Negative for chills, fatigue and fever. HENT: Negative for congestion, facial swelling, nosebleeds, postnasal drip, sinus pressure, sinus pain and trouble swallowing. Respiratory: Negative for cough, chest tightness, shortness of breath, wheezing and stridor. Cardiovascular: Negative for chest pain, palpitations and leg swelling. Gastrointestinal: Negative for abdominal pain, anal bleeding, blood in stool, constipation, diarrhea, nausea, rectal pain and vomiting. Genitourinary: Negative for dysuria, flank pain, frequency, hematuria and urgency. Musculoskeletal: Positive for gait problem. Negative for arthralgias, back pain, joint swelling, myalgias, neck pain and neck stiffness. Limited range of motion of the left shoulder secondary to recent fracture. Skin: Negative for pallor, rash and wound. Allergic/Immunologic: Negative for immunocompromised state. Neurological: Positive for weakness. Negative for dizziness, seizures, facial asymmetry, speech difficulty, light-headedness, numbness and headaches. Hematological: Negative for adenopathy. Bruises/bleeds easily. Psychiatric/Behavioral: Negative. All other systems reviewed and are negative. Triage Vitals: BP: 143/68, Heart Rate: (!) 112, Temp: 36.5 ?C (97.7 ?F), Resp: 20, SpO2: 97 % Physical Exam: Vitals and nursing note reviewed. Constitutional: General: She is not in acute distress. Appearance: Normal appearance. She is normal weight. She is not ill-appearing. Comments: Required assistance transferring from ED wheelchair to ED stretcher. He required 2 person support as she was unable to stand on her own power for very long without having a clinically obvious risk of fall here in the emergency department by my assessment. Not ill-appearing. Nontoxic in appearance. HENT: Head: Normocephalic and atraumatic. Right Ear: Tympanic membrane, ear canal and external ear normal. Left Ear: Tympanic membrane, ear canal and external ear normal. Nose: Nose normal. Mouth/Throat: Mouth: Mucous membranes are moist. Pharynx: Oropharynx is clear. Eyes: Extraocular Movements: Extraocular movements intact. Conjunctiva/sclera: Conjunctivae normal. Pupils: Pupils are equal, round, and reactive to light. Cardiovascular: Rate and Rhythm: Tachycardia present. Rhythm irregular. Pulses: Normal pulses. Heart sounds: Normal heart sounds. Pulmonary: Effort: Pulmonary effort is normal. Breath sounds: Normal breath sounds. Abdominal: General: Abdomen is flat. Bowel sounds are normal. Palpations: Abdomen is soft. Tenderness: There is no abdominal tenderness. There is no guarding or rebound. Hernia: No hernia is present. Musculoskeletal: General: Tenderness present. Normal range of motion. Cervical back: Normal range of motion and neck supple. Right lower leg: No edema. Left lower leg: No edema. Comments: Limited active and passive range of motion of the left shoulder joint secondary to suspected fracture of the proximal left humerus versus left shoulder area. Radiographic studies pending. Kyphotic spine. No clinically significant vertebral point tenderness to the cervical spine, thoracic spine or lumbar spine area. No clinically significant paravertebral tenderness. No direct pain or tenderness elicited by the patient on direct palpation of the entire spine area. Skin: General: Skin is warm and dry. Capillary Refill: Capillary refill takes less than 2 seconds. Comments: No visible traumatic contusions, abrasions or lacerations. Neurological: General: No focal deficit present. Mental Status: She is alert and oriented to person, place, and time. Sensory: No sensory deficit. Motor: Weakness present. Coordination: Coordination abnormal. Gait: Gait abnormal. Psychiatric: Mood and Affect: Mood normal. Behavior: Behavior normal. Thought Content: Thought content normal. Judgment: Judgment normal. Procedures Performed: ECG 12 lead (arrhythmia) Performed by: ESTEPHANIE Viveros Authorized by: ESTEPHANIE Viveros ECG interpreted by ED Physician in the absence of a form setter steel pan forms: yes Previous ECG: Previous ECG: Unavailable Interpretation: Interpretation: non-specific Details: EKG obtained and contemporaneously interpreted by me on March 18, 2024 at 1937 hrs. Rate: ECG rate: Ventricular rate of 111 bpm. Rhythm: Rhythm: atrial fibrillation QRS: QRS axis: Left T waves: T waves: non-specific Q waves: Abnormal Q-waves: not present Comments: MO interval nonexistent. QRS duration 90 ms. Atrial fibrillation with RVR with premature ventricular complexes. LAD. Low voltage QRS. Slight artifact present. No STEMI. ED Course : Medical Decision Making The patient was received into the emergency department examination room. The patient was initially evaluated and screened to determine if there was any significant acute life-threatening disease and/or acute injury or infectious disease process present with this patient upon immediate arrival to the emergency department examination room. The patient was placed on a bedside awake overnight monitor. I ensured that the patient had a properly sized and fitted blood pressure cuff in place. The patient was placed on a bedside pulse oximetry monitor. The patient's vital signs were continuously monitored and were reassessed on serial reassessments of the patient and their vital signs when I presented to the patient's emergency department examination room for periodic reassessments of the patient's status. After reviewing/discussing the patient's history of present illness, asking pertinent review of systems questions, and obtaining an appropriate, clinically necessary and extensive physical examination on the patient, I outlined several differential diagnoses with the patient/patient's family and outlined my initial emergency department plan for work-up and assessment of this patient. I also performed an extensive family history and social history on the patient and took this into consideration as part of my work-up on this patient during this emergency department visit. I reviewed all of the medications that the patient is currently taking on my assessment of this patient and included the patient's current medications as part of my medical decision-making process. When applicable, I thoroughly reviewed the patient's medication list, reviewed the medications that the patient is currently taking including listed names of medications as outlined below, milligram dosages, route of administration and took these medications into consideration when considering the administration of other medications for the overall safety of the patient. If the patient cannot speak for themselves, I ensured that I had an authorized family member present to outline the above listed pertinent factors necessary to determine the best care and course of action for this patient throughout their emergency department visit. When applicable and necessary, certified language translators were utilized to ensure appropriate clarification of all of the medical decision-making components of the patient's visit. When applicable and if available, I included summaries of prior medical records reviewed and/or notes obtained from the patient and/or patient's family, particularly external sources (unique source or sources) or those sources offered by a different medical specialty were reviewed in detail, taken into consideration, and outlined below if necessary for this patient's care and disposition for this emergency department visit. Discussed and disclosed with the patient and/or patient's family the necessity to order appropriate clinical diagnostic laboratory analysis and testing up to and including appropriate diagnostic imaging studies/radiographic studies up to and including appropriate x-rays, CAT scans when applicable, the use of ultrasound technology when applicable, and/or the use of magnetic resonance imaging when necessary and applicable for the overall evaluation and assessment of this patient throughout the course of their emergency department stay. Thoroughly reviewed all laboratory test that were ordered with the patient and/or patient's family. Thoroughly reviewed and discussed with the patient and/or patient's family all ordered radiographic and/or diagnostic imaging studies that were ordered and taken into consideration for the overall care and treatment of this patient. Primary concern and reason for admission is the fact that the patient is anticoagulated and has been recently prescribed anticoagulation therapy secondary to new onset or new diagnosis of atrial fibrillation. The patient is at high risk for falls. The patient has an unsteady gait and has demonstrated increased weakness causing her to fall this morning. With limited mobility and limited ADLs, I clinically feel that the patient is a high fall risk with the potential underlying risk factors and concerns for traumatic brain injury, subdural hematoma, intracranial hemorrhage, orthopedic injury, spine injury, etc. Clinically feel that the patient needs to be admitted to the hospital for optimal management of this patient in order to disposition her accordingly so that she is in a safe environment. I also took into consideration consulting with the patient's established neurologist for consult tomorrow morning, as this was a request of the patient and the patient's family. The patient states that she is established with Dr. Eldridge who is a neurologist and they were requesting to know if he might be able to see her while she is in the hospital. Extensive ED workup. No significant outliers. No concerns for sepsis. No concerns for pneumonia. No concerns for UTI. CT scan of the brain was ordered and reviewed. No intracranial hemorrhage. No stroke. No cervical spine injury. Amount and/or Complexity of Data Reviewed Labs: ordered. Decision-making details documented in ED Course. Radiology: ordered. Decision-making details documented in ED Course. ECG/medicine tests: ordered and independent interpretation performed. Decision-making details documented in ED Course. Discussion of management or test interpretation with external provider(s): Consulted with the hospitalist on-call for this case. Discussed the HPI, clinical presentation, physical examination, all objective data and findings, and underlying requested necessity for admission to the hospital for further work-up and evaluation. Discussed ED course and work-up. Discussed the underlying clinical concerns. The patient was accepted for admission. I also put a consult in for the patient's established neurologist, Dr. Jarod Eldridge with hopes that he might be consulted tomorrow to be able to round on the patient and evaluate the patient while she is here in the hospital to assist with ultimate disposition. Risk Prescription drug management. ED Course: as of 03/18/242221Mar 18, 20241954 WBC: 7.63 [WW] 1954 Hematocrit: 44.5 [WW] 1954 Hgb: 14.3 [WW] 1954 Plt Count: 276 Normal white blood cell count. Normal H&H. Normal platelet count. No shift in the differential. [WW] 1955 INR(!): 1.74 INR 1.74. [WW] 1955 Potassium Lvl(!): 3.2 Potassium 3.2. [WW] ED Course: User Index [WW] ESTEPHANIE Viveros Diagnoses as of 03/18/242221 Accidental fall, initial encounter Impaired mobility and ADLs At high risk for falls Atrial fibrillation, unspecified type (CMS/HCC) (HCC) Generalized weakness Hypokalemia Anticoagulation adequate with anticoagulant therapy Last Recorded Vitals: BP: 128/68, Heart Rate: 70, Temp: 36.6 ?C (97.8 ?F), Resp: 16, SpO2: 95 % Medications Medications Potassium chloride solution 40 mEq (40 mEq Oral Given 03/18/242212) Labs Ordered and Reviewed Labs Reviewed BASIC METABOLIC PANEL - Abnormal Result Value Glucose Lvl 110 (*) BUN 13 Creatinine Lvl 0.65 Sodium Lvl 139 Potassium Lvl 3.2 (*) Chloride Lvl 96 (*) CO2 Lvl 35.6 (*) Anion Gap 10.6 Calcium Lvl 9.3 eGFR 86 HEPATIC FUNCTION PANEL - Abnormal Protein 6.8 Albumin Lvl 3.3 (*) Bilirubin Total 1.19 (*) Bilirubin Direct 0.5 (*) Bilirubin Indirect 0.7 Alkaline Phosphatase 47 AST 30 ALT 18 Globulin, Calc 3.5 Albumin/Globulin Ratio 0.94 PROTIME-INR - Abnormal Prothrombin Time (PT) 20.5 (*) INR 1.74 (*) PTT - Abnormal PTT 37.5 (*) AUTOMATED DIFFERENTIAL - Abnormal Segs % 70.9 (*) Lymphs % 17.8 Monos % 10.2 Eos % 0.3 Basos % 0.4 Immature Grans % 0.4 Segs # 5.41 Lymphs # 1.36 Monos # 0.78 Eos # 0.02 Basos # 0.03 Imm Grans # 0.03 UA WITH CULTURE IF INDICATED - Abnormal UA Color Yellow UA Turbidity Clear UA Spec Grav 1.010 UA pH 7.0 UA Protein Negative UA Glucose Negative UA Ketones Trace (*) UA Bilirubin Negative UA Blood Negative UA Urobilinogen <=1.0 UA Nitrite Negative UA Leuk Esterase Small (*) UA Ascorbic Acid 40 (*) UA Sq Epi Few UA WBC 4 UA RBC (Num) 1 UA Bacteria Occasional UA Mucus Few TROPONIN I HIGH SENSITIVITY (SINGLE ORDER) - Normal HS Troponin I 6 COMPLETE BLOOD COUNT - Normal WBC 7.63 RBC 4.92 NRBC % 0.0 Hgb 14.3 Hct 44.5 MCV 90.4 MCH 29.1 MCHC 32.1 RDW - SD 43.2 Plt Count 276 MPV 9.7 LIPASE LEVEL - Normal Lipase Lvl 27 MAGNESIUM LEVEL - Normal Magnesium 1.61 PHOSPHORUS LEVEL - Normal Phosphorus Lvl 2.7 COMPLETE BLOOD COUNT W/DIFF AND PLATELET Narrative: The following orders were created for panel order Complete Blood Count w/Diff and Platelet. Procedure Abnormality Status --------- ------ Complete Blood Count[[id number]] Normal Final result Automated Differential[[id number]] Abnormal Final result Please view results for these tests on the individual orders. Radiology Interpretations Trauma CT CERVICAL SPINE WO IV CONTRAST Final Result No acute abnormality of the cervical spine. LOCATION: R16 This CT exam was performed according to our departmental dose optimization program, which includes automated exposure control, adjustment of the mA and/or kV according to the patient size and/or use of iterative reconstructive technique. Electronically signed by: Rubia Mclean MD 03/18/2024 09:06 PM ACCOUNTANCY PROFESSOR RP Trauma CT BRAIN WO IV CONTRAST Final Result No CT evidence of acute intracranial abnormality. Electronically signed by: Matt Arevalo MD 03/18/2024 09:03 PM ACCOUNTANCY PROFESSOR RP XR chest 1 view Final Result 1. Hilar fullness bilaterally is nonspecific may be related to vascular prominence or lymphadenopathy. 2. Proximal left humerus fracture better characterized on dedicated radiographs. Electronically signed by: Nestor Mckay MD 03/18/2024 07:55 PM ACCOUNTANCY PROFESSOR RP XR elbow 3+ views left Final Result No acute abnormality of the left elbow. Electronically signed by: Raza Jackson MD 03/18/2024 03:02 PM ACCOUNTANCY PROFESSOR RP XR humerus 2 views left Final Result Subacute appearing transverse, impacted fracture of the left humerus surgical neck, with suggestion of early healing. Electronically signed by: Raza Jackson MD 03/18/2024 03:05 PM ACCOUNTANCY PROFESSOR RP Impression Final diagnoses: [W19.XXXA] Accidental fall, initial encounter [Z74.09, Z78.9] Impaired mobility and ADLs [Z91.81] At high risk for falls [I48.91] Atrial fibrillation, unspecified type (CMS/HCC) (HCC) [R53.1] Generalized weakness [E87.6] Hypokalemia [Z79.01] Anticoagulation adequate with anticoagulant therapy Prescriptions New Prescriptions No medications on file Disposition: Admit/Observation ESTEPHANIE Viveros 03/18/242221 Cosigned by López Juárez MD at 03/19/2024 1:49 PM ACCOUNTANCY PROFESSOR UNTANCY PROFESSOR UNTANCY PROFESSOR Associated attestation - López Juárez MD - 03/19/2024 1:49 PM ACCOUNTANCY PROFESSOR I have discussed this patient's care with the Advanced Practice Provider, and I agree with the plan. López Juárez MD [facility]
[2024-06-04] MEDS ORDERED: IPRATROPIUM BROM 0.5MG/2.5ML ONE (05:28)
[2024-06-04] MEDS ORDERED: FUROSEMIDE 40 MG/4 ML VIAL ONE (05:28)
[2024-06-04] MEDS ORDERED: ALBUTEROL 2.5 MG/3 ML NEB SOL ONE (05:28)
[2024-06-04 05:29] LABS: Absolute Eosinophils 0.1 K/uL (0-0.5); Absolute Lymphocytes (CBC) 1.6 K/uL (0.7-4.9); Absolute Monocytes 0.6 K/uL (0.1-1.3); Basophils % 0.8 % (0-1.3); Eosinophils % 1.2 % (0-4.4); Hematocrit 41.8 % (36.0-45.0); Lymphocytes % 25.7 % (15.3-44.8); MCH 29.9 pg (27.0-35.0); MCHC 33.4 g/dL (32.0-36.0); MCV 89.4 fL (80-100); MPV 8.2 fL (7.6-11.3); Monocytes % 9.4 % (3.3-12.3); Neutrophils % 62.9 % (41.7-73.7); Nucleated Red Blood Cells % 0.1 % (0-0); Platelets 271 thou/uL (152-406); RBC Red Blood Cell Count 4.67 M/uL (3.86-4.86); Red Cell Distribution Width 14.9 % (12.1-15.2)
[2024-06-04 05:37] LABS: PT Prothrombin Time 15.3 SECONDS (10-13.0); PTT, Activated Partial Thromb 39.7 SECONDS (27.2-37.4); Protime INR 1.36
[2024-06-04 05:55] LABS: Albumin 3.4 g/dL (3.4-5.0); Anion Gap 10.4 mEq/L (5.0-15.0); Bilirubin Direct 0.4 mg/dL (0-0.2); Bilirubin Indirect, Calculated 0.9 mg/dL (0.2-0.8); Bilirubin Total 1.3 mg/dL (0.2-1.0); Globulin 3.5 g/dL (2.3-3.5); Magnesium 1.8 mg/dL (1.6-2.4); Potassium 3.4 mEq/L (3.5-5.1); Protein, Total 6.9 g/dL (6.4-8.2); Troponin High Sensitivity 24.6 pg/mL (<58.9)
[2024-06-04] MEDS ORDERED: POTASSIUM 25 MEQ EFFERV TAB ONE (06:06)
--- NOTE | 2024-06-04 06:28 | EDPHYS ---
Physician Documentation [facility] Name: Georgia Curry Age: 84 yrs Sex: Female : 1940 Arrival Date: 06/04/2024 Time: 05:12 Bed 8 Private MD: ED Physician Sukhwinder Fox HPI: 06/04 05:20 This 84 yrs old Female presents to ER via Wheelchair with complaints of Shortness of cp Breath. 05:20 The patient has shortness of breath at rest. Onset: The symptoms/episode began/occurred cp 2 day(s) ago. 05:20 Duration: The symptoms are continuous, and are steadily getting worse. The patient's cp shortness of breath is aggravated by light activity, supine position, is alleviated by sitting up. 05:20 Associated signs and symptoms: Pertinent positives: chest pain, Pertinent negatives: cp productive cough, diaphoresis, fever, hemoptysis, vomiting. Severity of symptoms: in the emergency department the symptoms are unchanged despite home interventions. Historical: - Allergies: 05:28 Codeine; cp4 05:28 Morphine; cp4 - Home Meds: 05:28 amlodipine 10 mg tablet 1 tab daily for Hypertension [Active]; aspirin 81 mg Oral cp4 capsule 1 cap daily [Active]; biotin 5 Oral tablet 1 tab daily [Active]; carvedilol 12.5 mg Oral tablet 1 tab 2 times per day [Active]; losartan-hydrochlorothiazide 100-25 mg Oral tablet 1 tab daily for Hypertension [Active]; [place]-3 oral 1000 mg 1 tab daily [Active]; simvastatin 40 mg Oral tablet 1 tab daily [Active]; vitamin b6 100 mg 1 tab daily [Active]; Vitamin C 500 mg Oral tablet 1 tab daily [Active]; Vitamin D3 50 mcg (2 Oral tablet 1 tab daily [Active]; vitamin E 268 mg (400 unit) Oral capsule 1 cap daily [Active]; - PMHx: 05:28 hernia repair of groin; Hypertensive disorder; hysterectomy; removal of benign tumor cp4 left breast; removal of benign tumor thyroid; - Immunization history:: Adult Immunizations up to date. - Infectious Disease History:: Denies. - Social history:: Smoking status: Patient denies any tobacco usage or history of. ROS: 05:25 Eyes: Negative for injury, pain, redness, and discharge, cp 05:25 Constitutional: Negative for body aches, chills, fever, poor PO intake, 05:25 ENT: Negative for drainage from ear(s), ear pain, sore throat, difficulty swallowing, difficulty handling secretions, 05:25 Cardiovascular: Positive for chest pain, edema, palpitations, 05:25 Respiratory: Positive for shortness of breath, at rest. Negative for cough, wheezing, 05:25 Abdomen/GI: Negative for abdominal pain, vomiting, diarrhea, constipation, 05:25 Neuro: Negative for altered mental status, dizziness, headache, numbness, weakness, 05:30 All other systems are negative, cp Exam: 05:33 ECG was reviewed by the Attending Physician. cp 05:35 Constitutional: The patient appears in no acute distress, alert, awake, cp non-diaphoretic, non-toxic, well developed, well nourished, uncomfortable, 05:35 Head/Face: Normocephalic, atraumatic. cp 05:35 Eyes: Periorbital structures: appear normal, Conjunctiva: normal, no exudate, no injection, Sclera: no appreciated abnormality, Lids and lashes: appear normal, bilaterally, 05:35 ENT: External ear(s): are unremarkable, Nose: is normal, Mouth: Lips: moist, Oral mucosa: moist, Posterior pharynx: Airway: no evidence of obstruction, patent, 05:35 Chest/axilla: Inspection: normal, 05:35 Cardiovascular: Rate: normal, Rhythm: irregular, Edema: ankle edema, that is mild, JVD: is not appreciated, 05:35 Respiratory: the patient does not display signs of respiratory distress, Respirations: labored breathing, that is mild, intercostal retractions, are absent, Breath sounds: decreased breath sounds, that are mild, throughout, stridor, is not appreciated, wheezing: is not appreciated, 05:35 Abdomen/GI: Inspection: abdomen appears normal, Palpation: abdomen is soft and non-tender, in all quadrants, 05:35 Back: pain, is absent, ROM is normal, 05:35 Skin: no rash present. 05:35 Neuro: Orientation: to person, place \T\ time. Mentation: is normal, Motor: moves all fours, strength is normal, Sensation: is normal, Vital Signs: 05:26 BP 176 / 115; Pulse 65; Resp 28; Temp 97.9; Pulse Ox 95% ; Weight 64.41 kg; Height 5 cp4 ft. 7 in. ; Pain 0/10; 06:27 BP 158 / 85; Pulse 97; Resp 19 S; Pulse Ox 93% on R/A; lg3 08:30 BP 146 / 86; Pulse 91; Resp 15; Pulse Ox 96% on R/A; hb 10:00 BP 156 / 86; Pulse 4; Resp 14; Pulse Ox 97% on R/A; hb 05:26 Body Mass Index 22.24 (64.41 kg, 170.18 cm) cp4 05:26 Pain Scale: Adult cp4 MDM: 05:17 Medical Screening Exam initiated cp 06:27 Medical Screening Exam initiated cp 06:30 Data reviewed: vital signs, nurses notes, lab test result(s), EKG, radiologic studies, cp plain films, I have discussed the patient's presentation/case with the attending Emergency Department Physician; and as a result, I will admit patient. 06:30 Consideration of Admission/Observation Patient was admitted/placed on observation. cp Management of patient was discussed with the following: Hospitalist: Meche Ashraf WATER QUALITY TECHNICIAN will admit to hospitalist service after discussion. I considered the following discharge prescriptions or medication management in the emergency department Medications were administered in the Emergency Department. See MAR. Independent interpretation of the following test(s) in the Emergency Department EKG: See my EKG interpretation above. Care significantly affected by the following chronic conditions: Hypertension. Counseling: I had a detailed discussion with the patient and/or guardian regarding the historical points, exam findings, and any diagnostic results supporting the discharge/admit diagnosis, lab results, the need for further work-up and treatment in the hospital. Response to treatment: the patient's symptoms have mildly improved after treatment. 06/04 05:18 Order name: Basic Metabolic Panel; Complete Time: 05:55 cp 06/04 06:25 Interpretation: Normal except: K 3.4; CO2 34; GLUC 113; BUN 20; GFR 68. cp 06/04 05:18 Order name: CBC with Diff; Complete Time: 05:55 cp 06/04 05:18 Order name: LFT's; Complete Time: 05:55 cp 06/04 06:25 Interpretation: Normal except: BILIT 1.3; BILID 0.4; IBILI, CALC 0.9; A/G 1.0. cp 06/04 05:18 Order name: Magnesium; Complete Time: 05:55 cp 06/04 05:18 Order name: NT PRO-BNP; Complete Time: 05:55 cp 06/04 06:26 Interpretation: Reviewed. cp 06/04 05:18 Order name: PT-INR; Complete Time: 05:55 cp 06/04 05:18 Order name: Troponin HS; Complete Time: 05:55 cp 06/04 06:26 Interpretation: Reviewed. cp 06/04 05:18 Order name: Ptt, Activated; Complete Time: 05:55 cp 06/04 09:16 Order name: Basic Metabolic Panel EDMS 06/04 09:16 Order name: Basic Metabolic Panel EDMS 06/04 09:16 Order name: Magnesium EDMS 06/04 09:16 Order name: Magnesium EDMS 06/04 09:16 Order name: Phosphorus EDMS 06/04 09:16 Order name: Phosphorus EDMS 06/04 05:18 Order name: XRAY Chest (1 view); Complete Time: 07:21 cp 06/04 05:18 Order name: Cardiac monitoring; Complete Time: 05:26 cp 06/04 05:18 Order name: EKG - Nurse/Tech; Complete Time: 05:26 cp 06/04 05:18 Order name: IV Saline Lock; Complete Time: 05:26 cp 06/04 05:18 Order name: Labs collected and sent; Complete Time: 05:26 cp 06/04 05:18 Order name: O2 Per Protocol; Complete Time: 05:26 cp 06/04 05:18 Order name: O2 Sat Monitoring; Complete Time: 05:26 cp EC:33 Rate is 80 beats/min. Rhythm is irregular. QRS interval is normal. QT interval is cp normal. Interpreted by me. Reviewed by me. Administered Medications: 05:35 Drug: DuoNeb Nebulize (2.5 mg - 0.5 mg) 3 ml Nebulizer once Route: Nebulizer; dd2 06:28 Follow up: Response: No adverse reaction lg3 05:36 Drug: Furosemide IVP 40 mg IVP once; give over 2 minutes Route: IVP; Site: right dd2 forearm; 06:28 Follow up: Response: No adverse reaction lg3 06:04 Drug: Potassium PO Effervescent Tablet 50 mEq PO once; dissolve in 4 ounces of water or cp4 juice Route: PO; 06:28 Follow up: Response: No adverse reaction lg3 Disposition Summary: 06/04/24 06:27 Hospitalization Ordered Notes: Hospitalization Status: Inpatient Admission cp Provider: Araceli Jimenes cp Condition: Stable cp Problem: new cp Symptoms: have improved cp Bed/Room Type: Standard cp Location: Telemetry/MedSurg (Inpatient)(06/04/24 19:09) sp Room Assignment: 410(06/04/24 19:09) sp Diagnosis - Unspecified combined systolic (congestive) and diastolic (congestive) heart failure cp - Dyspnea, unspecified cp - Hypokalemia cassy - Persistent atrial fibrillation 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 Signatures: Dispatcher [employer] EDKS Vanita Lafleur Corey, MD MD cha Pinkerton, Shawna sp Page, Corey, PA PA cp Potter, Christina cp4 MALIA CORMIER RN RN dd2 Maegan Marroquin RN lg3 Corrections: (The following items were deleted from the chart) 06/04 05:19 05:19 BASIC METABOLIC PANEL+C.LAB.BRZ ordered. EDMS EDMS 05:19 05:19 CBC+H.LAB.BRZ ordered. EDMS EDMS 05:19 05:19 HEPATIC FUNCTION+C.LAB.BRZ ordered. EDMS EDMS 05:19 05:19 MAGNESIUM+C.LAB.BRZ ordered. EDMS EDMS 05:19 05:19 PROBNP+C.LAB.BRZ ordered. EDMS EDMS 05:19 05:19 PROTIME (+INR)+COAG.LAB.BRZ ordered. EDMS EDMS 05:19 05:19 Troponin High Sensitivity+C.LAB.BRZ ordered. EDMS EDMS 05:19 05:19 PTT, ACTIVATED+COAG.LAB.BRZ ordered. EDMS EDMS 05:19 05:19 Chest Single View+RAD.RAD.BRZ ordered. EDMS EDMS 06:00 05:55 Constitutional: Negative for body aches, chills, fever, poor PO intake, cp cp 06:00 05:55 Cardiovascular: Positive for chest pain, edema, palpitations, cp cp 06:00 05:55 Respiratory: Positive for shortness of breath, at rest. Negative for cough, cp wheezing, cp 06:00 05:55 Abdomen/GI: Negative for abdominal pain, vomiting, diarrhea, constipation, cp cp 06:00 05:55 Eyes: Negative for injury, pain, redness, and discharge, cp cp 06:00 05:55 ENT: Negative for drainage from ear(s), ear pain, sore throat, difficulty cp swallowing, difficulty handling secretions, cp 06:00 05:55 Neuro: Negative for altered mental status, dizziness, headache, numbness, cp weakness, cp 10: 06:27 Telemetry/MedSurg (Inpatient) cp bd 10:15 06:27 cp bd 13:40 05:55 All other systems are negative, cp cp 19: 10:15 [facility] ER HOLD bd sp 19: 10:15 ERHOLD- bd sp
--- NOTE | 2024-06-04 06:28 | ER ---
Nurse's Notes [facility] Name: Georgia Curry Age: 84 yrs Sex: Female : 1940 Arrival Date: 06/04/2024 Time: 05:12 Bed 8 Private MD: Diagnosis: Unspecified combined systolic (congestive) and diastolic (congestive) heart failure;Dyspnea, unspecified;Hypokalemia;Persistent atrial fibrillation;penitentiary (current) use of anticoagulants Presentation: 06/04 05:26 Chief complaint: Patient states: chest pain and shortness of breath that started two cp4 days ago. Currently has no chest pain but is short of breath. Hx of afib. Coronavirus screen: Client denies travel out of the [place] in the last 14 days. At this time, the client does not indicate any symptoms associated with coronavirus-19. Ebola Screen: Patient negative for fever greater than or equal to 101.5 degrees Fahrenheit, and additional compatible Ebola Virus Disease symptoms Patient denies exposure to infectious person. Patient denies travel to an Ebola-affected area in the 21 days before illness onset. No symptoms or risks identified at this time. Initial Sepsis Screen: Does the patient meet any 2 criteria? RR > 20 per min. No. Patient's initial sepsis screen is negative. Does the patient have a suspected source of infection? No. Patient's initial sepsis screen is negative. Risk Assessment: Do you want to hurt yourself or someone else? Patient reports no desire to harm self or others. Onset of symptoms was June 02, 2024. 05:26 Method Of Arrival: Wheelchair cp4 05:26 Acuity: MATTHEW 3 cp4 Triage Assessment: 05:28 General: Appears in no apparent distress. uncomfortable, Behavior is calm, cooperative, cp4 appropriate for age. Historical: - Allergies: 05:28 Codeine; cp4 05:28 Morphine; cp4 - Home Meds: 05:28 amlodipine 10 mg tablet 1 tab daily for Hypertension [Active]; aspirin 81 mg Oral cp4 capsule 1 cap daily [Active]; biotin 5 Oral tablet 1 tab daily [Active]; carvedilol 12.5 mg Oral tablet 1 tab 2 times per day [Active]; losartan-hydrochlorothiazide 100-25 mg Oral tablet 1 tab daily for Hypertension [Active]; [place]-3 oral 1000 mg 1 tab daily [Active]; simvastatin 40 mg Oral tablet 1 tab daily [Active]; vitamin b6 100 mg 1 tab daily [Active]; Vitamin C 500 mg Oral tablet 1 tab daily [Active]; Vitamin D3 50 mcg (2 Oral tablet 1 tab daily [Active]; vitamin E 268 mg (400 unit) Oral capsule 1 cap daily [Active]; - PMHx: 05:28 hernia repair of groin; Hypertensive disorder; hysterectomy; removal of benign tumor cp4 left breast; removal of benign tumor thyroid; - Immunization history:: Adult Immunizations up to date. - Infectious Disease History:: Denies. - Social history:: Smoking status: Patient denies any tobacco usage or history of. Screenin:23 [facility] ED Fall Risk Assessment (Adult) History of falling in the last 3 months, lg3 including since admission No falls in past 3 months (0 pts) Confusion or Disorientation No (0 pts) Intoxicated or Sedated No (0 pts) Impaired Gait No (0 pts) Mobility Assist Device Used No (0 pt) Altered Elimination No (0 pt) Score/Fall Risk Level 0 - 2 = Low Risk Oriented to surroundings, Maintained a safe environment, Educated pt \T\ family on fall prevention, incl call for assistance when getting out of bed, Assessed \T\ reinforced patient's understanding of fall precautions. Abuse screen: Denies threats or abuse. Denies injuries from another. Nutritional screening: No deficits noted. Tuberculosis screening: No symptoms or risk factors identified. Assessment: 05:23 General: Appears in no apparent distress. comfortable, Behavior is calm, cooperative. lg3 Pain: Complains of pain in chest Pain does not radiate. Neuro: No deficits noted. Reyes Agitation-Sedation Scale (RASS): 0 - Alert and Calm Level of Consciousness is awake, alert, obeys commands, Oriented to person, place, time, situation. Cardiovascular: Reports chest pain, shortness of breath, Capillary refill < 3 seconds Clubbing of nail beds is absent JVD is absent Patient's skin is warm and dry. Chest pain is described as mild, quality is heaviness, is located in chest wall. Respiratory: Reports shortness of breath at rest Airway is patent Respiratory effort is even, Respiratory pattern is tachypnea Breath sounds with crackles bilaterally. GI: No deficits noted. No signs and/or symptoms were reported involving the gastrointestinal system. : No signs and/or symptoms were reported regarding the genitourinary system. EENT: No deficits noted. No signs and/or symptoms were reported regarding the EENT system. Derm: No deficits noted. No signs and/or symptoms reported regarding the dermatologic system. Skin is intact, is thin, Skin is dry, Skin is normal, Skin temperature is warm. Musculoskeletal: No deficits noted. No signs and/or symptoms reported regarding the musculoskeletal system. Circulation, motion, and sensation intact. Range of motion: intact in all extremities. 06:27 Reassessment: Patient appears in no apparent distress at this time. No changes from lg3 previously documented assessment. Patient and/or family updated on plan of care and expected duration. Pain level reassessed. Patient is alert, oriented x 3, equal unlabored respirations, skin warm/dry/pink. 08:30 Reassessment: Patient appears in no apparent distress at this time. Patient and/or hb family updated on plan of care and expected duration. Pain level reassessed. Patient is alert, oriented x 3, equal unlabored respirations, skin warm/dry/pink. 10:27 Reassessment: Patient appears in no apparent distress at this time. Patient and/or hb family updated on plan of care and expected duration. Pain level reassessed. Patient is alert, oriented x 3, equal unlabored respirations, skin warm/dry/pink. Vital Signs: 05:26 BP 176 / 115; Pulse 65; Resp 28; Temp 97.9; Pulse Ox 95% ; Weight 64.41 kg; Height 5 cp4 ft. 7 in. ; Pain 0/10; 06:27 BP 158 / 85; Pulse 97; Resp 19 S; Pulse Ox 93% on R/A; lg3 08:30 BP 146 / 86; Pulse 91; Resp 15; Pulse Ox 96% on R/A; hb 10:00 BP 156 / 86; Pulse 4; Resp 14; Pulse Ox 97% on R/A; hb 05:26 Body Mass Index 22.24 (64.41 kg, 170.18 cm) cp4 05:26 Pain Scale: Adult cp4 ED Course: 05:14 Patient arrived in ED. lg3 05:17 Sukhwinder Fowler PA is PHCP. cp 05:17 Sukhwinder Fox MD is Attending Physician. cp 05:23 Able, Maegan, RN is Primary Nurse. lg3 05:23 Patient has correct armband on for positive identification. Placed in gown. Bed in low lg3 position. Call light in reach. Side rails up X 1. Client placed on continuous cardiac and pulse oximetry monitoring. NIBP monitoring applied. cafeteria monitor on. Door closed. Noise minimized. Warm blanket given. Pillow given. Family accompanied patient. 05:23 Initial lab(s) drawn, by me, sent to lab. EKG done, by ED staff, reviewed by Sukhwinder Fowler lg3 ESTEPHANIE. Inserted saline lock: 22 gauge in right forearm, using aseptic technique. Blood collected. Flushed with 10 mL NS. Patient maintains SpO2 saturation greater than 95% on room air. 05:26 Ptt, Activated Sent. lg3 05:27 Basic Metabolic Panel Sent. lg3 05:27 CBC with Diff Sent. lg3 05:27 LFT's Sent. lg3 05:27 Magnesium Sent. lg3 05:27 NT PRO-BNP Sent. lg3 05:27 PT-INR Sent. lg3 05:27 Troponin HS Sent. lg3 05:28 Triage completed. cp4 05:28 Arm band placed on right wrist. Patient placed in waiting room. EKG completed in 4 triage. Results shown to MD. 05:29 XRAY Chest (1 view) In Process Unspecified. EDMS 06:27 Araceli Jimenes MD is Hospitalizing Provider. 07:03 Primary Nurse role handed off by Maegan Marroquin, RN bd 10:27 Provided Education on: need for admit. hb 10:27 No provider procedures requiring assistance completed. Patient admitted, IV remains in hb place. Administered Medications: 05:35 Drug: DuoNeb Nebulize (2.5 mg - 0.5 mg) 3 ml Nebulizer once Route: Nebulizer; dd2 06:28 Follow up: Response: No adverse reaction lg3 05:36 Drug: Furosemide IVP 40 mg IVP once; give over 2 minutes Route: IVP; Site: right dd2 forearm; 06:28 Follow up: Response: No adverse reaction lg3 06:04 Drug: Potassium PO Effervescent Tablet 50 mEq PO once; dissolve in 4 ounces of water or cp4 juice Route: PO; 06:28 Follow up: Response: No adverse reaction lg3 Medication: 06:04 VIS not applicable for this client. vc1 Outcome: 06:27 Decision to Hospitalize by Provider. cp 10:27 Admitted to ER Hold. Please see [facility] for further documentation. hb 10:27 Condition: stable 10:27 Instructed on the need for admit, Demonstrated understanding of instructions, 21:05 Patient left the ED. br2 Signatures: Dispatcher [employer] EDMS Vanita Lafleur Corey, PA PA cp Fatou Jacobsen RN ASHLEY Able, Maegan RN RN lg3 Katarina Curry RN RN vc1 Rianna Camarillo cp4 Kaci Gaspar RN RN br2 MALIA CORMIER RN RN dd2
--- NOTE | 2024-06-04 06:52 | RAD REPORT ---
EXAM: XR Chest, 1 View CLINICAL HISTORY: The patient is 84 years old and is Female; SOB. TECHNIQUE: Single view of the chest. COMPARISON: XR Chest 03/18/2024. FINDINGS: Lungs: No pulmonary vascular congestion or consolidation. Pleural space: Unremarkable. No pneumothorax. Heart: The cardiac silhouette is enlarged versus artifact of AP technique. Mediastinum: Unremarkable. Bones/joints: Old fracture deformity in the proximal left humerus. Tubes, lines and devices: Left chest wall generator with leads extending into the neck. Upper abdomen: No free air in the visualized upper abdomen. IMPRESSION: No acute cardiopulmonary process identified. Electronically signed by: Alondra Murcia MD 06/04/2024 06:45 AM CDT RP V2 Due to temporary technical issues with the [employer] reporting system, reports are being leonardo d by the in-house radiologist without review as a courtesy to ensure prompt reporting the interpreting radiologist is fully responsible for the content of the report. Transcribed Date/Time: 06/04/2024 6:52 AM
[2024-06-04] MEDS: APIXABAN 2.5 MG TABLET PO SCH (09:06)
[2024-06-04] MEDS: METOPROLOL TAR 50 MG TAB PO SCH (09:07)
[2024-06-04] MEDS: FUROSEMIDE 20 MG/ 2ML VIAL IV SCH (09:09)
[2024-06-04] MEDS ORDERED: ALBUTEROL 2.5 MG/3 ML NEB SOL NEB PRN (09:10)
[2024-06-04] MEDS ORDERED: ONDANSETRON 4 MG/2 ML VIAL IV PRN (09:10)
[2024-06-04] MEDS ORDERED: ACETAMINOPHEN 500 MG TAB PO PRN (09:10)
--- NOTE | 2024-06-04 09:17 | P.HP ---
Certification for Inpatient With expected LOS: >2 Midnights Patient will require the following post-hospital care: None Practitioner: I am a practitioner with admitting privileges, knowledge of patient current condition, hospital course, and medical plan of care. Services: Services provided to patient in accordance with Admission requirements found in Title 42 Section 412.3 of the Code of Federal Regulations Patient History Date of Service: 06/04/24 Reason for admission: A-fib with RVR History of Present Illness: 84-year-old patient with history of atrial fibrillation presents with shortness of breath and palpitations, she was found to have mild volume overload and afib, given Lasix, we were asked admit her. Her symptoms are improving by the time of my visit, heart rate was still in the 90s when I saw her. She is complaining of lower extremity edema for the last couple of days. She lost 40 pounds in the last 3 months due to hospitalization with pneumonia. Other than this she denies any other acute complaints. No headache or blackouts. No double vision or blurry vision. No cough or sputum production. No chest pain. No nausea or vomiting. No abdominal pain. No constipation or diarrhea. No blood in the urine or stool. No fever. No joint pains. Review of systems: All other 10 point review of systems are negative other than as mentioned above. Allergies and medications: Reviewed, as per med rec in EMR. 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 Mother had history of CVA Physical examination: Vital signs: Reviewed, as per EMR. General appearance: Alert and comfortable HEENT: Extraocular movements intact, oral mucosa moist. 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, no obvious focal deficits Musculoskeletal: No obvious joint swelling or tenderness Allergies codeine Allergy (Unknown, Verified 02/19/24 13:26) Itching/Hives/Rash morphine Allergy (Unknown, Verified 02/19/24 13:26) Itching/Hives/Rash Home Medications: Amlodipine Besylate 10 mg PO BEDTIME 02/19/24 Ascorbic Acid/Ascorbate Sodium [Vitamin C 500 mg Tablet Chew] 500 mg PO DAILY 02/19/24 Biotin 5,000 mcg PO DAILY 02/19/24 Cholecalciferol (Vitamin D3) [Vitamin D3] 2,000 unit PO DAILY 02/19/24 Cyanocobalamin (Vitamin B-12) [Vitamin B12] 5,000 mcg PO DAILY 02/19/24 Docosahexanoic AC/Epa [Fish Oil 1,000 MG*] 1,000 mg PO DAILY 02/19/24 Losartan/Hydrochlorothiazide [Losartan-Hctz 100-25 mg Tab] 25 - 100 mg PO BEDTIME 02/19/24 [place]-3 Fatty Acids [[place]-3] 1,000 mg PO DAILY 02/19/24 Pyridoxine HCl (Vitamin B6) [Vitamin B6] 100 mg PO DAILY 02/19/24 Red Beet [Beet Root] 500 mg PO DAILY 02/19/24 Simvastatin 40 mg PO BEDTIME 02/19/24 Vitamin E 400 units PO DAILY 02/19/24 Amox/Clavulanate [Augmentin 875-125 Tab*] 875 mg PO BID 5 Days #10 tab 02/24/24 Apixaban [Eliquis] 5 mg PO BID #60 tab 02/24/24 Benzonatate [Tessalon Perle*] 100 mg PO TID PRN #25 cap 02/24/24 Metoprolol Tartrate [Lopressor*] 12.5 mg PO BID 6AM 6PM #60 tab 02/24/24 - Past Medical/Surgical History -: Hypertension -: Hyperlipidemia -: Removal of benign thyroid tumor -: Removal of benign breast tumor -: Hysterectomy -: Groin repair - Social History Alcohol use: No Physical Examination - Studies Laboratory Data (last 24 hrs) 06/04/24 06/04/24 06/04/24 05:21 05:21 05:21 WBC 6.40 Hgb 14.0 Hct 41.8 Plt Count 271 PT 15.3 H INR 1.36 APTT 39.7 H Sodium 143 Potassium 3.4 L BUN 20 H Creatinine 0.84 Glucose 113 H Magnesium 1.8 Total Bilirubin 1.3 H AST 17 ALT 19 Alkaline Phosphatase 48 Assessment and Plan - Plan Assessment and plan: 1. A-fib with RVR with mild volume overload: Resume home metoprolol, and Eliquis, she was given a dose of Lasix IV 40 in the emergency room, will start on IV Lasix 20 mg daily, will request cardiology consult, she had an echo couple of months back which showed 60 to 65% ejection fraction, mild pulmonary hypertension, further evaluation and management as per cardiology. 2. Hypokalemia: Replace and monitor. 3. Hypertension: Continue beta-addie, monitor blood pressure closely. 4. Hyperlipidemia 5. Weight loss of 40 pounds in the last 3 months after hospitalization for pneumonia few months back, will check TSH, she will need close follow-up with PCP with age-appropriate cancer screening. DVT prophylaxis: Willem CODE STATUS: DNR I discussed advanced directives with the patient, her daughter Luz Marina is the POA. I discussed all the above plan with the patient and family members at bedside, they all understand and agrees with the plan. - Advance Directives Does patient have a Living Will: No Does patient have a Durable POA for Healthcare: No
[2024-06-04] MEDS: POTASSIUM CL SA 10 MEQ TAB PO SCH (10:00)
[2024-06-04 10:39] VITALS: BMI 22.2
[2024-06-04] MEDS ORDERED: METOPROLOL TAR 50 MG TAB ONE (11:28)
[2024-06-04] MEDS ORDERED: FUROSEMIDE 20 MG/ 2ML VIAL ONE (11:29)
[2024-06-04] MEDS ORDERED: POTASSIUM CL SA 10 MEQ TAB PO ONE (11:29)
[2024-06-04] MEDS ORDERED: APIXABAN 2.5 MG TABLET ONE (11:29)
--- NOTE | 2024-06-04 23:58 | CON ---
Date of Consultation: 06/04/2024 Reason For Consultation: Atrial fibrillation with rapid ventricular response. History Of Present Illness: 84-year-old female, history of atrial fibrillation, presented with short ness of breath and palpitations, found to be in atrial fibrillation with rapid ventricular response, fluid overloaded. She did well. Heart rate has improved, but every time she does activities, heart rate goes higher. Past Medical History: Atrial fibrillation, hypertension, dyslipidemia. Medications: Refer reconciliation sheet for detailed list. Allergies: CODEINE AND MORPHINE. Family History: No premature coronary artery disease or cancer. Social History: Does not smoke or drink. Does not use any drugs. Review of Systems: All systems reviewed and are negative except as mentioned in the HPI. Physical Examination: Vital Signs: Reviewed. Head and Neck: Pupils are equal, reactive to light. Intact eye movements. No JVD. No cervical lym phadenopathy. Neck is supple. Thyroid is not enlarged. Lungs: Clear to auscultation bilaterally. No rhonchi, wheezing, or crackles. No accessory muscle u se. Heart: Irregularly irregular. No extra sounds. Abdomen: Soft, nontender. Bowel sounds positive. No organomegaly. No masses or hernia. No rigidi ty or rebound. Extremities: No clubbing or cyanosis. Intact pulses. Skin: No rash. No nodules. Neurologic: Alert, awake, oriented x3. No acute focal deficits appreciated. Investigations: BUN 20, creatinine 0.84. Hemoglobin is 14. Troponin is 24. NT-proBNP is 5399. Assessment And Recommendation: 1. Atrial fibrillation with rapid ventricular response. Recommend to load with IV amiodarone 150 mg over 10 minutes, and then 1 mg/minute for 6 hours, and then 0.5 mg/minute for 16 hours and then switc h to oral. Continue Eliquis. She has normal kidney function. She could potentially be on 5 mg twic e a day to have a better protection against stroke. Please increase the dose to 5 mg twice a day and continue metoprolol as well. 2. Congestive heart failure. I do not see signs of significant fluid overload. However, she is shor t of breath with activities. I agree with Lasix; however, this can be done orally and on an outpatie nt basis. The patient will follow up with her primary building services engineer post discharge. 3. Hypokalemia. The potassium will go even further low. Please replace potassium and monitor to sascha id any arrhythmia. SR/MODL Voice ID: [id number] Report ID: [id number]
[2024-06-05 05:04] LABS: Anion Gap 6.8 mEq/L (5.0-15.0); Magnesium 1.8 mg/dL (1.6-2.4); Phosphorus 3.2 mg/dL (2.5-4.9); Potassium 3.8 mEq/L (3.5-5.1); Thyroid Stimulating Hormone 1.53 uIU/mL (0.358-3.740)
[2024-06-05] MEDS: APIXABAN 5 MG TABLET PO SCH (09:25)
[2024-06-05] MEDS ORDERED: ALBUTEROL 2.5 MG/3 ML NEB SOL NEB PRN (14:08)
[2024-06-05] MEDS: AMIODARONE HCL 150 MG in D5W 100 ML IV STA (14:22)
[2024-06-05] MEDS: AMIODARONE HCL 900 MG in Dextrose 5%-Water 482 ML IV SCH (14:28)
[2024-06-05] MEDS: METOPROLOL TAR 50 MG TAB PO SCH (17:47)
--- NOTE | 2024-06-05 18:57 | P.PN ---
Date of Service: 06/05/24 Subjective Feeling well, reports her heart rate increases when she repositions in bed and is active Blood pressure controlled Amio gtt being administered and tolerating ROS 10 point ROS as noted above, otherwise negative Physical examination: General: Alert and oriented, NAD HEENT: Extraocular movements intact, MMM CVS: Normal S1-S2 present, Afib with rate control Lungs: Clear BBS, on RA Abdomen: Soft on palpation, bowel sounds present Extremities: Mild bilateral lower extremity edema PM HEAD COOK: Moves all 4 extremities, no obvious focal deficits Vitals Reviewed Problem list A-fib with RVR with mild volume overload Mild pulmonary hypertension Hypokalemia Hypertension Hyperlipidemia Assessment and Plan A-fib with RVR with mild volume overload Mild pulmonary hypertension -continue home metoprolol and Eliquis -IV Lasix 20 mg daily -cardiology recommend Recommend to load with IV amiodarone 150 mg over 10 minutes, and then 1 mg/minute for 6 hours, and then 0.5 mg/minute for 16 hours and then switch to oral. -echo couple of months back which showed 60 to 65% ejection fraction, Hypokalemia -Replace PRN -potassium stable Hypertension Hyperlipidemia -Continue home medications Weight loss of 40 pounds in the last 3 months after hospitalization for pneumonia few months back, she will need close follow-up with PCP with age- appropriate cancer screening DVT ppx Eliquis DNR LOS 2 days
[2024-06-05] MEDS: AMLODIPINE 10 MG TAB PO SCH (20:46)
[2024-06-05] MEDS ORDERED: APIXABAN 5 MG TABLET PO SCH (21:00)
--- NOTE | 2024-06-06 16:32 | P.PN ---
Subjective Date of Service: 06/06/24 Chief Complaint: A-fib with RVR Physical Examination - Vital Signs Temperature: 98.0 F Blood Pressure: 124/61 Pulse: 96 Respirations: 18 Pulse Ox (%): 90 Assessment And Plan - Plan Physical examination General: Alert and oriented x3, NAD, HEENT: Anicteric sclera Neck: Supple, no elevated JVD Heart: Heart sounds 1 and 2 normal, irregular rhythm, normal rate, no pedal edema Lungs: Clear to auscultation bilaterally, adequate breath sounds bilaterally, no rhonchi or crackles. Abdomen: Soft, nondistended, nontender, normal bowel sounds. Extremities: No tenderness, no deformity Skin: Normal skin turgor, no rash, no nodules or ulcers. Neuro: No focal motor deficit. Normal speech. Psychiatry: Normal mood, no agitation. Problem list A-fib with RVR with mild volume overload Mild pulmonary hypertension Hypokalemia Hypertension Hyperlipidemia Plan: A-fib with RVR. Acute on chronic diastolic heart failure Mild pulmonary hypertension Cardiology input appreciated. Patient completed 24 hours of amiodarone drip. Transition amiodarone drip to oral amiodarone. Continue home dose metoprolol Continue Eliquis Status post IV Lasix. Oxygen saturation is stable on room air. Hypokalemia Monitoring optimize potassium levels. Hypertension Patient is on metoprolol. She is currently normotensive Recent weight loss Close follow-up with PCP with age-appropriate cancer screening DVT prophylaxis: Eliquis Advanced directive: Full code
[2024-06-06] MEDS: AMIODARONE HCL 200 MG TAB PO SCH (20:34)
[2024-06-06] MEDS: AMLODIPINE 10 MG TAB PO SCH (20:34)
[2024-06-07 06:58] LABS: Anion Gap 5.6 mEq/L (5.0-15.0); Potassium 3.6 mEq/L (3.5-5.1)
--- NOTE | 2024-06-07 14:35 | P.PN ---
Subjective Date of Service: 06/07/24 Chief Complaint: A-fib with RVR Patient denies any new complaint today. Nursing staff reports 1 episode of bradycardia with heart rate down to 30 overnight. Physical Examination - Vital Signs Temperature: 97.6 F Blood Pressure: 119/84 Pulse: 96 Respirations: 20 Pulse Ox (%): 92 Assessment And Plan - Plan Physical examination General: Alert and oriented x3, NAD, Neck: No elevated JVD Heart: Heart sounds 1 and 2 normal, irregular rhythm, normal rate, no pedal edema Lungs: Clear to auscultation bilaterally, adequate breath sounds bilaterally, no rhonchi or crackles. Abdomen: Soft, nondistended, nontender, normal bowel sounds. Extremities: No tenderness, no deformity Skin: Normal skin turgor, no rash, no nodules or ulcers. Neuro: No focal motor deficit. Normal speech. Psychiatry: Normal mood, no agitation. Problem list A-fib with RVR with mild volume overload Mild pulmonary hypertension Hypokalemia Hypertension Hyperlipidemia Plan: A-fib with RVR. Acute on chronic diastolic heart failure Mild pulmonary hypertension Cardiology input appreciated. Status post amiodarone drip, transitioned to oral amiodarone. Continue home dose metoprolol. Monitor for bradycardia. Continue Eliquis Status post IV Lasix. Oxygen saturation is stable on room air. Cardiology Dr. Esteban to follow. Hypokalemia Monitor and optimize potassium levels. Hypertension Patient is on metoprolol. She is currently normotensive Recent weight loss Close follow-up with PCP with age-appropriate cancer screening DVT prophylaxis: Eliquis Advanced directive: Full code
[2024-06-08 06:26] LABS: Anion Gap 2.5 mEq/L (5.0-15.0); Potassium 3.5 mEq/L (3.5-5.1)
[2024-06-08 08:40] VITALS: BP 130/74; TEMP 98
[2024-06-08 09:44] VITALS: O2SAT 98
--- NOTE | 2024-06-08 10:05 | P.PN ---
Subjective Date of Service: 06/08/24 Chief Complaint: A-fib with RVR Subjective: No new changes, No C/O voiced, Tolerating diet, Ambulating, Improving Review of Systems 10-point ROS is otherwise unremarkable Physical Examination - Vital Signs Temperature: 98.0 F Blood Pressure: 130/74 Pulse: 74 Respirations: 18 Pulse Ox (%): 93 - Physical Exam General: Alert, In no apparent distress HEENT: Atraumatic, PERRLA, EOMI Neck: Supple, JVD not distended Respiratory: Clear to auscultation bilaterally, Normal air movement Cardiovascular: Normal S1 S2, Irregular heart rate/rhythm Gastrointestinal: Normal bowel sounds, No tenderness Musculoskeletal: No tenderness Integumentary: No rashes Neurological: Normal speech, Normal tone, Normal affect Lymphatics: No axilla or inguinal lymphadenopathy - Studies Medications List Reviewed: Yes Assessment And Plan - Current Problems (Diagnosis) (1) Chronic diastolic heart failure Current Visit: Yes Status: Acute Plan: Patient looks euvolemic on exam Lasix 20 mg daily add Aldactone 25 mg daily outpatient follow up with cardiology for medications (2) HTN (hypertension) Current Visit: Yes Status: Acute Plan: lower Norvasc to 5 mg daily add Aldactone 25 mg daily lower lopressor to 25 mg po BID (3) A-fib Current Visit: No Status: Acute Plan: Tele shows AF with normal ventricular response with episodes of slow RVR, down to the 30s at night. continue Amiodarone 200 mg po BID Lower lopressor to 25 mg po BID Continue Eliquis outpatient follow up with cardiology.
--- NOTE | 2024-06-08 12:29 | P.DS ---
Admission Date: 06/04/24 Discharge Date: 06/08/24 Disposition: DC HOME/HOME HEALTH CARE Discharge Condition: FAIR Reason for Admission: A-fib with RVR Hospital Course: Problem list Acute diverticulitis with microperforation Hypokalemia Hypertension Dementia Impaired mobility 84-year-old patient with history of atrial fibrillation presented with shortness of breath and palpitations, she was found to have mild volume overload and afib with rapid ventricular rate. Patient was hospitalized for further management. Patient was treated with IV Lasix for heart failure exacerbation. Patient respiratory status improved with treatment. She has been tolerating room air. Patient developed rapid atrial fibrillation. She was evaluated by cardiology Dr. Esteban and patient started on amiodarone drip per Dr. Esteban recommendation. Amiodarone drip was transitioned to oral amiodarone. Heart rate was controlled but patient remained in atrial fibrillation. Electrolyte abnormalities including hypokalemia was replaced. Patient was able to ambulate with a walker. Patient vitals are stable, heart rates controlled and she is tolerating diet. Patient evaluated by cardiology Dr. Busch and deemed stable for discharge. She had an episode of bradycardia with heart rate down to the 30s, patient's metoprolol dose was decreased from 50 mg twice a day to 25 mg twice a day per Dr. Busch's recommendation. Patient advised to follow-up with Dr. Esteban as outpatient within 1 week. Vital Signs/Physical Exam: Temp Pulse Resp BP Pulse Ox 98.0 F 74 18 130/74 93 06/08/24 10:04 06/08/24 10:04 06/08/24 10:04 06/08/24 10:04 06/08/24 10:04 General: Alert, In no apparent distress, Oriented x3 HEENT: Mucous membr. moist/pink Neck: Supple, JVD not distended Respiratory: Clear to auscultation bilaterally, Normal air movement Cardiovascular: No edema, Normal S1 S2, Irregular heart rate/rhythm Gastrointestinal: Soft and benign, Non-distended, No tenderness Musculoskeletal: No swelling Integumentary: No cyanosis Neurological: Normal speech, Normal strength at 5/5 x4 extr, Cranial nerves 3-12 intact Laboratory Data at Discharge: WBC 6.40 thou/uL (4.3-10.9) 06/04/24 05:21 Hgb 14.0 g/dL (12.0-15.0) 06/04/24 05:21 Hct 41.8 % (36.0-45.0) 06/04/24 05:21 Plt Count 271 thou/uL (152-406) 06/04/24 05:21 PT 15.3 SECONDS (10-13.0) H 06/04/24 05:21 INR 1.36 06/04/24 05:21 APTT 39.7 SECONDS (27.2-37.4) H 06/04/24 05:21 Sodium 140 mEq/L (136-145) 06/08/24 05:40 Potassium 3.5 mEq/L (3.5-5.1) 06/08/24 05:40 BUN 18 mg/dL (7-18) 06/08/24 05:40 Creatinine 0.77 mg/dL (0.55-1.02) 06/08/24 05:40 Glucose 107 mg/dL (74-106) H 06/08/24 05:40 Phosphorus 3.2 mg/dL (2.5-4.9) 06/05/24 04:08 Magnesium 1.8 mg/dL (1.6-2.4) 06/05/24 04:08 Total Bilirubin 1.3 mg/dL (0.2-1.0) H 06/04/24 05:21 AST 17 U/L (15-37) 06/04/24 05:21 ALT 19 U/L (13-56) 06/04/24 05:21 Alkaline Phosphatase 48 U/L (45-117) 06/04/24 05:21 Home Medications: Cholecalciferol (Vitamin D3) [Vitamin D3] 2,000 unit PO DAILY 02/19/24 [place]-3 Fatty Acids [[place]-3] 1,000 mg PO DAILY 02/19/24 Red Beet [Beet Root] 500 mg PO DAILY 02/19/24 Amiodarone HCl [Cordarone*] 200 mg PO BID #60 tab 06/08/24 Amlodipine [Norvasc*] 10 mg PO BEDTIME #30 tab 06/08/24 Apixaban [Eliquis] 5 mg PO BID #60 tab 06/08/24 Metoprolol Tartrate [Lopressor*] 25 mg PO BID 6AM 6PM #60 tab 06/08/24 New Medications: Amiodarone HCl [Cordarone*] 200 mg PO BID #60 tab Apixaban [Eliquis] 5 mg PO BID #60 tab Metoprolol Tartrate [Lopressor*] 25 mg PO BID 6AM 6PM #60 tab Amlodipine [Norvasc*] 10 mg PO BEDTIME #30 tab Physician Discharge Instructions: 84-year-old patient with history of atrial fibrillation presented with shortness of breath and palpitations, she was found to have mild volume overload and afib with rapid ventricular rate. Patient was hospitalized for further management. Patient was treated with IV Lasix for heart failure exacerbation. Patient respiratory status improved with treatment. She has been tolerating room air. Patient developed rapid atrial fibrillation. She was evaluated by cardiology Dr. Esteban and patient started on amiodarone drip per Dr. Esteban recommendation. Amiodarone drip was transitioned to oral amiodarone. Heart rate was controlled but patient remained in atrial fibrillation. Electrolyte abnormalities including hypokalemia was replaced. Patient was able to ambulate with a walker. Patient vitals are stable, heart rates controlled and she is tolerating diet. Patient evaluated by cardiology Dr. Busch and deemed stable for discharge. She had an episode of bradycardia with heart rate down to the 30s, patient's metoprolol dose was decreased from 50 mg twice a day to 25 mg twice a day per Dr. Busch's recommendation. Patient advised to follow-up with Dr. Esteban as outpatient within 1 week. New medications Amiodarone 200 mg twice a day Metoprolol 25 mg twice a day Eliquis increased to 5 mg twice a day. Recent weight loss Please follow-up with PCP with age-appropriate cancer screening Diet: AHA Activity: Fall precautions Followup: NONE,NONE [Primary Care Provider] - 1-2 Weeks Elmer Esteban MD [ACTIVE - CAN ADMIT] - 1 Week Time spent managing pt's care (in minutes): 38
[2024-06-08] MEDS ORDERED: METOPROLOL TAR 25 MG TAB PO SCH (18:00)
--- NOTE | 2024-06-10 13:03 | EKG ---
Test Date: 2024-06-04 Test Time: 05:27:04 Tabulating Supervisor: JESSICA MEASUREMENT RESULTS: Intervals: Rate: 80 MN: QRSD: 90 QT: 480 QTc: 553 [place]: P: MN: QRS: -48 T: 198 INTERPRETIVE STATEMENTS: Atrial fibrillation with premature ventricular or aberrantly conducted complexes Left axis deviation Nonspecific ST and T wave abnormality Abnormal ECG Compared to ECG 02/21/2024 08:04:26 Ventricular premature complex(es) now present ST (T wave) deviation now present Myocardial infarct finding no longer present Electronically Signed On 06-10-24 12:45:26 CDT by Matt Busch
== END 2024-06-08 13:22 | disposition home health service (06) | DRG 291 ==
LOC: ER 05:12 → ERHOLD 09:10 → 4TH 19:34
PROVIDERS: ADMIT Hospitalist; ATTEND Internal Medicine
DX: I11.0 Hypertensive heart disease with heart failure (principal); I50.33 Acute on chronic diastolic (congestive) heart failure; I48.19 Other persistent atrial fibrillation; K57.20 Diverticulitis of large intestine with perforation and abscess without bleeding; E87.6 Hypokalemia; E78.5 Hyperlipidemia, unspecified; E87.70 Fluid overload, unspecified; I27.20 Pulmonary hypertension, unspecified; F03.90 Unspecified dementia, unspecified severity, without behavioral disturbance, psychotic disturbance, mood disturbance, and anxiety; Z66 Do not resuscitate; Z88.5 Allergy status to narcotic agent; Z79.82 Long term (current) use of aspirin; Z79.01 Long term (current) use of anticoagulants; Z90.710 Acquired absence of both cervix and uterus; Z79.899 Other long term (current) drug therapy
CPT/HCPCS: 36415; 71045; 80048; 80076; 83735; 83880; 84100; 84443; 84484; 85025; 85610; 85730; 93005; 96374; 97161; 99285; J0282; J1938; J7060; J7613; J7644

== ENCOUNTER 2024-07-05 08:13 | Inpatient (IN) | payer OTHER ==
--- OUTSIDE RECORDS SUMMARY | 2024-07-05 08:23 | XMS REPORT | Continuity of Care Document ---
Author Name Unknown Address [address] [facility] [address] [place] [address] [facility] Address [address] [facility] [place] [address] Care Team Providers Care Gas Plant Technician Name Role Phone Pcp, Pcp Primary Care Physician Unavailab DION Guerra Attending Clinician UnavailANGELA Dumont Attending Clinician Unavailable RUSSELL VILLAR Attending Clinician Unavailable Pre-Op/Recovery, Sw Ecg Painter Spring Attending Clini emi Unavailable Appts, Sw Cath Holding Attending Clinician Unava ilable Jesus, Sw Attending Clinician Unavailable Oneyda Palacio MD Attending Clinician [phone] ONEYDA PALACIO Attending Clinician Unavailable Franck MALDONADO, López Huffman Attending Clinician [phone] Hailey MALDONADO, Elise Michelle Attending Clinici an Nicole Rodriguez MD, I Attending Clinician [phone] Donnell Zhao MD Attending Clinician [phone] Jaz Dumont MD Attending Clinician [phone] Jerardo MALDONADO, Sheikh Brandon Attending Clinician + [phone] SHEIKH BRANDON KURTZ Attending Clinician Unamarian siddiqui Doctor Unassigned, [place] Attending Clinician U Mitch Drummond PTA Attending Clinician UnavailJonah Curry MD Attending Clinician [phone] Harshil BENÍTEZ Chrissy K Attending Clinician Unavail able Deborah PT, Olga Tamez Attending Clinician Unavailab JONAH Capone Attending Clinician UnavailKyle INFANTE, Leola Attending Clinician [phone] LEOLA MAHAN Attending Clinician Unavailruben Lacy MD, Rissa Wilson Attending Clinician [phone] RISSA LACY Attending Clinician BRAULIO Pedro Attending Clinician Unavailable 2, [facility] Attending Clinician Unavailable Lab, [facility] Fam Pob I Attending Clinician Unavailab dorothea AVILAP, Paulette Attending Clinician [phone] Soto Fox PT, Emilia Attending Clinician Un available Pob, [facility] Main Attending Clinician Unavailruben Swartz MD, Gardenia Hitchcock Attending Clinician + Brittni Mcdonald MD Attending Clinician [phone] Raina Toledo Attending Clinician [phone] Gamaliel ISAAC, Brittney Buitrago Attending Clinician BRITTNEY CHUN Attending Clinician Unavailab SHAYLA Samson Attending Clinician Unavailable Hailey MALDONADO, Elise Michelle Admitting Clinici an ELISE MORRISON Admitting Clinician Unavailable Payers Payer Name Policy Type Policy Number Effective Date Expirati on Date Source [employer] MEDICARE ADV PPO [id number] 2023 00:00:00 [employer] MEDICARE ADVANTAGE Medicare [id number] 2023 00:00:00 MEDICARE PART A \\T\\ B [id number] 2003 00:00:00 2016 00:00:00 [employer] O [id number] 2003 00:00:00 2003 00:00:00 Problems Condition Name Condition Details Condition Category Status Onset Date Resolution Date Last Treatment Date Treating Clinician Comments Source Essential tremor Essential tremor Disease Recurre are 03-18 00:00: 00 Tashi Ortez Primary hypertensi on Primary hypertensi on Disease Recurre are 03-18 00:00: 00 Tashi Crockett Epic Impaired mobility and ADLs Impaired mobility and ADLs Disease Active 03-18 00:00: 00 Tashi Crockett Epic Frequent falls Frequent falls Disease Active 03-18 00:00: 00 Tashi Crockett Epic Left hip pain Left hip pain Disease Active - 00:00: 00 [facility] Bilateral hearing loss, unspecifie d hearing loss type Bilateral hearing loss, unspecifie d hearing loss type Disease Active 03-17 00:00: 00 [facility] Chronic low back pain without sciatica, unspecifie d back pain laterality Chronic low back pain without sciatica, unspecifie d back pain laterality Disease Active 03-17 00:00: 00 [facility] Seasonal allergies Seasonal allergies Disease Active 03-17 00:00: 00 [facility] Need for influenza vaccinatio n Need for influenza vaccinatio n Disease Active 03-17 00:00: 00 [facility] Need for Tdap vaccinatio n Need for Tdap vaccinatio n Disease Active 03-17 00:00: 00 [facility] Essential tremor Essential tremor Disease Active 2014-02 00:00: 00 [facility] Essential hypertensi on, benign Essential hypertensi on, benign Disease Active 03-15 00:00: 00 [facility] Mixed hyperlipid emia Mixed hyperlipid emia Disease Active 03-15 00:00: 00 [facility] Allergic rhinitis Allergic rhinitis Disease Active 03-15 00:00: 00 [facility] Colon polyps Colon polyps Disease Active 03-15 00:00: 00 [facility] Essential hypertensi on Essential hypertensi on Disease Active 03-15 00:00: 00 [facility] Accidental fall, initial encounter Accidental fall, initial encounter Disease Resolve d 2- 00:00: 00 2024-03-26 00:00:00 2024-03-26 14:13:06 Tashi Crockett Epic Atrial fibrillati on (CMS/HCC) Atrial fibrillati on (CMS/HCC) Disease Resolve d 03-19 00:00: 00 2024-03-26 00:00:00 2024-03-26 14:13:12 Tashi Crockett Epic Hypokalemi a Hypokalemi a Disease Resolve d 03-18 00:00: 00 2024-03-26 00:00:00 2024-03-26 14:13:04 Tashi Crockett Epic Need for influenza vaccinatio n Need for influenza vaccinatio n Disease Resolve d 03-17 00:00: 00 2019-12-19 00:00:00 2019-12-19 22:17:42 [facility] Screening for diabetes mellitus Screening for diabetes mellitus Disease Resolve d 03-17 00:00: 00 2019-12-19 00:00:00 2019-12-19 22:17:52 [facility] Tenosynovi tis Tenosynovi tis Disease Resolve d 03-15 00:00: 00 2019-12-19 00:00:00 2019-12-19 22:17:55 [facility] Wrist pain, right Wrist pain, right Disease Resolve d - 00:00: 00 2017-04-17 00:00:00 2017-04-17 15:06:40 [facility] Pain, postoperat keyonna, acute Pain, postoperat keyonna, acute Disease Resolve d -17 00:00: 00 2017-04-17 00:00:00 2017-04-17 15:06:52 [facility] Hepatitis A Hepatitis A Disease Resolve d 03-15 00:00: 00 2017-04-17 00:00:00 2017-04-17 15:06:55 [facility] Allergies, Adverse Reactions, Alerts Allergy Name Allergy Type Status Severity Reaction(s) Onset Date Inactive Date Treating Clinician Comments Source CODEINE DRUG INGREDI Active Unknown-Cmnt 02-27 00:00: 00 [facility] MORPHINE DRUG INGREDI Active Unknown-Cmnt - 00:00: 00 [facility] Codeine Drug Allergy Active Unknown - See comments 02-27 00:00: 00 [facility] Morphine Drug Allergy Active Unknown - See comments - 00:00: 00 [facility] NO KNOWN ALLERGIE S Drug Class Active [facility] Social History Social Habit Start Date Stop Date Quantity Comments Source Gender identity Willie jaki Crockett Epic ASSERTION Not [facility] Exposure to SARS-CoV-2 (event) Not sure [facility] Alcoholic beverage intake 2024-05-07 00:00:00 2024-05-07 00:00:00 Current drinker of alcohol (finding) [facility] History of Social function 2019-12-17 00:00:00 2019-12-17 00:00:00 [facility] Alcohol intake 2019-12-17 00:00:00 2019-12-17 00:00:00 Current drinker of alcohol (finding) [facility] Alcohol Comment 2014-11-02 00:00:00 2014-11-02 00:00:00 Occasional Drinker [facility] Tobacco use and exposure 2014-03-16 00:00:00 2014-03-16 00:00:00 Smokeless tobacco non-user [facility] Sex assigned at 1940 00:00:00 1940 00:00:00 [facility] Smoking Status Start Date Stop Date Source Never smoked tobacco [facility] Medications Ordered Medication Name Filled Medication Name Start Date Stop Date Current Medication? Ordering Clinician Indication Dosage Frequency Signature (SIG) Comments Components Source benzonatate 100 mg capsule 05-07 00:00: 00 Yes [id number] 200mg Take 2 capsules by mouth every 8 (eight) hours as needed for Cough. [facility] guaiFENesin 400 mg tablet 05-07 00:00: 00 Yes [id number] 400mg Take 1 tablet by mouth every 4 (four) hours as needed for Cough. [facility] ascorbic acid (Vitamin C) 500 mg/mL oral liquid ascorbic acid (Vitamin C) 500 mg/mL oral liquid 04-24 00:39: 32 Yes 500mg QD Take 500 mg by mouth 1 time each day. Tashi Ortez furosemide 20 mg tablet 04-15 00:00: 00 Yes 20mg Take 1 tablet by mouth in the morning. [facility] spironolact one 25 mg tablet 04-15 00:00: 00 Yes TAKE 1 TABLET BY MOUTH ONCE DAILY FOR 30 DAYS [facility] apixaban 2.5 mg tablet 03-26 00:00: 00 Yes 2.5mg Take 1 tablet by mouth every morning and evening. [facility] metoprolol tartrate 25 mg tablet 03-26 00:00: 00 03-27 05:59 :00 No 25mg Take 1 tablet by mouth. [facility] guaiFENesin (Robitussin ) 100 MG/5ML liquid 200 [...] water prior to administra tion Tashi Crockett [facility] Potassium chloride solution 40 mEq Potassium chloride solution 40 mEq 03-21 08:30: 00 03-21 08:50 :00 No 40meq 40 mEq, Oral, Once, On 03/21/24 at 0830, For 1 dose, Mix with 4 oz (120ml) of water prior to administra tion Tashi Crockett [facility] metoprolol tartrate (Lopressor) tablet 25 mg metoprolol tartrate (Lopressor) tablet 25 mg 03-20 21:00: 00 Yes 25mg Q.5D 25 mg, Oral, Every 12 hours scheduled, First dose (after last modificati on) on Sat03/20/24 at 2100 Tashi Crockett [facility] losartan (Cozaar) tablet 100 mg losartan (Cozaar) tablet 100 mg 03-20 20:30: 00 Yes 100mg 100 mg, Oral, Every 24 hours, First dose on Sat03/20/24 at 2030, Hold for SBP< 120 mmHg Give with hydrochlor othiazide Tashi Crockett [facility] hydroCHLORO thiazide (HYDRODiuri l) tablet 25 [...] First dose on Sat03/20/24 at 2000 Tashi Crockett [facility] flecainide (Tambocor) tablet 50 mg flecainide (Tambocor) [...] 03-19 00:58: 00 Yes 1mg Tashi Crockett [facility] dextrose 50 % solution 25 g dextrose 50 % solution 25 g 03-19 00:58: 00 Yes 25g Deepikabob iftikhar Crockett [facility] dextrose 50 % solution 12.5 g dextrose 50 % solution 12.5 g 03-19 00:58: 00 Yes 12.5g Tashi Crockett [facility] sodium chloride (NS) 0.9 % flush 10 mL sodium chloride (NS) 0.9 % flush 10 mL 03-19 00:58: 00 Yes 10mL Tashi Crockett [facility] metoprolol tartrate (Lopressor) tablet 12.5 mg metoprolol tartrate (Lopressor) tablet 12.5 mg 03-19 00:15: 00 03-20 18:06 :40 No 12.5mg Q.5D 12.5 mg, Oral, Every 12 hours scheduled, First dose on Sat03/19/24 at 0015 Tashi Crockett [facility] melatonin tablet 3 mg melatonin tablet 3 mg 03-18 23:42: 08 Yes 3mg QD 3 mg, Oral, Nightly PRN, sleep, Starting on Sat03/18/24 at 2342 Tashi Crockett [facility] ondansetron ODT (Zofran-ODT ) disintegrat ing [...] noon and 1 tablet before bedtime. Tashi Crockett [facility] losartan-hy droCHLOROth iazide (Hyzaar) 100-25 MG tablet losartan-hy droCHLOROth iazide (Hyzaar) 100-25 MG tablet 03-07 00:00: 00 Yes 1{tbl} Take 1 tablet by mouth 1 time each day at the same time. Tashi Crockett [facility] atorvastati n (Lipitor) 20 MG tablet atorvastati n (Lipitor) 20 MG tablet 02-28 00:00: 00 Yes 1{tbl} QD Take 1 tablet by mouth 1 time each day. Tashi Crockett [facility] atorvastati n 20 mg tablet 02-28 00:00: 00 Yes 20mg Take 1 tablet by mouth. [facility] amLODIPine (Norvasc) 10 MG tablet amLODIPine (Norvasc) 10 MG tablet 02-28 00:00: 00 03-26 00:00 :00 No 1{tbl} Take 1 tablet by mouth 1 time each day at the same time. Tashi Ortez apixaban (Eliquis) 5 MG tablet apixaban (Eliquis) 5 MG tablet 02-28 00:00: 00 03-26 00:00 :00 No 1{tbl} Q12H Take 1 tablet by mouth in the morning and 1 tablet in the evening. Tashi Ortez metoprolol tartrate (Lopressor) 12.5 mg half tablet metoprolol tartrate (Lopressor) 12.5 mg half tablet 02-28 00:00: 00 03-26 00:00 :00 No 12.5mg Q12H Take 12.5 mg by mouth in the morning and 12.5 mg in the evening. Hold for SPB<100,DB P<60 OR HR[facility] cholecalcif sylvain, vitamin D3, (VITAMIN D3 ORAL) 03-15 20:09: 35 Yes Take by mouth. [facility] omega-3s-dh a-epa-fish oil-D3 (FISH OIL-VIT D3) 360 mg-1,200 mg -1,000 unit Cap 03-15 20:09: 35 Yes 1{capsu le} Take 1 Cap by mouth daily. [facility] pyridoxine (VITAMIN B-6) 200 mg tablet 03-15 20:09: 35 Yes 200mg Take 200 mg by mouth daily. [facility] aspirin 81 mg chewable tablet 03-15 20:09: 35 Yes 81mg Take 81 mg by mouth daily. [facility] vitamin B-12 (VITAMIN B-12) 1,000 mcg tablet 03-15 20:09: 35 Yes 1000ug Take 1,000 mcg by mouth daily. [facility] vitamin e 400 unit capsule 03-15 20:09: 35 Yes 800U Take 800 Units by mouth daily. [facility] BIOTIN ORAL 03-15 20:09: 35 Yes Take by mouth daily. [facility] ascorbic acid (VITAMIN C ORAL) 03-15 20:09: 35 Yes Take by mouth. [facility] omega-3s-dh a-epa-fish oil-D3 (FISH OIL-VIT D3) 360 mg-1,200 mg -1,000 unit Cap 03-15 14:09: 35 Yes 1{capsu le} Take 1 Cap by mouth daily. [facility] pyridoxine (VITAMIN B-6) 200 mg tablet 03-15 14:09: 35 Yes 200mg Take 200 mg by mouth daily. [facility] aspirin 81 mg chewable tablet 03-15 14:09: 35 Yes 81mg Take 81 mg by mouth daily. [facility] vitamin B-12 (VITAMIN B-12) 1,000 mcg tablet 03-15 14:09: 35 Yes 1000ug Take 1,000 mcg by mouth daily. [facility] vitamin e 400 unit capsule 03-15 14:09: 35 Yes 800U Take 800 Units by mouth daily. [facility] cholecalcif sylvain, vitamin D3, (VITAMIN D3 ORAL) 03-15 14:09: 35 Yes Take by mouth. [facility] omega-3s-dh a-epa-fish oil-D3 (FISH OIL-VIT D3) 360 mg-1,200 mg -1,000 unit Cap 2019-02 19:46: 08 Yes 1{capsu le} Take 1 Cap by mouth daily. [facility] pyridoxine (VITAMIN B-6) 200 mg tablet 2019-02 19:46: 08 Yes 200mg Take 200 mg by mouth daily. [facility] aspirin 81 mg chewable tablet 2019-02 19:46: 08 Yes 81mg Take 81 mg by mouth daily. [facility] vitamin B-12 (VITAMIN B-12) 1,000 mcg tablet 2019-02 19:46: 08 Yes 1000ug Take 1,000 mcg by mouth daily. [facility] vitamin e 400 unit capsule 2019-02 19:46: 08 Yes 800U Take 800 Units by mouth daily. [facility] BIOTIN ORAL 2019-02 19:46: 08 Yes Take by mouth daily. [facility] ascorbic acid (VITAMIN C ORAL) 2019-02 19:46: 08 Yes Take by mouth. [facility] cholecalcif sylvain, vitamin D3, (VITAMIN D3 ORAL) 2019-02 19:46: 08 Yes Take by mouth. [facility] losartan-hy drochloroth iazide 100-25 mg per tablet 2019-02 00:00: 00 Yes [id number] 1{tbl} Take 1 tablet by mouth at bedtime. [facility] amLODIPine 10 mg tablet 2019-02 00:00: 00 Yes [id number] 10mg Take 1 tablet by mouth daily. [facility] omega-3s-dh a-epa-fish oil-D3 (FISH OIL-VIT D3) 360 mg-1,200 mg -1,000 unit Cap 08-09 13:20: 07 Yes 1{capsu le} Take 1 Cap by mouth daily. [facility] pyridoxine (VITAMIN B-6) 200 mg tablet 08-09 13:20: 07 Yes 200mg Take 200 mg by mouth daily. [facility] aspirin 81 mg chewable tablet 08-09 13:20: 07 Yes 81mg Take 81 mg by mouth daily. [facility] vitamin B-12 (VITAMIN B-12) 1,000 mcg tablet 08-09 13:20: 07 Yes 1000ug Take 1,000 mcg by mouth daily. [facility] vitamin e 400 unit capsule 08-09 13:20: 07 Yes 800U Take 800 Units by mouth daily. [facility] BIOTIN ORAL 08-09 13:20: 07 Yes Take by mouth daily. [facility] ascorbic acid (VITAMIN C ORAL) 08-09 13:20: 07 Yes Take by mouth. [facility] cholecalcif sylvain, vitamin D3, (VITAMIN D3 ORAL) 08-09 13:20: 07 Yes Take by mouth. [facility] ascorbic acid (VITAMIN C ORAL) 06-15 20:12: 18 Yes Take by mouth. [facility] cholecalcif sylvain, vitamin D3, (VITAMIN D3 ORAL) 06-15 20:12: 18 Yes Take by mouth. [facility] vitamin e 400 unit capsule 06-15 20:11: 17 Yes 800U Take 800 Units by mouth daily. [facility] aspirin 81 mg chewable tablet 06-15 20:11: 10 Yes 81mg Take 81 mg by mouth daily. [facility] vitamin B-12 (VITAMIN B-12) 1,000 mcg tablet 06-15 20:10: 53 Yes 1000ug Take 1,000 mcg by mouth daily. [facility] BIOTIN ORAL 06-15 20:10: 00 Yes Take by mouth daily. [facility] pyridoxine (VITAMIN B-6) 200 mg tablet 06-15 20:09: 50 Yes 200mg Take 200 mg by mouth daily. [facility] omega-3s-dh a-epa-fish oil-D3 (FISH OIL-VIT D3) 360 mg-1,200 mg -1,000 unit Cap 06-15 20:09: 46 Yes 1{capsu le} Take 1 Cap by mouth daily. [facility] LOSARTAN-HY DROCHLOROTH IAZIDE 100-25 mg per tablet 2018-02 00:00: 00 12-16 00:00 :00 No [id number] TAKE 1 TABLET AT BEDTIME [facility] AMLODIPINE 10 mg tablet 2018-02 00:00: 00 12-16 00:00 :00 No [id number] TAKE 1 TABLET DAILY [facility] omega-3s-dh a-epa-fish oil-D3 (FISH OIL-VIT D3) 360 mg-1,200 mg -1,000 unit Cap 08-04 17:31: 04 Yes 1{capsu le} Take 1 Cap by mouth daily. [facility] pyridoxine (VITAMIN B-6) 200 mg tablet 08-04 17:31: 04 Yes 200mg Take 200 mg by mouth daily. [facility] aspirin 81 mg chewable tablet 08-04 17:31: 04 Yes 81mg Take 81 mg by mouth daily. [facility] vitamin B-12 (VITAMIN B-12) 1,000 mcg tablet 08-04 17:31: 04 Yes 1000ug Take 1,000 mcg by mouth daily. [facility] vitamin e 400 unit capsule 08-04 17:31: 04 Yes 800U Take 800 Units by mouth daily. [facility] BIOTIN ORAL 08-04 17:31: 04 Yes Take by mouth daily. [facility] DICLOFENAC 75 mg EC tablet 03-31 00:00: 00 Yes [id number] TAKE 1 TABLET DAILY NEEDED FOR PAIN [facility] Immunizations Ordered Immunization Name Filled Immunization Name Date Status Comments Source SARS-COV-2 COVID-19 PFIZER VACCINE 2020-04-15 00:00:00 Completed [facility] SARS-COV-2 COVID-19 PFIZER VACCINE 2020-04-15 00:00:00 Completed [facility] SARS-COV-2 COVID-19 PFIZER VACCINE 2020-04-15 00:00:00 Completed [facility] SARS-COV-2 COVID-19 PFIZER VACCINE 2020-04-15 00:00:00 Completed [facility] SARS-COV-2 COVID-19 PFIZER VACCINE 2020-04-15 00:00:00 Completed [facility] SARS-COV-2 COVID-19 PFIZER VACCINE 2020-04-15 00:00:00 Completed [facility] SARS-COV-2 COVID-19 PFIZER VACCINE 2020-04-15 00:00:00 Completed [facility] SARS-COV-2 COVID-19 PFIZER VACCINE 2020-04-15 00:00:00 Completed [facility] SARS-COV-2 COVID-19 PFIZER VACCINE 2020-04-15 00:00:00 Completed [facility] SARS-COV-2 COVID-19 PFIZER VACCINE 2020-04-15 00:00:00 Completed [facility] SARS-COV-2 COVID-19 PFIZER VACCINE 2020-04-15 00:00:00 Completed [facility] SARS-COV-2 COVID-19 PFIZER VACCINE 2020-04-15 00:00:00 Completed [facility] SARS-COV-2 COVID-19 PFIZER VACCINE 2020-04-15 00:00:00 Completed [facility] SARS-COV-2 COVID-19 PFIZER VACCINE 2020-03-15 00:00:00 Completed [facility] SARS-COV-2 COVID-19 PFIZER VACCINE 2020-03-15 00:00:00 Completed [facility] SARS-COV-2 COVID-19 PFIZER VACCINE 2020-03-15 00:00:00 Completed [facility] SARS-COV-2 COVID-19 PFIZER VACCINE 2020-03-15 00:00:00 Completed [facility] SARS-COV-2 COVID-19 PFIZER VACCINE 2020-03-15 00:00:00 Completed [facility] SARS-COV-2 COVID-19 PFIZER VACCINE 2020-03-15 00:00:00 Completed [facility] SARS-COV-2 COVID-19 PFIZER VACCINE 2020-03-15 00:00:00 Completed [facility] SARS-COV-2 COVID-19 PFIZER VACCINE 2020-03-15 00:00:00 Completed [facility] SARS-COV-2 COVID-19 PFIZER VACCINE 2020-03-15 00:00:00 Completed [facility] SARS-COV-2 COVID-19 PFIZER VACCINE 2020-03-15 00:00:00 Completed [facility] SARS-COV-2 COVID-19 PFIZER VACCINE 2020-03-15 00:00:00 Completed [facility] SARS-COV-2 COVID-19 PFIZER VACCINE 2020-03-15 00:00:00 Completed [facility] SARS-COV-2 COVID-19 PFIZER VACCINE 2020-03-15 00:00:00 Completed [facility] SARS-COV-2 COVID-19 PFIZER VACCINE 2020-03-15 00:00:00 Completed [facility] SARS-COV-2 COVID-19 PFIZER VACCINE 2020-03-15 00:00:00 Completed [facility] Pneumococcal 13 Conjugate, PCV13 (Prevnar 13) 2019-11-23 00:00:00 Completed [facility] Influenza High Dose Quad 2019-11-23 00:00:00 Completed [facility] Pneumococcal 13 Conjugate, PCV13 (Prevnar 13) 2019-11-23 00:00:00 Completed [facility] Influenza High Dose Quad 2019-11-23 00:00:00 Completed [facility] Pneumococcal 13 Conjugate, PCV13 (Prevnar 13) 2019-11-23 00:00:00 Completed [facility] Influenza High Dose Quad 2019-11-23 00:00:00 Completed [facility] Pneumococcal 13 Conjugate, PCV13 (Prevnar 13) 2019-11-23 00:00:00 Completed [facility] Influenza High Dose Quad 2019-11-23 00:00:00 Completed [facility] Pneumococcal 13 Conjugate, PCV13 (Prevnar 13) 2019-11-23 00:00:00 Completed [facility] Influenza High Dose Quad 2019-11-23 00:00:00 Completed [facility] Pneumococcal 13 Conjugate, PCV13 (Prevnar 13) 2019-11-23 00:00:00 Completed [facility] Influenza High Dose Quad 2019-11-23 00:00:00 Completed [facility] Pneumococcal 13 Conjugate, PCV13 (Prevnar 13) 2019-11-23 00:00:00 Completed [facility] Influenza High Dose Quad 2019-11-23 00:00:00 Completed [facility] Pneumococcal 13 Conjugate, PCV13 (Prevnar 13) 2019-11-23 00:00:00 Completed [facility] Influenza High Dose Quad 2019-11-23 00:00:00 Completed [facility] Pneumococcal 13 Conjugate, PCV13 (Prevnar 13) 2019-11-23 00:00:00 Completed [facility] Influenza High Dose Quad 2019-11-23 00:00:00 Completed [facility] Pneumococcal 13 Conjugate, PCV13 (Prevnar 13) 2019-11-23 00:00:00 Completed [facility] Influenza High Dose Quad 2019-11-23 00:00:00 Completed [facility] Pneumococcal 13 Conjugate, PCV13 (Prevnar 13) 2019-11-23 00:00:00 Completed [facility] Influenza High Dose Quad 2019-11-23 00:00:00 Completed [facility] Pneumococcal 13 Conjugate, PCV13 (Prevnar 13) 2019-11-23 00:00:00 Completed [facility] Influenza High Dose Quad 2019-11-23 00:00:00 Completed [facility] Pneumococcal 13 Conjugate, PCV13 (Prevnar 13) 2019-11-23 00:00:00 Completed [facility] Influenza High Dose Quad 2019-11-23 00:00:00 Completed [facility] Pneumococcal 13 Conjugate, PCV13 (Prevnar 13) 2019-11-23 00:00:00 Completed [facility] Influenza High Dose Quad 2019-11-23 00:00:00 Completed [facility] Pneumococcal 13 Conjugate, PCV13 (Prevnar 13) 2019-11-23 00:00:00 Completed Influenza High Dose Quad 2019-11-23 00:00:00 Completed Pneumococcal 13 Conjugate, PCV13 (Prevnar 13) 2019-11-23 00:00:00 Completed [facility] Influenza High Dose Quad 2019-11-23 00:00:00 Completed [facility] Pneumococcal 13 Conjugate, PCV13 (Prevnar 13) 2019-11-23 00:00:00 Completed [facility] Influenza High Dose Quad 2019-11-23 00:00:00 Completed [facility] Pneumococcal 13 Conjugate, PCV13 (Prevnar 13) 2019-11-23 00:00:00 Completed [facility] Influenza High Dose Quad 2019-11-23 00:00:00 Completed [facility] Pneumococcal 13 Conjugate, PCV13 (Prevnar 13) 2019-11-23 00:00:00 Completed [facility] Influenza High Dose Quad 2019-11-23 00:00:00 Completed [facility] Influenza High Dose 2019-03-17 00:00:00 Completed [facility] TDAP 2019-03-17 00:00:00 Completed [facility] Influenza High Dose 2019-03-17 00:00:00 Completed [facility] TDAP 2019-03-17 00:00:00 Completed [facility] Influenza High Dose 2019-03-17 00:00:00 Completed [facility] TDAP 2019-03-17 00:00:00 Completed [facility] Influenza High Dose 2019-03-17 00:00:00 Completed [facility] TDAP 2019-03-17 00:00:00 Completed [facility] Influenza High Dose 2019-03-17 00:00:00 Completed [facility] Influenza High Dose 2019-03-17 00:00:00 Completed [facility] TDAP 2019-03-17 00:00:00 Completed [facility] Tdap 2019-03-17 00:00:00 Completed [facility] Influenza High Dose 2019-03-17 00:00:00 Completed [facility] TDAP 2019-03-17 00:00:00 Completed [facility] Influenza High Dose 2019-03-17 00:00:00 Completed [facility] TDAP 2019-03-17 00:00:00 Completed [facility] Influenza High Dose 2019-03-17 00:00:00 Completed [facility] TDAP 2019-03-17 00:00:00 Completed [facility] Influenza High Dose 2019-03-17 00:00:00 Completed [facility] TDAP 2019-03-17 00:00:00 Completed [facility] Influenza High Dose 2019-03-17 00:00:00 Completed [facility] TDAP 2019-03-17 00:00:00 Completed [facility] Influenza High Dose 2019-03-17 00:00:00 Completed [facility] TDAP 2019-03-17 00:00:00 Completed [facility] Influenza High Dose 2019-03-17 00:00:00 Completed [facility] TDAP 2019-03-17 00:00:00 Completed [facility] Influenza High Dose 2019-03-17 00:00:00 Completed [facility] TDAP 2019-03-17 00:00:00 Completed [facility] Influenza High Dose 2019-03-17 00:00:00 Completed [facility] TDAP 2019-03-17 00:00:00 Completed [facility] Influenza High Dose 2019-03-17 00:00:00 Completed [facility] Tdap 2019-03-17 00:00:00 Completed [facility] Influenza, High-Dose, Trivalent, PF (FLUZONE) 2019-03-17 00:00:00 Completed [facility] TDAP 2019-03-17 00:00:00 Completed Influenza High Dose 2019-03-17 00:00:00 Completed [facility] Tdap 2019-03-17 00:00:00 Completed [facility] Influenza High Dose 2019-03-17 00:00:00 Completed [facility] Tdap 2019-03-17 00:00:00 Completed [facility] Influenza High Dose 2019-03-17 00:00:00 Completed [facility] Tdap 2019-03-17 00:00:00 Completed [facility] Influenza High Dose 2019-03-17 00:00:00 Completed [facility] Tdap 2019-03-17 00:00:00 Completed [facility] Influenza High Dose 2019-03-17 00:00:00 Completed [facility] Tdap 2019-03-17 00:00:00 Completed [facility] Influenza High Dose 2019-03-17 00:00:00 Completed [facility] Tdap 2019-03-17 00:00:00 Completed [facility] Influenza High Dose 2019-03-17 00:00:00 Completed [facility] Tdap 2019-03-17 00:00:00 Completed [facility] Influenza High Dose 2019-03-17 00:00:00 Completed [facility] Tdap 2019-03-17 00:00:00 Completed [facility] Influenza High Dose 2019-03-17 00:00:00 Completed [facility] TDAP 2019-03-17 00:00:00 Completed [facility] Influenza High Dose 2019-03-17 00:00:00 Completed [facility] TDAP 2019-03-17 00:00:00 Completed [facility] Influenza High Dose 2019-03-17 00:00:00 Completed [facility] TDAP 2019-03-17 00:00:00 Completed [facility] Influenza High Dose 2019-03-17 00:00:00 Completed [facility] TDAP 2019-03-17 00:00:00 Completed [facility] Influenza High Dose 2019-03-17 00:00:00 Completed [facility] TDAP 2019-03-17 00:00:00 Completed [facility] Influenza High Dose 2019-03-17 00:00:00 Completed [facility] TDAP 2019-03-17 00:00:00 Completed [facility] Influenza High Dose 2019-03-17 00:00:00 Completed [facility] TDAP 2019-03-17 00:00:00 Completed [facility] Influenza High Dose 2019-03-17 00:00:00 Completed [facility] TDAP 2019-03-17 00:00:00 Completed [facility] Influenza High Dose 2019-03-17 00:00:00 Completed [facility] TDAP 2019-03-17 00:00:00 Completed [facility] Influenza High Dose 2019-03-17 00:00:00 Completed [facility] TDAP 2019-03-17 00:00:00 Completed [facility] Influenza High Dose 2019-03-17 00:00:00 Completed [facility] TDAP 2019-03-17 00:00:00 Completed [facility] Influenza High Dose 2019-03-17 00:00:00 Completed [facility] TDAP 2019-03-17 00:00:00 Completed [facility] Influenza High Dose 2019-03-17 00:00:00 Completed [facility] TDAP 2019-03-17 00:00:00 Completed [facility] Influenza High Dose 2019-03-17 00:00:00 Completed [facility] TDAP 2019-03-17 00:00:00 Completed [facility] Influenza High Dose 2019-03-17 00:00:00 Completed [facility] TDAP 2019-03-17 00:00:00 Completed [facility] Influenza High Dose 2019-03-17 00:00:00 Completed [facility] TDAP 2019-03-17 00:00:00 Completed [facility] Influenza High Dose 2019-03-17 00:00:00 Completed [facility] TDAP 2019-03-17 00:00:00 Completed [facility] Influenza High Dose 2019-03-17 00:00:00 Completed [facility] TDAP 2019-03-17 00:00:00 Completed [facility] Influenza High Dose 2019-03-17 00:00:00 Completed [facility] TDAP 2019-03-17 00:00:00 Completed [facility] Influenza High Dose 2017-12-02 00:00:00 Completed [facility] Influenza High Dose 2017-12-02 00:00:00 Completed [facility] Influenza High Dose 2017-12-02 00:00:00 Completed [facility] Influenza High Dose 2017-12-02 00:00:00 Completed [facility] Influenza High Dose 2017-12-02 00:00:00 Completed [facility] Influenza High Dose 2017-12-02 00:00:00 Completed [facility] Influenza High Dose 2017-12-02 00:00:00 Completed [facility] Influenza High Dose 2017-12-02 00:00:00 Completed [facility] Influenza High Dose 2017-12-02 00:00:00 Completed [facility] Influenza High Dose 2017-12-02 00:00:00 Completed [facility] Influenza High Dose 2017-12-02 00:00:00 Completed [facility] Influenza High Dose 2017-12-02 00:00:00 Completed [facility] Influenza High Dose 2017-12-02 00:00:00 Completed [facility] Influenza High Dose 2017-12-02 00:00:00 Completed [facility] Influenza High Dose 2017-12-02 00:00:00 Completed [facility] Influenza High Dose 2017-12-02 00:00:00 Completed [facility] Influenza High Dose 2017-12-02 00:00:00 Completed [facility] Influenza High Dose 2017-12-02 00:00:00 Completed [facility] Influenza, High-Dose, Trivalent, PF (FLUZONE) 2017-12-02 00:00:00 Completed Influenza High Dose 2017-12-02 00:00:00 Completed [facility] Influenza High Dose 2017-12-02 00:00:00 Completed [facility] Influenza High Dose 2017-12-02 00:00:00 Completed [facility] Influenza High Dose 2017-12-02 00:00:00 Completed [facility] Influenza High Dose 2017-12-02 00:00:00 Completed [facility] Influenza High Dose 2017-12-02 00:00:00 Completed [facility] Influenza High Dose 2017-12-02 00:00:00 Completed [facility] Influenza High Dose 2017-12-02 00:00:00 Completed [facility] Influenza High Dose 2017-12-02 00:00:00 Completed [facility] Influenza High Dose 2017-12-02 00:00:00 Completed [facility] Influenza High Dose 2017-12-02 00:00:00 Completed [facility] Influenza High Dose 2017-12-02 00:00:00 Completed [facility] Influenza High Dose 2017-12-02 00:00:00 Completed [facility] Influenza High Dose 2017-12-02 00:00:00 Completed [facility] Influenza High Dose 2017-12-02 00:00:00 Completed [facility] Influenza High Dose 2017-12-02 00:00:00 Completed [facility] Influenza High Dose 2017-12-02 00:00:00 Completed [facility] Influenza High Dose 2017-12-02 00:00:00 Completed [facility] Influenza High Dose 2017-12-02 00:00:00 Completed [facility] Influenza High Dose 2017-12-02 00:00:00 Completed [facility] Influenza High Dose 2017-12-02 00:00:00 Completed [facility] Influenza High Dose 2017-12-02 00:00:00 Completed [facility] Influenza High Dose 2017-12-02 00:00:00 Completed [facility] Influenza High Dose 2017-12-02 00:00:00 Completed [facility] Influenza High Dose 2017-12-02 00:00:00 Completed [facility] Influenza High Dose 2017-12-02 00:00:00 Completed [facility] Influenza High Dose 2017-03-28 00:00:00 Completed [facility] Pneumococcal Polysaccharide, PPSV23 (PNEUMOVAX) 2017-03-28 00:00:00 Completed [facility] Influenza High Dose 2017-03-28 00:00:00 Completed [facility] Pneumococcal Polysaccharide, PPSV23 (PNEUMOVAX) 2017-03-28 00:00:00 Completed [facility] Influenza High Dose 2017-03-28 00:00:00 Completed [facility] Pneumococcal Polysaccharide, PPSV23 (PNEUMOVAX) 2017-03-28 00:00:00 Completed [facility] Influenza High Dose 2017-03-28 00:00:00 Completed [facility] Influenza High Dose 2017-03-28 00:00:00 Completed [facility] Pneumococcal Polysaccharide, PPSV23 (PNEUMOVAX) 2017-03-28 00:00:00 Completed [facility] Pneumococcal Polysaccharide, PPSV23 (PNEUMOVAX) 2017-03-28 00:00:00 Completed [facility] Influenza High Dose 2017-03-28 00:00:00 Completed [facility] Pneumococcal Polysaccharide, PPSV23 (PNEUMOVAX) 2017-03-28 00:00:00 Completed [facility] Influenza High Dose 2017-03-28 00:00:00 Completed [facility] Pneumococcal Polysaccharide, PPSV23 (PNEUMOVAX) 2017-03-28 00:00:00 Completed [facility] Influenza High Dose 2017-03-28 00:00:00 Completed [facility] Pneumococcal Polysaccharide, PPSV23 (PNEUMOVAX) 2017-03-28 00:00:00 Completed [facility] Influenza High Dose 2017-03-28 00:00:00 Completed [facility] Pneumococcal Polysaccharide, PPSV23 (PNEUMOVAX) 2017-03-28 00:00:00 Completed [facility] Influenza High Dose 2017-03-28 00:00:00 Completed [facility] Pneumococcal Polysaccharide, PPSV23 (PNEUMOVAX) 2017-03-28 00:00:00 Completed [facility] Influenza High Dose 2017-03-28 00:00:00 Completed [facility] Pneumococcal Polysaccharide, PPSV23 (PNEUMOVAX) 2017-03-28 00:00:00 Completed [facility] Influenza High Dose 2017-03-28 00:00:00 Completed [facility] Pneumococcal Polysaccharide, PPSV23 (PNEUMOVAX) 2017-03-28 00:00:00 Completed [facility] Influenza High Dose 2017-03-28 00:00:00 Completed [facility] Pneumococcal Polysaccharide, PPSV23 (PNEUMOVAX) 2017-03-28 00:00:00 Completed [facility] Influenza High Dose 2017-03-28 00:00:00 Completed [facility] Pneumococcal Polysaccharide, PPSV23 (PNEUMOVAX) 2017-03-28 00:00:00 Completed [facility] Influenza High Dose 2017-03-28 00:00:00 Completed [facility] Pneumococcal Polysaccharide, PPSV23 (PNEUMOVAX) 2017-03-28 00:00:00 Completed [facility] Influenza High Dose 2017-03-28 00:00:00 Completed [facility] Pneumococcal Polysaccharide, PPSV23 (PNEUMOVAX) 2017-03-28 00:00:00 Completed [facility] Influenza, High-Dose, Trivalent, PF (FLUZONE) 2017-03-28 00:00:00 Completed Pneumococcal Polysaccharide, PPSV23 (PNEUMOVAX) 2017-03-28 00:00:00 Completed Influenza High Dose 2017-03-28 00:00:00 Completed [facility] Pneumococcal Polysaccharide, PPSV23 (PNEUMOVAX) 2017-03-28 00:00:00 Completed [facility] Influenza High Dose 2017-03-28 00:00:00 Completed [facility] Pneumococcal Polysaccharide, PPSV23 (PNEUMOVAX) 2017-03-28 00:00:00 Completed [facility] Influenza High Dose 2017-03-28 00:00:00 Completed [facility] Pneumococcal Polysaccharide, PPSV23 (PNEUMOVAX) 2017-03-28 00:00:00 Completed [facility] Influenza High Dose 2017-03-28 00:00:00 Completed [facility] Pneumococcal Polysaccharide, PPSV23 (PNEUMOVAX) 2017-03-28 00:00:00 Completed [facility] Influenza High Dose 2017-03-28 00:00:00 Completed [facility] Pneumococcal Polysaccharide, PPSV23 (PNEUMOVAX) 2017-03-28 00:00:00 Completed [facility] Influenza High Dose 2017-03-28 00:00:00 Completed [facility] Pneumococcal Polysaccharide, PPSV23 (PNEUMOVAX) 2017-03-28 00:00:00 Completed [facility] Influenza High Dose 2017-03-28 00:00:00 Completed [facility] Pneumococcal Polysaccharide, PPSV23 (PNEUMOVAX) 2017-03-28 00:00:00 Completed [facility] Influenza High Dose 2017-03-28 00:00:00 Completed [facility] Pneumococcal Polysaccharide, PPSV23 (PNEUMOVAX) 2017-03-28 00:00:00 Completed [facility] Influenza High Dose 2017-03-28 00:00:00 Completed [facility] Pneumococcal Polysaccharide, PPSV23 (PNEUMOVAX) 2017-03-28 00:00:00 Completed [facility] Influenza High Dose 2017-03-28 00:00:00 Completed [facility] Pneumococcal Polysaccharide, PPSV23 (PNEUMOVAX) 2017-03-28 00:00:00 Completed [facility] Influenza High Dose 2017-03-28 00:00:00 Completed [facility] Pneumococcal Polysaccharide, PPSV23 (PNEUMOVAX) 2017-03-28 00:00:00 Completed [facility] Influenza High Dose 2017-03-28 00:00:00 Completed [facility] Pneumococcal Polysaccharide, PPSV23 (PNEUMOVAX) 2017-03-28 00:00:00 Completed [facility] Influenza High Dose 2017-03-28 00:00:00 Completed [facility] Pneumococcal Polysaccharide, PPSV23 (PNEUMOVAX) 2017-03-28 00:00:00 Completed [facility] Influenza High Dose 2017-03-28 00:00:00 Completed [facility] Pneumococcal Polysaccharide, PPSV23 (PNEUMOVAX) 2017-03-28 00:00:00 Completed [facility] Influenza High Dose 2017-03-28 00:00:00 Completed [facility] Pneumococcal Polysaccharide, PPSV23 (PNEUMOVAX) 2017-03-28 00:00:00 Completed [facility] Influenza High Dose 2017-03-28 00:00:00 Completed [facility] Pneumococcal Polysaccharide, PPSV23 (PNEUMOVAX) 2017-03-28 00:00:00 Completed [facility] Influenza High Dose 2017-03-28 00:00:00 Completed [facility] Pneumococcal Polysaccharide, PPSV23 (PNEUMOVAX) 2017-03-28 00:00:00 Completed [facility] Influenza High Dose 2017-03-28 00:00:00 Completed [facility] Pneumococcal Polysaccharide, PPSV23 (PNEUMOVAX) 2017-03-28 00:00:00 Completed [facility] Influenza High Dose 2017-03-28 00:00:00 Completed [facility] Pneumococcal Polysaccharide, PPSV23 (PNEUMOVAX) 2017-03-28 00:00:00 Completed [facility] Influenza High Dose 2017-03-28 00:00:00 Completed [facility] Pneumococcal Polysaccharide, PPSV23 (PNEUMOVAX) 2017-03-28 00:00:00 Completed [facility] Influenza High Dose 2017-03-28 00:00:00 Completed [facility] Pneumococcal Polysaccharide, PPSV23 (PNEUMOVAX) 2017-03-28 00:00:00 Completed [facility] Influenza High Dose 2017-03-28 00:00:00 Completed [facility] Pneumococcal Polysaccharide, PPSV23 (PNEUMOVAX) 2017-03-28 00:00:00 Completed [facility] Influenza High Dose 2017-03-28 00:00:00 Completed [facility] Pneumococcal Polysaccharide, PPSV23 (PNEUMOVAX) 2017-03-28 00:00:00 Completed [facility] Influenza High Dose 2017-03-28 00:00:00 Completed [facility] Pneumococcal Polysaccharide, PPSV23 (PNEUMOVAX) 2017-03-28 00:00:00 Completed [facility] Influenza High Dose 2017-03-28 00:00:00 Completed [facility] Pneumococcal Polysaccharide, PPSV23 (PNEUMOVAX) 2017-03-28 00:00:00 Completed [facility] Influenza High Dose 2017-03-28 00:00:00 Completed [facility] Pneumococcal Polysaccharide, PPSV23 (PNEUMOVAX) 2017-03-28 00:00:00 Completed [facility] Influenza High Dose 2017-03-28 00:00:00 Completed [facility] Pneumococcal Polysaccharide, PPSV23 (PNEUMOVAX) 2017-03-28 00:00:00 Completed [facility] Influenza High Dose 2017-03-28 00:00:00 Completed [facility] Pneumococcal Polysaccharide, PPSV23 (PNEUMOVAX) 2017-03-28 00:00:00 Completed [facility] Pneumococcal 13 Conjugate, PCV13 (Prevnar 13) 2015-11-19 00:00:00 Completed [facility] Influenza Virus Vaccine Quad IM Multi-dose 6+ MO 2015-11-19 00:00:00 Completed [facility] Pneumococcal 13 Conjugate, PCV13 (Prevnar 13) 2015-11-19 00:00:00 Completed [facility] Influenza Virus Vaccine Quad IM Multi-dose 6+ MO 2015-11-19 00:00:00 Completed [facility] Pneumococcal 13 Conjugate, PCV13 (Prevnar 13) 2015-11-19 00:00:00 Completed [facility] Pneumococcal 13 Conjugate, PCV13 (Prevnar 13) 2015-11-19 00:00:00 Completed [facility] Influenza Virus Vaccine Quad IM Multi-dose 6+ MO 2015-11-19 00:00:00 Completed [facility] Influenza Virus Vaccine Quad IM Multi-dose 6+ MO 2015-11-19 00:00:00 Completed [facility] Pneumococcal 13 Conjugate, PCV13 (Prevnar 13) 2015-11-19 00:00:00 Completed [facility] Influenza Virus Vaccine Quad IM Multi-dose 6+ MO 2015-11-19 00:00:00 Completed [facility] Pneumococcal 13 Conjugate, PCV13 (Prevnar 13) 2015-11-19 00:00:00 Completed [facility] Influenza Virus Vaccine Quad IM Multi-dose 6+ MO 2015-11-19 00:00:00 Completed [facility] Pneumococcal 13 Conjugate, PCV13 (Prevnar 13) 2015-11-19 00:00:00 Completed [facility] Influenza Virus Vaccine Quad IM Multi-dose 6+ MO 2015-11-19 00:00:00 Completed [facility] Pneumococcal 13 Conjugate, PCV13 (Prevnar 13) 2015-11-19 00:00:00 Completed [facility] Influenza Virus Vaccine Quad IM Multi-dose 6+ MO 2015-11-19 00:00:00 Completed [facility] Pneumococcal 13 Conjugate, PCV13 (Prevnar 13) 2015-11-19 00:00:00 Completed [facility] Influenza Virus Vaccine Quad IM Multi-dose 6+ MO 2015-11-19 00:00:00 Completed [facility] Pneumococcal 13 Conjugate, PCV13 (Prevnar 13) 2015-11-19 00:00:00 Completed [facility] Influenza Virus Vaccine Quad IM Multi-dose 6+ MO 2015-11-19 00:00:00 Completed [facility] Pneumococcal 13 Conjugate, PCV13 (Prevnar 13) 2015-11-19 00:00:00 Completed [facility] Influenza Virus Vaccine Quad IM Multi-dose 6+ MO 2015-11-19 00:00:00 Completed [facility] Pneumococcal 13 Conjugate, PCV13 (Prevnar 13) 2015-11-19 00:00:00 Completed [facility] Influenza Virus Vaccine Quad IM Multi-dose 6+ MO 2015-11-19 00:00:00 Completed [facility] Pneumococcal 13 Conjugate, PCV13 (Prevnar 13) 2015-11-19 00:00:00 Completed [facility] Influenza Virus Vaccine Quad IM Multi-dose 6+ MO 2015-11-19 00:00:00 Completed [facility] Pneumococcal 13 Conjugate, PCV13 (Prevnar 13) 2015-11-19 00:00:00 Completed [facility] Influenza Virus Vaccine Quad IM Multi-dose 6+ MO 2015-11-19 00:00:00 Completed [facility] Pneumococcal 13 Conjugate, PCV13 (Prevnar 13) 2015-11-19 00:00:00 Completed [facility] Influenza Virus Vaccine Quad IM Multi-dose 6+ MO 2015-11-19 00:00:00 Completed [facility] Pneumococcal 13 Conjugate, PCV13 (Prevnar 13) 2015-11-19 00:00:00 Completed [facility] Influenza Virus Vaccine Quad IM Multi-dose 6+ MO 2015-11-19 00:00:00 Completed [facility] Pneumococcal 13 Conjugate, PCV13 (Prevnar 13) 2015-11-19 00:00:00 Completed [facility] Influenza Virus Vaccine Quad IM Multi-dose 6+ MO 2015-11-19 00:00:00 Completed Pneumococcal 13 Conjugate, PCV13 (Prevnar 13) 2015-11-19 00:00:00 Completed [facility] Influenza Virus Vaccine Quad IM Multi-dose 6+ MO 2015-11-19 00:00:00 Completed [facility] Pneumococcal 13 Conjugate, PCV13 (Prevnar 13) 2015-11-19 00:00:00 Completed [facility] Influenza Virus Vaccine Quad IM Multi-dose 6+ MO 2015-11-19 00:00:00 Completed [facility] Pneumococcal 13 Conjugate, PCV13 (Prevnar 13) 2015-11-19 00:00:00 Completed [facility] Influenza Virus Vaccine Quad IM Multi-dose 6+ MO 2015-11-19 00:00:00 Completed [facility] Pneumococcal 13 Conjugate, PCV13 (Prevnar 13) 2015-11-19 00:00:00 Completed [facility] Influenza Virus Vaccine Quad IM Multi-dose 6+ MO 2015-11-19 00:00:00 Completed [facility] Pneumococcal 13 Conjugate, PCV13 (Prevnar 13) 2015-11-19 00:00:00 Completed [facility] Influenza Virus Vaccine Quad IM Multi-dose 6+ MO 2015-11-19 00:00:00 Completed [facility] Pneumococcal 13 Conjugate, PCV13 (Prevnar 13) 2015-11-19 00:00:00 Completed [facility] Influenza Virus Vaccine Quad IM Multi-dose 6+ MO 2015-11-19 00:00:00 Completed [facility] Pneumococcal 13 Conjugate, PCV13 (Prevnar 13) 2015-11-19 00:00:00 Completed [facility] Influenza Virus Vaccine Quad IM Multi-dose 6+ MO 2015-11-19 00:00:00 Completed [facility] Pneumococcal 13 Conjugate, PCV13 (Prevnar 13) 2015-11-19 00:00:00 Completed [facility] Influenza Virus Vaccine Quad IM Multi-dose 6+ MO 2015-11-19 00:00:00 Completed [facility] Pneumococcal 13 Conjugate, PCV13 (Prevnar 13) 2015-11-19 00:00:00 Completed [facility] Influenza Virus Vaccine Quad IM Multi-dose 6+ MO 2015-11-19 00:00:00 Completed [facility] Pneumococcal 13 Conjugate, PCV13 (Prevnar 13) 2015-11-19 00:00:00 Completed [facility] Influenza Virus Vaccine Quad IM Multi-dose 6+ MO 2015-11-19 00:00:00 Completed [facility] Pneumococcal 13 Conjugate, PCV13 (Prevnar 13) 2015-11-19 00:00:00 Completed [facility] Influenza Virus Vaccine Quad IM Multi-dose 6+ MO 2015-11-19 00:00:00 Completed [facility] Pneumococcal 13 Conjugate, PCV13 (Prevnar 13) 2015-11-19 00:00:00 Completed [facility] Influenza Virus Vaccine Quad IM Multi-dose 6+ MO 2015-11-19 00:00:00 Completed [facility] Pneumococcal 13 Conjugate, PCV13 (Prevnar 13) 2015-11-19 00:00:00 Completed [facility] Influenza Virus Vaccine Quad IM Multi-dose 6+ MO 2015-11-19 00:00:00 Completed [facility] Pneumococcal 13 Conjugate, PCV13 (Prevnar 13) 2015-11-19 00:00:00 Completed [facility] Influenza Virus Vaccine Quad IM Multi-dose 6+ MO 2015-11-19 00:00:00 Completed [facility] Pneumococcal 13 Conjugate, PCV13 (Prevnar 13) 2015-11-19 00:00:00 Completed [facility] Influenza Virus Vaccine Quad IM Multi-dose 6+ MO 2015-11-19 00:00:00 Completed [facility] Pneumococcal 13 Conjugate, PCV13 (Prevnar 13) 2015-11-19 00:00:00 Completed [facility] Influenza Virus Vaccine Quad IM Multi-dose 6+ MO 2015-11-19 00:00:00 Completed [facility] Pneumococcal 13 Conjugate, PCV13 (Prevnar 13) 2015-11-19 00:00:00 Completed [facility] Influenza Virus Vaccine Quad IM Multi-dose 6+ MO 2015-11-19 00:00:00 Completed [facility] Pneumococcal 13 Conjugate, PCV13 (Prevnar 13) 2015-11-19 00:00:00 Completed [facility] Influenza Virus Vaccine Quad IM Multi-dose 6+ MO 2015-11-19 00:00:00 Completed [facility] Pneumococcal 13 Conjugate, PCV13 (Prevnar 13) 2015-11-19 00:00:00 Completed [facility] Influenza Virus Vaccine Quad IM Multi-dose 6+ MO 2015-11-19 00:00:00 Completed [facility] Pneumococcal 13 Conjugate, PCV13 (Prevnar 13) 2015-11-19 00:00:00 Completed [facility] Influenza Virus Vaccine Quad IM Multi-dose 6+ MO 2015-11-19 00:00:00 Completed [facility] Pneumococcal 13 Conjugate, PCV13 (Prevnar 13) 2015-11-19 00:00:00 Completed [facility] Influenza Virus Vaccine Quad IM Multi-dose 6+ MO 2015-11-19 00:00:00 Completed [facility] Pneumococcal 13 Conjugate, PCV13 (Prevnar 13) 2015-11-19 00:00:00 Completed [facility] Influenza Virus Vaccine Quad IM Multi-dose 6+ MO 2015-11-19 00:00:00 Completed [facility] Pneumococcal 13 Conjugate, PCV13 (Prevnar 13) 2015-11-19 00:00:00 Completed [facility] Influenza Virus Vaccine Quad IM Multi-dose 6+ MO 2015-11-19 00:00:00 [facility]pleted [facility] [facility] Pneumococcal 13 Conjugate, PCV13 (Prevnar 13) 2015-11-19 00:00:00 Completed [facility] Influenza Virus Vaccine Quad IM Multi-dose 6+ MO 2015-11-19 00:00:00 Completed [facility] Pneumococcal 13 Conjugate, PCV13 (Prevnar 13) 2015-11-19 00:00:00 Completed [facility] Influenza Virus Vaccine Quad IM Multi-dose 6+ MO 2015-11-19 00:00:00 Completed [facility] Pneumococcal 13 Conjugate, PCV13 (Prevnar 13) 2015-11-19 00:00:00 Completed [facility] Influenza Virus Vaccine Quad IM Multi-dose 6+ MO 2015-11-19 00:00:00 Completed [facility] Pneumococcal 13 Conjugate, PCV13 (Prevnar 13) 2015-11-19 00:00:00 Completed [facility] Influenza Virus Vaccine Quad IM Multi-dose 6+ MO 2015-11-19 00:00:00 Completed [facility] Pneumococcal 13 Conjugate, PCV13 (Prevnar 13) 2015-11-19 00:00:00 Completed [facility] Influenza Virus Vaccine Quad IM Multi-dose 6+ MO 2015-11-19 00:00:00 Completed [facility] Influenza Virus Vaccine Quad IM Multi-dose 6+ MO 2014-12-21 00:00:00 Completed [facility] Influenza Virus Vaccine Quad IM Multi-dose 6+ MO 2014-12-21 00:00:00 Completed [facility] Influenza Virus Vaccine Quad IM Multi-dose 6+ MO 2014-12-21 00:00:00 Completed [facility] Influenza Virus Vaccine Quad IM Multi-dose 6+ MO 2014-12-21 00:00:00 Completed [facility] Influenza Virus Vaccine Quad IM Multi-dose 6+ MO 2014-12-21 00:00:00 Completed [facility] Influenza Virus Vaccine Quad IM Multi-dose 6+ MO 2014-12-21 00:00:00 Completed [facility] Influenza Virus Vaccine Quad IM Multi-dose 6+ MO 2014-12-21 00:00:00 Completed [facility] Influenza Virus Vaccine Quad IM Multi-dose 6+ MO 2014-12-21 00:00:00 Completed [facility] Influenza Virus Vaccine Quad IM Multi-dose 6+ MO 2014-12-21 00:00:00 Completed [facility] Influenza Virus Vaccine Quad IM Multi-dose 6+ MO 2014-12-21 00:00:00 Completed [facility] Influenza Virus Vaccine Quad IM Multi-dose 6+ MO 2014-12-21 00:00:00 Completed [facility] Influenza Virus Vaccine Quad IM Multi-dose 6+ MO 2014-12-21 00:00:00 Completed [facility] Influenza Virus Vaccine Quad IM Multi-dose 6+ MO 2014-12-21 00:00:00 Completed [facility] Influenza Virus Vaccine Quad IM Multi-dose 6+ MO 2014-12-21 00:00:00 Completed [facility] Influenza Virus Vaccine Quad IM Multi-dose 6+ MO 2014-12-21 00:00:00 Completed [facility] Influenza Virus Vaccine Quad IM Multi-dose 6+ MO 2014-12-21 00:00:00 Completed [facility] Influenza Virus Vaccine Quad IM Multi-dose 6+ MO 2014-12-21 00:00:00 Completed [facility] Influenza Virus Vaccine Quad IM Multi-dose 6+ MO 2014-12-21 00:00:00 Completed [facility] Influenza Virus Vaccine Quad IM Multi-dose 6+ MO 2014-12-21 00:00:00 Completed [facility] Influenza Virus Vaccine Quad IM Multi-dose 6+ MO 2014-12-21 00:00:00 Completed [facility] Influenza Virus Vaccine Quad IM Multi-dose 6+ MO 2014-12-21 00:00:00 Completed [facility] Influenza Virus Vaccine Quad IM Multi-dose 6+ MO 2014-12-21 00:00:00 Completed [facility] Influenza Virus Vaccine Quad IM Multi-dose 6+ MO 2014-12-21 00:00:00 Completed [facility] Influenza Virus Vaccine Quad IM Multi-dose 6+ MO 2014-12-21 00:00:00 Completed [facility] Influenza Virus Vaccine Quad IM Multi-dose 6+ MO 2014-12-21 00:00:00 Completed [facility] Influenza Virus Vaccine Quad IM Multi-dose 6+ MO 2014-12-21 00:00:00 Completed [facility] Influenza Virus Vaccine Quad IM Multi-dose 6+ MO 2014-12-21 00:00:00 Completed [facility] Influenza Virus Vaccine Quad IM Multi-dose 6+ MO 2014-12-21 00:00:00 Completed [facility] Influenza Virus Vaccine Quad IM Multi-dose 6+ MO 2014-12-21 00:00:00 Completed [facility] Influenza Virus Vaccine Quad IM Multi-dose 6+ MO 2014-12-21 00:00:00 Completed [facility] Influenza Virus Vaccine Quad IM Multi-dose 6+ MO 2014-12-21 00:00:00 Completed [facility] Influenza Virus Vaccine Quad IM Multi-dose 6+ MO 2014-12-21 00:00:00 Completed [facility] Influenza Virus Vaccine Quad IM Multi-dose 6+ MO 2014-12-21 00:00:00 Completed [facility] Influenza Virus Vaccine Quad IM Multi-dose 6+ MO 2014-12-21 00:00:00 Completed [facility] Influenza Virus Vaccine Quad IM Multi-dose 6+ MO 2014-12-21 00:00:00 Completed [facility] Influenza Virus Vaccine Quad IM Multi-dose 6+ MO 2014-12-21 00:00:00 Completed [facility] Influenza Virus Vaccine Quad IM Multi-dose 6+ MO 2014-12-21 00:00:00 Completed [facility] Influenza Virus Vaccine Quad IM Multi-dose 6+ MO 2014-12-21 00:00:00 Completed [facility] Influenza Virus Vaccine Quad IM Multi-dose 6+ MO 2014-12-21 00:00:00 Completed [facility] Influenza Virus Vaccine Quad IM Multi-dose 6+ MO 2014-12-21 00:00:00 Completed [facility] Influenza Virus Vaccine Quad IM Multi-dose 6+ MO 2014-12-21 00:00:00 Completed [facility] Influenza Virus Vaccine Quad IM Multi-dose 6+ MO 2014-12-21 00:00:00 Completed [facility] Influenza Virus Vaccine Quad IM Multi-dose 6+ MO 2014-12-21 00:00:00 Completed [facility] Influenza Virus Vaccine Quad IM Multi-dose 6+ MO 2014-12-21 00:00:00 Completed [facility] Influenza Virus Vaccine Quad IM Multi-dose 6+ MO 2014-12-21 00:00:00 Completed [facility] Pneumococcal Polysaccharide, PPSV23 (PNEUMOVAX) 2013-07-24 00:00:00 Completed [facility] Pneumococcal Polysaccharide, PPSV23 (PNEUMOVAX) 2013-07-24 00:00:00 Completed [facility] Pneumococcal Polysaccharide, PPSV23 (PNEUMOVAX) 2013-07-24 00:00:00 Completed [facility] Pneumococcal Polysaccharide, PPSV23 (PNEUMOVAX) 2013-07-24 00:00:00 Completed [facility] Pneumococcal Polysaccharide, PPSV23 (PNEUMOVAX) 2013-07-24 00:00:00 Completed [facility] Pneumococcal Polysaccharide, PPSV23 (PNEUMOVAX) 2013-07-24 00:00:00 Completed [facility] Pneumococcal Polysaccharide, PPSV23 (PNEUMOVAX) 2013-07-24 00:00:00 Completed [facility] Pneumococcal Polysaccharide, PPSV23 (PNEUMOVAX) 2013-07-24 00:00:00 Completed [facility] Pneumococcal Polysaccharide, PPSV23 (PNEUMOVAX) 2013-07-24 00:00:00 Completed [facility] Pneumococcal Polysaccharide, PPSV23 (PNEUMOVAX) 2013-07-24 00:00:00 Completed [facility] Pneumococcal Polysaccharide, PPSV23 (PNEUMOVAX) 2013-07-24 00:00:00 Completed [facility] Pneumococcal Polysaccharide, PPSV23 (PNEUMOVAX) 2013-07-24 00:00:00 Completed [facility] Pneumococcal Polysaccharide, PPSV23 (PNEUMOVAX) 2013-07-24 00:00:00 Completed [facility] Pneumococcal Polysaccharide, PPSV23 (PNEUMOVAX) 2013-07-24 00:00:00 Completed [facility] Pneumococcal Polysaccharide, PPSV23 (PNEUMOVAX) 2013-07-24 00:00:00 Completed [facility] Pneumococcal Polysaccharide, PPSV23 (PNEUMOVAX) 2013-07-24 00:00:00 Completed [facility] Pneumococcal Polysaccharide, PPSV23 (PNEUMOVAX) 2013-07-24 00:00:00 Completed Pneumococcal Polysaccharide, PPSV23 (PNEUMOVAX) 2013-07-24 00:00:00 Completed [facility] Pneumococcal Polysaccharide, PPSV23 (PNEUMOVAX) 2013-07-24 00:00:00 Completed [facility] Pneumococcal Polysaccharide, PPSV23 (PNEUMOVAX) 2013-07-24 00:00:00 Completed [facility] Pneumococcal Polysaccharide, PPSV23 (PNEUMOVAX) 2013-07-24 00:00:00 Completed [facility] Pneumococcal Polysaccharide, PPSV23 (PNEUMOVAX) 2013-07-24 00:00:00 Completed [facility] Pneumococcal Polysaccharide, PPSV23 (PNEUMOVAX) 2013-07-24 00:00:00 Completed [facility] Pneumococcal Polysaccharide, PPSV23 (PNEUMOVAX) 2013-07-24 00:00:00 Completed [facility] Pneumococcal Polysaccharide, PPSV23 (PNEUMOVAX) 2013-07-24 00:00:00 Completed [facility] Pneumococcal Polysaccharide, PPSV23 (PNEUMOVAX) 2013-07-24 00:00:00 Completed [facility] Pneumococcal Polysaccharide, PPSV23 (PNEUMOVAX) 2013-07-24 00:00:00 Completed [facility] Pneumococcal Polysaccharide, PPSV23 (PNEUMOVAX) 2013-07-24 00:00:00 Completed [facility] Pneumococcal Polysaccharide, PPSV23 (PNEUMOVAX) 2013-07-24 00:00:00 Completed [facility] Pneumococcal Polysaccharide, PPSV23 (PNEUMOVAX) 2013-07-24 00:00:00 Completed [facility] Pneumococcal Polysaccharide, PPSV23 (PNEUMOVAX) 2013-07-24 00:00:00 Completed [facility] Pneumococcal Polysaccharide, PPSV23 (PNEUMOVAX) 2013-07-24 00:00:00 Completed [facility] Pneumococcal Polysaccharide, PPSV23 (PNEUMOVAX) 2013-07-24 00:00:00 Completed [facility] Pneumococcal Polysaccharide, PPSV23 (PNEUMOVAX) 2013-07-24 00:00:00 Completed [facility] Pneumococcal Polysaccharide, PPSV23 (PNEUMOVAX) 2013-07-24 00:00:00 Completed [facility] Pneumococcal Polysaccharide, PPSV23 (PNEUMOVAX) 2013-07-24 00:00:00 Completed [facility] Pneumococcal Polysaccharide, PPSV23 (PNEUMOVAX) 2013-07-24 00:00:00 Completed [facility] Pneumococcal Polysaccharide, PPSV23 (PNEUMOVAX) 2013-07-24 00:00:00 Completed [facility] Pneumococcal Polysaccharide, PPSV23 (PNEUMOVAX) 2013-07-24 00:00:00 Completed [facility] Pneumococcal Polysaccharide, PPSV23 (PNEUMOVAX) 2013-07-24 00:00:00 Completed [facility] Pneumococcal Polysaccharide, PPSV23 (PNEUMOVAX) 2013-07-24 00:00:00 Completed [facility] Pneumococcal Polysaccharide, PPSV23 (PNEUMOVAX) 2013-07-24 00:00:00 Completed [facility] Pneumococcal Polysaccharide, PPSV23 (PNEUMOVAX) 2013-07-24 00:00:00 Completed [facility] Pneumococcal Polysaccharide, PPSV23 (PNEUMOVAX) 2013-07-24 00:00:00 Completed [facility] Pneumococcal Polysaccharide, PPSV23 (PNEUMOVAX) 2013-07-24 00:00:00 Completed [facility] Vital Signs Vital Name Observation Time Observation Value Comments S ource Systolic blood pressure 2024-07-02 18:08:00 122 mm[Hg] [facility] Diastolic blood pressure 2024-07-02 18:08:00 70 mm[Hg] [facility] Heart rate 2024-07-02 18:08:00 75 /min [facility] Body temperature 2024-07-02 18:08:00 37.44 Lisa [facility] Respiratory rate 2024-07-02 18:08:00 20 /min [facility] Oxygen saturation in Arterial blood by Pulse oximetry 2024-07-02 18:08:00 88 /min pt her O2 is usually 89-91 [facility] Systolic blood pressure 2024-04-23 09:30:00 107 mm[Hg] [facility] Diastolic blood pressure 2024-04-23 09:30:00 61 mm[Hg] [facility] Heart rate 2024-04-23 09:30:00 70 /min [facility] Respiratory rate 2024-04-23 09:30:00 13 /min [facility] Oxygen saturation in Arterial blood by Pulse oximetry 2024-04-23 09:30:00 99 /min [facility] Systolic blood pressure 2024-04-23 09:30:00 107 mm[Hg] [facility] Diastolic blood pressure 2024-04-23 09:30:00 61 mm[Hg] [facility] Heart rate 2024-04-23 09:30:00 70 /min [facility] Respiratory rate 2024-04-23 09:30:00 13 /min [facility] Oxygen saturation in Arterial blood by Pulse oximetry 2024-04-23 09:30:00 99 /min [facility] Heart rate 2024-03-26 14:03:28 68 /min [facility] Oxygen saturation in Arterial blood by Pulse oximetry 2024-03-26 14:03:28 92 /min [facility] Systolic blood pressure 2024-03-26 14:03:21 125 mm[Hg] [facility] Diastolic blood pressure 2024-03-26 14:03:21 59 mm[Hg] [facility] Body temperature 2024-03-26 14:02:31 37 Lisa [facility] Respiratory rate 2024-03-25 19:28:34 20 /min [facility] Body height 2024-03-23 08:34:23 176.9 cm [facility] Body weight 2024-03-23 08:34:23 68.2 kg [facility] BMI 2024-03-23 08:34:23 21.79 kg/m2 [facility] Heart rate 2024-03-26 14:03:28 68 /min [facility] Oxygen saturation in Arterial blood by Pulse oximetry 2024-03-26 14:03:28 92 /min [facility] Systolic blood pressure 2024-03-26 14:03:21 125 mm[Hg] [facility] Diastolic blood pressure 2024-03-26 14:03:21 59 mm[Hg] [facility] Body temperature 2024-03-26 14:02:31 37 Lisa [facility] Respiratory rate 2024-03-25 19:28:34 20 /min [facility] Body height 2024-03-23 08:34:23 176.9 cm [facility] Body weight 2024-03-23 08:34:23 68.2 kg [facility] BMI 2024-03-23 08:34:23 21.79 kg/m2 [facility] Systolic blood pressure 2020-07-04 15:28:00 157 mm[Hg] [facility] Diastolic blood pressure 2020-07-04 15:28:00 89 mm[Hg] [facility] Heart rate 2020-07-04 14:41:00 70 /min [facility] Body temperature 2020-07-04 14:41:00 36.11 Lisa [facility] Body height 2020-07-04 14:41:00 172.7 cm [facility] Body weight 2020-07-04 14:41:00 78.608 kg [facility] BMI 2020-07-04 14:41:00 26.35 kg/m2 [facility] Oxygen saturation in Arterial blood by Pulse oximetry 2020-07-04 14:41:00 96 /min [facility] Systolic blood pressure 2020-03-15 20:41:00 156 mm[Hg] [facility] Diastolic blood pressure 2020-03-15 20:41:00 88 mm[Hg] [facility] Heart rate 2020-03-15 20:10:00 63 /min [facility] Body temperature 2020-03-15 20:10:00 36.78 Lisa [facility] Respiratory rate 2020-03-15 20:10:00 18 /min [facility] Body weight 2020-03-15 20:10:00 78.155 kg [facility] BMI 2020-03-15 20:10:00 26.20 kg/m2 [facility] Oxygen saturation in Arterial blood by Pulse oximetry 2020-03-15 20:10:00 96 /min [facility] Systolic blood pressure 2019-12-17 19:44:00 174 mm[Hg] [facility] Diastolic blood pressure 2019-12-17 19:44:00 84 mm[Hg] [facility] Heart rate 2019-12-17 19:44:00 63 /min [facility] Body temperature 2019-12-17 19:44:00 36.72 Lisa [facility] Respiratory rate 2019-12-17 19:44:00 18 /min [facility] Body weight 2019-12-17 19:44:00 78.382 kg [facility] BMI 2019-12-17 19:44:00 26.27 kg/m2 [facility] Oxygen saturation in Arterial blood by Pulse oximetry 2019-12-17 19:44:00 97 /min [facility] Systolic blood pressure 2019-08-10 13:19:00 139 mm[Hg] [facility] Diastolic blood pressure 2019-08-10 13:19:00 84 mm[Hg] [facility] Heart rate 2019-08-10 13:19:00 72 /min [facility] Body temperature 2019-08-10 13:19:00 36.67 Lisa [facility] Respiratory rate 2019-08-10 13:19:00 16 /min [facility] Body height 2019-08-10 13:19:00 172.7 cm [facility] Body weight 2019-08-10 13:19:00 78.926 kg [facility] BMI 2019-08-10 13:19:00 26.46 kg/m2 [facility] Oxygen saturation in Arterial blood by Pulse oximetry 2019-08-10 13:19:00 94 /min [facility] Procedures Procedure Date / Time Performed Performing Clinician Source ECG 12-LEAD 2024-04-23 09:35:00 Oneyda Palacio [facility] [employer] TRANSESOPHAGEAL ECHO (JESUS) W/ CARDIOVERSION 2024-04-23 09:20:00 Oneyda Palacio [facility] [employer] POC CHEM 8+ UNSOLICITED RESULTS 2024-04-23 08:02:00 Oneyda Palacio [facility] [employer] POC CHEM 8+ UNSOLICITED RESULTS 2024-04-23 07:57:00 Oneyda [facility] [employer] ECG 12-LEAD 2024-03-23 10:00:00 Oneyda Palacio [facility] [employer] TRANSTHORACIC ECHO (TTE) COMPLETE 2024-03-22 09:50:00 QuincyOneyda [facility] BASIC METABOLIC PANEL 2024-03-22 05:44:00 Anighoro, Ri ta I [facility] Epic MAGNESIUM LEVEL 2024-03-22 05:44:00 [facility]ighkaro[facility] PHOSPHORUS LEVEL 2024-03-22 05:44:00 Anighoro, Nicole I [facility] BASIC METABOLIC PANEL 2024-03-21 04:59:00 Anighoro, Ri ta I [facility] COMPLETE BLOOD COUNT W/DIFF AND PLATELET 2024-03-21 04:59:00 Anighoro, Nicole I [facility] COMPLETE BLOOD COUNT 2024-03-21 04:59:00 Angeoffreyoro, Rit a I [facility] Epic AUTOMATED DIFFERENTIAL 2024-03-21 04:59:00 Anighoro, R lynn I [facility] COMPREHENSIVE METABOLIC PANEL 2024-03-19 04:19:00 Elise Morrisonsuf [facility] Epic External Catheter 2024-03-19 00:00:00 Mem orial [place] [facility] CT CERVICAL SPINE WO IV CONTRAST 2024-03-18 20:56:36 Jose Cruz Mckeon [facility] BRAIN WO IV CONTRAST 2024-03-18 20:55:15 Eloy Mckeon [facility] Epic ECG 12-LEAD 2024-03-18 20:34:33 Jose Cruz Mckeon Memo rial [place] Epic ECG 12-LEAD 2024-03-18 20:32:37 [facility] UA WITH CULTURE IF INDICATED 2024-03-18 20:24:00 Jose Cruz Mckeon [facility] Epic XR CHEST 1 VIEW 2024-03-18 19:40:40 [facility] XR HUMERUS 2 VIEWS LEFT 2024-03-18 14:04:00 FabianSharee [facility] XR ELBOW 3+ VIEWS LEFT 2024-03-18 14:04:00 FabianRosy [facility] BASIC METABOLIC PANEL 2024-03-18 13:53:00 FabianAsael [facility] Epic HEPATIC FUNCTION PANEL 2024-03-18 13:53:00 Fabian, Rosy dine [facility] LIPASE LEVEL 2024-03-18 13:53:00 WayJose Cruz otero Memo rial [facility] MAGNESIUM LEVEL 2024-03-18 13:53:00 WaytJose Cruz Vickie [facility] PHOSPHORUS LEVEL 2024-03-18 13:53:00 WaytJose Cruz [facility] COMPLETE BLOOD COUNT W/DIFF AND PLATELET 2024-03-18 13:53:00 Fabian, Cecilia [facility] Epic PROTIME-INR 2024-03-18 13:53:00 [facility], [facility] [place] [facility] P[facility] 2024-03-18 13:53:00 Fabian, [facility] TROPONIN I HIGH SENSITIVITY (SINGLE ORDER) 2024-03-18 13:53:00 Fabian, Cecilia [facility] COMPLETE BLOOD COUNT 2024-03-18 13:53:00 FabianCesar [facility] AUTOMATED DIFFERENTIAL 2024-03-18 13:53:00 FabianRosy [facility] AUTHORIZATION FOR RELEASE OF PHI 2020-08-09 05:01:00 Doctor Unassigned, [place] [facility] XR HIPS 3 VW LEFT 2020-06-29 16:58:08 Rissa Lacy [facility] REFERRAL- REQUEST/RESPONSE 2020-06-24 05:01:00 D octor Unassigned, [place] [facility] REFERRAL- REQUEST/RESPONSE 2020-06-22 05:01:00 D octor Unassigned, [place] [facility] LIPID PANEL (25026)(TOTAL CHOLESTEROL, TRIGLYCERIDES, HDL) 2020-03-15 21:10:00 Rissa Lacy [facility] CBC WITH DIFF 2020-03-15 21:10:00 Florian Lacy [facility] LIPID PANEL (84637)(TOTAL CHOLESTEROL, TRIGLYCERIDES, HDL) 2019-12-17 20:36:00 Rissa Lacy [facility] CBC WITH DIFF 2019-12-17 20:36:00 Florian Lacy [facility] VITAMIN B6, PLASMA 2019-08-10 15:17:00 Rissa Lacy [facility] VITAMIN B12, LEVEL 2019-08-10 15:04:00 Rissa Lacy [facility] FOLATE 2019-08-10 15:04:00 Florian Lacy [facility] FREE T4 2019-08-10 15:04:00 Florian Lacy [facility] THYROID STIMULATING HORMONE 2019-08-10 15:04:00 Rissa Lacy [facility] COMP. METABOLIC PANEL (60046) 2019-08-10 15:04:00 Rissa Lacy [facility] LIPID PANEL (22891)(TOTAL CHOLESTEROL, TRIGLYCERIDES, HDL) 2019-08-10 15:04:00 Rissa Lacy [facility] CBC WITH DIFFERENTIAL 2019-08-10 15:04:00 Rissa Alfaro [facility] GLYCOSYLATED HEMOGLOBIN (A1C) 2019-08-10 15:04:00 Rissa Lacy [facility] HIGH SENSITIVITY CRP 2019-08-10 15:04:00 Rissa Morrow [facility] HOMOCYSTEINE 2019-08-10 15:04:00 Florian Lacy [facility] VITAMIN D, 25-OH 2019-08-10 15:04:00 Rissa Lacy [facility] FREE T3 2019-08-10 15:04:00 Florian Lacy [facility] VITAMIN B1 (THIAMINE), WHOLE BLOOD 2019-08-10 15:04:00 Rissa Lacy [facility] ASSIGNMENT OF BENEFITS 2019-08-10 13:05:10 Docto r Unassigned, [place] [facility] REFERRAL- REQUEST/RESPONSE 2019-07-05 05:01:00 D octor Unassigned, [place] [facility] REFERRAL- REQUEST/RESPONSE 2019-06-24 05:01:00 D octor Unassigned, [place] [facility] AUDIOGRAM 2019-04-22 06:01:00 Doctor Unass igned, [place] [facility] NOTICE OF BILLING PRACTICES FOR MEDICARE PATIENTS 2019-03-17 20:00:08 Doctor Unassigned, [place] [facility] ECG 12 [facility] 12 [facility] POCT Glucose [facility] Epic ECG 12 lead (arrhythmia) Mem jenniechris [place] Epic Encounters Start Date/Time End Date/Time Encounter Type Admission Type Attending [facility] Facility Care Department Encounter ID Source 2024-07-03 17:00:00 2024-07-03 17:00:00 Manager Foreign Visit [facility] 1..114 [id number] [id number] [facility] 2024-07-02 13:00:00 2024-07-02 13:00:00 Nurse Visit ANGELA BURT [facility] [id number] [id number] [id number] [facility] 2024-05-07 15:32:01 2024-05-07 23:59:00 Outpatient RUSSELL LY [facility] [id number] [facility] 2024-04-23 14:31:54 2024-04-23 23:59:00 Outpatient Elective [facility] ESW [id number] [facility] 2024-04-23 09:35:00 2024-04-23 23:59:00 Hospital Encounter Pre-Op/[place] very, Sw Ecg Painter [facility] [id number] [id number] Tashi buitrago [facility] 2024-04-23 06:29:36 2024-04-23 09:34:00 Hospital Encounter Appts, Sw Cath Holding Jesus, Sw Oneyda Palacio [facility] [id number] [id number] [id number] [facility] [address] [facility] 2024-04-23 06:29:36 2024-04-23 09:34:00 Outpatient Elective ONEYDA PALACIO [facility] [id number] [facility] 2024-03-18 19:12:00 2024-03-26 17:23:00 Hospital Encounter Franck, López Morrison, Elise Rodriguez, Nicole Zhao, Donnlel Dumont, Jaz Kurtz, Sheikh Brandon [facility] [id number] [id number] [id number] [facility] 2024-03-18 19:12:00 2024-03-26 17:23:00 Inpatient Trauma Center JERARDOCHRISBOURGEOIS [facility] General Medicine [id number] [facility] 2020-08-09 00:00:00 2020-08-09 00:00:00 Orders Only Doctor Unassigned, [place] [facility] [id number] [id number] [id number] [id number] [facility] 2020-08-08 14:54:34 2020-08-08 15:32:02 Ancillary Visit Mitch Chua Craig L [facility] [id number] [id number] [id number] [id number] [facility] 2020-08-03 14:55:53 2020-08-03 15:38:18 Ancillary Visit Mitch Chua Craig L [facility] [id number] [id number] [id number] [id number] [facility] 2020-08-01 14:51:44 2020-08-01 15:36:12 [facility] [id number] [id number] [id number] [id number] [facility] 2020-07-27 13:39:21 2020-07-27 14:15:03 Ancillary [facility] [id number] [id number] 4.2.7.2.686 [id number] [facility] 2020-07-25 13:42:25 2020-07-25 14:22:25 Ancillary Visit [facility] [id number] [id number] [id number] [id number] [facility] 2020-07-19 08:48:39 2020-07-19 09:48:39 Ancillary Visit Olga Cabrera [facility] 1.2.840.114 350.1.13.10 4.2.7.2.686 [id number] [facility] 2020-07-19 09:00:00 2020-07-19 09:00:00 Outpatient JONAH CARDOSO [facility] [id number] [facility] 2020-07-04 09:30:31 2020-07-04 10:25:39 Office Visit Leola Mahan [facility] Building 1.2.840.114 350.1.13.10 4.2.7.2.686 [id number] [facility] 2020-07-04 09:30:00 2020-07-04 09:30:00 Outpatient LEOLA CORRIGAN [facility] [id number] [facility] 2020-06-29 11:30:00 2020-06-29 23:59:00 Hospital Encounter Rissa Lacy [facility] 1.2.840.114 350.1.13.10 4.2.7.2.686 [id number] [facility] 2020-06-29 00:00:00 2020-06-29 00:00:00 Outpatient R RISSA LACY [facility] [id number] [facility] 2020-06-28 15:40:00 2020-06-28 15:40:00 Outpatient Leatha RISSA LACY [facility] [id number] [facility] 2020-06-28 09:26:21 2020-06-28 10:06:21 Telemedici ne Visit Matias Lacyth Katie [facility] 1.2.840.114 350.1.13.10 4.2.7.2.686 [id number] [facility] 2020-06-24 00:00:00 2020-06-24 00:00:00 Orders Only Doctor Unassigned, [place] [facility] 1.2.840.114 350.1.13.10 4.2.7.2.686 [id number] [facility] 2020-06-22 00:00:00 2020-06-22 00:00:00 Orders Only Doctor Unassigned, [place] [facility] 1.2.840.114 350.1.13.10 4.2.7.2.686 [id number] [facility] 2020-04-15 14:10:00 2020-04-15 14:10:00 Outpatient BRAULIO CHASE [facility] [id number] [facility] 2020-04-07 14:20:00 2020-04-07 14:20:00 Outpatient BRAULIO CHASE [facility] [id number] [facility] 2020-03-15 15:06:05 2020-03-15 15:21:05 Manager Foreign Visit 2, Adc Lab Rissa Lacy [facility] nal Building 1.2840.114 350.1.13.10 4.2.7.2.686 [id number] [facility] 2020-03-15 13:46:53 2020-03-15 14:42:11 Office Visit Rissa Lacy [facility] Building 1.2840.114 350.1.13.10 4.2.7.2.686 [id number] [facility] 2020-03-15 13:40:00 2020-03-15 13:40:00 Outpatient R KENNY LACYZABETH [facility] [id number] [facility] 2020-02-02 11:20:56 2020-02-02 11:40:56 Laboratory Only Lab, [facility] Pob Paulette Hewitt [facility] Office Building One 1.284.114 350.1.13.10 4.2.7.2.686 [id number] [facility] 2020-02-02 11:40:00 2020-02-02 11:40:00 Outpatient R [facility] [id number] [facility] 2020-01-03 00:00:00 2020-01-03 00:00:00 Case Management Rissa Lacy [facility] Building 1.2840.114 350.1.13.10 4.2.7.2.686 [id number] [facility] 2019-12-17 15:29:12 2019-12-17 15:44:12 Manager Foreign Visit 2, Adc Lab Rissa Lacy [facility] nal Building 1.2840.114 350.1.13.10 4.2.7.2.686 [id number] [facility] 2019-12-17 14:26:47 2019-12-17 15:18:50 Office Visit [facility] 1.2.840.114 350.1.13.10 4.2.7.2.686 [id number] [facility] 2019-12-17 14:20:00 2019-12-17 14:20:00 Outpatient R RISSA LACY [facility] [id number] [facility] 2019-09-15 11:22:46 2019-09-15 12:02:46 Ancillary Visit Em[facility]ide[facility] 1.2.840.114 350.1.13.10 4.2.7.2.686 [id number] [facility] 2019-09-10 15:55:29 2019-09-10 16:17:03 Ancillary Visit Chrissy Chua Craig L [facility] nal Building 1.2.840.114 350.1.13.10 4.2.7.2.686 [id number] [facility] 2019-09-08 11:18:57 2019-09-08 11:58:57 Ancillary Visit Emilia [facility]ide[facility] 1.2.840.114 350.1.13.10 4.2.7.2.686 [id number] [facility] 2019-09-03 11:20:48 2019-09-03 12:00:48 Ancillary Visit [facility]issy [facility] 1.2.840.114 350.1.13.10 4.2.7.2.686 [id number] [facility] 2019-09-01 11:25:38 2019-09-01 12:05:38 Ancillary Visit Chrissy Chua Elizabeth A [facility] Building 1.2.840.114 350.1.13.10 4.2.7.2.686 [id number] [facility] 2019-08-27 11:20:48 2019-08-27 11:49:54 Ancillary Visit Emilia Chaidez Elizabeth A [facility] Building 1.2.840.114 350.1.13.10 4.2.7.2.686 [id number] [facility] 2019-08-24 10:56:59 2019-08-24 11:36:59 Ancillary Visit Mitch Chua Elizabeth A [facility] 1.2.840.114 350.1.13.10 4.2.7.2.686 [id number] [facility] 2019-08-24 00:00:00 2019-08-24 00:00:00 Patient Outreach iRssa Lacy [facility] 1.2.840.114 350.1.13.10 4.2.7.2.686 [id number] [facility] 2019-08-20 14:40:00 2019-08-20 14:40:00 Outpatient R RISSA LACY [facility] [id number] [facility] 2019-08-20 00:00:00 2019-08-20 00:00:00 Telephone Olga Cabrera [facility] 1.2.840.114 350.1.13.10 4.2.7.2.686 [id number] [facility] 2019-08-17 11:03:14 2019-08-17 12:03:14 Ancillary Visit Emilia Chaidez Elizabeth [facility] 1.2.840.114 350.1.13.10 4.2.7.2.686 [id number] [facility] 2019-08-17 11:00:00 2019-08-17 11:00:00 Outpatient R MATIAS LACYTH [facility] [id number] [facility] 2019-08-10 09:55:51 2019-08-10 10:10:51 Manager Foreign Visit Pob, Adc Lab Main LacyMatias hraveyluly Wilson [facility] 1.2840.114 350.1.13.10 4.2.7.2.686 [id number] [facility] 2019-08-10 08:06:13 2019-08-10 09:02:39 Office Visit Rissa Lacy Katie [facility] 1.2.840.114 350.1.13.10 4.2.7.2.686 [id number] [facility] 2019-08-10 08:00:00 2019-08-10 08:00:00 Outpatient R LACYKENNYRISSA [facility] [id number] [facility] 2019-08-10 00:00:00 2019-08-10 00:00:00 Orders Only Doctor Unassigned, [place] [facility] 1.2840.114 350.1.13.10 4.2.7.2.686 [id number] [facility] 2019-07-27 00:00:00 2019-07-27 00:00:00 Telephone Lacy Rissa A [facility] 1.2.84.114 350.1.13.10 4.2.7.2.686 [id number] [facility] 2019-07-14 00:00:00 2019-07-14 00:00:00 Telephone Rissa Lacy [facility] 1.2840.114 350.1.13.10 4.2.7.2.686 [id number] [facility] 2019-07-05 00:00:00 2019-07-05 00:00:00 Orders Only Doctor Unassigned, [place] [facility] 1.2840.114 350.1.13.10 4.2.7.2.686 [id number] [facility] 2019-07-02 00:00:00 2019-07-02 00:00:00 Telephone Rissa Lacy [facility] 1.2840.114 350.1.13.10 4.2.7.2.686 [id number] [facility] 2019-06-25 10:00:00 2019-06-25 10:00:00 Outpatient R [facility] [id number] [facility] 2019-06-25 00:00:00 2019-06-25 00:00:00 Telephone Rissa Lacy [facility] 1.20.114 350.1.13.10 4.2.7.2.686 [id number] [facility] 2019-06-24 00:00:00 2019-06-24 00:00:00 Orders Only Doctor Unassigned, [place] [facility] 1.20.114 350.1.13.10 4.2.7.2.686 [id number] [facility] 2019-06-23 16:57:11 2019-06-23 17:12:11 Telemedici ne Visit Gardenia Swartz Lindy Skye [facility] 1..114 350.1.13.10 4.2.7.2.686 [id number] [facility] 2019-06-23 00:00:00 2019-06-23 00:00:00 Patient Secure Msg Doctor Unassigned, [place] [facility] 1..114 350.1.13.10 4.2.7.2.686 [id number] [facility] 2019-06-16 07:52:08 2019-06-16 16:00:36 Telemedici ne Visit Rissa Lacy [facility] 1..114 350.1.13.10 4.2.7.2.686 [id number] [facility] 2019-06-16 15:00:00 2019-06-16 15:00:00 Outpatient R RISSA LACY [facility] [id number] [facility] 2019-04-22 08:21:43 2019-04-22 09:06:43 Ancillary Visit Raina Vinson Deborah L [facility] 1..114 350.1.13.10 4.2.7.2.686 [id number] [facility] 2019-04-22 09:00:00 2019-04-22 09:00:00 Outpatient BRITTNEY PATTERSON [facility] [id number] [facility] 2019-04-22 00:00:00 2019-04-22 00:00:00 Orders Only Doctor Unassigned, [place] [facility] 1..114 350.1.13.10 4.2.7.2.686 [id number] [facility] 2019-03-18 00:00:00 2019-03-18 00:00:00 Pre Visit Outreach Rissa Lacy [facility] 1..114 350.1.13.10 4.2.7.2.686 [id number] [facility] 2019-03-17 00:00:00 2019-03-17 00:00:00 Orders Only Doctor Unassigned, [place] [facility] 1.2.840.114 350.1.13.10 4.2.7.2.686 [id number] [facility] 2014-11-01 10:30:00 2014-11-01 10:30:00 Outpatient SHAYLA HERNANDES [facility] [id number] [facility] Results Test Description Test Time Test Comments Results Result Co mments Source [facility] Chem 2024-04-23 08:07:35* Test Item Value Reference Range Interpretation Comme nts POC Sodium Lvl (test code = 95614-8) See_Comment [Automated messa ge] The system which generated this result transmitted reference range: 135 - 145 mEq/L. The reference range was not used to interpret this result as normal/abnormal. POC Potassium Lvl (test code = 93320-1) See_Comment L [Automated messa ge] The system which generated this result transmitted reference range: 3.5 - 5.1 mEq/L. The reference range was not used to interpret this result as normal/abnormal. POC A Cl (test code = 57068-7) See_Comment [Automated messa ge] The system which [...] as normal/abnormal. POC BUN (test code = 1895523) 21 mg/dL 7-22 POC Creatinine (test code = 39043-1) 1 mg/dL 0.5-1.4 POC Glu (test code = 4957021759) 114 mg/dL 70-99 H POC Ca Ion (test code = 4461327301) See_Comment H [Automated messa ge] The system which generated this result transmitted reference range: 1.05 - 1.25 mMol/L. The reference range was not used to interpret this result as normal/abnormal. POC Anion Gap (test code = 94285-5) See_Comment [Automated messa ge] The system which generated this result transmitted reference range: 10 - 20 mEq/L. The reference range was not used to interpret this result as normal/abnormal. POC eGFR (test code = 6694444026) mL/min/1.73m2 The estimated GF R is not accurate in children below the age of 2 months; therefore, this value is not reported. POC Hemoglobin (test code = 5141090049) 17.7 g/dL 11.2-15.7 H POC Hematocrit (test code = 8627473022) 52 % 34.1-44.9 H POC Performing Location (test code = 8533673811) CVOR/PACU Lab Interpretation (test code = 39753-7) Abnormal [facility] Chem 2024-04-23 08:07:34* Test Item Value Reference Range Interpretation Comme nts POC Sodium Lvl (test code = 01451-0) See_Comment L [Automated messa ge] The system which generated this result transmitted reference range: 135 - 145 mEq/L. The reference range was not used to interpret this result as normal/abnormal. POC Potassium Lvl (test code = 57709-4) See_Comment LL [Automated messa ge] The system which generated this result transmitted reference range: 3.5 - 5.1 mEq/L. The reference range was not used to interpret this result as normal/abnormal. POC A Cl (test code = 29024-5) See_Comment H [Automated messa ge] The system [...] as normal/abnormal. POC BUN (test code = 5687458) 20 mg/dL 7-22 POC Creatinine (test code = 91494-4) 0.9 mg/dL 0.5-1.4 POC Glu (test code = 2552335235) 115 mg/dL 70-99 H POC Ca Ion (test code = 0585289943) See_Comment H [Automated messa ge] The system which generated this result transmitted reference range: 1.05 - 1.25 mMol/L. The reference range was not used to interpret this result as normal/abnormal. POC Anion Gap (test code = 31638-7) See_Comment L [Automated messa ge] The system which generated this result transmitted reference range: 10 - 20 mEq/L. The reference range was not used to interpret this result as normal/abnormal. POC eGFR (test code = 7647268748) mL/min/1.73m2 The estimated GF R is not accurate in children below the age of 2 months; therefore, this value is not reported. POC Hemoglobin (test code = 6961111749) 16.3 g/dL 11.2-15.7 H POC Hematocrit (test code = 4471643231) 48 % 34.1-44.9 H POC Performing Location (test code = 6329843512) CVOR/PACU Lab Interpretation (test code = 65340-7) Abnormal [facility] 12 [id number] 23:44:42* Test Item Value Reference Range Interpretation Comme nts Ventricular Rate (test code = 9021429792) BPM Atrial Rate (test code = 9973814159) BPM CA Interval (test code = 1463175660) 226 ms QRS Duration (test code = 3793659772) 94 ms QT/QTc (test code = 8751860155) 492 ms QTc Calculation (test code = 5827903504) 519 ms P-[place] (test code = 4080764224) degrees R-[place] (test code = 7150850960) degrees T-[place] (test code = 3126066227) degrees Procedure? (test code = 3480) IMP (test code = IMP) PXN (test code = PXN) [facility] [id number] 23:04:17* Test Item Value Reference Range Interpretation Comme nts LV est EF (test code = 1322373123) 51 % LV A4C EF (test code = 6041633067) 48 % LV stroke vol (test code = 6848850978) 49 ml LV SI (A4C) (test code = 1912117213) 20.6 ml/m2 LV SV (A4C) (test code = 3282689715) 37.9 ml LVIDd (test code = 6088004649) 44 mm LVIDs (test code = 6981229263) 33 mm LV ESV A4C (test code = 1211696461) 41.2 mL LV EDV A4C (test code = 0282125963) 79.1 mL LV ESV 2D (test code = 0144413) 43.2 mL LV EDV 2D (test code = 9001596) 88.6 mL IVSd (test code = 8347236774) 12 mm LVPWd (test code = 3557197612) 12 mm LVOT diam (test code = 7948784478) 20 mm LVOT area (test code = 4440191043) 3.14 cm2 Fractional Shortening 2D (test code = 5242695610) 26 % LVLd (A4C) (test code = 1415493393) 72.1 mm LVLs (A4C) (test code = 6847764833) 56.5 mm MV E pk geraldo (test code = 2201253936) 0.7 m/s MV A pk geraldo (test code = 5062049675) 0.64 m/s MV E/A ratio (test code = 0435832398) MV e' lateral geraldo (test code = 9778447772) 9.03 cm/s MV DT (test code = 6850048073) 190 ms MV e' septal geraldo (test code = 3907358) 6.42 cm/s MV E/e' lateral (test code = 9365731) LA vol index (test code = 6447347700) 27.7 mL/m2 MV E/e' septal (test code = 1010192637) LA vol BP (test code = 9751636812) 51 ml LVOT pk geraldo (test code = 7248501295) 0.75 m/s LVOT mn grad (test code = 4105904329) mmHg LVOT Vmean (test code = 8871060095) 0.49 m/s LVOT VTI (test code = 3630522757) 15.6 cm LA area A2C (test code = 4247143819) 15.3 cm2 LA area A4C (test code = 3597584287) 22.1 cm2 LA size (test code = 1247656775) 44 mm LA Vol I BSA (test code = 6306140592) 19.7 ml/m2 LA Vol I (A4C) BSA (test code = 5941794481) 36.8 ml/m2 LA ESV A2C (test code = 0877605304) 36.456453502149593 mL LA ESV A4C (test code = 8498947184) 36.513378419168504 mL RVIDd (test code = 8412491768) 39 cm TAPSE (test code = 4481257948) 14 mm RVSP (test code = 0518325) mmHg Est RA pressure (test code = 9864688217) mmHg AV mn grad (test code = 6526711580) mmHg AV pk grad (test code = 6774597676) mmHg AV mn geraldo (test code = 5699959688) 0.7 m/s AV pk geraldo (test code = 4524596534) 1.03 m/s AV VTI (test code = 5258572269) 21.7 cm LVOT pk grad (test code = 2236614924) mmHg AV area cont VTI (test code = 3456538852) 2.26 cm2 AV area pk geraldo (test code = 7783047934) 2.27 cm2 LVOT Vmax/AV Vmax (test code = 0493153743) 0.72 {ratio} MV mn grad (test code = 4479222019) mmHg MV pk grad (test code = 1841358507) mmHg MV mn geraldo (test code = 2676306222) 0.581 m/s MV area cont eq (test code = 0320492512) 1.93 cm2 MV VTI (test code = 6786448011) 25.4 cm TR pk geraldo (test code = 4375101720) 2.79 m/s RAP (test code = 1519823468) mmHg TR pk grad (test code = 7104615309) mmHg Ao Root diam diastole (test code = 8305504276) 30 mm IVC size (test code = 7257563725) 19 mm MV max geraldo (test code = 5182646506) 0.949 cm/s IVC prox (test code = 6268758996) 19.660491728073706 cm IVSd 2D (test code = 6003500) 11.5 cm BSA (test code = 4936822393) 1.83 m2 Radiology Study observation (narrative) (test code = 73031-8) ERROL (test code = ERROL) [facility] [id number] 08:17:25* Test Item Value Reference Range Interpretation Comme nts Ventricular Rate (test code = 1482122014) BPM QRS Duration (test code = 6516521833) 90 ms QT/QTc (test code = 3110021371) 342 ms QTc Calculation (test code = 1123879540) 465 ms R-[place] (test code = 5754330478) degrees T-[place] (test code = 7466305273) degrees IMP (test code = IMP) PXN (test code = PXN) [facility] EpicXR HIPS 3 VW [id number] 17:04:16HISTORY: Left hip pain for several weeks. [...] pelvis, APand lateral views of left hip. [facility], Radiant ResultsInft User - 06/29/2020 12:05 PM [...] the pelvis, APand lateral views ofleft hip. [facility] Branch[facility] (63575)(TOTAL CHOLESTEROL, TRIGLYCERIDES, HDL)2020-03-15 23:15:00* Test Item Value Reference Range Interpretation Comme nts CHOL (test code = 1293396111) 235 mg/dL 120-200 H HDL (test code = 6861986769) 48 mg/dL >50 L HDLC RATIO (test code = 0216968922) See_Comment H [Automated messa ge] The system which generated this result transmitted reference range: <=4.5. The reference range was not used to interpret this result as normal/abnormal. TRIG (test code = 7235580832) 166 mg/dL 30-170 LDL CHOL (test code = 10475-8) 154 mg/dL See_Comment [Automated messa ge] The system which generated this result transmitted reference range: <=160. The reference range was not used to interpret this result as normal/abnormal. VLDL (test code = 6534140498) 33 mg/dL 5-60 Lab Interpretation (test code = 35978-7) [facility]TOTAL CHOLESTEROL, TRIGLYCERIDES, HDL)2020-03-15 23:15:00* Test Item Value Reference Range Interpretation Comme nts CHOL (test code = 5267912489) 235 mg/dL 120-200 H HDL (test code = 9933091349) 48 mg/dL >50 L HDLC RATIO (test code = 0333693448) See_Comment H [Automated messa ge] The system which generated this result transmitted reference range: <=4.5. The reference range was not used to interpret this result as normal/abnormal. TRIG (test code = 1372298147) 166 mg/dL 30-170 LDL CHOL (test code = 98516-5) 154 mg/dL See_Comment [Automated messa ge] The system which generated this result transmitted reference range: <=160. The reference range was not used to interpret this result as normal/abnormal. VLDL (test code = 6905309108) 33 mg/dL 5-60 Lab Interpretation (test code = 71928-2) [facility]normal [facility] [id number] 23:09:00* Test Item Value Reference Range Interpretation [...] 33.4 g/dL 31.6-35.1 RDW-SD (test code = 13256-1) 41.4 fL 39-49.9 RDW-CV (test code = 788-0) 12.5 % 12-15.5 PLT (test code = 777-3) See_Comment [Automated messa ge] The system which generated this result transmitted reference range: 166 - 358 10*3/?L. The reference range was not used to interpret this result as normal/abnormal. MPV (test code = 51004-1) 11.4 fL 9.5-12.9 NRBC/100 WBC (test code = 5054278844) See_Comment [Automated Signicat ssage] The system which generated this result transmitted reference range: 0.0 - 10.0 /100 WBCs. The reference range was not used to interpret this result as normal/abnormal. NRBC x10^3 (test code = 8666204273) <0.01 See_Comment [Automated messa ge] The system which generated this result transmitted reference range: 10*3/?L. The reference range was not used to interpret this result as normal/abnormal. GRAN MAT (NEUT) % (test code = 770-8) 54.5 % IMM GRAN % (test code = 1765593221) 0.10 % LYMPH % (test code = 736-9) 33.8 % MONO % (test code = 5905-5) 8.7 % EOS % (test code = 713-8) 1.9 % BASO % (test code = 706-2) 1.0 % GRAN MAT x10^3(ANC) (test code = 1990458555) 4.00 10*3/uL 1.88-7.09 IMM GRAN x10^3 (test code = 7779250096) <0.03 0-0.06 LYMPH x10^3 (test code = 731-0) 2.48 10*3/uL 1.32-3.29 MONO x10^3 (test code = 742-7) 0.64 10*3/uL 0.33-0.92 EOS x10^3 (test code = 711-2) 0.14 10*3/uL 0.03-0.39 BASO x10^3 (test code = 704-7) 0.07 10*3/uL 0.01-0.07 Lab Interpretation (test code = 33299-4) Abnormal [facility] WITH [id number] 23:09:00* Test Item Value Reference Range Interpretation Comme nts WBC (test code = 6690-2) See_Comment [Automated finalsitea ge] The system which generated this result transmitted reference range: 4.30 - 11.10 10*3/?L. The reference range was not used to interpret this result as normal/abnormal. RBC (test code = 789-8) See_Comment [Automated finalsitea ge] The system which generated this result [...] 33.4 g/dL 31.6-35.1 RDW-SD (test code = 39276-9) 41.4 fL 39-49.9 RDW-CV (test code = 788-0) 12.5 % 12-15.5 PLT (test code = 777-3) See_Comment [Automated messa ge] The system which generated this result transmitted reference range: 166 - 358 10*3/?L. The reference range was not used to interpret this result as normal/abnormal. MPV (test code = 55377-7) 11.4 fL 9.5-12.9 NRBC/100 WBC (test code = 1910136426) See_Comment [Automated Signicat ssage] The system which generated this result transmitted reference range: 0.0 - 10.0 /100 WBCs. The reference range was not used to interpret this result as normal/abnormal. NRBC x10^3 (test code = 1126851368) <0.01 See_Comment [Automated messa ge] The system which generated this result transmitted reference range: 10*3/?L. The reference range was not used to interpret this result as normal/abnormal. GRAN MAT (NEUT) % (test code = 770-8) 54.5 % IMM GRAN % (test code = 0973752261) 0.10 % LYMPH % (test code = 736-9) 33.8 % MONO % (test code = 5905-5) 8.7 % EOS % (test code = 713-8) 1.9 % BASO % (test code = 706-2) 1.0 % GRAN MAT x10^3(ANC) (test code = 9995664363) 4.00 10*3/uL 1.88-7.09 IMM GRAN x10^3 (test code = 2265364822) <0.03 0-0.06 LYMPH x10^3 (test code = 731-0) 2.48 10*3/uL 1.32-3.29 MONO x10^3 (test code = 742-7) 0.64 10*3/uL 0.33-0.92 EOS x10^3 (test code = 711-2) 0.14 10*3/uL 0.03-0.39 BASO x10^3 (test code = 704-7) 0.07 10*3/uL 0.01-0.07 Lab Interpretation (test code = 68088-2) [facility]TOTAL CHOLESTEROL, TRIGLYCERIDES, HDL)2019-12-17 22:07:00* Test Item Value Reference Range Interpretation Comme nts CHOL (test code = 3786581202) 219 mg/dL 120-200 H HDL (test code = 5538807680) 40 mg/dL >50 L HDLC RATIO (test code = 9817360266) See_Comment H [Automated messa ge] The system which generated this result transmitted reference range: <=4.5. The reference range was not used to interpret this result as normal/abnormal. TRIG (test code = 1635514097) 212 mg/dL 30-170 H LDL CHOL (test code = 56608-7) 137 mg/dL See_Comment [Automated messa ge] The system which generated this result transmitted reference range: <=160. The reference range was not used to interpret this result as normal/abnormal. VLDL (test code = 8073640233) 42 mg/dL 5-60 Lab Interpretation (test code = 86062-6) [facility]TOTAL CHOLESTEROL, TRIGLYCERIDES, HDL)2019-12-17 22:07:00* Test Item Value Reference Range Interpretation Comme nts CHOL (test code = 6811894307) 219 mg/dL 120-200 H HDL (test code = 3207608431) 40 mg/dL >50 L HDLC RATIO (test code = 3304102302) See_Comment H [Automated messa ge] The system which generated this result transmitted reference range: <=4.5. The reference range was not used to interpret this result as normal/abnormal. TRIG (test code = 1536151157) 212 mg/dL 30-170 H LDL CHOL (test code = 96711-8) 137 mg/dL See_Comment [Automated messa ge] The system which generated this result transmitted reference range: <=160. The reference range was not used to interpret this result as normal/abnormal. VLDL (test code = 0000080074) 42 mg/dL 5-60 Lab Interpretation (test code = 43501-7) [facility] [id number] 21:34:00* Test Item Value Reference Range Interpretation [...] 34.2 g/dL 31.6-35.1 RDW-SD (test code = 18408-7) 40.4 fL 39-49.9 RDW-CV (test code = 788-0) 12.2 % 12-15.5 PLT (test code = 777-3) See_Comment [Automated messa ge] The system which generated this result transmitted reference range: 166 - 358 10*3/?L. The reference range was not used to interpret this result as normal/abnormal. MPV (test code = 41726-7) 10.8 fL 9.5-12.9 NRBC/100 WBC (test code = 7348102355) See_Comment [Automated Signicat ssage] The system which generated this result transmitted reference range: 0.0 - 10.0 /100 WBCs. The reference range was not used to interpret this result as normal/abnormal. NRBC x10^3 (test code = 2783744098) <0.01 See_Comment [Automated messa ge] The system which generated this result transmitted reference range: 10*3/?L. The reference range was not used to interpret this result as normal/abnormal. GRAN MAT (NEUT) % (test code = 770-8) 56.4 % IMM GRAN % (test code = 2246543868) 0.10 % LYMPH % (test code = 736-9) 32.4 % MONO % (test code = 5905-5) 8.6 % EOS % (test code = 713-8) 1.9 % BASO % (test code = 706-2) 0.6 % GRAN MAT x10^3(ANC) (test code = 5324120586) 4.09 10*3/uL 1.88-7.09 IMM GRAN x10^3 (test code = 5030875612) <0.03 0-0.06 LYMPH x10^3 (test code = 731-0) 2.35 10*3/uL 1.32-3.29 MONO x10^3 (test code = 742-7) 0.62 10*3/uL 0.33-0.92 EOS x10^3 (test code = 711-2) 0.14 10*3/uL 0.03-0.39 BASO x10^3 (test code = 704-7) 0.04 10*3/uL 0.01-0.07 Lab Interpretation (test code = 90563-7) Abnormal [facility] WITH [id number] 21:34:00* Test Item Value Reference Range Interpretation Comme nts WBC (test code = 6690-2) See_Comment [Automated finalsitea ge] The system which generated this result transmitted reference range: 4.30 - 11.10 10*3/?L. The reference range was not used to interpret this result as normal/abnormal. RBC (test code = 789-8) See_Comment [Automated finalsitea ge] The system which generated this result [...] 34.2 g/dL 31.6-35.1 RDW-SD (test code = 25954-2) 40.4 fL 39-49.9 RDW-CV (test code = 788-0) 12.2 % 12-15.5 PLT (test code = 777-3) See_Comment [Automated messa ge] The system which generated this result transmitted reference range: 166 - 358 10*3/?L. The reference range was not used to interpret this result as normal/abnormal. MPV (test code = 89210-9) 10.8 fL 9.5-12.9 NRBC/100 WBC (test code = 2539608920) See_Comment [Automated Signicat ssage] The system which generated this result transmitted reference range: 0.0 - 10.0 /100 WBCs. The reference range was not used to interpret this result as normal/abnormal. NRBC x10^3 (test code = 8132627243) <0.01 See_Comment [Automated messa ge] The system which generated this result transmitted reference range: 10*3/?L. The reference range was not used to interpret this result as normal/abnormal. GRAN MAT (NEUT) % (test code = 770-8) 56.4 % IMM GRAN % (test code = 5772866595) 0.10 % LYMPH % (test code = 736-9) 32.4 % MONO % (test code = 5905-5) 8.6 % EOS % (test code = 713-8) 1.9 % BASO % (test code = 706-2) 0.6 % GRAN MAT x10^3(ANC) (test code = 3674970887) 4.09 10*3/uL 1.88-7.09 IMM GRAN x10^3 (test code = 5772865878) <0.03 0-0.06 LYMPH x10^3 (test code = 731-0) 2.35 10*3/uL 1.32-3.29 MONO x10^3 (test code = 742-7) 0.62 10*3/uL 0.33-0.92 EOS x10^3 (test code = 711-2) 0.14 10*3/uL 0.03-0.39 BASO x10^3 (test code = 704-7) 0.04 10*3/uL 0.01-0.07 Lab Interpretation (test code = 30467-0) [facility]INE), WHOLE [id number] 13:41:00* Test Item Value Reference Range Interpretation Comme nts Vitamin B1, Whole Blood (test code = 34624-8) 99 nmol/L 70-180 INTERPRETIVE INF ORMATION: Vitamin B1, Whole Blood This assay measures the concentration of thiamine diphosphate (TDP), the primary active form of vitamin B1. Approximately 90 percent of vitamin B1 present in whole blood is TDP. Thiamine and thiamine monophosphate, which comprise the remaining 10 percent, are not measured. Test developed and characteristics determined by [employer]. See Compliance Statement B: [employer]/CSPerformed by [employer],[address] [facility] [place] [address] [email or web address] Robby sims MD, Lab. Damage AssessorTexas Health KaufmanVITAMIN B1 (THIAMINE), WHOLE [id number] 13:41:00* Test Item Value Reference Range Interpretation Comme [facility] Vitamin B1, Whole Blood (test code = 46905-5) 99 nmol/L 70-180 INTERPRETIVE INF ORMATION: Vitamin B1, Whole Blood This assay measures the concentration of thiamine diphosphate (TDP), the primary active form of vitamin B1. Approximately 90 percent of vitamin B1 present in whole blood is TDP. Thiamine and thiamine monophosphate, which comprise the remaining 10 percent, are not measured. Test developed and characteristics determined by [employer]. See Compliance Statement B: [employer]/CSPerformed by [employer],[address] [facility] [place] [address] [email or web address] Robby sims MD, Lab. Damage AssessorTexas Health KaufmanVITAMIN B1 (THIAMINE), WHOLE [id number] 13:41:00* Test Item Value Reference Range Interpretation Comme [facility] Vitamin B1, Whole Blood (test code = 29128-9) 99 nmol/L 70-180 INTERPRETIVE INF ORMATION: Vitamin B1, Whole Blood This assay measures the concentration of thiamine diphosphate (TDP), the primary active form of vitamin B1. Approximately 90 percent of vitamin B1 present in whole blood is TDP. Thiamine and thiamine monophosphate, which comprise the remaining 10 percent, are not measured. Test developed and characteristics determined by [employer]. See Compliance Statement B: [employer]/CSPerformed by [employer],[address] [facility] [place] [address] xnk.[employer] Robby sims MD, Lab. Damage AssessorTexas Health KaufmanVITAMIN B6, [id number] 23:33:00* Test Item Value Reference Range Interpretation Comme nts VIT B6 (test code = 45272-4) 36.2 nmol/L 20.0-125.0 INTERPRETIVE INF ORMATION: Vitamin B6 (Pyridoxal 5-Phosphate) Pyridoxal 5'-phosphate measured in a specimen collected following an 8-hour or overnight fast accurately indicates vitamin B6 nutritional status. Non-fasting specimen concentration reflects recent vitamin intake. Test developed and characteristics determined by [employer]. See Compliance Statement B: [employer]/CSPerformed by [employer],[address] [facility] [place] [address] rpe.[employer] Robby MD, Lab. Damage AssessorTexas Health KaufmanVITAMIN B6, [id number] 23:33:00* Test Item Value Reference Range Interpretation Comme nts VIT B6 (test code = 64741-2) 36.2 nmol/L 20.0-125.0 INTERPRETIVE INF ORMATION: Vitamin B6 (Pyridoxal 5-Phosphate) Pyridoxal 5'-phosphate measured in a specimen collected following an 8-hour or overnight fast accurately indicates vitamin B6 nutritional status. Non-fasting specimen concentration reflects recent vitamin intake. Test developed and characteristics determined by [employer]. See Compliance Statement B: [employer]/CSPerformed by [employer],[address] [facility] [place] [address] kbo.[employer] Robby sims MD, Lab. Damage AssessorTexas Health KaufmanVITAMIN B6, [id number] 23:33:00* Test Item Value Reference Range Interpretation Comme nts VIT B6 (test code = 62405-3) 36.2 nmol/L 20.0-125.0 INTERPRETIVE INF ORMATION: Vitamin B6 (Pyridoxal 5-Phosphate) Pyridoxal 5'-phosphate measured in a specimen collected following an 8-hour or overnight fast accurately indicates vitamin B6 nutritional status. Non-fasting specimen concentration reflects recent vitamin intake. Test developed and characteristics determined by [employer]. See Compliance Statement B: [employer]/CSPerformed by [employer],[address] [place] [address] hrv.[email or web address] Robby sims MD, Lab. Damage AssessorTexas Health KaufmanHIGH SENSITIVITY [id number] 15:44:00* Test Item Value Reference Range Interpretation Comme nts HS CRP (test code = 1110034085) 0.10 mg/dL <0.74 Lab Interpretation (test cod e = 68988-1) Normal [facility] [id number] 15:44:00* Test Item Value Reference Range Interpretation Comme nts HS CRP (test code = 4699524792) 0.10 mg/dL <0.74 Lab Interpretation (test cod e = 21267-9) Normal [facility] [id number] 15:44:00* Test Item Value Reference Range Interpretation Comme nts HS CRP (test code = 3892434077) 0.10 mg/dL <0.74 Lab Interpretation (test cod e = 48821-9) Normal [facility]IT[facility] D, [id number] 21:56:00* Test Item Value Reference Range Interpretation Comme nts VIT D 25OH (test code = 71947-7) 39 ng/mL 25-80 ERROL (test code = ERROL) Deficiency: <20 ng/mLInsufficiency : 20-24 ng/mLOptimal: 25-80 ng/mL Lab Interpretation (test code = 20673-3) Normal [facility] D, [id number] 21:56:00* Test Item Value Reference Range Interpretation Comme nts VIT D 25OH (test code = 63865-6) 39 ng/mL 25-80 ERROL (test code = ERROL) Deficiency: <20 ng/mLInsufficiency : 20-24 ng/mLOptimal: 25-80 ng/mL Lab Interpretation (test code = 33396-3) Normal [facility], [id number] 21:56:00* Test Item Value Reference Range Interpretation Comme nts VIT D 25OH (test code = 75369-9) 39 ng/mL 25-80 ERROL (test code = ERROL) Deficiency: <20 ng/mLInsufficiency : 20-24 ng/mLOptimal: 25-80 ng/mL Lab Interpretation (test code = 37356-9) Normal [facility] B12, [id number] 21:44:00* Test Item Value Reference Range Interpretation Comme nts VIT B12 (test code = 7634861591) >1000 240-930 H ERROL (test code = ERROL) Biotin has been reported to cause a positive bias, interpret results relative to patient's use of biotin. Lab Interpretation (test code = 09401-3) Abnormal [facility] B12, [id number] 21:44:00* Test Item Value Reference Range Interpretation Comme nts VIT B12 (test code = 0220886482) >1000 240-930 H ERROL (test code = ERROL) Biotin has been reported to cause a positive bias, interpret results relative to patient's use of biotin. Lab Interpretation (test code = 99911-0) Abnormal [facility] B12, [id number] 21:44:00* Test Item Value Reference Range Interpretation Comme nts VIT B12 (test code = 4317542060) >1000 240-930 H ERROL (test code = ERROL) Biotin has been reported to cause a positive bias, interpret results relative to patient's use of biotin. Lab Interpretation (test code = 28234-0) Abnormal [facility]man[facility]OL[facility]2020-06-22 21:42:00* Test Item Value Reference Range Interpretation Comme nts FOLATE SER (test code = 7263575066) 10.7 ng/mL 3-20 Lab Interpretation (test cod e = 76073-5) Normal [facility]2020-06-22 21:42:00* Test Item Value Reference Range Interpretation Comme nts FOLATE SER (test code = 2336874898) 10.7 ng/mL 3-20 Lab Interpretation (test cod e = 98155-8) Normal [facility]2020-06-22 21:42:00* Test Item Value Reference Range Interpretation Comme nts FOLATE SER (test code = 0361888265) 10.7 ng/mL 3-20 Lab Interpretation (test cod e = 84951-8) Normal [facility]OMOCYSTEINE2020-06-22 20:41:00* Test Item Value Reference Range Interpretation Comme nts Homocysteine (test code = 0035231244) 12.8 umol/L 4.7-12.6 H Lab Interpretation (test cod e = 25442-3) Abnormal [facility]2020-06-22 20:41:00* Test Item Value Reference Range Interpretation Comme nts Homocysteine (test code = 4305800707) 12.8 umol/L 4.7-12.6 H Lab Interpretation (test cod e = 82011-8) Abnormal [facility]2020-06-22 20:41:00* Test Item Value Reference Range Interpretation Comme nts Homocysteine (test code = 6687211635) 12.8 umol/L 4.7-12.6 H Lab Interpretation (test cod e = 17757-5) Abnormal [place] [id number] 17:33:00* Test Item Value Reference Range Interpretation Comme nts FREE T3 (test code = 3805588012) 3.12 pg/mL 2.77-5.27 Lab Interpretation (test cod e = 60524-8) Normal [place] [id number] 17:33:00* Test Item Value Reference Range Interpretation Comme nts FREE T3 (test code = 4124878118) 3.12 pg/mL 2.77-5.27 Lab Interpretation (test cod e = 85957-3) Normal [place] [id number] 17:33:00* Test Item Value Reference Range Interpretation Comme nts FREE T3 (test code = 8903007206) 3.12 pg/mL 2.77-5.27 Lab Interpretation (test cod e = 81528-9) Normal [facility]YROID STIMULATING [id number] 16:20:00 * Test Item Value Reference Range Interpretation Comme nts TSH (test code = 4807471911) See_Comment [Automated messa ge] The system which generated this result transmitted reference range: 0.45 - 4.70 mIU/L. The reference range was not used to interpret this result as normal/abnormal. Lab Interpretation (test code = 30519-5) Normal [facility] [id number] 16:20:00 * Test Item Value Reference Range Interpretation Comme nts TSH (test code = 3081636328) See_Comment [Automated messa ge] The system which generated this result transmitted reference range: 0.45 - 4.70 mIU/L. The reference range was not used to interpret this result as normal/abnormal. Lab Interpretation (test code = 65536-9) Normal [facility] ST[facility]ULATING [id number] 16:20:00 * Test Item Value Reference Range Interpretation Comme nts TSH (test code = 6096719952) See_Comment [Automated messa ge] The system which generated this result transmitted reference range: 0.45 - 4.70 mIU/L. The reference range was not used to interpret this result as normal/abnormal. Lab Interpretation (test code = 67371-2) Normal [facility] [id number] 16:06:00* Test Item Value Reference Range Interpretation Comme nts FREE T4 (test code = 0664847095) 1.11 ng/dL 0.78-2.2 Lab Interpretation (test cod e = 99907-3) Normal [facility] [id number] 16:06:00* Test Item Value Reference Range Interpretation Comme nts FREE T4 (test code = 0198128183) 1.11 ng/dL 0.78-2.2 Lab Interpretation (test cod e = 73775-6) [facility] [id number] 16:06:00* Test Item Value Reference Range Interpretation Comme nts FREE T4 (test code = 6263959577) 1.11 ng/dL 0.78-2.2 Lab Interpretation (test cod e = 43194-8) Normal [facility]manLIPID PANEL (93497)(TOTAL CHOLESTEROL, TRIGLYCERIDES, HDL)2019-08-10 15:52:00* Test Item Value Reference Range Interpretation Comme nts CHOL (test code = 1849319898) 249 mg/dL 120-200 H HDL (test code = 2545656555) 45 mg/dL >50 L HDLC RATIO (test code = 1142885227) See_Comment H [Automated messa ge] The system which generated this result transmitted reference range: <=4.5. The reference range was not used to interpret this result as normal/abnormal. TRIG (test code = 9617803288) 268 mg/dL 30-170 H LDL CHOL (test code = 11010-2) 150 mg/dL See_Comment [Automated messa ge] The system which generated this result transmitted reference range: <=160. The reference range was not used to interpret this result as normal/abnormal. VLDL (test code = 6479906677) 54 mg/dL 5-60 Lab Interpretation (test code = 89629-8) Abnormal [facility]. METABOLIC PANEL (99007)2019-08-10 15:52:00* Test Item Value Reference Range Interpretation Comme nts NA (test code = 5378945385) 139 mmol/L 135-145 K (test code = 8034235893) 3.6 mmol/L 3.5-5 CL (test code = 9382548248) 102 mmol/L 98-108 CO2 TOTAL (test code = 7390581937) 28 mmol/L 23-31 AGAP (test code = 4803300427) 2-16 BUN (test code = 2068974021) 24 mg/dL 7-23 H GLUCOSE (test code = 5499744180) 112 mg/dL 70-110 H CREATININE (test code = 3511114392) 0.89 mg/dL 0.5-1.04 TOTAL BILI (test code = 9467861445) 0.6 mg/dL 0.1-1.1 CALCIUM (test code = 4811187890) 10.4 mg/dL 8.6-10.6 T PROTEIN (test code = 0829053155) 7.5 g/dL 6.3-8.2 ALBUMIN (test code = 4694775450) 4.4 g/dL 3.5-5 ALK PHOS (test code = 7081896290) 72 U/L 34-122 ALTv (test code = 1742-6) 47 U/L 5-35 H AST(SGOT) (test code = 5917352068) 37 U/L 13-40 eGFR Calculation (Non-) (test code = 6012688086) mL/min/1.73m2 eGFR Calculation () (test code = 3807272960) mL/min/1.73m2 ERROL (test code = ERROL) Association [...] imaging tests). Lab Interpretation (test code = 94405-1) [facility]normal [facility]man[facility]YCOSYLATED HEMOGLOBIN (A1C)2019-08-10 15:52:00* Test Item Value Reference [...] ?Diabetes Indicated Lab Interpretation (test code = 31825-8) Normal [facility]manLIPID PANEL (11191)(TOTAL CHOLESTEROL, TRIGLYCERIDES, HDL)2019-08-10 15:52:00* Test Item Value Reference Range Interpretation Comme nts CHOL (test code = 1489659783) 249 mg/dL 120-200 H HDL (test code = 3891750573) 45 mg/dL >50 L HDLC RATIO (test code = 3701703486) See_Comment H [Automated [employer]] The system which generated this result transmitted reference range: <=4.5. The reference range was not used to interpret this result as normal/abnormal. TRIG (test code = 7577008904) 268 mg/dL 30-170 H LDL CHOL (test code = 23870-3) 150 mg/dL See_Comment [Automated [employer]] The system which generated this result transmitted reference range: <=160. The reference range was not used to interpret this result as normal/abnormal. VLDL (test code = 6746656563) 54 mg/dL 5-60 Lab Interpretation (test code = 64416-8) Abnormal [facility]. METABOLIC PANEL (59177)2019-08-10 15:52:00* Test Item Value Reference Range Interpretation Comme nts NA (test code = 5042935951) 139 mmol/L 135-145 K (test code = 0161655929) 3.6 mmol/L 3.5-5 CL (test code = 2818317508) 102 mmol/L 98-108 CO2 TOTAL (test code = 7325480138) 28 mmol/L 23-31 AGAP (test code = 7699567109) 2-16 BUN (test code = 1719280561) 24 mg/dL 7-23 H GLUCOSE (test code = 0553741849) 112 mg/dL 70-110 H CREATININE (test code = 3335061802) 0.89 mg/dL 0.5-1.04 TOTAL BILI (test code = 5003574245) 0.6 mg/dL 0.1-1.1 CALCIUM (test code = 7607911109) 10.4 mg/dL 8.6-10.6 T PROTEIN (test code = 5245033635) 7.5 g/dL 6.3-8.2 ALBUMIN (test code = 8438964073) 4.4 g/dL 3.5-5 ALK PHOS (test code = 2388406421) 72 U/L 34-122 ALTv (test code = 1742-6) 47 U/L 5-35 H AST(SGOT) (test code = 7688933127) 37 U/L 13-40 eGFR Calculation (Non-) (test code = 5670789112) mL/min/1.73m2 eGFR Calculation () (test code = 8753981295) mL/min/1.73m2 ERROL (test code = ERROL) Association [...] imaging tests). Lab Interpretation (test code = 39473-8) [facility]normal [facility]YCOSYLATED HEMOGLOBIN (A1C)2019-08-10 15:52:00* Test Item Value Reference [...] ?Diabetes Indicated Lab Interpretation (test code = 19581-0) Normal [facility] (27917)(TOTAL CHOLESTEROL, TRIGLYCERIDES, HDL)2019-08-10 15:52:00* Test Item Value Reference Range Interpretation Comme nts CHOL (test code = 1696787891) 249 mg/dL 120-200 H HDL (test code = 5130502972) 45 mg/dL >50 L HDLC RATIO (test code = 0976922811) See_Comment H [Automated [employer]] The system which generated this result transmitted reference range: <=4.5. The reference range was not used to interpret this result as normal/abnormal. TRIG (test code = 6985408987) 268 mg/dL 30-170 H LDL CHOL (test code = 31086-7) 150 mg/dL See_Comment [Automated [employer]] The system which generated this result transmitted reference range: <=160. The reference range was not used to interpret this result as normal/abnormal. VLDL (test code = 8391955416) 54 mg/dL 5-60 Lab Interpretation (test code = 39732-6) [facility]normal [facility] METABOLIC PANEL (80442)2019-08-10 15:52:00* Test Item Value Reference Range Interpretation Comme nts NA (test code = 3761402586) 139 mmol/L 135-145 K (test code = 1008289166) 3.6 mmol/L 3.5-5 CL (test code = 4351284920) 102 mmol/L 98-108 CO2 TOTAL (test code = 9704662481) 28 mmol/L 23-31 AGAP (test code = 4136788409) 2-16 BUN (test code = 1759890433) 24 mg/dL 7-23 H GLUCOSE (test code = 5050369361) 112 mg/dL 70-110 H CREATININE (test code = 4923573488) 0.89 mg/dL 0.5-1.04 TOTAL BILI (test code = 0425443689) 0.6 mg/dL 0.1-1.1 CALCIUM (test code = 6526063557) 10.4 mg/dL 8.6-10.6 T PROTEIN (test code = 6808961542) 7.5 g/dL 6.3-8.2 ALBUMIN (test code = 9266305635) 4.4 g/dL 3.5-5 ALK PHOS (test code = 2767998491) 72 U/L 34-122 ALTv (test code = 1742-6) 47 U/L 5-35 H AST(SGOT) (test code = 5518699166) 37 U/L 13-40 eGFR Calculation (Non-) (test code = 7706502366) mL/min/1.73m2 eGFR Calculation () (test code = 1344487200) mL/min/1.73m2 ERROL (test code = ERROL) Association [...] imaging tests). Lab Interpretation (test code = 04146-2) [facility]normal [facility]YCOSYLATED HEMOGLOBIN (A1C)2019-08-10 15:52:00* Test Item Value Reference [...] ?Diabetes Indicated Lab Interpretation (test code = 71326-5) Normal [facility] WITH [id number] 15:29:00* Test Item Value Reference Range Interpretation Comme nts WBC (test code = 6690-2) See_Comment [Automated [employer]itea ge] The system which generated this result transmitted reference range: 4.30 - 11.10 10*3/?L. The reference range was not used to interpret this result as normal/abnormal. RBC (test code = 789-8) See_Comment [Automated finalsitea ge] The system which generated this result [...] 34.2 g/dL 31.6-35.1 RDW-SD (test code = 54083-5) 40.4 fL 39-49.9 RDW-CV (test code = 788-0) 12.2 % 12-15.5 PLT (test code = 777-3) See_Comment [Automated finalsitea ge] The system which generated this result transmitted reference range: 166 - 358 10*3/?L. The reference range was not used to interpret this result as normal/abnormal. MPV (test code = 66744-7) 10.5 fL 9.5-12.9 NRBC/100 WBC (test code = 8734310316) See_Comment [Automated me ssage] The system which generated this result transmitted reference range: 0.0 - 10.0 /100 WBCs. The reference range was not used to interpret this result as normal/abnormal. NRBC x10^3 (test code = 8237374831) <0.01 See_Comment [Automated messa ge] The system which generated this result transmitted reference range: 10*3/?L. The reference range was not used to interpret this result as normal/abnormal. GRAN MAT (NEUT) % (test code = 770-8) 58.0 % IMM GRAN % (test code = 8506258988) 0.30 % LYMPH % (test code = 736-9) 30.4 % MONO % (test code = 5905-5) 8.8 % EOS % (test code = 713-8) 1.5 % BASO % (test code = 706-2) 1.0 % GRAN MAT x10^3(ANC) (test code = 0855496414) 3.95 10*3/uL 1.88-7.09 IMM GRAN x10^3 (test code = 6134906040) <0.03 0-0.06 LYMPH x10^3 (test code = 731-0) 2.07 10*3/uL 1.32-3.29 MONO x10^3 (test code = 742-7) 0.60 10*3/uL 0.33-0.92 EOS x10^3 (test code = 711-2) 0.10 10*3/uL 0.03-0.39 BASO x10^3 (test code = 704-7) 0.07 10*3/uL 0.01-0.07 Lab Interpretation (test code = 10076-2) Abnormal [facility] WITH [id number] 15:29:00* Test Item Value Reference Range Interpretation [...] 34.2 g/dL 31.6-35.1 RDW-SD (test code = 36365-6) 40.4 fL 39-49.9 RDW-CV (test code = 788-0) 12.2 % 12-15.5 PLT (test code = 777-3) See_Comment [Automated messa ge] The system which generated this result transmitted reference range: 166 - 358 10*3/?L. The reference range was not used to interpret this result as normal/abnormal. MPV (test code = 85253-2) 10.5 fL 9.5-12.9 NRBC/100 WBC (test code = 2825103211) See_Comment [Automated Signicat ssage] The system which generated this result transmitted reference range: 0.0 - 10.0 /100 WBCs. The reference range was not used to interpret this result as normal/abnormal. NRBC x10^3 (test code = 4554761514) <0.01 See_Comment [Automated messa ge] The system which generated this result transmitted reference range: 10*3/?L. The reference range was not used to interpret this result as normal/abnormal. GRAN MAT (NEUT) % (test code = 770-8) 58.0 % IMM GRAN % (test code = 4809927801) 0.30 % LYMPH % (test code = 736-9) 30.4 % MONO % (test code = 5905-5) 8.8 % EOS % (test code = 713-8) 1.5 % BASO % (test code = 706-2) 1.0 % GRAN MAT x10^3(ANC) (test code = 6389413550) 3.95 10*3/uL 1.88-7.09 IMM GRAN x10^3 (test code = 1156775910) <0.03 0-0.06 LYMPH x10^3 (test code = 731-0) 2.07 10*3/uL 1.32-3.29 MONO x10^3 (test code = 742-7) 0.60 10*3/uL 0.33-0.92 EOS x10^3 (test code = 711-2) 0.10 10*3/uL 0.03-0.39 BASO x10^3 (test code = 704-7) 0.07 10*3/uL 0.01-0.07 Lab Interpretation (test code = 98961-0) Abnormal [facility] WITH FVFIDPLZXTBZ2995-72-50 15:29:00* Test Item Value Reference Range Interpretation [...] 34.2 g/dL 31.6-35.1 RDW-SD (test code = 52403-8) 40.4 fL 39-49.9 RDW-CV (test code = 788-0) 12.2 % 12-15.5 PLT (test code = 777-3) See_Comment [Automated messa ge] The system which generated this result transmitted reference range: 166 - 358 10*3/?L. The reference range was not used to interpret this result as normal/abnormal. MPV (test code = 53746-3) 10.5 fL 9.5-12.9 NRBC/100 WBC (test code = 5423173760) See_Comment [Automated me ssage] The system which generated this result transmitted reference range: 0.0 - 10.0 /100 WBCs. The reference range was not used to interpret this result as normal/abnormal. NRBC x10^3 (test code = 4994386454) <0.01 See_Comment [Automated messa ge] The system which generated this result transmitted reference range: 10*3/?L. The reference range was not used to interpret this result as normal/abnormal. GRAN MAT (NEUT) % (test code = 770-8) 58.0 % IMM GRAN % (test code = 8586603444) 0.30 % LYMPH % (test code = 736-9) 30.4 % MONO % (test code = 5905-5) 8.8 % EOS % (test code = 713-8) 1.5 % BASO % (test code = 706-2) 1.0 % GRAN MAT x10^3(ANC) (test code = 2785201966) 3.95 10*3/uL 1.88-7.09 IMM GRAN x10^3 (test code = 4320116229) <0.03 0-0.06 LYMPH x10^3 (test code = 731-0) 2.07 10*3/uL 1.32-3.29 MONO x10^3 (test code = 742-7) 0.60 10*3/uL 0.33-0.92 EOS x10^3 (test code = 711-2) 0.10 10*3/uL 0.03-0.39 BASO x10^3 (test code = 704-7) 0.07 10*3/uL 0.01-0.07 Lab Interpretation (test code = 31692-6) Abnormal [facility] Consult Notes Date/Time Note Provider Source 2024-03-20 21:37:00 [facility] Cardiology Dr. Oneyda Palacio Completed by Earnestine [...] Duration 90 QT/QTc 342 QTc Calculation 465 R-[place] -41 T-[place] 25 Impression ATRIAL FIBRILLATION WITH A RAPID VENTRICULAR RESPONSE WITH ABERRANTLY CONDUCTED OR PREMATURE VENTRICULAR COMPLEX(ES) LEFT AXIS DEVIATION CANNOT RULE OUT ANTERIOR INFARCTION AGE UNDETERMINED Confirmed by Saúl Garcia ([id number]) on 03/19/2024 8:17:23 AM No results found for this or any previous visit (from the past 29758 hours). Encounter Date: 03/18/24 XR chest 1 view Narrative EXAM: XR CHEST 1 VIEW DATE: 03/18/2024 7:40 PM COMMERCIAL INSULATOR INDICATION: Fall. Progressively worsening weakness. COMPARISON: Same [...] by: Nestor Mckay MD 03/18/2024 07:55 PM [facility] Pertinent Labs : Lab Results Component Value [...] plan discussed with Dr. Oneyda Palacio MD [facility] History and Physical Notes Date/Time Note Provider [...] She was hospitalized earlier this month at [facility] for new onset atrial fibrillation and [...] Procedure Abnormality Status --------- ------ Complete Blood Count[[id number]] Normal Final result Automated Differential[[id number]] Abnormal Final result Please view results for [...] by: Rubia Mclean MD 03/18/2024 09:06 PM COMMERCIAL INSULATOR RP Trauma CT BRAIN WO IV CONTRAST Final Result No CT evidence of acute intracranial abnormality. Electronically signed by: Matt Arevalo MD 03/18/2024 09:03 PM COMMERCIAL INSULATOR RP XR chest 1 view Final Result 1. Hilar fullness bilaterally is nonspecific may be related to vascular prominence or lymphadenopathy. 2. Proximal left humerus fracture better characterized on dedicated radiographs. Electronically signed by: Nestor Mckay MD 03/18/2024 07:55 PM COMMERCIAL INSULATOR RP XR elbow 3+ views left Final Result No acute abnormality of the left elbow. Electronically signed by: Raza Jackson MD 03/18/2024 03:02 PM COMMERCIAL INSULATOR RP XR humerus 2 views left Final Result Subacute appearing transverse, impacted fracture of the left humerus surgical neck, with suggestion of early healing. Electronically signed by: Raza Jackson MD 03/18/2024 03:05 PM COMMERCIAL INSULATOR RP Assessment & Plan Frequent falls Patient is presenting with frequent falls at home due to gait instability despite using the walker. 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 Continue fall precautions, PT consult, consult [...] in the setting of frequent falls. Her RCK5UJ3-KMJl 4 indicating high risk. Primary hypertension Resume home meds Current Diet: Adult Diet Heart Healthy DVT Prophylaxis: SCDs [facility] Notes Date/Time Note Provider Source 2024-07-03 17:00:00 Images from the original note were not included. Venipuncture collection performed by clean technique on the right anticubitus. Total of 1 attempts were made. Slight pressure and a bandage/dressing were applied to the site(s). The patient experienced no complications. The following specimens were processed according to instructions and [facility] per lab order on 07/03/24: LT BLUE SST 1 RED LAV PPT DK GREEN (LiHep) DK GREEN (SodH) MORALES DK BLUE (K2) DK BLUE (S) ACD Blood Culture NIPT/NTD [facility]2025-03-07 00:43:16Pending Results Health Maintenance Due Date Last [...] on patient's age to complete this topic [facility]utl[facility]42[facility]47[facility]12 00:43:16 [facility]Wikcnae9253-85-33 00:43:16* Imaging (Routine) - Authorized Specialty Diagnoses / Procedures Referred By Contac t Referred To Contact Cardiology Diagnoses Atrial fibrillation, unspecified type (CMS/HCC) (HCC) Ventricular premature beats Procedures Transesophageal echo (JESUS) with possible cardioversion CA ECHO TRANSESOPHAG R-T 2D W/PRB IMG ACQUISJ I&R CA DOPPLER ECHO PULSE WAVE W/SPECTRAL DISPLAY COMPL CA CARDIOVERSION ELECTIVE ARRHYTHMIA EXTERNAL Oneyda Palacio MD [address] [address] Phone: tel: fax: Referral ID Status Reason Start Date Expiration Date Visits Requested Visits Authorized [id number] Authorized Perform Procedure 04/16/2024 10/13/[address] [facility]2025-03-07 00:43:16* Imaging (Routine) - Authorized Specialty Diagnoses / Procedures Referred By Contac t Referred To Contact Cardiology Diagnoses Atrial fibrillation, unspecified type (CMS/HCC) (HCC) Ventricular premature beats Procedures Transesophageal echo (JESUS) with possible cardioversion CA ECHO TRANSESOPHAG R-T 2D W/PRB IMG ACQUISJ I&R CA DOPPLER ECHO PULSE WAVE W/SPECTRAL DISPLAY COMPL CA CARDIOVERSION ELECTIVE ARRHYTHMIA EXTERNAL Oneyda Palacio MD [address] [address] Phone: tel: fax: Referral ID Status Reason Start Date Expiration Date Visits Requested Visits Authorized [id number] Authorized Perform Procedure 04/16/2024 10/13/2024 1 1 [facility]ircwlv9235-75-85 00:43:16 [facility]Eolihqx9737-30-18 00:43:16Pending Results Health Maintenance Due Date Last [...] on patient's age to complete this topic [facility]ytgggd8424-73-68 00:43:16 Diagnosis Atrial fibrillation, unspeci fied type (CMS/HCC) (HCC) Ventricular premature beats Other premature beats [facility]vineIahzfmf3659-01-17 00:43:16 [place] 412905-03-06 09:00:06 Images from the original note were not included. [id number] Transesophageal Echocardiography (JESUS) Transesophageal echocardiography (JESUS) is [...] takes about 15 minutes. ? The nurse senior investment manager will suction any saliva out of your [...] is: Last Reviewed Date: 2023 00:00:00 ? [id number] [employer]. All rights reserved. This information is not intended as a substitute for professional medical care. Always follow your healthcare professional's instructions. [facility] Jdzifjc1082-95-34 09:00:04 Images from the original note were not included. [id number] Recovery After Procedural Sedation (Adult) You have [...] awakened Last Reviewed Date: 2023 00:00:00 ? [id number] [employer]. All rights reserved. This information is not intended as a substitute for professional medical care. Always follow your healthcare professional's instructions. [facility] Izzqfvc8964-31-05 09:00:02 Images from the original note were [...] week to get more omega-3 fatty acids. [place], cod, trout and tuna are high in [...] please contact Outpatient Nutrition Services by calling [phone]. [id number] 09/30 [place] 338725-03-06 09:00:00 Images from the original note were not included. [id number] Discharge Instructions for Cardioversion Your health care [...] part. Last Reviewed Date: 2024 00:00:00 ? 5397-1335 [employer]. All rights reserved. This information is not intended as a substitute for professional medical care. Always follow your healthcare professional's instructions. [facility] Jnrdayw9889-34-39 17:23:14* Audit-C Score Answer Date of Assessment [...] No 03/19/2024 2:[address] RN * * Calculated C-SSRS Risk Score (Lifetime/Recent) Answer Date of Assessment Author No Risk Indicated 03/18/2024 1:30 PM Bret Harkins RN * [place] Suicide Severity Rating Scale (Screener/Recent Self-Report) Question Answer Date of Assessment Author 1. Wish to be (Past 1 Month) No 025 1:30 PM Bret Harkins RN 2. Non-Specific Active Suici fabio Thoughts (Past 1 Month) No 03/18/2024 1:30 PM Bret Harkins RN 6. Suicidal Behavior (Lifetime) No 1:30 PM COMMERCIAL INSULATOR Bret Ontiveros RN [facility]vineEylrbku7693-29-69 17:23:14* Oneyda Palacio MD - 03/26/2024 11:58 AM COMMERCIAL INSULATOR [facility] Cardiology Dr. Oneyda Palacio Subjective Remains in [...] Value Ventricular Rate 67 Atrial Rate 67 CA Interval 226 QRS Duration 94 QT/QTc 492 QTc Calculation 519 P-[place] 40 R-[place] -75 T-[place] 210 Procedure? Impression SINUS RHYTHM WITH 1ST [...] CHANGES HAVE OCCURRED Confirmed by Gabi Dawn ([id number]) on 03/23/2024 11:44:37 PM No results found for this or any previous visit (from the past 28081 hours). Encounter Date: 03/18/24XR chest 1 view Narrative EXAM: XR CHEST 1 VIEW DATE: 03/18/2024 7:40 PM COMMERCIAL INSULATOR INDICATION: Fall. Progressively worsening weakness. COMPARISON: Same [...] by: Nestor Mckay MD 03/18/2024 07:55 PM [facility] Pertinent Labs : No results found for: "NA", "K", "CL", "CO2", "BUN", "CREATININE", "GLUCOSE" Current Facility-Administered Medications:acetaminophen (Tylenol) tablet 650 mg, 650 mg, Oral, q6h PRN, Elise Morrison MD apixaban (Eliquis) tablet 2.5 mg, 2.5 mg, Oral, q12h, Donnell Zhao MD, 2.5 mg at 03/26/24 0842 atorvastatin (Lipitor) tablet 20 mg, 20 mg, Oral, Daily, Nicole Rodriguez MD, 20 mg at 03/26/24 0842 bisacodyl (Dulcolax) EC tablet 5 mg, 5 mg, Oral, Nightly PRN, Elise Morrison MD dextrose 50 % solution 12.5 g, 12.5 g, Intravenous, PRN, Elise Morrison MD dextrose 50 % solution 25 g, 25 g, Intravenous, PRN, Elise Morrison MD flecainide (Tambocor) tablet 50 mg, 50 mg, Oral, q12h BABITA, Oneyda Palacio MD, 50 mg at 03/26/24 0842 glucagon injection 1 mg, 1 mg, Intramuscular, [...] BABITA, Oneyda Palacio MD, 25 mg at 03/26/24 0842 metoprolol tartrate (Lopressor) tablet 50 mg, 50 [...] choice with patient and Luz Marina Her SYA8FU8-ZEJc score: 3 at least moderate risk for [...] fall, initial encounter Completed by:Oneyda Palacio MD ERCIAL INSULATOR * Tammie Cristina, PT - 03/26/2024 10:03 AM COMMERCIAL INSULATOR Physical Therapy Treatment Patient Name: Rashid Curry Today’s Date: 03/26/24 Room Number: [id number].1020 Patient's Preferred Language: Togolese PT Assessment and Plan: Assessment Pt noted [...] A Little Mobility Inpatient Raw Score: 19 -HLM Goal: 6 [facility] Highest Level of Mobility (JH-HLM) Scale Highest Level of Mobility Performed (JH-HLM): Walked 25 feet or more (i.e. walked outside of room) Subjective:Pt seated up in chair upon arrival, agrees to participate in PT session. Current Problem:This is a 84 y.o. female who is admitted to [facility] with Hypokalemia [E87.6] Impaired mobility and ADLs [...] to improve upright posture. Transfer To/From: Chair, Qof-kt-Tfmkk/Ncdkp-za-Nqe (x3 reps) Assistive Devices And Adaptive Equipments: [...] Post Therapy Checklist - in chair, call ruiz within reach, bed/chair alarm in place, and phone within reach Time Calculation:Start Time: 1003 Stop Time: 1028 Time Calculation (min): 25 min PT Manager Foreign Used: N.A. Treatment Note: If this is the last documented treatment, then it will signify discharge from acute care prior to discharge from the therapy service and will serve as the discharge summary. Tammie Cristina PT ERCIAL INSULATOR * Zach Lau OT - 03/26/2024 10:00 AM COMMERCIAL INSULATOR Occupational Therapy Treatment Patient Name: Rashid Curry Today's Date: 03/26/2024 Room number: SW10.1020/10B.1020 Preferred Language: Togolese Assessment & Plan Assessment: (Updated last filed [...] None AM-PAC Daily Activity Raw Score: 21 [facility] Highest Level of Mobility (JH-HLM) [...] Partial/Mod assistance, Supervision/touching assistance Transfer To/From: Chair, Fou-kl-Esomk/Mbdqp-po-Bde Assistive Devices And Adaptive Equipments: Walker, front-wheeled [...] 04/10/24 Post Therapy Checklist: in chair, call ruiz within reach, phone within reach, bed/chair alarm on, and RN informed Time Entry Calculation:Start Time: 1000 Stop Time: 1025 Time Calculation (min): 25 min Co-Treatment: We-JbvzflmvuCe-Kwileduoc: Yes Co-Treatment With: Physical Therapy : PT. Tammie Treatment Note: If this is the last documented treatment, then it will signify discharge from acute care prior to discharge from the therapy service and will serve as the discharge summary. Zach Lau OT ERCIAL INSULATOR * ESTEPHANIE Zafar - 03/25/2024 4:26 PM COMMERCIAL INSULATOR [facility] Hospitalist Progress Note Subjective No acute events [...] She was hospitalized earlier this month at [facility] for new onset atrial fibrillation and [...] be discontinued considering recurrent falls Patient with [id number]-GEDj score of 3 at moderate risk for [...] Jaz Dumont MD at 03/26/2024 8:43 AM COMMERCIAL INSULATOR ERCIAL INSULATOR ERCIAL INSULATOR Associated attestation - Jaz Dumont MD - 03/26/2024 8:43 AM CST Patient seen and examined Agree with current plan of care Patient no pain doing well Ext; no edema Debility with frequent falls- pt/ot awaiting snf * Oneyda Palacio MD - 03/25/2024 3:36 PM COMMERCIAL INSULATOR [facility] Cardiology Dr. Oneyda Palacio Subjective Doing [...] Value Ventricular Rate 67 Atrial Rate 67 CA Interval 226 QRS Duration 94 QT/QTc 492 QTc Calculation 519 P-[place] 40 R-[place] -75 T-[place] 210 Procedure? Impression SINUS RHYTHM WITH 1ST [...] CHANGES HAVE OCCURRED Confirmed by Gabi Dawn ([id number]) on 03/23/2024 11:44:37 PM No results found for this or any previous visit (from the past 11277 hours). Encounter Date: 03/18/24XR chest 1 view Narrative EXAM: XR CHEST 1 VIEW DATE: 03/18/2024 7:40 PM COMMERCIAL INSULATOR INDICATION: Fall. Progressively worsening weakness. COMPARISON: Same [...] by: Nestor Mckay MD 03/18/2024 07:55 PM COMMERCIAL INSULATOR RP Pertinent Labs : No results found for: "NA", "K", "CL", "CO2", "BUN", "CREATININE", "GLUCOSE" Current Facility-Administered Medications:acetaminophen (Tylenol) tablet 650 mg, 650 mg, Oral, q6h PRN, Elise Morrison MD apixaban (Eliquis) tablet 2.5 mg, 2.5 mg, Oral, q12h, Donnell Zhao MD, 2.5 mg at 03/25/24 0823 atorvastatin (Lipitor) tablet 20 mg, 20 mg, Oral, Daily, Nicole Rodriguez MD, 20 mg at 03/25/2424 bisacodyl (Dulcolax) EC tablet 5 mg, 5 mg, Oral, Nightly PRN, Elise Morrison MD dextrose 50 % solution 12.5 g, 12.5 g, Intravenous, PRN, Elise Morrison MD dextrose 50 % solution 25 g, 25 g, Intravenous, PRN, Elise Morrison MD flecainide (Tambocor) tablet 50 mg, 50 mg, Oral, q12h BABITA, Oneyda Palacio MD, 50 mg at 03/25/24823 glucagon injection 1 mg, 1 mg, Intramuscular, [...] tablet 25 mg, 25 mg, Oral, q12h [facility], Oneyda Palacio MD, 25 mg at 03/24/24814 metoprolol tartrate (Lopressor) tablet 50 mg, 50 mg, Oral, q12h [facility], Oneyda Palacio MD, 50 mg at [...] choice with patient and Luz Marina Her SRX6UE0-TOTo score: 3 at least moderate risk for [...] fall, initial encounter Completed by:Oneyda Palacio MD ERCIAL INSULATOR * Valeria Cassidy, OT - 03/25/2024 2:50 PM COMMERCIAL INSULATOR Occupational Therapy Treatment Patient Name: Rashid Curry Today's Date: 03/25/2024 Room number: SW10.1020/10B.1020 Preferred Language: Togolese Assessment & Plan Pt exhibited good progress [...] None AM-PAC Daily Activity Raw Score: 17 [facility] Highest Level of Mobility (JH-HLM) ScaleHighest Level of Mobility Performed (JH-HLM): Walked [...] 04/10/24 Post Therapy Checklist: in recliner, call ruiz within reach, phone withinreach, bed/chair alarm on, family at bedside, and RN informed Time Entry Calculation:Start Time: 1450 Stop Time: 1551 Time Calculation (min): 61 min OT Manager Foreign Used: N.A. Treatment Note: If this is the last documented treatment, then it will signify discharge from acute care prior to discharge from the therapy service and will serve as the discharge summary. Valeria Cassidy OT ERCIAL INSULATOR * ESTEPHANIE Zafar - 03/24/2024 5:41 PM COMMERCIAL INSULATOR [facility] Hospitalist Progress Note Subjective Patient is sitting [...] She was hospitalized earlier this month at [facility] for new onset atrial fibrillation and [...] be discontinued considering recurrent falls Patient with UGP2UN7-KLIn score of 3 at moderate risk for [...] Jaz Dumont MD at 03/25/2024 8:55 AM COMMERCIAL INSULATOR ERCIAL INSULATOR ERCIAL INSULATOR Associated attestation - Jaz Dumont MD - 03/25/2024 8:55 AM CST Patient seen and examined Agree with current plan of care Patient doing ok no issues General; patient ox3 no acute disters Debility and frequent falls- PT/OT awaiting placement * ESTEPHANIE Zafar - 03/24/2024 5:39 PM COMMERCIAL INSULATOR Images from the original note were not included. Patient: Rashid Curry Date of : 1940 Contact Information: [address] [address] T. [phone] To Whom It May Concern: Rashid Curry was seen and treated in our hospital starting 03/18/2024, andis currently still being treated on 03/24/24. This note is to serve as notice of her ongoing hospitalization, so her family members may make appropriate plans regarding work schedules. If you have any questions or concerns, please do not hesitate to call ouroffice. ESTEPHANIE Zafar03/24/2024 5:39 PM [facility] - [phone] ERCIAL INSULATOR * Valeria Cassidy, OT - 03/24/2024 1:20 PM COMMERCIAL INSULATOR Occupational Therapy Treatment Patient Name: Rashid Curry Today's Date: 03/25/2024 Room number: SW10.1020/10B.1020 Preferred Language: Togolese Assessment & Plan Pt exhibited good progress [...] None AM-PAC Daily Activity Raw Score: 15 [facility] Highest Level of Mobility (JH-HLM) ScaleHighest Level of Mobility Performed (JH-HLM): Walked 10 steps or more (i.e. walked to restroom) SubjectiveOT orders verified, and chart reviewed. RN approved OT session. Pt found sitting on wheelchair at [facility] group room and agreeable to session. Current Problem: Rashid Curry is a 84 y.o. year old female patient with Hypokalemia [E87.6] Impaired mobility and ADLs [Z74.09, Z78.9] Generalized weakness [R53.1] At high risk for falls [Z91.81] Anticoagulation adequate with anticoagulant therapy [Z79.01] Atrial fibrillation, unspecified type (CMS/HCC) ([facility]) [I48.91] Accidental fall, initial encounter [W19.XXXA] referred to Occupational therapy services . Past Medical History: Diagnosis Date Atrial fibrillation (CMS/HCC) ([facility]) 03/19/2024 Essential tremor 03/18/2024 Primary hypertension 03/18/2024 [...] RN informed, and with volunteer educator at [facility] group room. Time Entry Calculation:Start Time: 1320 Stop Time: 1350 Time Calculation (min): 30 min OT Manager Foreign Used: Jordyn De Guzman Treatment Note: If this is the last documented treatment, then it will signify discharge from acute care prior to discharge from the therapy service and will serve as the discharge summary. Valeria Cassidy, OT ERCIAL INSULATOR ERCIAL INSULATOR ERCIAL INSULATOR * Ernestine Medina, SPT - 03/24/2024 11:25 AM COMMERCIAL INSULATOR Physical Therapy Treatment Patient Name: Rashid Curry Today’s Date: 03/24/24 Room Number: SW10.1020/10B.1020 Patient's Preferred Language: Togolese PT Assessment and Plan: Assessment Pt had [...] stairs: Total Mobility Inpatient Raw Score: 16 -[facility] Goal: 5 [facility] Highest Level of Mobility (-HLM) Scale Highest Level of Mobility Performed (-HLM): Walked 25 feet or more (i.e. walked outside of room) Subjective: Pt consented to treatment today. Current Problem: This is a 84 y.o. female who is admitted to [facility] with Hypokalemia [E87.6] Impaired mobility and ADLs [...] for balance and safety. Transfer To/From: Bed, Bmm-ah-Knumm/Ctoht-he-Lvg Assistive Devices And Adaptive Equipments: Walker, front-wheeled [...] Post Therapy Checklist - in bed, call ruiz within reach, bed/chair alarm in place, phone [...] Rivera PT at 03/24/2024 4:15 PM CST ERCIAL INSULATOR ERCIAL INSULATOR Associated attestation - Abby Rivera PT - 03/24/2024 4:15 PM CST I, the supervising Physical therapist was active and present throughout the duration of the session. As the supervising therapist, I have reviewed and agree with all documentation related to treatment, plan of care, and billing on this date. * Oneyda Palacio MD - 03/24/2024 8:51 AM COMMERCIAL INSULATOR [facility] Cardiology Dr. Oneyda Palacio Subjective Overnight, Still [...] Value Ventricular Rate 67 Atrial Rate 67 CA Interval 226 QRS Duration 94 QT/QTc 492 QTc Calculation 519 P-[place] 40 R-[place] -75 T-[place] 210 Procedure? Impression SINUS RHYTHM WITH 1ST [...] CHANGES HAVE OCCURRED Confirmed by Gabi Dawn ([id number]) on 03/23/2024 11:44:37 PM No results found for this or any previous visit (from the past 18729 hours). Encounter Date: 03/18/24XR chest 1 view Narrative EXAM: XR CHEST 1 VIEW DATE: 03/18/2024 7:40 PM COMMERCIAL INSULATOR INDICATION: Fall. Progressively worsening weakness. COMPARISON: Same [...] by: Nestor Mckay MD 03/18/2024 07:55 PM COMMERCIAL INSULATOR Pertinent Labs :Lab Results Component Value Date [...] q12h, Donnell Zhao MD, 2.5 mg at 03/24/24814 atorvastatin (Lipitor) tablet 20 mg, 20 mg, Oral, Daily, Nicole Rodriguez MD, 20 mg at 03/24/24814 bisacodyl (Dulcolax) EC tablet 5 mg, 5 mg, Oral, Nightly PRN, Elise Morrison MD dextrose 50 % solution 12.5 g, 12.5 g, Intravenous, PRN, Elise Morrison MD dextrose 50 % solution 25 g, 25 g, Intravenous, PRN, Elise Morrison MD flecainide (Tambocor) tablet 50 mg, 50 mg, Oral, q12h [facility], Oneyda Palacio MD, 50 mg at 03/24/24814 glucagon injection 1 mg, 1 mg, Intramuscular, [...] tablet 25 mg, 25 mg, Oral, q12h [facility], Oneyda Palacio MD, 25 mg at 03/24/24814 [...] BID, Elise Morrison MD, 2 tablet at 03/24/24 0815 sodium chloride (NS) 0.9 % flush 10 [...] choice with patient and Luz Marina Her FCX2PV3-OHXd score: 3 at least moderate risk for [...] fall, initial encounter Completed by:Oneyda Palacio MD ERCIAL INSULATOR * Donnell Zhao MD - 03/23/2024 12:48 PM COMMERCIAL INSULATOR Subjective Pt lying in bed. No new [...] by: Nestor Mckay MD 03/18/2024 07:55 PM PasswordBox RP === 03/18/24 === CT CERVICAL SPINE [...] by: Rubia Mclean MD 03/18/2024 09:06 PM COMMERCIAL INSULATOR RP No results found for this or any previous visit from the past 365 days. No results found for this or any previous visit from the past 365 days. apixaban, 2.5 mg, Oral, [id number], 20 mg, Oral, Daily flecainide, 50 mg, Oral, q12h BABITA hydroCHLOROthiazide, 25 mg, Oral, q24h losartan, 100 mg, Oral, q24h metoprolol tartrate, 25 mg, Oral, q12h BABITA metoprolol tartrate, 50 mg, Oral, q12h BABITA polyethylene glycol (PEG) 3350, 17 g, Oral, Daily senna-docusate, 2 tablet, Oral, BID sodium chloride, 10 mL, Intravenous, q12h BABITA AssessmentMargaret Gold Curry is a 84 y.o. female with [...] She was hospitalized earlier this month at [facility] for new onset atrial fibrillation and [...] be discontinued considering recurrent falls Patient with [id number] score of 3 at moderate risk for [...] she lives alone at home. Discussed with case checker. With Kasandra talked with the family and figure out other options. Monitor Reason for continued hospitalization: Medically cleared for discharge. Case management working with family regarding placement ERCIAL INSULATOR * Oneyda Palacio MD - 03/23/2024 11:27 AM COMMERCIAL INSULATOR [facility] Cardiology Dr. Oneyda Palacio Subjective Overnight Ms. [...] Duration 90 QT/QTc 342 QTc Calculation 465 R-[place] -41 T-[place] 25 Impression ATRIAL FIBRILLATION WITH A RAPID VENTRICULAR RESPONSE WITH ABERRANTLY CONDUCTED OR PREMATURE VENTRICULAR COMPLEX(ES) LEFT AXIS DEVIATION CANNOT RULE OUT ANTERIOR INFARCTION AGE UNDETERMINED Confirmed by Saúl Garcia ([id number]) on 03/19/2024 8:17:23 AM No results found for this or any previous visit (from the past 44132 hours). Encounter Date: 03/18/24XR chest 1 view Narrative EXAM: XR CHEST 1 VIEW DATE: 03/18/2024 7:40 PM COMMERCIAL INSULATOR INDICATION: Fall. Progressively worsening weakness. COMPARISON: Same [...] by: Nestor Mckay MD 03/18/2024 07:55 PM COMMERCIAL INSULATOR Pertinent Labs :Lab Results Component Value Date [...] Oneyda Palacio MD, 50 mg at 03/23/24 104 glucagon injection 1 mg, 1 mg, Intramuscular, [...] Elise Morrison MD, 3 mg at 03/22/24 2219 metoprolol tartrate (Lopressor) tablet 25 mg, 25 mg, Oral, q12h BABITA, Oneyda Palacio MD, 25 mg at 03/23/24 1045 metoprolol tartrate (Lopressor) tablet 50 mg, 50 mg, Oral, q12h [facility], Oneyda Palacio MD, 50 mg at 03/22/24 2145 ondansetron ODT (Zofran-ODT) disintegrating tablet 4 mg, [...] choice with patient and Luz Marina Her [id number] score: 3 at least moderate risk for ischemic stroke Therefore, 1) will need anticoagulation, however at this moment, frequent falls, Will decrease to 2.5 mg bid to balance risk and benefit 2) sinus now will continue current med 3) if recurrent a fib, , will need WATCHMAN in the future Accidental fall, initial encounter Completed by:Oneyda Palacio MD ERCIAL INSULATOR * Ivette Hogan OT - 03/23/2024 10:55 AM COMMERCIAL INSULATOR Occupational Therapy Treatment Note Patient Name: Rashid Curry Today's Date: 03/23/2024 Pt seen in room: [place] [id number]/[facility] [place] Preferred Language: Togolese Pre pain level: 0/10 Pain level with [...] needs within reach and verbal handoff with ASHLEY Loera. All lines intact. Continue with OT plan [...] hand technique and postural awareness Transfer To/From Bed;Chair;Toilet;Eel-mg-Rkbso/Aieyc-yh-Act Assistive Devices And Adaptive Equipments Walker, front-wheeled [...] OT Mobility Highest Level of Mobility Performed (-[facility]) 7 Plan: Treatment Plan/Goals Established with Patient/Caregiver: [...] -- -- 80 (!) 39 91 % 03/23/24 0935 -- -- 82 (!) 39 92 % [...] 03/22/242019 -- -- 87 -- 95 % 03/22/24 2019 123/83 96 -- 18 -- Patient Education:Education [...] will serve as the discharge summary. Ivette Hogan, OT ERCIAL INSULATOR ERCIAL INSULATOR * Ernestine Medina, SPT - 03/23/2024 10:54 AM COMMERCIAL INSULATOR Physical Therapy Treatment Patient Name: Rashid Curry Today’s Date: 03/23/24 Room Number: [id number] Patient's Preferred Language: Togolese PT Assessment and Plan: Assessment Pt presents [...] stairs: Total Mobility Inpatient Raw Score: 16 [facility] Goal: 5 [facility] Highest Level of Mobility (-HLM) Scale Highest Level of Mobility Performed (-HLM): Walked 25 feet or more (i.e. walked outside of room) Subjective: Pt consented to treatment today. Current Problem: This is a 84 y.o. female who is admitted to [facility] with Hypokalemia [E87.6] Impaired mobility and ADLs [...] balance and safety. Transfer To/From: Bed, Chair, Vzn-jv-Arrmv/Rfboh-le-Hfo, Toilet Assistive Devices And Adaptive Equipments: Walker, [...] Post Therapy Checklist - in chair, call ruiz within reach, bed/chair alarm in place, phone [...] and will serve as the discharge summary. Ernestine Medina SPT Cosigned by Abby Rivera PT at 03/23/2024 3:10 PM CST ERCIAL INSULATOR ERCIAL INSULATOR Associated attestation - Abby Rivera PT - 03/23/2024 3:10 PM CST I, the supervising Physical therapist was active and present throughout the duration of the session. As the supervising therapist, I have reviewed and agree with all documentation related to treatment, plan of care, and billing on this date. * Oneyda Palacio MD - 03/22/2024 11:37 PM COMMERCIAL INSULATOR [facility] Cardiology Dr. Oneyda Palacio Subjective Overnight, intermittent [...] Duration 90 QT/QTc 342 QTc Calculation 465 R-[place] -41 T-[place] 25 Impression ATRIAL FIBRILLATION WITH A RAPID VENTRICULAR RESPONSE WITH ABERRANTLY CONDUCTED OR PREMATURE VENTRICULAR COMPLEX(ES) LEFT AXIS DEVIATION CANNOT RULE OUT ANTERIOR INFARCTION AGE UNDETERMINED Confirmed by Saúl Garcia ([id number]) on 03/19/2024 8:17:23 AM No results found for this or any previous visit (from the past 24686 hours). Encounter Date: 03/18/24XR chest 1 view Narrative EXAM: XR CHEST 1 VIEW DATE: 03/18/2024 7:40 PM COMMERCIAL INSULATOR INDICATION: Fall. Progressively worsening weakness. COMPARISON: Same [...] by: Nestor Mckay MD 03/18/2024 07:55 PM COMMERCIAL INSULATOR Pertinent Labs :Lab Results Component Value Date [...] q24h, Nicole Rodriguez MD, 25 mg at 03/22/242145 labetalol injection 10 mg, 10 mg, Intravenous, q4h PRN, Elise Morrison MD losartan (Cozaar) tablet 100 mg, 100 mg, Oral, q24h, Nicole Rodriguez MD, 100 mg at 03/22/242144 melatonin tablet 3 mg, 3 mg, Oral, Nightly PRN, Elise Morrison MD metoprolol tartrate (Lopressor) tablet 25 mg, 25 mg, Oral, q12h [facility], 25 mg at 03/22/242145 metoprolol tartrate (Lopressor) tablet 50 mg, 50 mg, Oral, q12h [facility], 50 mg at 03/22/242144 ondansetron ODT (Zofran-ODT) disintegrating tablet 4 mg, 4 mg, Oral, q8h PRN OR ondansetron (Zofran) injection 4 mg, 4 mg, Intravenous, q8h PRN, Elise Morrsion MD polyethylene glycol (PEG) 3350 (Miralax) packet 17 g, 17 g, Oral, Daily, Elise Morrison MD, 17 g at 03/21/24 0820 senna-docusate (Layne-Colace) 8.6-50 mg per tablet 2 tablet, 2 tablet, Oral, BID, Elise Morrison MD, 2 tablet at 03/21/24 0817 sodium chloride (NS) 0.9 % flush 10 mL, 10 mL, Intravenous, q12h BABITA, Elise Morrison MD, 10 mL at 03/22/24 2146 sodium chloride (NS) 0.9 % flush 10 mL, 10 mL, Intravenous, PRN, Elise Morrison MD Assessment & PlanFrequent falls Impaired mobility and ADLs Essential tremor Primary hypertension Hypokalemia Atrial fibrillation (CMS/HCC) (HCC)I have fully discussed the treatment choice with patient and Luz Marina Her [id number] score: 3 at least moderate risk for [...] future Accidental fall, initial encounter Completed by:Oneyda Paalcio MD ERCIAL INSULATOR * Donnell Zhao MD - 03/22/2024 3:59 PM COMMERCIAL INSULATOR Subjective Pt lying in bed. No new [...] by: Nestor Mckay MD 03/18/2024 07:55 PM COMMERCIAL INSULATOR RP === 03/18/24 === CT CERVICAL SPINE [...] by: Rubia Mclean MD 03/18/2024 09:06 PM COMMERCIAL INSULATOR RP No results found for this or any previous visit from the past 365 days. No results found for this or any previous visit from the past 365 days. [Held by provider] apixaban, 2.5 mg, Oral, r20hptygixqdqqdl, 20 mg, Oral, Daily flecainide, 50 mg, Oral, q12h BABITA hydroCHLOROthiazide, 25 mg, Oral, q24h losartan, 100 mg, Oral, q24h metoprolol tartrate, 25 mg, Oral, q12h BABITA metoprolol tartrate, 50 mg, Oral, q12h BABITA polyethylene glycol (PEG) 3350, 17 g, Oral, Daily senna-docusate, 2 tablet, Oral, BID sodium chloride, 10 mL, Intravenous, q12h BABITA AssessmentNewark Beth Israel Medical Centergaret Gold Curry is a 84 y.o. female with [...] She was hospitalized earlier this month at [facility] for new onset atrial fibrillation and [...] be discontinued considering recurrent falls Patient with [id number]-QWSb score of 3 at moderate risk for [...] DCCV Reason for continued hospitalization: DCCV tomorrow ERCIAL INSULATOR * Oneyda Palacio MD - 03/21/2024 11:50 AM COMMERCIAL INSULATOR [facility] Cardiology Dr. Oneyda Palacio Subjective Patient [...] Duration 90 QT/QTc 342 QTc Calculation 465 R-[place] -41 T-[place] 25 Impression ATRIAL FIBRILLATION WITH A RAPID VENTRICULAR RESPONSE WITH ABERRANTLY CONDUCTED OR PREMATURE VENTRICULAR COMPLEX(ES) LEFT AXIS DEVIATION CANNOT RULE OUT ANTERIOR INFARCTION AGE UNDETERMINED Confirmed by Saúl Garcia ([id number]) on 03/19/2024 8:17:23 AM No results found for this or any previous visit (from the past 82654 hours). Encounter Date: 03/18/24 XR chest 1 view Narrative EXAM: XR CHEST 1 VIEW DATE: 03/18/2024 7:40 PM COMMERCIAL INSULATOR INDICATION: Fall. Progressively worsening weakness. COMPARISON: Same [...] by: Nestor Mckay MD 03/18/2024 07:55 PM COMMERCIAL INSULATOR RP Pertinent Labs : Lab Results Component [...] tablet 50 mg, 50 mg, Oral, q12h [facility], Oneyda Palacio MD, 50 mg at 03/21/2418 [...] tablet 25 mg, 25 mg, Oral, q12h [facility], Oneyda Palacio MD, 25 mg at 03/21/24 0819 metoprolol tartrate (Lopressor) tablet 50 mg, 50 mg, Oral, q12h [facility], Oneyda Palacio MD, 50 mg at 03/21/24 [...] choice with patient and Luz Marina Her [id number] score: 3 at least moderate risk for [...] initial encounter Completed by: Oneyda Palacio MD ERCIAL INSULATOR * Nicole Rodriguez MD - 03/21/2024 8:23 AM COMMERCIAL INSULATOR [facility] Hospitalist Progress Note Subjective Patient seen and [...] Results from last 7 days Lab Units 03/21/249 03/19/24 0419 03/18/24 1353 SODIUM mEq/L 140 [...] be discontinued considering recurrent falls Patient with WOE6RO2-ZMYq score of 3 at moderate risk for [...] Healthy VTE Prophylaxis apixaban - 5 MG Disposition:[facility] Facility Reason for continued hospitalization:Recurrent falls. Plan for [facility]. Family has requested for SNF placement, case management consulted regarding SNF eval. Disclaimer: Parts of this note was created using voice recognition software [employer][email or web address] and may contain unintended word substitutions. Please excuse typographical errors in the note. ERCIAL INSULATOR ERCIAL INSULATOR ERCIAL INSULATOR * Naresh Yeager OT - 03/20/2024 2:39 PM COMMERCIAL INSULATOR Occupational Therapy Evaluation and Treatment Patient Name: Rashid Curry Today's Date: 03/20/2024 Room: [place] [address]/[facility] Preferred Language: Togolese Assessment & Plan Patient received semi supine [...] None AM-PAC Daily Activity Raw Score: 17 [facility] Highest Level of Mobility (-HLM) [...] therapy [Z79.01] Atrial fibrillation, unspecified type (CMS/HCC) ([facility]) [I48.91] Accidental fall, initial encounter [W19.XXXA] referred to Occupational therapy services . Past Medical History: Diagnosis Date Atrial fibrillation (CMS/HCC) ([facility]) 03/19/2024 Essential tremor 03/18/2024 Primary hypertension 03/18/2024 [...] Shower chair with back Prior Function:Level of [place]: Ambulated with assistive device (comment) ADL Assistance: Independent Homemaking Assistance: Independent Vocational: Retired Current Self Care (ADL):Self Care/Home Management (ADLs) Time Entry: 15 Eating Assistance: Independent Grooming Assistance: Independent Bathing Assistance: Partial/Mod assistance UE Dressing Assistance: Independent LE Dressing Assistance: Substantial/Max assistance Toileting Assistance: Substantial/Max assistance Social History:Social History Source: Patient, Adult child Patient Responsibilities: Personal ADL, Home management, Health management, property management supervisor, Driving, Community mobility, Meal prep, Laundry Prior IADL:Current License: Yes Mode of Transportation: Car Mobility/Transfers: Bed Mobility 1Level of Assistance 1: Supervision/touching assistance Bed Mobility To/From: Supine to sit on EOB Assistive Devices And Adaptive Equipments: Bed rail, Head of bed elevated Transfer 1Level of Assistance 1: Partial/Mod assistance Trials/Comments 1: VC for hand placement and upright posture Transfer To/From: Bed, Wcu-xp-Fvvuj/Ghmxq-pl-Yka Assistive Devices And Adaptive Equipments: Walker, front-wheeled [...] L Wrist Ulnar Deviation: 4/5 L Gross Pony Ride Attendant Strength: 4/5 Treatment:Self-Care: Self Care/Home Management (ADLs) [...] 04/10/24 Post Therapy Checklist: in chair, call ruiz within reach, phone within reach, bed/chair alarm on, family at bedside, and RN informed Time Entry Calculation:Start Time: 1439 Stop Time: 1517 Time Calculation (min): 38 min Treatment Note: If this is the last documented treatment, then it will signify discharge from acute care prior to discharge from the therapy service and will serve as the discharge summary. Naresh Yeager OTCosigned by Nicole Rodriguez MD at 03/20/2024 8:19 PM COMMERCIAL INSULATOR ERCIAL INSULATOR ERCIAL INSULATOR * ADIS Navarro - 03/20/2024 11:40 AM COMMERCIAL INSULATOR Physical Therapy Treatment Patient Name: Rashid Curry Today’s Date: 03/20/24 Room Number: [id number]/[id number].1020 Patient's Preferred Language: Togolese PT Assessment and Plan: Assessment Pt presents [...] Inpatient Raw Score: 16 -M Goal: 5 [facility] Highest Level of Mobility (JH-HLM) Scale Highest Level of Mobility Performed (JH-HLM): Walked 25 feet or more (i.e. walked outside of room) Subjective: Pt consented to treatment today. Current Problem: This is a 84 y.o. female who is admitted to [facility] with Hypokalemia [E87.6] Impaired mobility and ADLs [...] to bed for pericare. Transfer To/From: Bed, Fjk-an-Mhkxz/Wherz-ha-Lah Assistive Devices And Adaptive Equipments: Walker, front-wheeled [...] Post Therapy Checklist - in bed, call ruiz within reach, bed/chair alarm in place, phone within reach, and with family nearby Time Calculation:Start Time: 1140 Stop Time: 1218 Time Calculation (min): 38 min AttestationSupervising Physical Therapist: Abby Rivera PT [...] Rivera PT at 03/20/2024 4:59 PM CST ERCIAL INSULATOR ERCIAL INSULATOR ERCIAL INSULATOR Associated attestation - Abby Rivera PT - 03/20/2024 4:59 PM CST I, the supervising Physical therapist was active and present throughout the duration of the session. As the supervising therapist, I have reviewed and agree with all documentation related to treatment, plan of care, and billing on this date. * Nicole Rodriguez MD - 03/20/2024 9:38 AM COMMERCIAL INSULATOR [facility] Hospitalist Progress Note Subjective Patient seen and [...] precaution Will order home health Atrial fibrillation ([facility]) ([facility]) Continue metoprolol and Eliquis for anticoagulation Patient [...] note was created using voice recognition software [email or web address] and may contain unintended word substitutions. Please excuse typographical errors in the note. ERCIAL INSULATOR * Abby Rivera, PT - 03/19/2024 3:14 PM COMMERCIAL INSULATOR Physical Therapy Evaluation and Treatment Patient Name: Rasihd Curry Today’s Date: 03/19/24 Room Number: [id number]/10B.1020 Patient's Preferred Language: Togolese PT Assessment and Plan: Assessment Pt presents [...] Inpatient Raw Score: 18 -HLM Goal: 6 [facility] Highest Level of Mobility (-HLM) Scale Highest Level of Mobility Performed (-HLM): Walked 25 feet or more (i.e. walked outside of room) Subjective: Pt agreed to PT evaluation this pm. Daughter in room. Current Problem: This is a 84 y.o. female who is admitted to [facility] with Hypokalemia [E87.6] Impaired mobility and ADLs [Z74.09, Z78.9] Generalized weakness [R53.1] At high risk for falls [Z91.81] Anticoagulation adequate with anticoagulant therapy [Z79.01] Atrial fibrillation, unspecified type (CMS/HCC) ([facility]) [I48.91] Accidental fall, initial encounter [W19.XXXA] Past [...] commode Prior Level of Function: Level of [place]: Ambulated with assistive device (comment) (RW) Receives [...] +1 for balance and safety Transfer To/From: Azd-fs-Mvhwv/Acwkm-pv-Gom, Bed Assistive Devices And Adaptive Equipments: Walker, [...] Post Therapy Checklist - in bed, call ruiz within reach, bed/chair alarm in place, phone within reach, with family nearby, and RE ETCHER informed pt in need of diaper change due to malfunctioning purewick. Time CalculationStart Time: 1514 Stop Time: 1534 Time Calculation (min): 20 min PT Manager Foreign Used: Case Castillo Treatment Note: If this is the last documented treatment, then it will signify discharge from acute care prior to discharge from the therapy service and will serve as the discharge summary. Abby Rivera, PT Cosigned by Nicole Rodriguez MD at 03/19/2024 7:25 PM CST ERCIAL INSULATOR ERCIAL INSULATOR * Nicole Rodriguez MD - 03/19/2024 10:59 AM COMMERCIAL INSULATOR [facility] Hospitalist Progress Note Subjective Patient seen and [...] last 7 days Lab Units 03/19/24 0419 01/29/25 1353 SODIUM mEq/L 139 139 POTASSIUM mEq/L [...] in the setting of frequent falls. Her EYN2DK0-CLQj 4 indicating high risk. Essential tremor Outpatient [...] note was created using voice recognition software [email or web address] and may contain unintended word substitutions. Please excuse typographical errors in the note. ERCIAL INSULATOR * Abby Rivera, PT - 03/19/2024 10:41 AM COMMERCIAL INSULATOR PT Encounter Note Patient Name: Rashid Malcolm Calcote Todays Date: 03/19/2024 Room Number: SW10.1020/10B.1020 Patient's Preferred Language: Togolese Missed Treatment Time and Reason: Missed Time Reason: MH hold (Comment) (PT consult received. Chart reviewed. Secure chat message sent to Dr. Rodriguez to clarify if any WB restrictions for L UE due to h/o fracture in November. Will follow up as appropriate. RN aware.) Abby Rivera PT [facility]2025-02-06 17:23:14Pending Results Scheduled Orders Name Type Priority [...] on patient's age to complete this topic [id number] 17:23:14 Diagnosis Frequent falls - Primary Accidental fall, initial enc ounter Impaired mobility and ADLs At high risk for falls Atrial fibrillation, unspeci fied type (CMS/HCC) (HCC) Generalized weakness Hypokalemia Hypopotassemia Anticoagulation adequate wit h anticoagulant therapy Frequent falls Impaired mobility and ADLs Essential tremor Primary hypertension Unspecified essential hypertension Hypokalemia Hypopotassemia Atrial fibrillation (CMS/HCC) (HCC) Atrial fibrillation Accidental fall, initial enc ounter [id number] 17:23:14 [facility]vineImqdmdy0956-24-55 17:23:14* Home Health (Routine) - Pending Review Specialty Diagnoses / Procedures Referred By Contsavi t Referred To Contact Home Health Services Diagnoses Accidental fall, initial encounter Pamella Ku PA [address] [address] Phone: tel: fax: Referral ID Status Reason Start Date Expiration Date Visits Requested Visits Authorized [id number] Pending Review Specialty Services Required 03/26/2024 05/25/2024 999 999 ERCIAL INSULATOR* Home Health (Routine) - Pending Review Specialty Diagnoses / Procedures Referred By Bernardo t Referred To Contact Home Health Services Diagnoses Frequent falls Nicole Rodriguez MD [address] [address] Phone: tel: fax: Referral ID Status Reason Start Date Expiration Date Visits Requested Visits Authorized [id number] Pending Review Specialty Services Required 03/20/2024 05/19/[address] [facility]2025-02-06 17:23:14* * Auth/Cert (Routine) Specialty Diagnoses / Procedures Referred By Contac t Referred To Contact Diagnoses Hypokalemia Impaired mobility and ADLs Generalized weakness At high risk for falls Anticoagulation adequate with anticoagulant therapy Atrial fibrillation, unspecified type (CMS/HCC) (HCC) Accidental fall, initial encounter Procedures [email or web address] IP/OBS CARE SF/LOW MDM 40 MINUTES Elise Morrison MD [address] [address] Phone: tel: fax: [facility] ([address]) [address] [place] [address] Phone: tel: Referral ID Status Reason Start Date Expiration Date Visits Re quested Visits Authorized [id number] 1 1 [facility] [id number] 17:23:14 [place] 412905-02-06 14:45:08 Images from the original note were not included. Fall Prevention - Video This video explains why it's important to ask for help when getting out of bed while you are in the hospital. To view the video go to this web address: [email or web address] Or, scan this QR code with your smart phone ? [facility] NursingMemoriTexas Children's HospitalXaluszd2210-46-77 14:45:06 Images from the original note were not included. [id number] Preventing Falls: Are You at Risk of [...] afraid. Last Reviewed Date: 2022 00:00:00 ? [id number] [employer]. All rights reserved. This information is not intended as a substitute for professional medical care. Always follow your healthcare professional's instructions. [facility]2025-02-06 14:44:56 Images from the original note were not included. [id number] Metoprolol Brand Name(s): Kapspargo Sprinkle?, Lopressor?, Toprol?, [...] out of their sight and reach. [email or web address] Unneeded medications should be disposed of in [...] be awakened, immediately call emergency services at 841. Symptoms of overdose may include the following: [...] of all of the prescription and nonprescription (gbzm-gta-gsuxtsv) medicines you are taking, as well as [...] or pharmacist about specific clinical use. [employer] represents that the information provided hereunder was formulated with a reasonable standard of care, and in conformity with professional standards in the field. [employer] makes no representations or warranties, express or implied, including, but not limited to, any implied warranty of merchantability and/or fitness for a particular purpose, with respect to such information and specifically disclaims all such warranties. Users are advised that decisions regarding drug therapy are complex medical decisions requiring the independent, informed decision of an appropriate health residential care officer, and the information is provided for informational purposes only. The entire monograph for a drug should be reviewed for a thorough understanding of the drug's actions, uses and side effects. The [employer] does not endorse or recommend the use of any drug. The information is not a substitute for medical care. AHFS? Patient Medication Information?. ? Copyright, 2023. [employer]?, [address], [address], [place], [place]. All Rights Reserved. Duplication for commercial use must be authorized by [facility]. Selected Revisions: November 02, 2022. AHFS? Patient Medication Information?. ? Copyright, 2024 [facility] Courtney [id number] 14:43:59 Images from the original note were not included. [id number] Apixaban Brand Name(s): Eliquis?; also available generically [...] doctor or pharmacist will give you the power truck driver's patient information sheet (Medication Guide) when you begin treatment with apixaban and each time you refill your prescription. Read the information carefully and ask your doctor or pharmacist if you have any questions. You can also visit the Food and Drug Administration (FDA) website (https://www.fda.gov/Drugs/DrugSafety/lbp259961.htm) or the power truck driver's website to obtain the Medication Guide. Talk [...] or herbal products may interact with apixaban: Bangor's wort; aspirin; NSAIDs (such as ibuprofen [Advil, [...] be awakened, immediately call emergency services at 125. Symptoms of overdose may include the following: [...] of all of the prescription and nonprescription (uofb-zrs-mhdidkl) medicines you are taking, as well as [...] or pharmacist about specific clinical use. The [employer] represents that the information provided hereunder was formulated with a reasonable standard of care, and in conformity with professional standards in the field. The [employer] makes no representations or warranties, express or implied, including, but not limited to, any implied warranty of merchantability and/or fitness for a particular purpose, with respect to such information and specifically disclaims all such warranties. Users are advised that decisions regarding drug therapy are complex medical decisions requiring the independent, informed decision of an appropriate health residential care officer, and the information is provided for informational purposes only. The entire monograph for a drug should be reviewed for a thorough understanding of the drug's actions, uses and side effects. The [employer] does not endorse or recommend the use of any drug. The information is not a substitute for medical care. AHFS? Patient Medication Information?. ? Copyright, 2023. [employer]?, [address], [address], [place], [place]. All Rights Reserved. Duplication for commercial use must be authorized by [facility]. Selected Revisions: January 02, 2023. AHFS? Patient Medication Information?. ? Copyright, 2024 [facility] [id number] 00:04:52 The patient is Moderately Unstable - Medium risk of patient condition declining or worsening The patient's goals for the shift include no falls The clinical goals for the shift include placement Over the shift, the patient did not make progress toward the following goals. Barriers to progression include. Recommendations to address these barriers include . ER [facility] [id number] 19:00:00 Received a message from ESTEPHANIE Can to sign patients OOH-DNR. OOH-DNR Signed, pending notarization. Notified weight shifter RN to pass onto day shift. Asked PA to update patients inpatient code status as well. Notified PA to order cough medication for patient as well. Pending response. [facility]2025-02-04 10:35:37 The patient is Moderately Stable - Low risk of patient condition declining or worsening The patient's goals for the shift include Get stronger, no falls The clinical goals for the shift include Placement Over the shift, the patient did not make progress toward the following goals. Barriers to progression include pending SNF placement. Recommendations to address these barriers include consult with CM/SW. [facility]2025-02-04 10:08:13 Advance Care Planning Note Discussion Date: [...] and Living Will Not Received Power of Computer Programming Manager Not Received Summary of conversation: Presented topic [...] be completed. Time Statement: Time spent in [id number] advance care planning discussion was 17 Minutes. ESTEPHANIE Zafar 03/24/2024 10:[address] [facility]2025-02-03 23:38:09 The patient is Moderately Unstable - Medium risk of patient condition declining or worsening The patient's goals for the shift include get well The clinical goals for the shift include get well Over the shift, the patient did not make progress toward the following goals. Barriers to progression include . Recommendations to address these barriers include bed alarm, call ruiz. [place] [id number] 14:06:42 The patient is Moderately Stable - Low risk of patient condition declining or worsening The patient's goals for the shift include get well The clinical goals for the shift include get well [place] [id number] 10:36:27 Pt back on 10th floor. Will continue plan of care. [place] [address]-02-03 10:05:29 RN received report from JESUS ASHLEY Ureña saying pt will not go for procedure as there is no need, pt is in normal sinus rhythm. Will continue plan of care once pt returns to 10th floor. [place] [address]-02-03 09:06:21 Pt picked up from 10th floor to be taken for procedure, daughter is at bedside, all personal belongings are in pt's bedroom. Will continue plan of care once pt returns. [place] [address]-02-03 06:00:00 PT IS SCHEDULED FOR PROCEDURE,CONSENT SIGNED, NPO MAINTAINED [place] [address]-02-02 23:33:00 The patient is Moderately Unstable - Medium risk of patient condition declining or worsening The patient's goals for the shift include get well The clinical goals for the shift include get well Over the shift, the patient did not make progress toward the following goals. Barriers to progression include . Recommendations to address these barriers include .BED AALRM, CALL RUIZ [place] [id number] 15:00:56 The patient is Moderately Stable - Low risk of patient condition declining or worsening The patient's goals for the shift include get well The clinical goals for the shift include get well Over the shift, the patient did not make progress toward the following goals. Barriers to progression include . Recommendations to address these barriers include . [place] [id number] 07:19:09 The patient is Moderately Stable - Low risk of patient condition declining or worsening The patient's goals for the shift include get well The clinical goals for the shift include get well Over the shift, the patient did not make progress toward the following goals. Barriers to progression include . Recommendations to address these barriers include . [facility]2025-02-01 23:44:00 The patient is Moderately Unstable - Medium risk of patient condition declining or worsening The patient's goals for the shift include get well The clinical goals for the shift include get well Over the shift, the patient did not make progress toward the following goals. Barriers to progression include . Recommendations to address these barriers include safetym bed alarm, call ruiz. [place] [address]-02-01 17:45:00 Pt's daughter has been at the bedside since morning. OOB to chair for meals with assisted by staff. Pt was taken back in back with no incident. Daughter at bedside. [place] [address]-02-01 15:34:06 The patient is Moderately Stable - Low risk of patient condition declining or worsening The patient's goals for the shift include get well The clinical goals for the shift include get well Over the shift, the patient did not make progress toward the following goals. Barriers to progression include . Recommendations to address these barriers include . [place] [address]-02-01 09:52:16 The patient is Moderately Stable - Low risk of patient condition declining or worsening The patient's goals for the shift include get well The clinical goals for the shift include get well Over the shift, the patient did not make progress toward the following goals. Barriers to progression include . Recommendations to address these barriers include . [place] [address]-01-31 22:14:49 The patient is Moderately Unstable - Medium risk of patient condition declining or worsening The patient's goals for the shift include To get better The clinical goals for the shift include To get better [place] [id number] 15:05:43 The patient is Moderately Stable - Low risk of patient condition declining or worsening The patient's goals for the shift include To get better The clinical goals for the shift include To get better [place] [address]-01-31 10:26:34 The patient is Moderately Stable - Low risk of patient condition declining or worsening The patient's goals for the shift include To get better The clinical goals for the shift include To get better [place] [address]-01-30 19:55:30 The patient is Moderately Stable - Low risk of patient condition declining or worsening The patient's goals for the shift include To get better The clinical goals for the shift include To get better [facility]2025-01-30 12:16:00 The patient is Moderately Stable - Low risk of patient condition declining or worsening The patient's goals for the shift include To get better The clinical goals for the shift include To get better [facility]2025-01-30 02:09:47 The patient is Moderately Unstable - Medium risk of patient condition declining or worsening The patient's goals for the shift include To get better The clinical goals for the shift include To get better l [facility]2025-01-29 13:21:00 Associated Order(s): ECG 12 lead (arrhythmia) [...] patient is on apixaban. Recent admission to [facility]: Patient was admitted on February 19, 2024 [...] infection toward the end of January around [place] time that turned into pneumonia. History provided by: Patient and caregiver self propelled dredge operator used: No PCP: PMHx: PSHx: PSocHx: Meds: [...] ED Physician in the absence of a meal room hand: yes Previous ECG: Previous ECG: Unavailable Interpretation: Interpretation: non-specific Details: EKG obtained and contemporaneously interpreted by me on March 18, 2024 at 1937 hrs. Rate: ECG rate: Ventricular rate of 111 bpm. Rhythm: Rhythm: atrial fibrillation QRS: QRS axis: Left T waves: T waves: non-specific Q waves: Abnormal Q-waves: not present Comments: CA interval nonexistent. QRS duration 90 ms. Atrial [...] The patient was placed on a bedside business services intern. I ensured that the patient had a [...] Procedure Abnormality Status --------- ------ Complete Blood Count[[id number]] Normal Final result Automated Differential[[id number]] Abnormal Final result Please view results for [...] by: Rubia Mclean MD 03/18/2024 09:06 PM COMMERCIAL INSULATOR RP Trauma CT BRAIN WO IV CONTRAST Final Result No CT evidence of acute intracranial abnormality. Electronically signed by: Matt Arevalo MD 03/18/2024 09:03 PM COMMERCIAL INSULATOR RP XR chest 1 view Final Result 1. Hilar fullness bilaterally is nonspecific may be related to vascular prominence or lymphadenopathy. 2. Proximal left humerus fracture better characterized on dedicated radiographs. Electronically signed by: Nestor Mckay MD 03/18/2024 07:55 PM COMMERCIAL INSULATOR RP XR elbow 3+ views left Final Result No acute abnormality of the left elbow. Electronically signed by: Raza Jackson MD 03/18/2024 03:02 PM COMMERCIAL INSULATOR RP XR humerus 2 views left Final Result Subacute appearing transverse, impacted fracture of the left humerus surgical neck, with suggestion of early healing. Electronically signed by: Raza Jackson MD 03/18/2024 03:05 PM COMMERCIAL INSULATOR RP Impression Final diagnoses: [W19.XXXA] Accidental fall, initial encounter [Z74.09, Z78.9] Impaired mobility and ADLs [Z91.81] At high risk for falls [I48.91] Atrial fibrillation, unspecified type (CMS/HCC) (HCC) [R53.1] Generalized weakness [E87.6] Hypokalemia [Z79.01] Anticoagulation adequate with anticoagulant therapy Prescriptions New Prescriptions No medications on file Disposition: Admit/Observation ESTEPHANIE Viveros 03/18/242221 Cosigned by López Juárez MD at 03/19/2024 1:49 PM COMMERCIAL INSULATOR ERCIAL INSULATOR ERCIAL INSULATOR Associated attestation - López Juárez MD - 03/19/2024 1:49 PM COMMERCIAL INSULATOR I have discussed this patient's care with the Advanced Practice Provider, and I agree with the plan. López Juárez MD [facility]
[2024-07-05 08:43] LABS: Absolute Basophils 0.1 K/uL (0-0.5); Absolute Eosinophils 0.1 K/uL (0-0.5); Absolute Lymphocytes (CBC) 1.3 K/uL (0.7-4.9); Absolute Monocytes 0.7 K/uL (0.1-1.3); Absolute Neutrophil 4.7 K/uL (1.8-8.0); Basophils % 0.7 % (0-1.3); Hematocrit 43.4 % (36.0-45.0); Hemoglobin 14.4 g/dL (12.0-15.0); MCH 29.8 pg (27.0-35.0); MCHC 33.3 g/dL (32.0-36.0); MCV 89.7 fL (80-100); MPV 8.6 fL (7.6-11.3); Monocytes % 10.2 % (3.3-12.3); Neutrophils % 69.1 % (41.7-73.7); Nucleated Red Blood Cells % 0.1 % (0-0); Platelets 269 thou/uL (152-406); RBC Red Blood Cell Count 4.83 M/uL (3.86-4.86); Red Cell Distribution Width 14.9 % (12.1-15.2)
[2024-07-05 08:50] LABS: PT Prothrombin Time 18.4 SECONDS (10-13.0); Protime INR 1.65
[2024-07-05 09:02] LABS: Albumin 3.4 g/dL (3.4-5.0); Albumin/Globulin Ratio 0.9 (1.1-1.8); Anion Gap 10.9 mEq/L (5.0-15.0); Bilirubin Direct 0.4 mg/dL (0-0.2); Bilirubin Indirect, Calculated 0.9 mg/dL (0.2-0.8); Bilirubin Total 1.3 mg/dL (0.2-1.0); Globulin 3.7 g/dL (2.3-3.5); Potassium 3.9 mEq/L (3.5-5.1); Protein, Total 7.1 g/dL (6.4-8.2); Troponin High Sensitivity 13.4 pg/mL (<58.9)
--- NOTE | 2024-07-05 09:42 | RAD REPORT ---
EXAM: Chest Single View HISTORY: 84 years Female PALPITATIONS COMPARISON: 06/04/2024 FINDINGS: LUNGS/PLEURA: Small bilateral pleural effusions. Low lung volumes. CARDIAC/MEDIASTINUM: Mild cardiomegaly UPPER ABDOMEN: No significant abnormality. BONES: No acute abnormality. LINES/TUBES/OTHER: N/A IMPRESSION: Mild basilar opacities with small effusions could reflect some mild pulmonary edema with or without s ome pneumonia or pneumonitis in the lung bases..
--- NOTE | 2024-07-05 09:49 | ER ---
Nurse's Notes [facility] Name: Georgia Curry Age: 84 yrs Sex: Female : 1940 Arrival Date: 07/05/2024 Time: 08:13 Bed 13 Private MD: Diagnosis: CHF exacerbation, dyspnea Presentation: 07/05 08:23 Chief complaint: Patient states: SOB started yesterday, got more constant today. No ll1 known fever. Coronavirus screen: Client denies travel out of the [place] in the last 14 days. difficulty breathing, shortness of breath, Client presents with at least one sign or symptom that may indicate coronavirus-19. Standard/surgical mask placed on the client. Ebola Screen: Patient denies travel to an Ebola-affected area in the 21 days before illness onset. Initial Sepsis Screen: Does the patient meet any 2 criteria? No. Patient's initial sepsis screen is negative. Does the patient have a suspected source of infection? No. Patient's initial sepsis screen is negative. Risk Assessment: Do you want to hurt yourself or someone else? Patient reports no desire to harm self or others. Onset of symptoms was July 04, 2024. 08:23 Method Of Arrival: Wheelchair ll1 08:23 Acuity: MATTHEW 2 ll1 Triage Assessment: 19:18 Respiratory: the patient has mild shortness of breath. cp4 19:18 Respiratory: Onset: The symptoms/episode began/occurred gradually. cp4 Historical: - Allergies: 08:22 Codeine; ll1 08:22 Morphine; ll1 - PMHx: 08:22 hernia repair of groin; Hypertensive disorder; hysterectomy; removal of benign tumor ll1 left breast; removal of benign tumor thyroid; - Immunization history:: Adult Immunizations up to date. - Infectious Disease History:: Denies. - Social history:: Smoking status: Patient denies any tobacco usage or history of. Screenin:14 [facility] ED Fall Risk Assessment (Adult) History of falling in the last 3 months, db including since admission No falls in past 3 months (0 pts) Confusion or Disorientation No (0 pts) Intoxicated or Sedated No (0 pts) Impaired Gait Yes (1 pt) Mobility Assist Device Used Yes (1 pt) Altered Elimination No (0 pt) Score/Fall Risk Level 0 - 2 = Low Risk Oriented to surroundings, Maintained a safe environment. Abuse screen: Denies threats or abuse. Denies injuries from another. Nutritional screening: No deficits noted. Tuberculosis screening: No symptoms or risk factors identified. Assessment: 10:14 Reassessment: Patient appears in no apparent distress at this time. Patient and/or db family updated on plan of care and expected duration. Pain level reassessed. Patient is alert, oriented x 3, equal unlabored respirations, skin warm/dry/pink. PURWICK PLACED ON PT. BRIEF PLACED ON PT. General: Appears in no apparent distress. comfortable, Behavior is calm, cooperative. Neuro: Level of Consciousness is awake, alert, obeys commands, Oriented to person, place, time, situation. Respiratory: Airway is patent Respiratory effort is even, unlabored, Respiratory pattern is regular, symmetrical. 12:00 Reassessment: Patient appears in no apparent distress at this time. Patient and/or db family updated on plan of care and expected duration. Pain level reassessed. Patient is alert, oriented x 3, equal unlabored respirations, skin warm/dry/pink. 13:00 Reassessment: Patient appears in no apparent distress at this time. Patient and/or db family updated on plan of care and expected duration. Pain level reassessed. Patient is alert, oriented x 3, equal unlabored respirations, skin warm/dry/pink. PT SITTING UP EATING. 14:32 Reassessment: Patient appears in no apparent distress at this time. Patient and/or db family updated on plan of care and expected duration. Pain level reassessed. Patient is alert, oriented x 3, equal unlabored respirations, skin warm/dry/pink. Patient states feeling better. Patient states symptoms have improved. Pain: Denies pain. Cardiovascular: Rhythm is atrial fibrillation. Respiratory: Reports shortness of breath. 19:17 Respiratory: Breath sounds are clear bilaterally. cp4 Vital Signs: 08:23 Temp 97.6; Weight 63.5 kg; Height 5 ft. 7 in. ; Pain 0/10; ll1 08:25 BP 156 / 91; Pulse 74; Resp 20; Pulse Ox 85% on R/A; mb9 08:33 Pulse Ox 94% on 4 lpm NC; mb9 09:00 BP 150 / 91; Pulse 63; Resp 24; Pulse Ox 96% on NC; db 08:23 Body Mass Index 21.93 (63.50 kg, 170.18 cm) ll1 08:23 Pain Scale: Adult ll1 ED Course: 08:17 Patient arrived in ED. al6 08:22 Arm band placed on Patient placed in an exam room, on a stretcher. ll1 08:25 Triage completed. ll1 08:30 EKG done, by cardiothoracic anesthesia technician. reviewed by Presley Foster MD. mb9 08:30 Missed attempt(s): 22 gauge in right forearm. Bleeding controlled, band aid applied, mb9 catheter tip intact. 08:32 Presley Foster MD is Attending Physician. sp3 08:39 Bed in low position. Call light in reach. Side rails up X 1. Provided Education on: mb9 press call light if needing anything. Client placed on continuous cardiac and pulse oximetry monitoring. NIBP monitoring applied. project geophysicist on. Door closed. Noise minimized. Warm blanket given. Pillow given. 08:39 Initial lab(s) drawn, by ED staff, sent to lab. Inserted saline lock: 22 gauge in left mb9 forearm, using aseptic technique. Blood collected. Flushed with 10 mL NS. 09:08 Allison Johnson, RN is Primary Nurse. db 09:14 COVID-19 Ag + Flu A+B Ag Sent. ll1 09:30 XRAY Chest (1 view) In Process Unspecified. EDMS 09:48 Arnaud Collier is Hospitalizing Provider. sp3 14:32 No provider procedures requiring assistance completed. Patient admitted, IV remains in db place. 19:17 Rianna Camarillo is Primary Nurse. cp4 19:18 Cleaned of incontinence. cp4 Administered Medications: 10:00 Drug: Furosemide IVP 40 mg IVP once; give over 2 minutes Route: IVP; Site: right wrist; db 20:03 Follow up: Response: No adverse reaction cp4 Medication: 14:32 VIS not applicable for this client. db Outcome: 09:48 Decision to Hospitalize by Provider. sp3 14:32 Admitted to ER Hold. Please see [facility] for further documentation. db 14:32 Condition: stable 14:32 Instructed on the need for admit, 20:51 Admitted to Med/surg accompanied by tech, via stretcher, room 208, with chart, cp4 20:51 Condition: stable 20:51 Instructed on the need for admit, 20:52 Patient left the ED. cp4 Signatures: Dispatcher [employer] EDKt Mendez RN RN ll1 Presley Foster MD MD sp3 Allison Johnson RN RN db Winter, Raina Montaño RN RN mb9 Rianna Camarillo cp4 Aliza Garcia6
--- NOTE | 2024-07-05 09:49 | EDPHYS ---
Physician Documentation [facility] Name: Georgia Curry Age: 84 yrs Sex: Female : 1940 Arrival Date: 07/05/2024 Time: 08:13 Bed 13 Private MD: ED Physician Presley Foster HPI: 07/05 08:51 This 84 yrs old Female presents to ER via Wheelchair with complaints of Breathing sp3 Difficulty, afib. 08:51 84-year-old female with history of atrial fibrillation currently on Eliquis, sp3 hypertension, other surgeries now presents to the ED with chief complaint shortness of breath that got worse yesterday evening. Patient states she normally has some dyspnea at night however overnight it got worse and so she decided to present to the ED this morning. She is still short of breath on arrival. She denies any chest pain, headache, neck pain, abdominal pain, syncope, near syncope, vomiting, diarrhea, fever, bleeding, or any other signs or symptoms on ROS at this time.. Historical: - Allergies: 08:22 Codeine; ll1 08:22 Morphine; ll1 - PMHx: 08:22 hernia repair of groin; Hypertensive disorder; hysterectomy; removal of benign tumor ll1 left breast; removal of benign tumor thyroid; - Immunization history:: Adult Immunizations up to date. - Infectious Disease History:: Denies. - Social history:: Smoking status: Patient denies any tobacco usage or history of. ROS: 08:51 Constitutional: Negative for fever, chills, and weight loss, Eyes: Negative for injury, sp3 pain, redness, and discharge, Neck: Negative for injury, pain, and swelling, Cardiovascular: Negative for chest pain, palpitations, and edema, Abdomen/GI: Negative for abdominal pain, nausea, vomiting, diarrhea, and constipation, Back: Negative for injury and pain, MS/Extremity: Negative for injury and deformity, Skin: Negative for injury, rash, and discoloration, Neuro: Negative for headache, weakness, numbness, tingling, and seizure, Psych: Negative for depression, anxiety, suicide ideation, homicidal ideation, and hallucinations, Allergy/Immunology: Negative for hives, rash, and allergies, Endocrine: Negative for neck swelling, polydipsia, polyuria, polyphagia, and marked weight changes, Hematologic/Lymphatic: Negative for swollen nodes, abnormal bleeding, and unusual bruising, 08:51 All other systems are negative, Exam: 08:52 Constitutional: This is a well developed, well nourished patient who is awake, alert, sp3 and in no acute distress. Head/Face: Normocephalic, atraumatic. Eyes: Pupils equal round and reactive to light, extra-ocular motions intact. Lids and lashes normal. Conjunctiva and sclera are non-icteric and not injected. Cornea within normal limits. Periorbital areas with no swelling, redness, or edema. Neck: Trachea midline, no thyromegaly or masses palpated, and no cervical lymphadenopathy. Supple, full range of motion without nuchal rigidity, or vertebral point tenderness. No Meningismus. Chest/axilla: Normal chest wall appearance and motion. Nontender with no deformity. No lesions are appreciated. Cardiovascular: Regular rate and rhythm with a normal S1 and S2. No gallops, murmurs, or rubs. Normal PMI, no JVD. No pulse deficits. Abdomen/GI: Soft, non-tender, with normal bowel sounds. No distension or tympany. No guarding or rebound. No evidence of tenderness throughout. Back: No spinal tenderness. No costovertebral tenderness. Full range of motion. Skin: Warm, dry with normal turgor. Normal color with no rashes, no lesions, and no evidence of cellulitis. MS/ Extremity: Pulses equal, no cyanosis. Neurovascular intact. Full, normal range of motion. Neuro: Awake and alert, GCS 15, oriented to person, place, time, and situation. Cranial nerves II-XII grossly intact. Motor strength 5/5 in all extremities. Sensory grossly intact. Cerebellar exam normal. Normal gait. Psych: Awake, alert, with orientation to person, place and time. Behavior, mood, and affect are within normal limits. 08:52 Respiratory: Rales noted bilaterally. Room air pulse oxygenation 85%. On 4 L now at 95%., 09:01 ECG was reviewed by the Attending Physician. sp3 Vital Signs: 08:23 Temp 97.6; Weight 63.5 kg; Height 5 ft. 7 in. ; Pain 0/10; ll1 08:25 BP 156 / 91; Pulse 74; Resp 20; Pulse Ox 85% on R/A; mb9 08:33 Pulse Ox 94% on 4 lpm NC; mb9 09:00 BP 150 / 91; Pulse 63; Resp 24; Pulse Ox 96% on NC; db 08:23 Body Mass Index 21.93 (63.50 kg, 170.18 cm) ll1 08:23 Pain Scale: Adult ll1 MDM: 08:33 Medical Screening Exam initiated sp3 08:52 Data reviewed: vital signs, nurses notes, lab test result(s), EKG, radiologic studies. sp3 ED course: 84-year-old female with PMH above now with shortness of breath. Differential diagnosis includes congestive heart failure, ACS, pneumonia, viral illness, COVID-19, influenza, among others. I am not highly suspicious of TAD or PE. Workup will include chest x-ray, EKG, general labs including BNP and troponin. Disposition probable admission given room air pulse oxygenation hypoxia.. 09:48 ED course: Lasix 40 mg IV given. Patient has CHF with BNP of 2500 and will be placed in sp3 observation for diuresis.. 07/05 08:32 Order name: Basic Metabolic Panel; Complete Time: 09:46 sp3 07/05 08:32 Order name: CBC with Diff; Complete Time: 09:46 sp3 07/05 08:32 Order name: LFT's; Complete Time: 09:46 sp3 07/05 08:32 Order name: Magnesium; Complete Time: 09:46 sp3 07/05 08:32 Order name: NT PRO-BNP; Complete Time: 09:46 sp3 07/05 08:32 Order name: PT-INR; Complete Time: 09:46 sp3 07/05 08:32 Order name: Troponin HS; Complete Time: 09:46 sp3 07/05 08:38 Order name: COVID-19 Ag + Flu A+B Ag; Complete Time: 09:56 sp3 07/05 10:53 Order name: Basic Metabolic Panel EDMS 07/05 10:53 Order name: Basic Metabolic Panel EDMS 07/05 10:53 Order name: Basic Metabolic Panel EDMS 07/05 10:53 Order name: Basic Metabolic Panel EDMS 07/05 10:53 Order name: CBC with Automated Diff EDMS 07/05 10:53 Order name: CBC with Automated Diff EDMS 07/05 10:53 Order name: CBC with Automated Diff EDMS 07/05 10:53 Order name: CBC with Automated Diff EDMS 07/05 10:53 Order name: Magnesium EDMS 07/05 10:53 Order name: Magnesium EDMS 07/05 10:53 Order name: Magnesium EDMS 07/05 10:53 Order name: Magnesium EDMS 07/05 10:53 Order name: Phosphorus EDMS 07/05 10:53 Order name: Phosphorus EDMS 07/05 10:53 Order name: Phosphorus EDMS 07/05 10:53 Order name: Phosphorus EDMS 07/05 10:53 Order name: T4 Free EDMS 07/05 10:53 Order name: T4 Free EDMS 07/05 10:53 Order name: Thyroid Stimulating Hormone EDMS 07/05 10:53 Order name: Thyroid Stimulating Hormone EDMS 07/05 10:53 Order name: Troponin High Sensitivity EDMS 07/05 10:53 Order name: Troponin High Sensitivity EDMS 07/05 10:53 Order name: Troponin High Sensitivity EDMS 07/05 08:32 Order name: XRAY Chest (1 view); Complete Time: 09:46 sp3 07/05 08:32 Order name: Cardiac monitoring; Complete Time: 08:35 sp3 07/05 08:32 Order name: EKG - Nurse/Tech; Complete Time: 08:35 sp3 07/05 08:32 Order name: IV Saline Lock; Complete Time: 08:35 sp3 07/05 08:32 Order name: Labs collected and sent; Complete Time: 08:35 sp3 07/05 08:32 Order name: O2 Per Protocol; Complete Time: 08:35 sp3 07/05 08:32 Order name: O2 Sat Monitoring; Complete Time: 08:35 sp3 Administered Medications: 10:00 Drug: Furosemide IVP 40 mg IVP once; give over 2 minutes Route: IVP; Site: right wrist; db 20:03 Follow up: Response: No adverse reaction cp4 Disposition Summary: 07/05/24 09:48 Hospitalization Ordered Notes: Hospitalization Status: Observation sp3 Provider: Arnaud Collier sp3 Location: Telemetry/MedSurg (observation) sp3 Condition: Stable sp3 Problem: an acute exacerbation sp3 Symptoms: have worsened sp3 Bed/Room Type: Standard sp3 Room Assignment: 208(07/05/24 19:34) rv1 Diagnosis - CHF exacerbation, dyspnea sp3 Forms: - Medication Reconciliation Form sp3 - SBAR form sp3 - Leadership Thank You Letter sp3 Signatures: Dispatcher [employer] EDMS Kt Malcolm, RN RN ll1 Presley Foster MD MD sp3 Allison Johnson RN RN db Ana Weiner rv1 Rianna Camarillo cp4 Corrections: (The following items were deleted from the chart) 08:33 08:33 BASIC METABOLIC PANEL+C.LAB.BRZ ordered. EDMS EDMS 08:33 08:33 CBC+H.LAB.BRZ ordered. EDMS EDMS 08:33 08:33 HEPATIC FUNCTION+C.LAB.BRZ ordered. EDMS EDMS 08:33 08:33 MAGNESIUM+C.LAB.BRZ ordered. EDMS EDMS 08:33 08:33 PROBNP+C.LAB.BRZ ordered. EDMS EDMS 08:33 08:33 PROTIME (+INR)+COAG.LAB.BRZ ordered. EDMS EDMS 08:33 08:33 Troponin High Sensitivity+C.LAB.BRZ ordered. EDMS EDMS 08:33 08:33 Chest Single View+RAD.RAD.BRZ ordered. EDMS EDMS 19:34 09:48 sp3 rv1
[2024-07-05 09:54] LABS: Influenza A Ag Negative; Influenza B Ag Negative; SARS-CoV-2 Antigen Rapid Res Negative (Negative)
[2024-07-05] MEDS ORDERED: FUROSEMIDE 40 MG/4 ML VIAL ONE ×2 (09:58→20:20)
[2024-07-05] MEDS ORDERED: ACETAMINOPHEN 325 MG TABLET PO PRN (10:44)
--- NOTE | 2024-07-05 11:08 | P.HP ---
Certification for Inpatient Patient admitted to: Observation With expected LOS: <2 Midnights Practitioner: I am a practitioner with admitting privileges, knowledge of patient current condition, hospital course, and medical plan of care. Services: Services provided to patient in accordance with Admission requirements found in Title 42 Section 412.3 of the Code of Federal Regulations Patient History Date of Service: 07/05/24 Reason for admission: Acute hypoxic respiratory failure 2/2 CHF exacerbation History of Present Illness: Georgia Curry is an 84 year old female with Pmhx Afib, Chronic Diastolic heart failure, Hypertensive disorder, Pulmonary HTN who presents to the ED SOB that began several days ago. Family at the bedside reports the patient is sleeping sitting up which is causing edema to BLE. Family also reports, Dr. Esteban had "double" her dose of lasix recently but they have not started the medications yet, she is also scheduled for a stress test tomorrow (07/06). On evaluation, she is on 3 LNC, gurgles to lung sounds, and short of breath while speaking. She reports not needing oxygen at home. Laboratory evaluation significant for BNP 2545, elevated bilirubin: Tbil 1.3, direct bili 0.4, indirect bili 0.9, Bicarb 33. Last admission in May BNP 5399, some improvement on the BNP this admission. Chest xray reports "Mild basilar opacities with small effusions could reflect some mild pulmonary edema with or without some pneumonia or pneumonitis in the lung bases.." Georgia will be admitted to hospitalist service for acute hypoxic respiratory failure 2/2 CHF exacerbation. Allergies codeine Allergy (Unknown, Verified 02/19/24 13:26) Itching/Hives/Rash morphine Allergy (Unknown, Verified 02/19/24 13:26) Itching/Hives/Rash Home Medications: Cholecalciferol (Vitamin D3) [Vitamin D3] 2,000 unit PO DAILY 02/19/24 [place]ray-3 Fatty Acids [Sunray-3] 1,000 mg PO DAILY 02/19/24 Red Beet [Beet Root] 500 mg PO DAILY 02/19/24 Amiodarone HCl [Cordarone*] 200 mg PO BID #60 tab 06/08/24 Amlodipine [Norvasc*] 10 mg PO BEDTIME #30 tab 06/08/24 Apixaban [Eliquis] 5 mg PO BID #60 tab 06/08/24 Metoprolol Tartrate [Lopressor*] 25 mg PO BID 6AM 6PM #60 tab 06/08/24 Atorvastatin Calcium 20 mg PO DAILY 07/05/24 Furosemide 20 mg PO 07/05/24 Potassium Chloride 20 meq PO DAILY 07/05/24 - Past Medical/Surgical History -: Hypertension -: Hyperlipidemia -: CHF -: Removal of benign thyroid tumor -: Removal of benign breast tumor -: Hysterectomy -: Groin repair - Social History Smoking Status: Never smoker Alcohol use: No CD- Drugs: No Review of Systems Other: per HPI Physical Examination - Physical Exam General: Alert, In no apparent distress, Oriented x3 HEENT: Atraumatic, Normocephalic Neck: Supple, 2+ carotid pulse no bruit Respiratory: Inspiratory wheezes Cardiovascular: Normal pulses, Regular rate/rhythm Capillary refill: <2 Seconds Gastrointestinal: Normal bowel sounds Musculoskeletal: No clubbing Integumentary: No rashes Neurological: Normal speech, Normal tone - Studies Laboratory Data (last 24 hrs) 07/05/24 07/05/24 07/05/24 08:36 08:36 08:36 WBC 6.90 Hgb 14.4 Hct 43.4 Plt Count 269 PT 18.4 H INR 1.65 Sodium 143 Potassium 3.9 BUN 18 Creatinine 1.00 Glucose 94 Magnesium 2.0 Total Bilirubin 1.3 H AST 17 ALT 18 Alkaline Phosphatase 50 Assessment and Plan - Plan Assessment and plan Acute hypoxic respiratory failure secondary to acute on chronic diastolic heart failure Atrial fibrillation Chest tightness on inhalation - Continuous telemetry - Lasix twice daily - Strict I's and O's, daily weights - Cardiology consulted -continue home medications as appropriate Elevated bilirubin -Monitor in AM labs while diuresing DVT SCD FUll code LOS 24 hour OBS Discharge Plan: Home Plan to discharge in: 48 Hours - Advance Directives Does patient have a Living Will: No Does patient have a Durable POA for Healthcare: No
[2024-07-05 13:35] VITALS: BMI 21.9
[2024-07-05] MEDS: FUROSEMIDE 40 MG/4 ML VIAL IV SCH (20:00)
[2024-07-06 05:29] LABS: Absolute Eosinophils 0.1 K/uL (0-0.5); Absolute Monocytes 0.7 K/uL (0.1-1.3); Absolute Neutrophil 4.2 K/uL (1.8-8.0); Basophils % 0.6 % (0-1.3); Eosinophils % 1.1 % (0-4.4); Hematocrit 40.6 % (36.0-45.0); Hemoglobin 13.8 g/dL (12.0-15.0); Lymphocytes % 17.2 % (15.3-44.8); MCH 30.5 pg (27.0-35.0); MCHC 34.1 g/dL (32.0-36.0); MCV 89.3 fL (80-100); MPV 8.6 fL (7.6-11.3); Monocytes % 11.6 % (3.3-12.3); Neutrophils % 69.5 % (41.7-73.7); Nucleated Red Blood Cells % 0.1 % (0-0); Platelets 221 thou/uL (152-406); RBC Red Blood Cell Count 4.55 M/uL (3.86-4.86); Red Cell Distribution Width 14.6 % (12.1-15.2)
[2024-07-06 06:10] LABS: Anion Gap 6.6 mEq/L (5.0-15.0); Magnesium 1.7 mg/dL (1.6-2.4); Phosphorus 3.4 mg/dL (2.5-4.9); Potassium 3.6 mEq/L (3.5-5.1); Thyroid Stimulating Hormone 3.71 uIU/mL (0.358-3.740)
[2024-07-06 08:57] LABS: Albumin 3.1 g/dL (3.4-5.0); Albumin/Globulin Ratio 0.9 (1.1-1.8); Bilirubin Direct 0.3 mg/dL (0-0.2); Bilirubin Indirect, Calculated 0.6 mg/dL (0.2-0.8); Bilirubin Total 0.9 mg/dL (0.2-1.0); Globulin 3.3 g/dL (2.3-3.5); Protein, Total 6.4 g/dL (6.4-8.2)
[2024-07-06] MEDS: APIXABAN 5 MG TABLET PO SCH (09:19)
[2024-07-06] MEDS: POTASSIUM CL SA 10 MEQ TAB PO SCH (09:19)
[2024-07-06] MEDS: AMIODARONE HCL 200 MG TAB PO SCH (09:19)
[2024-07-06] MEDS: ATORVASTATIN 20 MG TAB PO SCH (09:19)
--- NOTE | 2024-07-06 10:42 | P.CNS ---
Date of Consult: 07/06/24 Chief Complaint: Acute hypoxic respiratory failure 2/2 CHF exacerbation History of Present Illness: Patient with PMH of DIastolic heart failure, pulmonary HTN, presented with worsening SOB, MORAN and lower extremities edema, also report chest pressure when it is hard for her to breath, denies palpitations, no syncope. Allergies codeine Allergy (Unknown, Verified 02/19/24 13:26) Itching/Hives/Rash morphine Allergy (Unknown, Verified 02/19/24 13:26) Itching/Hives/Rash Home medications list reviewed: Yes Home Medications: Cholecalciferol (Vitamin D3) [Vitamin D3] 2,000 unit PO DAILY 02/19/24 [place]-3 Fatty Acids [[place]-3] 1,000 mg PO DAILY 02/19/24 Red Beet [Beet Root] 500 mg PO DAILY 02/19/24 Amiodarone HCl [Cordarone*] 200 mg PO BID #60 tab 06/08/24 Amlodipine [Norvasc*] 10 mg PO BEDTIME #30 tab 06/08/24 Apixaban [Eliquis] 5 mg PO BID #60 tab 06/08/24 Metoprolol Tartrate [Lopressor*] 25 mg PO BID 6AM 6PM #60 tab 06/08/24 Atorvastatin Calcium 20 mg PO DAILY 07/05/24 Furosemide 20 mg PO 07/05/24 Potassium Chloride 20 meq PO DAILY 07/05/24 - Past Medical/Surgical History -: Hypertension -: Hyperlipidemia -: CHF -: Removal of benign thyroid tumor -: Removal of benign breast tumor -: Hysterectomy -: Groin repair - Social History Alcohol use: No CD- Drugs: No Review of Systems 10-point ROS is otherwise unremarkable Physical Examination Temp Pulse Resp BP Pulse Ox 97.7 F 83 16 123/66 93 07/06/24 08:00 07/06/24 09:18 07/06/24 08:00 07/06/24 09:18 07/06/24 08:00 General: Alert, In no apparent distress HEENT: Atraumatic, PERRLA, Mucous membr. moist/pink, EOMI, Sclerae nonicteric Neck: Supple, 2+ carotid pulse no bruit, No LAD, Without JVD or thyroid abnormality Respiratory: Clear to auscultation bilaterally, Normal air movement Cardiovascular: Regular rate/rhythm, Normal S1 S2 Gastrointestinal: Normal bowel sounds, No tenderness Musculoskeletal: No tenderness Integumentary: No rashes Neurological: Normal gait, Normal speech, Normal tone, Normal affect Lymphatics: No axilla or inguinal lymphadenopathy - Problems (1) Acute on chronic diastolic heart failure Current Visit: Yes Status: Acute Plan: Patient responded well to lasix 40 mg IV, continue lasix and continue to monitor input and output continue lopressor 25 mg po BID Stop Norvasc add Entresto 24 mg po BID add Aldactone 25 mg daily consider adding Jardiance 10 mg daily at discharge. (2) Chest pain Current Visit: Yes Status: Acute Plan: most likely related to her heart failure, but she got multiple risk factors for CAD Patient can keep her follow up for a stress test as outpatient. (3) A-fib Current Visit: No Status: Acute Plan: Patient is currently in AF, rate controlled. QTc is over 500 lower down Amiodarone to 200 mg po daily continue lopressor 25 mg po bid continue Eliquis 5 mg po BID
[2024-07-06] MEDS: SPIRONOLACTONE 25 MG TABLET PO SCH (12:19)
[2024-07-06] MEDS: METOPROLOL TAR 25 MG TAB PO SCH (18:00)
--- NOTE | 2024-07-06 18:59 | P.PN ---
Date of Service: 07/06/24 Subjective Awake, reports feeling better she is on 3 LNC, will need to wean prior to discharge ROS 10 point ROS as noted above, otherwise negative Physical Exam General: Alert and Oriented x3, NAD HEENT: Atraumatic, Normocephalic no bruit Respiratory: Inspiratory wheezes Cardiovascular: Normal pulses, RRR, S1 S2 present Capillary refill: <2 Seconds Gastrointestinal: Normal bowel sounds Musculoskeletal: No clubbing Integumentary: No rashes Neurological: Normal speech, Normal tone Vitals Reviewed Problem list Acute hypoxic respiratory failure secondary to acute on chronic diastolic heart failure Atrial fibrillation Chest tightness on inhalatio Elevated bilirubin Assessment and Plan Acute hypoxic respiratory failure secondary to acute on chronic diastolic heart failure Atrial fibrillation Chest tightness on inhalation - Continuous telemetry - continue Lasix twice daily - Strict I's and O's, daily weights - Cardiology following, once discharge, will follow up for outpatient stress test - Cardiology recommends Jardiance 10 mg Daily once discharged - continue home medications as appropriate Elevated bilirubin -Monitor in AM labs while diuresing DVT SCD FUll code LOS 24 hour OBS Discharge Plan: Home Plan to discharge in: 48 Hours
[2024-07-06] MEDS ORDERED: AMLODIPINE 10 MG TAB PO SCH (21:00)
[2024-07-06] MEDS: SACUBITRIL/VALSARTAN 24/26 MG TAB PO SCH (21:04)
[2024-07-07 04:56] LABS: Absolute Eosinophils 0.1 K/uL (0-0.5); Absolute Lymphocytes (CBC) 1.4 K/uL (0.7-4.9); Absolute Monocytes 0.7 K/uL (0.1-1.3); Absolute Neutrophil 3.9 K/uL (1.8-8.0); Basophils % 0.7 % (0-1.3); Eosinophils % 0.9 % (0-4.4); Hematocrit 42.3 % (36.0-45.0); Hemoglobin 14.4 g/dL (12.0-15.0); Lymphocytes % 22.8 % (15.3-44.8); MCH 30.2 pg (27.0-35.0); MCV 88.7 fL (80-100); MPV 8.7 fL (7.6-11.3); Monocytes % 11.6 % (3.3-12.3); Nucleated Red Blood Cells % 0.1 % (0-0); Platelets 231 thou/uL (152-406); RBC Red Blood Cell Count 4.77 M/uL (3.86-4.86); Red Cell Distribution Width 14.6 % (12.1-15.2)
[2024-07-07 05:10] LABS: Anion Gap 7.3 mEq/L (5.0-15.0); Magnesium 1.9 mg/dL (1.6-2.4); Phosphorus 3.4 mg/dL (2.5-4.9); Potassium 3.3 mEq/L (3.5-5.1)
[2024-07-07] MEDS: AMIODARONE HCL 200 MG TAB PO SCH (09:00)
[2024-07-07] MEDS: POTASSIUM CL SA 10 MEQ TAB PO ONE (09:00)
[2024-07-07 09:14] VITALS: O2SAT 92
--- NOTE | 2024-07-07 11:41 | P.DS ---
Admission Date: 07/06/24 Discharge Date: 07/07/24 Disposition: ROUTINE DISCHARGE Discharge Condition: GOOD Reason for Admission: Acute hypoxic respiratory failure 2/2 CHF exacerbation Brief History of Present Illness: Georgia Curry is an 84 year old female with Pmhx Afib, Chronic Diastolic heart failure, Hypertensive disorder, Pulmonary HTN who presents to the ED SOB that began several days ago. Family at the bedside reports the patient is sleeping sitting up which is causing edema to BLE. Family also reports, Dr. Esteban had "double" her dose of lasix recently but they have not started the medications yet, she is also scheduled for a stress test tomorrow (07/06). On evaluation, she is on 3 LNC, gurgles to lung sounds, and short of breath while speaking. She reports not needing oxygen at home. Laboratory evaluation signif icant for BNP 2545, elevated bilirubin: Tbil 1.3, direct bili 0.4, indirect bili 0.9, Bicarb 33. Last admission in May BNP 5399, some improvement on the BNP this admission. Chest xray reports "Mild basilar opacities with small effusions could reflect some mild pulmonary edema with or without some pneumonia or pneumonitis in the lung bases.." Georgia will be admitted to hospitalist service for acute hypoxic respiratory failure 2/2 CHF exacerbation. Hospital Course: Patient was admitted to hospital for CHF exacerbation. She was seen by cardiology and her medications were adjusted. She was diuresed with IV Lasix and cardiology recommended the following changes to her medications Continue Lopressor 25 mg twice daily Stop amlodipine/Norvasc Add Entresto 25 mg by mouth twice daily Add Aldactone 25 mg daily Add Jardiance 10 mg daily Reduce amiodarone from 200 mg twice daily to 200 milligrams daily Continue Eliquis 5 mg twice daily Patient has responded well to therapy, is currently breathing on room air, ambulatory with PT without any dyspnea on exertion. Patient stable for discharge and outpatient follow-up with cardiology for outpatient stress test, follow-up with cardiology in 1 to 2 weeks. Vital Signs/Physical Exam: Temp Pulse Resp BP Pulse Ox 97.8 F 68 20 122/81 92 07/07/24 08:00 07/07/24 08:00 07/07/24 08:00 07/07/24 09:01 07/07/24 08:00 General: Alert, In no apparent distress, Oriented x3 HEENT: Atraumatic, PERRLA Neck: Supple, JVD not distended Respiratory: Clear to auscultation bilaterally, Normal air movement Cardiovascular: Regular rate/rhythm, Normal S1 S2 Gastrointestinal: Normal bowel sounds, No tenderness Musculoskeletal: No tenderness Integumentary: No rashes Neurological: Normal speech Laboratory Data at Discharge: WBC 6.10 thou/uL (4.3-10.9) 07/07/24 04:31 Hgb 14.4 g/dL (12.0-15.0) 07/07/24 04:31 Hct 42.3 % (36.0-45.0) 07/07/24 04:31 Plt Count 231 thou/uL (152-406) 07/07/24 04:31 PT 18.4 SECONDS (10-13.0) H 07/05/24 08:36 INR 1.65 07/05/24 08:36 Sodium 142 mEq/L (136-145) 07/07/24 04:31 Potassium 3.3 mEq/L (3.5-5.1) L 07/07/24 04:31 BUN 23 mg/dL (7-18) H 07/07/24 04:31 Creatinine 0.96 mg/dL (0.55-1.02) 07/07/24 04:31 Glucose 101 mg/dL (74-106) 07/07/24 04:31 Phosphorus 3.4 mg/dL (2.5-4.9) 07/07/24 04:31 Magnesium 1.9 mg/dL (1.6-2.4) 07/07/24 04:31 Total Bilirubin 0.9 mg/dL (0.2-1.0) 07/06/24 04:56 AST 17 U/L (15-37) 07/06/24 04:56 ALT 17 U/L (13-56) 07/06/24 04:56 Alkaline Phosphatase 48 U/L (45-117) 07/06/24 04:56 Home Medications: Cholecalciferol (Vitamin D3) [Vitamin D3] 2,000 unit PO DAILY 02/19/24 [place]-3 Fatty Acids [[place]-3] 1,000 mg PO DAILY 02/19/24 Red Beet [Beet Root] 500 mg PO DAILY 02/19/24 Apixaban [Eliquis] 5 mg PO BID #60 tab 06/08/24 Atorvastatin Calcium 20 mg PO DAILY 07/05/24 Potassium Chloride 20 meq PO DAILY 07/05/24 Amiodarone HCl [Cordarone*] 200 mg PO DAILY #30 tab 07/07/24 Empagliflozin [Jardiance] 10 mg PO DAILY #30 tab 07/07/24 Furosemide 20 mg PO DAILY #30 tab 07/07/24 Metoprolol Tartrate [Lopressor*] 25 mg PO BID 6AM 6PM #60 tab 07/07/24 Sacubitril/Valsartan [Entresto 24 mg-26 mg Tablet] 1 tab PO BID #60 tab 07/07/24 Spironolactone [Aldactone*] 25 mg PO DAILY #30 tab 07/07/24 New Medications: Spironolactone [Aldactone*] 25 mg PO DAILY #30 tab Amiodarone HCl [Cordarone*] 200 mg PO DAILY #30 tab Sacubitril/Valsartan [Entresto 24 mg-26 mg Tablet] 1 tab PO BID #60 tab Furosemide 20 mg PO DAILY #30 tab Empagliflozin [Jardiance] 10 mg PO DAILY #30 tab Metoprolol Tartrate [Lopressor*] 25 mg PO BID 6AM 6PM #60 tab Physician Discharge Instructions: Patient was admitted to hospital for CHF exacerbation. She was seen by cardiology and her medications were adjusted. She was diuresed with IV Lasix and cardiology recommended the following changes to her medications Continue Lopressor 25 mg twice daily Stop amlodipine/Norvasc Add Entresto 25 mg by mouth twice daily Add Aldactone 25 mg daily Add Jardiance 10 mg daily Reduce amiodarone from 200 mg twice daily to 200 milligrams daily Continue Eliquis 5 mg twice daily Patient has responded well to therapy, is currently breathing on room air, ambulatory with PT without any dyspnea on exertion. Patient stable for discharge and outpatient follow-up with cardiology for outpatient stress test, follow-up with cardiology in 1 to 2 weeks. Diet: AHA Activity: Ad jack Followup: Elmer Esteban MD [Primary Care Provider] - 1-2 Weeks Time spent managing pt's care (in minutes): 48
[2024-07-07 13:45] VITALS: BP 116/81; TEMP 97.6
--- NOTE | 2024-07-14 12:56 | EKG ---
Test Date: 2024-07-05 Test Time: 08:25:14 [employer] Worker: GEOFF MEASUREMENT RESULTS: Intervals: Rate: 68 ND: QRSD: 100 QT: 556 QTc: 591 [place]: P: ND: QRS: -80 T: 72 INTERPRETIVE STATEMENTS: Atrial fibrillation Left axis deviation Incomplete right bundle branch block Nonspecific T wave abnormality Abnormal ECG Compared to ECG 06/04/2024 05:27:04 Incomplete right bundle-branch block now present T-wave abnormality now present Ventricular premature complex(es) no longer present ST (T wave) deviation no longer present Electronically Signed On 07-14-24 12:35:41 CDT by Matt Busch
== END 2024-07-07 12:51 | disposition home or self-care (01) | DRG 291 ==
LOC: ER 08:13 → ERHOLD 10:44 → 2ND 19:48 → OBSVTOIN 07-06 20:31
PROVIDERS: ADMIT Internal Medicine; ATTEND Hospitalist
DX: I11.0 Hypertensive heart disease with heart failure (principal); I50.33 Acute on chronic diastolic (congestive) heart failure; J96.01 Acute respiratory failure with hypoxia; I48.91 Unspecified atrial fibrillation; Z88.5 Allergy status to narcotic agent; Z79.01 Long term (current) use of anticoagulants; Z90.710 Acquired absence of both cervix and uterus; Z79.899 Other long term (current) drug therapy; Z11.52 Encounter for screening for COVID-19
CPT/HCPCS: 36415; 71045; 80048; 80076; 83735; 83880; 84100; 84439; 84443; 84484; 85025; 85610; 87428; 93005; 96374; 97161; 99285; G0378; J1938